=== PATIENT | female | born 1970 | race Caucasian/White ===

== ENCOUNTER → 2018-04-03 | Outpatient (CLI) | payer MEDICARE, OTHER ==
--- NOTE | 2018-04-07 08:11 | MM ---
Reason for exam: screening (asymptomatic). Last mammogram was performed 2 years and 10 months ago. History: Family history of breast cancer in maternal aunt at age 55, breast cancer in maternal cousin at age 27, and breast cancer in mother at age 73. Cancelled Right Needle Localization of the right breast, November 18, 2012. Physical Findings: A clinical breast exam by your physician is recommended on an annual basis and results should be correlated with mammographic findings. MG 3D Screening Mammo W/Cad Bilateral CC, MLO, and XCCL view(s) were taken. Prior study comparison: June 07, 2015, bilateral MG screening mammo w CAD. May 20, 2014, bilateral MG diagnostic mammo w CAD TEOFILO. The breast tissue is heterogeneously dense. This may lower the sensitivity of mammography. No significant changes when compared with prior studies. ASSESSMENT: Benign, BI-RAD 2 RECOMMENDATION: Routine screening mammogram of both breasts in 1 year.
== END | disposition home or self-care (01) ==
LOC: RADMAMWWP 10:52
PROVIDERS: ATTEND Family Medicine
DX: Z12.31 Encounter for screening mammogram for malignant neoplasm of breast (principal)
CPT/HCPCS: 77063; 77067

== ENCOUNTER → 2018-12-05 | Outpatient (CLI) | payer MEDICARE, OTHER ==
[2018-12-05 14:01] VITALS: BP 126/59; PULSE 85; RESP 18; TEMP 96.8; BMI 68.9
--- NOTE | 2018-12-05 15:00 | P.GSHP ---
History of Present Illness H&P Date: 12/05/18 Chief Complaint: BRCA testing Hillary is a 47-year-old white female who comes for breast evaluation. [place] [id number] and was a BIRADS 2. This was a 3-D mammogram. The patient does not feel anything of concern in her breast. She has no nipple discharge or skin changes. She has not had any breast biopsies. No trauma or infection to the breast. She has no complaint of any breast pain. A Daniela Risk assesment was done on the patient her 5 year breast cancer risk is 2% and her lifetime risk is 18.1%. Family History: 1. maternal aunt: breast cancer at 40's, recurrence (went into a study not know results of study, told she was [employer]) 2. maternal cousin: breast cancer stage 4 at 28, delivered baby early and had chemo and is alive 15 years later, BRCA test ? done 3. mother: breast cancer at 72 Hormoanl History: menarche: 9 : first at 19, 4, children 3, 1 [place], breast fed: yes peroids: irregular BCP: no hormones: no Past surgical history: 1. 3 C-sections 2. 2 umbilical hernia repairs 3. Tubal ligation 4. Cholecystectomy (jaundice) Past Medical History: 1. obesity 2. DJD disease 3. gout 4. hormonal imbalance/zoloft 5. heel spur 6. arthritis Social History: smoke: no alcohol: monthly drugs: marijuana on occasion - Constitutional Constitutional: Denies chills, Denies fever - EENT Comment: wears glasses Eyes: denies blurred vision, denies pain Ears: bilateral: decreased hearing (needs a hearing test), deny: tinnitus Ears, nose, mouth and throat: Reports sore throat, Denies headache - Breasts Breasts: bilateral: as per HPI - Cardiovascular Cardiovascular: Denies chest pain, Denies shortness of breath - Respiratory Comment: chronic bronchitis Respiratory: Reports cough - Gastrointestinal Gastrointestinal: Denies abdominal pain, Denies diarrhea, Denies nausea, Denies vomiting - Genitourinary (Female) Comment: UTI - Menstruation Menstruation: Reports menses variable - Musculoskeletal Comment: arthritis - Integumentary Integumentary: Denies pruritus, Denies rash - Neurological Neurological: Denies numbness, Denies weakness - Psychiatric Psychiatric: Reports anxiety - Endocrine Endocrine: Reports fatigue, Reports weight change - Hematologic/Lymphatic Comment: Bleeds easily, family history of hemophilia - Allergic/Immunologic Allergic/Immunologic: Reports seasonal allergies 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 but denies depression History of Any Multi-Drug Resistant Organisms: MRSA Date of last positivie culture/infection: 05/24/16 MDRO Source:: RIGHT LEG Past Surgical History: Section, Cholecystectomy, Hernia Repair Additional Past Surgical History / Comment(s): 3, tubal ligation, hernia repair 2 Past Anesthesia/Blood Transfusion Reactions: No Reported Reaction Past Psychological History: Anxiety Smoking Status: Never smoker Past Alcohol Use History: Occasional Additional Past Alcohol Use History / Comment(s): Patient states she is a lifelong nonsmoker. She has used marijuana in the past occasionally. She denies any other street drug use. She lives with HER-2 adult sons and brother- in-law. There are 9 dogs in the home along with 3 cats that stay in the basement, a bunny. Past Drug Use History: Marijuana Additional Drug Use History / Comment(s): used in past per pt - Past Family History Mother Family Medical History: Congestive Heart Failure (CHF), Diabetes Mellitus Medications and Allergies Home Medications Medication Instructions Recorded Confirmed Type ALPRAZolam [Xanax] 1 mg PO BID 12/22/14 12/05/18 History Albuterol Inhaler [Ventolin Hfa 2 puff INHALATION RT-Q6H PRN 12/22/14 12/05/18 History Inhaler] Albuterol Nebulized [Ventolin 2.5 mg INHALATION RT-Q6H PRN 12/22/14 12/05/18 History Nebulized] Allopurinol [Zyloprim] 100 mg PO DAILY 12/22/14 12/05/18 History Cholecalciferol [Vitamin D3] 4,000 unit PO DAILY@1200 12/22/14 12/05/18 History Furosemide [Lasix] 40 mg PO DAILY PRN 12/22/14 12/05/18 History Potassium Chloride 20 meq PO DAILY PRN 12/22/14 12/05/18 History Sertraline [Zoloft] 100 mg PO DAILY 12/22/14 12/05/18 History traMADol HCl [Ultram] 100 mg PO Q6H PRN 12/22/14 12/05/18 History Ibuprofen [Motrin] 600 mg PO Q6HR PRN 03/12/16 12/05/18 History SILVER sulfADIAZINE Cream 1 applic TOPICAL DAILY applic 05/28/16 12/05/18 Rx [Silvadene 1% Cream] Allergies Allergy/AdvReac Type Severity Reaction Status Date / Time codeine Allergy Nausea & Verified 12/05/18 14:10 Vomiting iodine Allergy Unknown Verified 12/05/18 14:10 morphine Allergy Unknown Verified 12/05/18 14:10 Surgical - Exam Vital Signs Temp Pulse Resp BP Pulse Ox 96.8 F L 85 18 126/59 96 12/05/18 13:22 12/05/18 13:22 12/05/18 13:22 12/05/18 13:22 12/05/18 13:22 BMI 68.9 - General obese - Eyes normal ocular movement - ENT no hearing loss, no congestion - Neck no masses, trachea midline - Respiratory normal respiratory effort, clear to auscultation - Cardiovascular Rhythm: regular Heart Sounds: normal: S1, S2 - Abdomen Abdomen: soft, non tender, no guarding, no rigid, no rebound - Integumentary Abdomen well-healed scar from prior surgery, patient has a healing wound in the midportion of this incision she states that she scratched this area - Neurologic no disoriented, no combative - Musculoskeletal difficulty with ambulation related to weight and DJD - Psychiatric oriented to time, oriented to person, oriented to place, speech is normal, memory intact Breast examination: Right breast: Multi-positional exam no dominant mass or not is of concern Right axilla: No adenopathy of concern Left breast: Multi-positional exam no dominant mass or not his of concern Left axilla: No adenopathy of concern Results Mammogram results reviewed Assessment and Plan Assessment: Impression: 1. fibrocystic breast changes 2. Most recent mammogram March 2018 BIRADS 2 3. Family history breast cancer 4. High risk breast cancer 5. Degenerative joint disease 6.morbid obesity 7. gout Plan: 1. Genetic counseling possible BRCA1 testing 2. Referral for possible bariatric surgery 3. Medical management of medical conditions 4. Bilateral mammogram March 2019 with physician exam at that time CC: Cortes Lomeli
== END | disposition home or self-care (01) ==
LOC: WWCWWP 13:01
PROVIDERS: ATTEND Surgery
DX: Z53.9 Procedure and treatment not carried out, unspecified reason (principal)

== ENCOUNTER → 2018-12-10 | Outpatient (CLI) | payer MEDICARE, OTHER ==
--- NOTE | 2018-12-11 01:44 | US ---
EXAMINATION TYPE: US carotid duplex BILAT DATE OF EXAM: 12/10/2018 COMPARISON: NONE CLINICAL HISTORY: 47-year-old female R09.89 circulatory symptoms. Bruit, no h/o stroke TECHNIQUE: Carotid duplex ultrasound examination. Indirect Doppler criteria was utilized. FINDINGS: EXAM MEASUREMENTS: RIGHT: Peak Systolic Velocity (PSV) cm/sec ----- Right CCA: 125.3 ----- Right ICA: 110.6 ----- Right ECA: 87.5 ICA/CCA ratio: 0.9 RIGHT: End Diastole cm/sec ----- Right CCA: 20.4 ----- Right ICA: 30.3 ----- Right ECA: 17.1 LEFT: Peak Systolic Velocity (PSV) cm/sec ----- Left CCA: 98.6 ----- Left ICA: 110.2 ----- Left ECA: 127.2 ICA/CCA ratio: 1.1 LEFT: End Diastole cm/sec ----- Left CCA: 23.3 ----- Left ICA: 34.4 ----- Left ECA: 23.7 VERTEBRALS (direction of flow): Right Vertebral: Antegrade Left Vertebral: Antegrade Rhythm: Normal Lawn Sprinkler Servicer notes: Morbidly obese patient who kept talking during exam Lawn Sprinkler Servicer notes: Mild homogeneous plaque with no significant stenosis seen. IMPRESSION: No hemodynamically significant stenosis appreciated in either internal carotid artery. Criteria for Assigning % of Stenosis / Diameter reduction (Estimation based on the indirect measurements of the internal carotid artery velocities (ICA PSV). 1. Normal (no stenosis)=ICA PSV < 125 cm/s: ratio < 2.0: ICA EDV<40 cm/s. 2. Less than 50% stenosis=ICA PSV < 125 cm/s: ratio < 2.0: ICA EDV<40 cm/s. 3. 50 to 69% stenosis=ICA PSV of 125 to 230 cm/s: ration 2.0 ? 4.0: ICA EDV 40-100 cm/s. 4. Greater than 70% stenosis to near occlusion= ICA PSV > 230 cm/s: ratio > 4.0: ICA EDV > 100 cm/s. 5. Near occlusion= ICA PSV velocities may be low or undetectable: variable ratio and ICA EDV. 6. Total occlusion=unable to detect flow.
== END ==
LOC: RADUSWWP 16:51
PROVIDERS: ATTEND Family Medicine
DX: R09.89 Other specified symptoms and signs involving the circulatory and respiratory systems (principal)
CPT/HCPCS: 93880

== ENCOUNTER → 2019-05-28 | Outpatient (CLI) | payer MEDICARE, OTHER ==
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
== END | disposition home or self-care (01) ==
LOC: SLEEP 16:22
PROVIDERS: ATTEND Internal Medicine
DX: G47.33 Obstructive sleep apnea (adult) (pediatric) (principal); M54.5 Low back pain; M51.36 Other intervertebral disc degeneration, lumbar region; M10.9 Gout, unspecified; Z79.1 Long term (current) use of non-steroidal anti-inflammatories (NSAID); Z79.899 Other long term (current) drug therapy; Z91.013 Allergy to seafood; Z86.59 Personal history of other mental and behavioral disorders; Z79.891 Long term (current) use of opiate analgesic; Z98.890 Other specified postprocedural states; Z90.49 Acquired absence of other specified parts of digestive tract
CPT/HCPCS: 99211

== ENCOUNTER → 2019-10-29 | Outpatient (CLI) | payer MEDICARE, OTHER ==
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
== END | disposition home or self-care (01) ==
LOC: SLEEP 14:48
PROVIDERS: ATTEND Internal Medicine
DX: G47.33 Obstructive sleep apnea (adult) (pediatric) (principal); E66.9 Obesity, unspecified; Z86.59 Personal history of other mental and behavioral disorders; M51.36 Other intervertebral disc degeneration, lumbar region; M10.9 Gout, unspecified; G47.61 Periodic limb movement disorder; Z90.49 Acquired absence of other specified parts of digestive tract; Z98.890 Other specified postprocedural states; Z79.1 Long term (current) use of non-steroidal anti-inflammatories (NSAID); Z79.891 Long term (current) use of opiate analgesic; Z79.899 Other long term (current) drug therapy

== ENCOUNTER → 2020-07-07 | Outpatient (CLI) | payer MEDICARE, OTHER ==
--- NOTE | 2020-07-07 15:33 | XR ---
EXAMINATION TYPE: XR mandible complete DATE OF EXAM: 07/07/2020 COMPARISON: NONE HISTORY: Jaw pain TECHNIQUE: 5 views of the mandible are submitted for evaluation FINDINGS: There is no evidence for fracture. TMJs appear symmetric. No osseous lesions are noted. No bony destructive process seen. IMPRESSION: Grossly unremarkable study.
== END | disposition home or self-care (01) ==
LOC: RADXRMAIN 14:56
PROVIDERS: ATTEND Nurse Practitioner Family
DX: R68.84 Jaw pain (principal)
CPT/HCPCS: 70110

== ENCOUNTER → 2020-09-13 | Outpatient (CLI) | payer MEDICARE, OTHER ==
--- NOTE | 2020-09-13 18:21 | BD ---
EXAMINATION TYPE: Axial Bone Density DATE OF EXAM: 09/13/2020 COMPARISON: NONE CLINICAL HISTORY: 49-year-old female Z78.0, menopausal state Height: 5 FT 6 IN Weight: 461 FRAX RISK QUESTIONS: Alcohol (3 or more units per day): NO Family History (Parent hip fracture): NO Glucocorticoids (More than 3mos): NO (Ex: prednisone, prednisolone, methylprednisolone, dexamethasone, and hydrocortisone). History of Fracture in Adulthood: YES Secondary Osteoporosis: 1. Type 1 Diabetes: NO 2. Hyperthyroidism: NO 3. Menopause before 45: NO 4. Malnutrition: NO 5. Chronic liver disease: NO Rheumatoid Arthritis: NO Current Tobacco Use: NO RISK FACTORS HISTORY OF: Family History of Osteoporosis: NO Active: NO Diet low in dairy products/other sources of calcium: NO Postmenopausal woman: NO If Premenopausal, do you have irregular periods: YES Take estrogen and/or progesterone medications: NONE Lost more than 2 inches in height since high school: YES Frequent falls: UNSTEADY WITH OUT USE OF CANE MEDICATIONS: Additional Medications: METFORMIN, ZOLOFT, VIT D, LISINOPRIL, ALLOPURINOL, LASIX, POTASSIUM ,CRANBERR Y Additional History: PT OVER TABLE WEIGHT LIMIT DID BOTH WRISTS EXAM MEASUREMENTS: Bone mineral density about the R Wrist (g/cm2): 0.895 Bone mineral density about the L Wrist (g/cm2): 0.869 T Score values are as follows: -----Dist. R+U: RT3.5 LT 3.0 -----Prox. R+U: RT 1.2 LT 1.4 -----Radius total: RT 5.3 LT 3.8 BASELINE IMPRESSION: Patient was over the table weight limit so routine measurements could not be obtained at the hips or lumbar spine. Normal (Values between +1 and -1 indicate normal bone mass) as measured in the bilateral forearms. Consider repeating this study in 5 years or sooner if there is some new clinical indication. NOTE: T-SCORE=SD OF THE YOUNG ADULT MEAN.
--- NOTE | 2020-09-14 13:01 | MM ---
Reason for exam: screening (asymptomatic). Last mammogram was performed 2 years and 5 months ago. History: Family history of breast cancer in maternal aunt at age 55, breast cancer in maternal cousin at age 27, and breast cancer in mother at age 73. Cancelled Right Needle Localization of the right breast, November 18, 2012. Physical Findings: A clinical breast exam by your physician is recommended on an annual basis and results should be correlated with mammographic findings. MG Screening Mammo w CAD Bilateral CC and MLO view(s) were taken. Prior study comparison: April 03, 2018, bilateral MG 3d screening mammo w/cad. June 07, 2015, bilateral MG screening mammo w CAD. The breast tissue is heterogeneously dense. This may lower the sensitivity of mammography. Finding: There are typically benign round, diffuse/scattered and regional calcifications in the right breast. There is no discrete abnormality. ASSESSMENT: Benign, BI-RAD 2 RECOMMENDATION: Routine screening mammogram of both breasts in 1 year.
== END | disposition home or self-care (01) ==
LOC: RADMAMWWP 13:47
PROVIDERS: ATTEND Family Medicine
DX: Z12.31 Encounter for screening mammogram for malignant neoplasm of breast (principal); Z78.0 Asymptomatic menopausal state
CPT/HCPCS: 77067; 77080

== ENCOUNTER → 2021-03-01 | Outpatient (CLI) | payer MEDICARE, OTHER ==
--- NOTE | 2021-03-01 15:01 | XR ---
EXAMINATION TYPE: XR hand complete LT DATE OF EXAM: 03/01/2021 CLINICAL HISTORY: pain TECHNIQUE: Frontal, lateral and oblique images of the left hand are obtained. COMPARISON: None. FINDINGS: There is no acute fracture/dislocation evident. The joint spaces appear within normal limi ts. The overlying soft tissue appears unremarkable. IMPRESSION: There is no acute fracture or dislocation. ICD 10 NO FRACTURE, INITIAL EVALUATION
== END | disposition home or self-care (01) ==
LOC: RADXRMAIN 14:37
PROVIDERS: ATTEND Nurse Practitioner
DX: M79.642 Pain in left hand (principal)

== ENCOUNTER → 2021-04-27 | Outpatient (CLI) | payer MEDICARE, OTHER ==
[2021-04-27 14:37] LABS: Basophils # (A) 0.04 X 10*3/uL (0.00-0.10); Basophils % (A) 0.5 %; Eosinophils % (A) 2.5 %; HCT 38.4 % (37.2-46.3); HGB 12.5 g/dL (12.0-15.0); Lymphocytes # (A) 1.39 X 10*3/uL (0.90-5.00); Lymphocytes % (A) 17.6 %; MCH 30.1 pg (27.0-32.0); MCHC 32.6 g/dL (32.0-37.0); MCV 92.5 fL (80.0-97.0); Mean Platelet Volume 11.3 fL (9.5-12.2); Monocytes # (A) 0.41 X 10*3/uL (0.20-1.00); Monocytes % (A) 5.2 %; Neutrophils # (A) 5.85 X 10*3/uL (1.80-7.70); Neutrophils % (A) 73.9 %; Platelet Count 286 X 10*3/uL (140-440); RBC 4.15 X 10*6/uL (4.10-5.20); RDW 14.2 % (11.5-14.5); WBC 7.91 X 10*3/uL (4.50-10.00)
[2021-04-27 15:25] LABS: Estradiol 70.8 pg/mL; Follicle Stimulating Hormone 7.7 mIU/mL
[2021-04-27 15:50] LABS: Progesterone 0.7 ng/mL; Thyroid Peroxidase Antibodies <28.0 U/mL (0.0-60.0)
== END | disposition home or self-care (01) ==
LOC: LABWHC1 10:41
PROVIDERS: ATTEND Midwife
DX: N92.6 Irregular menstruation, unspecified (principal)
CPT/HCPCS: 36415; 82670; 83001; 84144; 84403; 84443; 85025; 86376; 86800

== ENCOUNTER → 2021-11-30 | Outpatient (CLI) | payer MEDICARE, OTHER ==
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
== END ==
LOC: SLEEP 16:27
PROVIDERS: ATTEND Internal Medicine
DX: G47.33 Obstructive sleep apnea (adult) (pediatric) (principal); E66.01 Morbid (severe) obesity due to excess calories; F32.A Depression, unspecified; F41.9 Anxiety disorder, unspecified; M10.9 Gout, unspecified; G47.61 Periodic limb movement disorder; Z90.49 Acquired absence of other specified parts of digestive tract; Z87.39 Personal history of other diseases of the musculoskeletal system and connective tissue; Z98.890 Other specified postprocedural states; Z99.89 Dependence on other enabling machines and devices; Z87.59 Personal history of other complications of pregnancy, childbirth and the puerperium; Z87.828 Personal history of other (healed) physical injury and trauma; Z88.5 Allergy status to narcotic agent; Z88.6 Allergy status to analgesic agent; Z91.041 Radiographic dye allergy status

== ENCOUNTER → 2022-01-12 | Outpatient (CLI) | payer MEDICARE, OTHER ==
--- NOTE | 2022-01-12 15:13 | US ---
EXAMINATION TYPE: US venous doppler duplex LE BI DATE OF EXAM: 01/12/2022 2:54 PM COMPARISON: NONE CLINICAL HISTORY: M79.651 PAIN IN RT THIGH. Right leg pain SIDE PERFORMED: Bilateral TECHNIQUE: The lower extremity deep venous system is examined utilizing real time linear array sonog tennille with graded compression, doppler sonography and color-flow sonography. VESSELS IMAGED: Common Femoral Vein Deep Femoral Vein Greater Saphenous Vein * Femoral Vein Popliteal Vein Small Saphenous Vein * Proximal Calf Veins (* superficial vessels) Right Leg: Negative for DVT Left Leg: Negative for DVT No DVT seen at this time. Limited exam due to patient body habitus. Grayscale, color doppler, spectral doppler imaging performed of the deep veins of the bilateral lower extremities. There is normal flow, compressibility, vascular waveforms. IMPRESSION: Suboptimal study without convincing evidence of acute DVT in either lower extremity.
--- NOTE | 2022-01-12 15:23 | XR ---
EXAMINATION TYPE: XR lumbosacral spine min 4V DATE OF EXAM: 01/12/2022 CLINICAL HISTORY: Low back pain. Intervertebral disc degeneration. TECHNIQUE: Frontal, lateral, and oblique images of the lumbar spine are obtained. COMPARISON: None FINDINGS: There are 5 lumbar type vertebral bodies identified. The lumbar spine shows straightened alignment without evidence of acute fracture or dislocation. Vertebral body heights and disk space he ights are within normal limits. Mild multilevel anterior and lateral spurring. The oblique images ap pear within normal limits. The overlying soft tissue appears unremarkable. IMPRESSION: As above.
== END | disposition home or self-care (01) ==
LOC: RADUSWWP 14:11
PROVIDERS: ATTEND Family Medicine
DX: M79.651 Pain in right thigh (principal); M25.78 Osteophyte, vertebrae
CPT/HCPCS: 72110; 93970

== ENCOUNTER → 2022-06-19 | Outpatient (CLI) | payer MEDICARE, OTHER ==
--- NOTE | 2022-06-19 15:52 | USB ---
Reason for Exam: Clinical finding. Patient History: Menarche at age 9. First Full-Term at age 19. 11/18/2012, Cancelled Right Needle Localization on the right side. Maternal cousin had breast cancer, age 27. Maternal aunt had breast cancer, age 55. Mother had breast cancer, age 73. Risk Values: Daniela 5 year model risk: 2.3%. NCI Lifetime model risk: 17.0%. Technique: Method: Targeted. Prior Study Comparison: 04/03/2018 Bilateral Screening Mammogram, [facility]. 09/13/2020 Bilateral Screening Mammogram, [facility]. 06/13/2022 Bilateral MG 3D screening mammo w/cad, [facility]. Findings: The upper section of the breast of the right breast, the axilla of the right breast and the retroareolar of the right breast were scanned. There is an irregular shaped mass with parallel orientation with angular margins in the right breast 10 to 12 cm from the nipple at 1:00. This is hypoechoic with echogenic halo and measures 1.7 x 1.2 x 1.6 cm. There is some internal vascularity identified. No abnormal right axillary lymph nodes identified. Overall Assessment: Highly suggestive of malignancy, BI-RAD 5 Management: Ultrasound Core Biopsy of the right breast. A clinical breast exam by your physician is recommended on an annual basis and results should be correlated with mammographic findings. Electronically signed and approved by: Kevin James D.O.
--- NOTE | 2022-06-19 15:52 | MM ---
Reason for Exam: Additional evaluation requested from abnormal screening. Last screening mammogram was performed less than 1 month ago. Patient History: Menarche at age 9. First Full-Term at age 19. 11/18/2012, Cancelled Right Needle Localization on the right side. Maternal cousin had breast cancer, age 27. Maternal aunt had breast cancer, age 55. Mother had breast cancer, age 73. Risk Values: Daniela 5 year model risk: 2.3%. NCI Lifetime model risk: 17.0%. Prior Study Comparison: 10/27/2012 Right Diagnostic Mammogram, [facility]. 11/07/2012 Right Diagnostic Ultrasound, [facility]. 04/03/2018 Bilateral Screening Mammogram, [facility]. 09/13/2020 Bilateral Screening Mammogram, [facility]. 06/13/2022 Bilateral MG 3D screening mammo w/cad, [facility]. Tissue Density: Right: There are scattered fibroglandular densities. Findings: Analyzed By CAD. Grouped fine pleomorphic calcifications within the upper outer anterior right breast. Persistent focal asymmetry corresponds to palpable marker in the upper inner right breast middle depth with compression. Overall Assessment: Suspicious, BI-RAD 4 Management: Stereotactic Core Biopsy of the right breast. Diagnostic Breast Ultrasound of the right breast. A clinical breast exam by your physician is recommended on an annual basis and results should be correlated with mammographic findings. This exam should not preclude additional follow-up of suspicious palpable abnormalities. Results were given to the patient verbally at the time of exam. Electronically signed and approved by: Kevin James D.O.
== END | disposition home or self-care (01) ==
LOC: RADMAMWWP 14:48
PROVIDERS: ATTEND Family Medicine
DX: R92.8 Other abnormal and inconclusive findings on diagnostic imaging of breast (principal); Z80.3 Family history of malignant neoplasm of breast
CPT/HCPCS: 77065; 76642; G0279; 77061

== ENCOUNTER → 2022-06-22 | Outpatient (CLI) | payer MEDICARE, OTHER ==
[2022-06-22 10:21] VITALS: BP 132/82; PULSE 78; RESP 19; TEMP 98.8
--- NOTE | 2022-06-22 10:49 | P.GSHP ---
History of Present Illness H&P Date: 06/22/22 Chief Complaint: abnorml right breast mammogram Ligia is a 51 year old whtie female seen in consultation for Dr. Farris regarding right breast radiographic abnormalities. The felt a lump in her right breast for several weeks prior to her mammogram. [place] [address]. This did not reveal any lesions of concern in the left breast. In the right breast there was a nodular abnormality as well as some microcalcifications of concern in the upper outer quadrant area. She then underwent additional views of the right breast which again confirmed pleomorphic calcifications in the upper outer anterior right breast for which stereotactic core biopsy was recommended. Additionally an ultrasound was recommended. The ultrasound was performed which revealed a lesion for which ultrasound-guided core biopsy was recommended. This corresponded to the asymmetry seen on the mammogram. Her last mammogram was 1 year ago and this was benign. The patient is not complaining of any trauma or infection in her breast. She is complaining of any lumps in the left breast. She has not had any surgery on her breast. Caffeine: 20 oz/day nicotine: none BCP: never chocolate: none diabetic Family History: 1. Maternal aunt: Breast cancer at 40s, recurrence, with into a study not know the results of the study, told she was Aleta 2. Maternal cousin: Breast cancer stage IV at 28 delivered baby early and had chemo and is alive 15 years later, 3. Mother: Breast cancer a 72 Hormonal history: Menarche: 9 : First a 19, , 1, breast-fed: Yes Periods: last period 6 months ago BCP:none hormones: none Surgical History: C-sections 2 umbilical hernia repairs Tubal ligation Cholecystectomy Medical history: Obesity Degenerative joint disease Gout Hormone imbalance/depression Heel spur Arthritis diabetic Social history: Smoke: Negative Alcohol: Occasional Drugs: Marijuana rarely - Constitutional Constitutional: Reports fever, Reports sweats - EENT Comment: wears glasses Ears: bilateral: tinnitus (occasional) Ears, nose, mouth and throat: Denies headache, Denies sore throat - Breasts Breasts: bilateral: as per HPI - Cardiovascular Cardiovascular: Reports shortness of breath, Denies chest pain - Respiratory Respiratory: Reports cough - Gastrointestinal Gastrointestinal: Denies abdominal pain, Denies diarrhea, Denies nausea, Denies vomiting - Genitourinary (Female) Genitourinary: Denies dysuria, Denies hematuria - Menstruation Menstruation: Reports as per HPI - Musculoskeletal Comment: arthritis/ uses a wheel chair - Integumentary Integumentary: Denies pruritus, Denies rash - Neurological Neurological: Reports numbness, Denies weakness - Psychiatric Psychiatric: Reports anxiety, Reports depression - Endocrine Comment: diabetes - Hematologic/Lymphatic Comment: none - Allergic/Immunologic Allergic/Immunologic: Reports seasonal allergies 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 but denies depression History of Any Multi-Drug Resistant Organisms: MRSA Date of last positivie culture/infection: 05/24/16 MDRO Source:: RIGHT LEG Past Surgical History: Section, Cholecystectomy, Hernia Repair Additional Past Surgical History / Comment(s): 3, tubal ligation, hernia repair 2 Past Anesthesia/Blood Transfusion Reactions: No Reported Reaction Past Psychological History: Anxiety, Depression Smoking Status: Never smoker Past Alcohol Use History: Occasional Additional Past Alcohol Use History / Comment(s): Patient states she is a lifelong nonsmoker. She has used marijuana in the past occasionally. She denies any other street drug use. She lives with HER-2 adult sons and [id number]. There are 9 dogs in the home along with 3 cats that stay in the basement, a bunny. Past Drug Use History: Marijuana Additional Drug Use History / Comment(s): used in past per pt - Past Family History Mother Family Medical History: Congestive Heart Failure (CHF), Diabetes Mellitus Medications and Allergies Home Medications Medication Instructions Recorded Confirmed Type Albuterol Inhaler [Ventolin Hfa 2 puff INHALATION RT-Q6H PRN 12/22/14 06/22/22 History Inhaler] Albuterol Nebulized [Ventolin 2.5 mg INHALATION RT-Q6H PRN 12/22/14 06/22/22 History Nebulized] Cholecalciferol [Vitamin D3 (25 4,000 unit PO DAILY@1200 12/22/14 06/22/22 History Mcg = 1000 Iu)] Furosemide [Lasix] 40 mg PO DAILY PRN 12/22/14 06/22/22 History Potassium Chloride 20 meq PO DAILY PRN 12/22/14 06/22/22 History Sertraline [Zoloft] 100 mg PO DAILY 12/22/14 06/22/22 History allopurinoL [Zyloprim] 100 mg PO DAILY 12/22/14 06/22/22 History Atorvastatin [Lipitor] 20 mg PO DAILY 06/20/22 06/22/22 History Dulaglutide [Trulicity] 1.5 mg SQ WEEKLY 06/20/22 06/22/22 History lisinopriL [Zestril] 5 mg PO DAILY 06/20/22 06/22/22 History metFORMIN HCL [Metformin HCl] 1,000 mg PO DAILY 06/20/22 06/22/22 History Allergies Allergy/AdvReac Type Severity Reaction Status Date / Time codeine Allergy Nausea & Verified 06/22/22 10:16 Vomiting iodine Allergy Unknown Verified 06/22/22 10:16 morphine Allergy Unknown Verified 06/22/22 10:16 Surgical - Exam Vital Signs Temp Pulse Resp BP 98.8 F 78 19 132/82 06/22/22 10:18 06/22/22 10:18 06/22/22 10:18 06/22/22 10:18 BMI: 71.8 - General no distress - Eyes normal ocular movement - Neck trachea midline - Respiratory normal respiratory effort, clear to auscultation - Cardiovascular Heart Sounds: normal: S1, S2 - Integumentary wheel chair used - Neurologic no disoriented, no combative - Musculoskeletal in wheel chair - Psychiatric oriented to time, oriented to person, oriented to place, speech is normal, memory intact Breast Exam: 54DDD inspection: Bilateral grade 3 ptosis Palpation: Right breast: examination in wheelchair 12 o'clock position increased nodularity corresponding with radiographic findings, no other dominant masses or notches of concern Right axilla: No adenopathy of concern Left breast: Examination in wheelchair no dominant masses or nodules of concern Left axilla: No adenopathy of concern Results Mammogram reviewed in detail with Dr. Pichardo Assessment and Plan Assessment: Impression: Obesity Degenerative joint disease Gout Hormone imbalance/depression Heel spur Arthritis diabetic Mammographic abnormality right breast/microcalcifications/asymmetry confirmed to be nodularity on ultrasound Plan: Stereotactic core biopsy right breast/recommend upright stereo biopsy Ultrasound core biopsy lesion right breast Patient follow-up after biopsies done for results Cc: Dr. Farris
== END ==
LOC: WWCWWP 09:51
PROVIDERS: ATTEND Surgery
DX: R92.8 Other abnormal and inconclusive findings on diagnostic imaging of breast (principal); E66.9 Obesity, unspecified; M19.90 Unspecified osteoarthritis, unspecified site; M10.9 Gout, unspecified; F32.A Depression, unspecified; M77.30 Calcaneal spur, unspecified foot; E11.9 Type 2 diabetes mellitus without complications; F41.9 Anxiety disorder, unspecified; Z88.5 Allergy status to narcotic agent; Z79.84 Long term (current) use of oral hypoglycemic drugs; Z91.041 Radiographic dye allergy status; Z68.45 Body mass index [BMI] 70 or greater, adult

== ENCOUNTER → 2022-06-26 | Day surgery (SDC) | payer MEDICARE, OTHER ==
--- NOTE | 2022-07-03 09:31 | MM ---
Reason for Exam: Post Procedure Mammogram. Last screening mammogram was performed less than 1 month ago. Patient History: Menarche at age 9. First Full-Term at age 19. 11/18/2012, Cancelled Right Needle Localization on the right side. Maternal cousin had breast cancer, age 27. Maternal aunt had breast cancer, age 55. Mother had breast cancer, age 73. Risk Values: Daniela 5 year model risk: 2.3%. NCI Lifetime model risk: 17.0%. Prior Study Comparison: 09/13/2020 Bilateral Screening Mammogram, [facility]. 06/13/2022 Bilateral MG 3D screening mammo w/cad, [facility]. 06/19/2022 Right MG 3D work up w/cad RT, [facility]. Tissue Density: Right: The breast tissue is heterogeneously dense. This may lower the sensitivity of mammography. Pathology Description: Location: 1 o'clock. Marker Left Behind. Cores: 3 Skin Nicks: 1 Gauge: 12 The procedure of ultrasound guided core biopsy was explained to the patient. Benefits, alternatives, and risks were discussed. An informed consent was then obtained. The patient was placed in supine positioning for imaging and for the procedure. Preprocedure ultrasound redemonstrates heterogeneous hypoechoic lobulated area or lesion with central vascularity measuring near 2.7 cm long axis at 1:00 position 12 cm distance from nipple in the right breast. The overlying skin was prepped and draped in usual sterile fashion. Lidocaine is used as anesthetic into the skin and subcutaneous tissue . Lidocaine with epinephrine is used as anesthetic into the deeper tissue up to area of concern in the right breast. A domo was made with surgical scalpel. Under ultrasound guidance, a vacuum assisted biopsy gun device was used to obtain 3 core samples. Following this, a biopsy clip was left in lesion. The patient tolerated the procedure well without any immediate complication. The patient was kept in the radiology department for short stay after the procedure and then discharged home in stable condition. Postprocedure mammogram: The patient was transferred to mammography for physician ordered post procedure mammogram for clip placement verification. Mammogram confirms successful placement of placement of clip in the upper inner aspect middle depth right breast Impression: Successful, uncomplicated ultrasound guided core biopsy of area of concern in the right breast, full pathology results to follow. Intermediate to high index of suspicion noted at time of procedure. Pathology Results: Result: Malignant, Invasive ductal carcinoma. RIGHT BREAST, 1:00, ULTRASOUND GUIDED NEEDLE CORE BIOPSY: Invasive moderately differentiated ductal carcinoma (grade 2) and grade 1-2 DCIS. See Surgical Pathology Cancer Case Summary and Comment. Overall Assessment: Malignant Assessment: MG diagnostic mammo RT wo CAD - Right: Known biopsy proven malignancy, BI-RAD 6. Management: Surgical Consultation of the right breast. Electronically signed and approved by: Carmelo Gilmore M.D.
== END ==
LOC: RADUSWWP 12:44
PROVIDERS: ATTEND Surgery
DX: N63.10 Unspecified lump in the right breast, unspecified quadrant (principal); Z80.3 Family history of malignant neoplasm of breast
CPT/HCPCS: 88305; 88342; 88341; 77065; 19083; A4648

== ENCOUNTER → 2022-07-19 | Outpatient (CLI) | payer MEDICARE, OTHER ==
[2022-07-19 10:44] VITALS: BP 148/81; PULSE 81; RESP 17; TEMP 98.3
--- NOTE | 2022-07-19 11:14 | P.PN ---
Subjective Progress Note Date: 07/19/22 Principal diagnosis: Stage I a right breast invasive ductal carcinoma, seconds sight stage 0 ductal carcinoma in situ Ligia is a 51 year old white female seen in consultation for Dr. Farris regarding right breast radiographic abnormalities. She felt a lump in her right breast for several weeks prior to her mammogram. [place] [id number]. This did not reveal any lesions of concern in the left breast. In the right breast there was a nodular abnormality as well as some microcalcifications of concern in the upper outer quadrant area. She then underwent additional views of the right breast which again confirmed pleomorphic calcifications in the upper outer anterior right breast for which stereotactic core biopsy was recommended. Additionally an ultrasound was recommended. The ultrasound was performed which revealed a lesion for which ultrasound-guided core biopsy was recommended. This corresponded to the asymmetry seen on the mammogram. Her last mammogram was 1 year ago and this was benign. The patient is not complaining of any trauma or infection in her breast. She is complaining of any lumps in the left breast. She has not had any surgery on her breast. 07-19-22 ultrasound core biopsy of the right breast was done on 06-26-22; this was + for invasive ductal cancer G2; ER+AK+Her2- T1 stero biopsy of the second lesion at [facility] 07-12-22 DCIS The patient was going to have genetic testing done but this is not been performed at this time. Caffeine: 20 oz/day nicotine: none BCP: never chocolate: none diabetic Family History: 1. Maternal aunt: Breast cancer at 40s, recurrence, with into a study not know the results of the study, told she was Aleta 2. Maternal cousin: Breast cancer stage IV at 28 delivered baby early and had chemo and is alive 15 years later, 3. Mother: Breast cancer a 72 Hormonal history: Menarche: 9 : First a 19, , 1, breast-fed: Yes Periods: last period 6 months ago BCP:none hormones: none Surgical History: C-sections 2 umbilical hernia repairs Tubal ligation Cholecystectomy Medical history: Obesity Degenerative joint disease Gout Hormone imbalance/depression Heel spur Arthritis diabetic Social history: Smoke: Negative Alcohol: Occasional Drugs: Marijuana rarely - Constitutional Constitutional: Reports fever, Reports sweats - EENT Comment: wears glasses Ears: bilateral: tinnitus (occasional) Ears, nose, mouth and throat: Denies headache, Denies sore throat - Breasts Breasts: bilateral: as per HPI - Cardiovascular Cardiovascular: Reports shortness of breath, Denies chest pain - Respiratory Respiratory: Reports cough - Gastrointestinal Gastrointestinal: Denies abdominal pain, Denies diarrhea, Denies nausea, Denies vomiting - Genitourinary (Female) Genitourinary: Denies dysuria, Denies hematuria - Menstruation Menstruation: Reports as per HPI - Musculoskeletal Comment: arthritis/ uses a wheel chair - Integumentary Integumentary: Denies pruritus, Denies rash - Neurological Neurological: Reports numbness, Denies weakness - Psychiatric Psychiatric: Reports anxiety, Reports depression - Endocrine Comment: diabetes - Hematologic/Lymphatic Comment: none - Allergic/Immunologic Allergic/Immunologic: Reports seasonal allergies 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 but denies depression History of Any Multi-Drug Resistant Organisms: MRSA Date of last positivie culture/infection: 05/24/16 MDRO Source:: RIGHT LEG Past Surgical History: Section, Cholecystectomy, Hernia Repair Additional Past Surgical History / Comment(s): 3, tubal ligation, hernia repair 2 Past Anesthesia/Blood Transfusion Reactions: No Reported Reaction Past Psychological History: Anxiety, Depression Smoking Status: Never smoker Past Alcohol Use History: Occasional Additional Past Alcohol Use History / Comment(s): Patient states she is a lifelong nonsmoker. She has used marijuana in the past occasionally. She denies any other street drug use. She lives with HER-2 adult sons and [id number]. There are 9 dogs in the home along with 3 cats that stay in the basement, a bunny. Past Drug Use History: Marijuana Additional Drug Use History / Comment(s): used in past per pt - Past Family History Mother Family Medical History: Congestive Heart Failure (CHF), Diabetes Mellitus Medications and Allergies Home Medications Medication Instructions Recorded Confirmed Type Albuterol Inhaler [Ventolin Hfa 2 puff INHALATION RT-Q6H PRN 12/22/14 06/22/22 History Inhaler] Albuterol Nebulized [Ventolin 2.5 mg INHALATION RT-Q6H PRN 12/22/14 06/22/22 History Nebulized] Cholecalciferol [Vitamin D3 (25 4,000 unit PO DAILY@1200 12/22/14 06/22/22 History Mcg = 1000 Iu)] Furosemide [Lasix] 40 mg PO DAILY PRN 12/22/14 06/22/22 History Potassium Chloride 20 meq PO DAILY PRN 12/22/14 06/22/22 History Sertraline [Zoloft] 100 mg PO DAILY 12/22/14 06/22/22 History allopurinoL [Zyloprim] 100 mg PO DAILY 12/22/14 06/22/22 History Atorvastatin [Lipitor] 20 mg PO DAILY 06/20/22 06/22/22 History Dulaglutide [Trulicity] 1.5 mg SQ WEEKLY 06/20/22 06/22/22 History lisinopriL [Zestril] 5 mg PO DAILY 06/20/22 06/22/22 History metFORMIN HCL [Metformin HCl] 1,000 mg PO DAILY 06/20/22 06/22/22 History Allergies Allergy/AdvReac Type Severity Reaction Status Date / Time codeine Allergy Nausea & Verified 06/22/22 10:16 Vomiting iodine Allergy Unknown Verified 06/22/22 10:16 morphine Allergy Unknown Verified 06/22/22 10:16 Objective - Vital Signs Vital signs: Vital Signs Temp 98.3 F 07/19/22 10:41 Pulse 81 07/19/22 10:41 Resp 17 07/19/22 10:41 BP 148/81 07/19/22 10:41 Pulse Ox 98 07/19/22 10:41 FiO2 Intake & Output 07/18/22 07/19/22 07/19/22 18:59 06:59 18:59 Weight 201.849 kg - Constitutional General appearance: Present: cooperative - EENT Eyes: Present: EOMI ENT: Present: hearing grossly normal - Neck Neck: Present: normal ROM - Respiratory Respiratory: bilateral: CTA - Cardiovascular Rhythm: regular Heart sounds: normal: S1, S2 - Integumentary Integumentary Comment(s): Biopsies sites right breast ultrasound core and stereo site clean and dry with no evidence of infection or hematoma - Musculoskeletal Musculoskeletal Comment(s): uses a wheel chair - Psychiatric Psychiatric: Present: A&O x's 3, appropriate affect, intact judgment & insight Assessment and Plan Assessment: Impression: Biopsy of 2 sites right breast one stage a invasive ductal carcinoma, second site DCIS this is felt to be multifocal Patient's case presented at tumor Board, there is concern that her weight may exceed the limit of the radiation table and we have discussed use of a Michelle procedure Plan: Genetic testing, if genetic testing is positive the patient wishes bilateral mastectomy If genetic testing is negative the patient may have lumpectomy of 2 sites in the right breast as well as right sentinel node injection and right sentinel node biopsy followed by radiation therapy of the standard type versus Michelle procedure versus watchful waiting Appointment radiation oncology Appointment medical oncology pre-op clearance follow up after genetic testing CC: Dr. Enrique Hope
== END | disposition home or self-care (01) ==
LOC: WWCWWP 10:06
PROVIDERS: ATTEND Surgery
DX: Z53.9 Procedure and treatment not carried out, unspecified reason (principal)

== ENCOUNTER → 2022-08-24 | Outpatient (CLI) | payer MEDICARE, OTHER ==
[2022-08-24 14:18] VITALS: BP 117/73; PULSE 74; RESP 18; TEMP 98.1
--- NOTE | 2022-08-24 14:44 | P.PN ---
Subjective Progress Note Date: 08/24/22 Principal diagnosis: right breast stage I invasive ductal breast cancer Stage I a right breast invasive ductal carcinoma, second sight stage 0 ductal carcinoma in situ Ligia is a 51 year old white female seen in consultation for Dr. Farris regarding right breast radiographic abnormalities. She felt a lump in her right breast for several weeks prior to her mammogram. [place] [id number]. This did not reveal any lesions of concern in t he left breast. In the right breast there was a nodular abnormality as well as some microcalcifications of concern in the upper outer quadrant area. She then underwent additional views of the right breast which again confirmed pleomorphic calcifications in the upper outer anterior right breast for which stereotactic core biopsy was recommended. Additionally an ultrasound was recommended. The u ltrasound was performed which revealed a lesion for which ultrasound-guided core biopsy was recommended. This corresponded to the asymmetry seen on the mammogram. Her last mammogram was 1 year ago and this was benign. The patient is not complaining of any trauma or infection in her breast. She is complaining of any lumps in the left breast. She has not had any surgery on her breast. 07-19-22 ultrasound core biopsy of the right breast was done on 06-26-22; this was + for invasive ductal cancer G2; ER+NC+Her2- T1 Oncotype was 6 it was felt there would be < 1% benefit from chemotherapy. stero biopsy of the second lesion at [facility] 07-12-22 DCIS The patient was going to have genetic testing done but this is not been performed at this time. Note 07-25-22 medical oncology reviewed Note 08-01-22 radiation oncology reviewed Patients case presented on tumor board on 07-17-22. Caffeine: 20 oz/day nicotine: none BCP: never chocolate: none diabetic Family History: 1. Maternal aunt: Breast cancer at 40s, recurrence, with into a study not know the results of the study, told she was Aleta 2. Maternal cousin: Breast cancer stage IV at 28 delivered baby early and had chemo and is alive 15 years later, 3. Mother: Breast cancer a 72 Hormonal history: Menarche: 9 : First a 19, , 1, breast-fed: Yes Periods: last period 6 months ago BCP:none hormones: none Surgical History: C-sections 2 umbilical hernia repairs Tubal ligation Cholecystectomy Medical history: Obesity Degenerative joint disease Gout Hormone imbalance/depression Heel spur Arthritis diabetic Social history: Smoke: Negative Alcohol: Occasional Drugs: Marijuana rarely - Constitutional Constitutional: Reports fever, Reports sweats - EENT Comment: wears glasses Ears: bilateral: tinnitus (occasional) Ears, nose, mouth and throat: Denies headache, Denies sore throat - Breasts Breasts: bilateral: as per HPI - Cardiovascular Cardiovascular: Reports shortness of breath, Denies chest pain - Respiratory Respiratory: Reports cough - Gastrointestinal Gastrointestinal: Denies abdominal pain, Denies diarrhea, Denies nausea, Denies vomiting - Genitourinary (Female) Genitourinary: Denies dysuria, Denies hematuria - Menstruation Menstruation: Reports as per HPI - Musculoskeletal Comment: arthritis/ uses a wheel chair - Integumentary Integumentary: Denies pruritus, Denies rash - Neurological Neurological: Reports numbness, Denies weakness - Psychiatric Psychiatric: Reports anxiety, Reports depression - Endocrine Comment: diabetes - Hematologic/Lymphatic Comment: none - Allergic/Immunologic Allergic/Immunologic: Reports seasonal allergies 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 but denies depression History of Any Multi-Drug Resistant Organisms: MRSA Date of last positivie culture/infection: 05/24/16 MDRO Source:: RIGHT LEG Past Surgical History: Section, Cholecystectomy, Hernia Repair Additional Past Surgical History / Comment(s): 3, tubal ligation, hernia repair 2 Past Anesthesia/Blood Transfusion Reactions: No Reported Reaction Past Psychological History: Anxiety, Depression Smoking Status: Never smoker Past Alcohol Use History: Occasional Additional Past Alcohol Use History / Comment(s): Patient states she is a lifelong nonsmoker. She has used marijuana in the past occasionally. She denies any other street drug use. She lives with HER-2 adult sons and [id number]. There are 9 dogs in the home along with 3 cats that stay in the basement, a bunny. Past Drug Use History: Marijuana Additional Drug Use History / Comment(s): used in past per pt - Past Family History Mother Family Medical History: Congestive Heart Failure (CHF), Diabetes Mellitus Medications and Allergies Home Medications Medication Instructions Recorded Confirmed Type Albuterol Inhaler [Ventolin Hfa 2 puff INHALATION RT-Q6H PRN 12/22/14 06/22/22 History Inhaler] Albuterol Nebulized [Ventolin 2.5 mg INHALATION RT-Q6H PRN 12/22/14 06/22/22 History Nebulized] Cholecalciferol [Vitamin D3 (25 4,000 unit PO DAILY@1200 12/22/14 06/22/22 History Mcg = 1000 Iu)] Furosemide [Lasix] 40 mg PO DAILY PRN 12/22/14 06/22/22 History Potassium Chloride 20 meq PO DAILY PRN 12/22/14 06/22/22 History Sertraline [Zoloft] 100 mg PO DAILY 12/22/14 06/22/22 History allopurinoL [Zyloprim] 100 mg PO DAILY 12/22/14 06/22/22 History Atorvastatin [Lipitor] 20 mg PO DAILY 06/20/22 06/22/22 History Dulaglutide [Trulicity] 1.5 mg SQ WEEKLY 06/20/22 06/22/22 History lisinopriL [Zestril] 5 mg PO DAILY 06/20/22 06/22/22 History metFORMIN HCL [Metformin HCl] 1,000 mg PO DAILY 06/20/22 06/22/22 History Allergies Allergy/AdvReac Type Severity Reaction Status Date / Time codeine Allergy Nausea & Verified 06/22/22 10:16 Vomiting iodine Allergy Unknown Verified 06/22/22 10:16 morphine Allergy Unknown Verified 06/22/22 10:16 Objective - Vital Signs Vital signs: Vital Signs Temp 98.1 F 08/24/22 14:14 Pulse 74 08/24/22 14:14 Resp 18 08/24/22 14:14 BP 117/73 08/24/22 14:14 Pulse Ox 95 08/24/22 14:14 FiO2 Intake & Output 08/23/22 08/24/22 08/24/22 18:59 06:59 18:59 Weight 197.313 kg - Exam BMI 70.2 - Constitutional General appearance: Present: cooperative - EENT Eyes: Present: EOMI ENT: Present: hearing grossly normal - Neck Neck: Present: normal ROM - Respiratory Respiratory: bilateral: CTA - Cardiovascular Heart sounds: normal: S1, S2 - Gastrointestinal General gastrointestinal: Present: soft - Integumentary Integumentary: Present: normal turgor - Musculoskeletal Musculoskeletal: Present: gait normal - Psychiatric Psychiatric: Present: A&O x's 3, appropriate affect, intact judgment & insight - Additional findings Additional findings: Breast Exam: BRA: [id number] Inspection: bilateral grade 3 ptosis palpation: Right Breast: Examination performed in the wheelchair at the 12 o'clock position there is some increased nodularity corresponding with radiographic findings no other dominant masses or nodules of concern, no lesions of concern related to her recent biopsies Right axilla: No adenopathy of concern Left breast: Examination wheelchair no dominant masses or notches of concern Left axilla: No adenopathy of concern Assessment and Plan Assessment: Impression: Obesity Degenerative joint disease Gout Hormone imbalance/depression Heel spur Arthritis diabetic Stage IIA invasive ductal right breast cancer, second side ductal carcinoma in situ right breast Plan: 1. Bilateral mastectomy with right sentinel node biopsy possible axillary node dissection 2. Patient would like the option of reconstruction in the future so this patient be kept in mind doing the mastectomy 3. The patient is going to have genetic testing done but states that this would not change her mind regarding the surgery type she wishes Risk and benefits of the procedure were discussed with the patient. Risks include but are not limited to bleeding, infection, reaction to the anesthetic. The patient will stay overnight in the hospital. She will have 1-2 drains on each side. Risk of seroma is also discussed. Additionally secondary sentinel node biopsy possible axillary node dissection risk include but are not limited to bleeding, infection, reaction to the anesthetic. The possibility of lymphedema. The possibility of decreased sensation to the upper arm. The possibility of injury to the thoracodorsal or long thoracic nerves. If we would need to use methylene blue there is a risk of skin necrosis. The patient understands and wishes to proceed. CC: Dr. Hope
== END | disposition home or self-care (01) ==
LOC: WWCWWP 13:36
PROVIDERS: ATTEND Surgery
DX: Z53.9 Procedure and treatment not carried out, unspecified reason (principal)

== ENCOUNTER 2022-09-04 07:24 | Observation (INO) | payer MEDICARE, OTHER ==
[~2022-09-04 07:24] MED LIST: DEXAMETHASONE SOD PHOSPHATE 4 MG/ML 1 ML VIAL IV ONE; HEPARIN SODIUM,PORCINE/PF 5,000 UNIT/0.5 ML SYRINGE SQ PRN; HYDROmorphone 0.5 MG/0.5 ML SYRINGE IVP PRN; LIDOCAINE 1% (10MG/ML) FOR IV START INTRADERMA PRN; MIDAZOLAM 2 MG/2 ML VIAL IV PRN; ONDANSETRON 4 MG/2 ML VIAL IVP ONE; Pre Op ABX Message 1 EACH MISC MISCELLANE ONE
[2022-09-04] MEDS: LACTATED RINGERS 1,000 ML IV SCH (07:51)
[2022-09-04 08:25] LABS: Glucose,Whole Blood 316 mg/dL (70-110)
[2022-09-04] MEDS ORDERED: INSULIN ASPART (NovoLOG) 100 UNIT/ML VIAL SQ ONE ×2 (08:28→16:40)
--- NOTE | 2022-09-04 08:33 | NM ---
EXAMINATION TYPE: NM sentinel node injection DATE OF EXAM: 09/04/2022 COMPARISON: NONE HISTORY: Invasive moderately differentiated ductal carcinoma of the right breast. TECHNIQUE AND FINDINGS: The procedure of sentinel lymph node injection was explained to the patient. The benefits, alternatives, and risks were discussed. An informed consent was then obtained. Overlying skin is cleaned with sterile alcohol. Following this, 512 uCi Tc99m Tilmanocept was inject ed in the upper outer aspect of the right nipple intradermally. The patient tolerated the procedure well without any immediate complication. The patient was kept in the radiology department for short stay after the procedure and then taken to surgery for surgical p rocedure what is presumed intraoperative gamma probe will be used for sentinel lymph node detection. IMPRESSION: Right breast radiotracer injection for sentinel node localization as above.
[2022-09-04] MEDS ORDERED: PROPOFOL 10 MG/ML 20 ML VIAL IV ONE (09:07)
[2022-09-04] MEDS ORDERED: ONDANSETRON 4 MG/2 ML VIAL ONE (09:07)
[2022-09-04] MEDS ORDERED: INSULIN REGULAR 100 UNIT/ML VIAL (IV) ONE (09:07)
[2022-09-04] MEDS ORDERED: KETAMINE 10 MG/ML 20 ML VIAL ONE (09:07)
[2022-09-04] MEDS ORDERED: fentaNYL (PF) 50 MCG/ML 2 ML AMP ONE (09:07)
[2022-09-04] MEDS ORDERED: LIDOCAINE 2% INJ 20 MG/ML (2 ML VIAL) ONE (09:07)
[2022-09-04] MEDS ORDERED: ROCURONIUM 10 MG/ML (5 ML VIAL) IV ONE (09:07)
[2022-09-04] MEDS ORDERED: MIDAZOLAM 2 MG/2 ML VIAL ONE (09:07)
[2022-09-04] MEDS ORDERED: HYDROmorphone (PF) 1 MG/ML ONE (09:07)
[2022-09-04] MEDS ORDERED: SUCCINYLCHOLINE CHLORIDE 200 MG/10 ML VIAL IV ONE (09:07)
--- NOTE | 2022-09-04 09:19 | P.NAPBC ---
NAPBC Queries - NAPBC Queries Was patient's case review presented at [facility] tumor board? If no, comment.: Yes Was patient's pathology reviewed at [facility]? If no, comment.: Yes Was breast conservation surgery offered? If no, comment.: Yes Was sentinel node biopsy offered? If no, comment.: Yes Was diagnosis confirmed by percutaneous core biopsy? If no, comment.: Yes Is patient mastectomy patient?: Yes Was a preop referral to reconstructive surgeon offered?: Yes (patient declined at this time) Clinical Stage: stage IA right breast
[2022-09-04] MEDS ORDERED: SODIUM CHLORIDE 0.9% 50 ML with ceFAZolin 3,000 MG IV ONE ×2 (10:00)
[2022-09-04] MEDS ORDERED: LACTATED RINGERS 1,000 ML IV ONE ×2 (10:57→15:10)
[2022-09-04 14:49] LABS: Glucose,Whole Blood 368 mg/dL (70-110)
[2022-09-04] MEDS ORDERED: SODIUM CHLORIDE 0.9% 50 ML with ceFAZolin 2,000 MG IV ONE ×2 (14:57)
[2022-09-04] MEDS ORDERED: NALOXONE 0.4 MG/ML 1 ML VIAL IV PRN (15:17)
[2022-09-04] MEDS ORDERED: ONDANSETRON 4 MG/2 ML VIAL IVP PRN (15:17)
[2022-09-04] MEDS ORDERED: MELATONIN 3 MG TABLET PO PRN (15:17)
[2022-09-04] MEDS ORDERED: HYDROmorphone 1 MG/ML 1 ML SYRINGE IVP PRN (15:17)
--- NOTE | 2022-09-04 15:17 | P.OP ---
Date of Procedure: 09/04/22 Preoperative Diagnosis: Right breast invasive ductal carcinoma Postoperative Diagnosis: Same Procedure(s) Performed: Bilateral mastectomy with right sentinel node biopsy, bilateral V-Y advancement flaps in the axilla, lymphatic mapping on the right Anesthesia: BELLE Surgeon: Inge Dwyer Estimated Blood Loss (ml): 150 IV fluids (ml): 1,900 Pathology: other (Bilateral breast, right axillary contents) Condition: stable Disposition: floor Indications for Procedure: Right breast invasive ductal carcinoma Operative Findings: Fibrofatty breast tissue Description of Procedure: The patient is a 51-year-old white female diagnosed with a right breast invasive ductal carcinoma. She has a strong family history of breast cancer and did not want to undergo radiation therapy. She wished to undergo bilateral mastectomy. Risks and benefits were discussed with the patient and she had her case presented at tumor board. She was told that she was a candidate for lumpectomy however she wished mastectomies to be performed. The patient was taken to the operative suite and following induction of anesthesia interrogation of the right axilla revealed minimal radioactivity. Therefore 5 mL of half-strength methylene blue was injected in the periareolar region and the breast was massaged. Following this a Flores catheter was placed. Both breasts were prepped and draped in a sterile fashion. The right breast was approached initially. Superior and inferior skin flaps were developed. Dissection was performed down to the chest wall. The breast was removed from medial to lateral being careful to maintain hemostasis using the electrocautery as well as the Harmonic scalpel. Several vessels on the chest wall are suture ligated using 3-0 Vicryl suture. Following this the area of the axilla was approached. The patient had interrogation with the neoprobe and an area of increased radioactivity was identified. This corresponded with a blue lymph node. The 10 second count on the lymph node was approximately 2612. The background count was 19. This lymph node was removed and sent as the sentinel lymph node. It was soft and did not appear suspicious. After the breast and the lymph node had been removed the wound was well irrigated. The Surgicel and pelvis was placed. After assured that hemostasis was attained 2 LAUREN drains were placed and secured using a nylon suture. The breast was marked short superior and long lateral sutures. The axillary area was noted to be very redundant and this was brought up in a V-Y advancement flap. The limbs of the flap were cut and the areas the subcutaneous tissues were closed using 3-0 Vicryl suture. This was followed by closure of the skin with cheli. The drain was noted to suction. After this up and accomplished all instrument and sponges were counted and noted to be correct. The surgeon's gown and gloves and instruments were changed. The left side was then approached. Upon approaching the left side of the breast markings were placed for the superior and inferior skin flaps. This. Inferior skin flaps were developed using the electrocautery device. Dissection was performed down to the chest wall. The breast was taken from medial to lateral being careful to maintain hemostasis using the electrocautery device. The larger vessels were suture ligated or the Harmonic scalpel was used on them. Surgicel and pelvis was pl aced. 2 LAUREN drains were placed and secured using nylon sutures. There was redundant tissue in the axilla and a V-Y advancement flap was utilized to address the redundant tissue. The subcutaneous tissues were closed using 3-0 Vicryl suture. This is followed by closure of the skin with cheli. Patient tolerated the procedure in stable condition. All instrument and sponge counts were correct at the end of the case.
[2022-09-04 15:35] LABS: Glucose,Whole Blood 383 mg/dL (70-110)
[2022-09-04 16:20] LABS: Basophils % (A) 0 %; Eosinophils # (A) 0.1 k/uL (0-0.7); Eosinophils % (A) 0 %; HCT 39.2 % (34.0-46.0); HGB 13.2 gm/dL (11.4-16.0); Lymphocytes # (A) 0.8 k/uL (1.0-4.8); Lymphocytes % (A) 6 %; MCH 31.4 pg (25.0-35.0); MCHC 33.7 g/dL (31.0-37.0); MCV 93.2 fL (80.0-100.0); Mean Platelet Volume 9.1; Monocytes # (A) 0.4 k/uL (0-1.0); Monocytes % (A) 3 %; Neutrophils # (A) 11.5 k/uL (1.3-7.7); Neutrophils % (A) 90 %; Platelet Count 259 k/uL (150-450); RBC 4.21 m/uL (3.80-5.40); RDW 12.9 % (11.5-15.5); WBC 12.9 k/uL (3.8-10.6)
[2022-09-04] MEDS: SODIUM CHLORIDE 0.9% 1,000 ML IV SCH (17:26)
[2022-09-04] MEDS ORDERED: ALBUTEROL HFA INHALER INHALATION PRN (18:01)
[2022-09-04] MEDS ORDERED: ALBUTEROL NEBULIZED 2.5 MG/3 ML INHALATION PRN (18:01)
[2022-09-04] MEDS ORDERED: FUROSEMIDE 40 MG TAB PO PRN (18:01)
[2022-09-04] MEDS ORDERED: POTASSIUM CHLORIDE ER 20 MEQ TAB.ER PO PRN (18:01)
[2022-09-04] MEDS ORDERED: DEXTROSE 50% SYRINGE 50 ML IVP PRN ×2 (18:05)
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
[2022-09-04 18:16] LABS: Glucose,Whole Blood 360 mg/dL (70-110)
[2022-09-04] MEDS: HEPARIN SODIUM,PORCINE/PF 5,000 UNIT/0.5 ML SYRINGE SQ SCH ×2 (18:17→23:54)
[2022-09-04 20:29] LABS: Glucose,Whole Blood 345 mg/dL (70-110)
[2022-09-04] MEDS: INSULIN DETEMIR (LEVEMIR) 100 UNIT/ML SYR SQ SCH (20:57)
[2022-09-04] MEDS: INSULIN ASPART (NovoLOG) 100 UNIT/ML VIAL SQ SCH (21:51)
[2022-09-04] MEDS: HYDROcodone/APAP 5-325MG 1 EACH TAB PO PRN (23:54)
[2022-09-05] MEDS: SODIUM CHLORIDE 0.9% 1,000 ML IV SCH ×2 (02:50→12:49)
[2022-09-05] MEDS: LACTATED RINGERS 1,000 ML IV SCH (05:00)
[2022-09-05 07:08] LABS: Glucose,Whole Blood 328 mg/dL (70-110)
[2022-09-05] MEDS ORDERED: INSULIN ASPART (NovoLOG) 100 UNIT/ML VIAL SQ SCH ×2 (07:30)
[2022-09-05] MEDS: allopurinoL 100 MG TAB PO SCH (08:31)
[2022-09-05] MEDS: lisinopriL 5 MG TAB PO SCH (08:31)
[2022-09-05] MEDS: INSULIN DETEMIR (LEVEMIR) 100 UNIT/ML SYR SQ SCH ×2 (08:31→21:14)
[2022-09-05] MEDS: HEPARIN SODIUM,PORCINE/PF 5,000 UNIT/0.5 ML SYRINGE SQ SCH ×3 (08:31→23:50)
[2022-09-05] MEDS: SERTRALINE 100 MG TAB PO SCH (08:31)
[2022-09-05] MEDS: ATORVASTATIN 20 MG TAB PO SCH (08:31)
[2022-09-05] MEDS: INSULIN ASPART (NovoLOG) 100 UNIT/ML VIAL SQ SCH ×7 (08:32→21:13)
[2022-09-05 09:18] LABS: Basophils # (A) 0.03 X 10*3/uL (0.00-0.10); Basophils % (A) 0.3 %; Eosinophils # (A) 0.04 X 10*3/uL (0.04-0.35); Eosinophils % (A) 0.4 %; HCT 36.4 % (37.2-46.3); HGB 11.6 g/dL (12.0-15.0); Immature Grans, Automated 0.4 %; Lymphocytes # (A) 1.26 X 10*3/uL (0.90-5.00); Lymphocytes % (A) 11.1 %; MCH 30.3 pg (27.0-32.0); MCHC 31.9 g/dL (32.0-37.0); Mean Platelet Volume 11.4 fL (9.5-12.2); Monocytes # (A) 0.78 X 10*3/uL (0.20-1.00); Monocytes % (A) 6.9 %; NRBC Per 100 WBC 0 /100 WBCS (0.0-0.0); Neutrophils % (A) 80.9 %; Platelet Count 245 X 10*3/uL (140-440); RBC 3.83 X 10*6/uL (4.10-5.20); RDW 13.1 % (11.5-14.5); WBC 11.35 X 10*3/uL (4.50-10.00)
[2022-09-05 11:08] LABS: Glucose,Whole Blood 322 mg/dL (70-110)
--- NOTE | 2022-09-05 11:23 | P.PN ---
Subjective Progress Note Date: 09/05/22 Patient this morning states that she doesn't able to move her left lower extremity. She also stated that she has numbness in the left extremity. On exam patient was able to move her left lower extremity. She also had sensation in her foot. PT OT consult has been placed. Objective - Vital Signs Vital signs: Vital Signs Temp 97.5 F L 09/05/22 05:19 Pulse 83 09/05/22 05:19 Resp 18 09/05/22 05:19 BP 129/77 09/05/22 05:19 Pulse Ox 96 09/05/22 05:19 FiO2 Intake & Output 09/04/22 09/05/22 09/05/22 18:59 06:59 18:59 Intake Total 3100 Output Total 800 1075 955 Balance 2300 -1075 -955 Weight 195.04 kg Intake: IV 3100 Output: Drainage 75 30 Bilateral Breast 75 30 Urine 650 1000 925 Estimated Blood Loss 150 Other: Voiding Method Indwelling Catheter Indwelling Catheter - Exam General examination - Alert and Oriented 3 in NAD Heart - + S1S2 no murmurs Lungs - Clear to auscultation, LAUREN drains Abdomen soft NT ND +ve BS, morbidly obese Extremities - No edema 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4 L (37.2-46.3) % MCHC 31.9 L (32.0-37.0) g/dL Neutrophils # 9.20 H (1.3-7.7) k/uL Lymphocytes # (1.0-4.8) k/uL POC Glucose (mg/dL) 360 H 345 H (70-110) mg/dL 09/05/22 09/05/22 Range/Units 07:07 11:07 WBC (3.8-10.6) k/uL RBC (4.10-5.20) X 10*6/uL Hgb (12.0-15.0) g/dL Hct (37.2-46.3) % MCHC (32.0-37.0) g/dL Neutrophils # (1.3-7.7) k/uL Lymphocytes # (1.0-4.8) k/uL POC Glucose (mg/dL) 328 H 322 H (70-110) mg/dL Assessment and Plan Assessment: Breast cancer status post bilateral mastectomy Management as per primary team Subjective left lower extremity numbness and weakness Physical exam benign Consult PT OT Diabetes We'll start patient on sliding scale insulin Hypertension Resume lisinopril Lymphedema Resume Lasix Depression Resume Zoloft Gout Resume allopurinol If patient does well with physical therapy she can be discharged home on her previous home medications. It there is any concern from physical therapy regarding foot drop we'll need to consult neurology. Thank you for the consult. Do not hesitate to contact us with any questions
--- NOTE | 2022-09-05 12:53 | P.PN ---
Subjective Progress Note Date: 09/05/22 Principal diagnosis: Postop day #1 bilateral mastectomy Ligia is postop day #1 bilateral mastectomy for right breast invasive ductal carcinoma. She is doing well from the mastectomy standpoint however she states that she was unable to move her left foot and it had a numbness and tingling sensation. OT and PT have been consulted. She is tolerating diet without difficulty. She is not complaining about incisional discomfort. Objective - Vital Signs Vital signs: Vital Signs Temp 98.1 F 09/05/22 11:35 Pulse 83 09/05/22 11:35 Resp 16 09/05/22 11:35 BP 106/64 09/05/22 11:35 Pulse Ox 95 09/05/22 11:35 FiO2 Intake & Output 09/04/22 09/05/22 09/05/22 18:59 06:59 18:59 Intake Total 3100 Output Total 800 1075 1115 Balance 2300 -1075 -1115 Weight 195.04 kg Intake: IV 3100 Output: Drainage 75 90 Bilateral Breast 75 90 Urine 650 1000 1025 Estimated Blood Loss 150 Other: Voiding Method Indwelling Catheter Indwelling Catheter - Constitutional General appearance: Present: cooperative - EENT Eyes: Present: EOMI ENT: Present: hearing grossly normal - Neck Neck: Present: normal ROM - Respiratory Respiratory: bilateral: CTA - Cardiovascular Heart sounds: normal: S1, S2 - Integumentary Integumentary Comment(s): The dressing is changed, bilateral mastectomy incisions are clean and dry and healing well. There is no evidence of any infection. There is no evidence of hematoma at this time. All 4 LAUREN drains are functioning well with approximately 90 mL of serous drainage total. - Labs CBC & Chem 7: 09/05/22 04:21 Labs: Abnormal Lab Results - Last 24 Hours (Table) 09/04/22 09/04/22 09/04/22 Range/Units 14:45 15:31 16:01 WBC 12.9 H (3.8-10.6) k/uL RBC (4.10-5.20) X 10*6/uL Hgb (12.0-15.0) g/dL Hct (37.2-46.3) % MCHC (32.0-37.0) g/dL Neutrophils # 11.5 H (1.3-7.7) k/uL Lymphocytes # 0.8 L (1.0-4.8) k/uL POC Glucose (mg/dL) 368 H 383 H (70-110) mg/dL 09/04/22 09/04/22 09/05/22 Range/Units 18:14 20:27 04:21 WBC 11.35 H (3.8-10.6) k/uL RBC 3.83 L (4.10-5.20) X 10*6/uL Hgb 11.6 L (12.0-15.0) g/dL Hct 36.4 L (37.2-46.3) % MCHC 31.9 L (32.0-37.0) g/dL Neutrophils # 9.20 H (1.3-7.7) k/uL Lymphocytes # (1.0-4.8) k/uL POC Glucose (mg/dL) 360 H 345 H (70-110) mg/dL 09/05/22 09/05/22 Range/Units 07:07 11:07 WBC (3.8-10.6) k/uL RBC (4.10-5.20) X 10*6/uL Hgb (12.0-15.0) g/dL Hct (37.2-46.3) % MCHC (32.0-37.0) g/dL Neutrophils # (1.3-7.7) k/uL Lymphocytes # (1.0-4.8) k/uL POC Glucose (mg/dL) 328 H 322 H (70-110) mg/dL Assessment and Plan Assessment: Impression: Postop day #1 bilateral mastectomies for invasive ductal carcinoma right breast Patient this morning is complaining of some decreased ability to move her left foot as well as some decreased sensation BMI 69.4 Plan: OT/PT consulted DC Flores Change IV to heparin lock Appreciate internal medicine consult Continue present therapy
[2022-09-05 17:23] LABS: Glucose,Whole Blood 358 mg/dL (70-110)
[2022-09-05 20:13] LABS: Glucose,Whole Blood 330 mg/dL (70-110)
[2022-09-05] MEDS: HYDROcodone/APAP 5-325MG 1 EACH TAB PO PRN (21:36)
[2022-09-06] MEDS: LACTATED RINGERS 1,000 ML IV SCH (06:19)
[2022-09-06 07:11] LABS: Glucose,Whole Blood 307 mg/dL (70-110)
--- NOTE | 2022-09-06 08:47 | P.PN ---
Subjective Progress Note Date: 09/06/22 Principal diagnosis: Postop day #2 bilateral mastectomy Ligia is postop day #2 bilateral mastectomy for right breast invasive ductal carcinoma. She is doing well from the mastectomy standpoint however she states that she was unable to move her left foot and it had a numbness and tingling sensation. The numbness has improved however she still is having difficulty with mobility. OT and PT have been consulted. She is tolerating diet without difficulty. She is not complaining about incisional discomfort. Objective - Vital Signs Vital signs: Vital Signs Temp 97.9 F 09/06/22 05:00 Pulse 82 09/06/22 05:00 Resp 16 09/06/22 05:00 BP 115/69 09/06/22 05:00 Pulse Ox 93 L 09/06/22 05:00 FiO2 Intake & Output 09/05/22 09/06/22 09/06/22 18:59 06:59 18:59 Output Total 1175 680 Balance -1175 -680 Output: Drainage 150 180 Bilateral Breast 150 180 Urine 1025 500 Other: Voiding Method Indwelling Catheter External Catheter # Voids 1 - Constitutional General appearance: Present: cooperative - EENT Eyes: Present: EOMI ENT: Present: hearing grossly normal - Neck Neck: Present: normal ROM - Respiratory Respiratory: bilateral: CTA - Cardiovascular Heart sounds: normal: S1, S2 - Integumentary Integumentary Comment(s): Incision clean and dry bilateral; LAUREN output total 180 mL of serous fluid Integumentary: Present: normal turgor - Musculoskeletal Musculoskeletal Comment(s): Decreased mobility of the left foot/patient states that she has sensation in the foot she is able to feel when I touch the foot it is improved from yesterday but still is having difficulty with movement of the left foot below the ankle; otherwise no complaints - Psychiatric Psychiatric: Present: A&O x's 3, appropriate affect, intact judgment & insight - Labs CBC & Chem 7: 09/05/22 04:21 Labs: Abnormal Lab Results - Last 24 Hours (Table) 09/05/22 09/05/22 09/05/22 Range/Units 04:21 11:07 17:22 WBC 11.35 H (4.50-10.00) X 10*3/uL RBC 3.83 L (4.10-5.20) X 10*6/uL Hgb 11.6 L (12.0-15.0) g/dL Hct 36.4 L (37.2-46.3) % MCHC 31.9 L (32.0-37.0) g/dL Neutrophils # 9.20 H (1.80-7.70) X 10*3/uL POC Glucose (mg/dL) 322 H 358 H (70-110) mg/dL 09/05/22 09/06/22 Range/Units 20:12 07:10 WBC (4.50-10.00) X 10*3/uL RBC (4.10-5.20) X 10*6/uL Hgb (12.0-15.0) g/dL Hct (37.2-46.3) % MCHC (32.0-37.0) g/dL Neutrophils # (1.80-7.70) X 10*3/uL POC Glucose (mg/dL) 330 H 307 H (70-110) mg/dL Assessment and Plan Assessment: Impression: Postop day #2 bilateral mastectomies for invasive ductal carcinoma right breast Improved sensation left foot, has continued decreased mobility left foot below the ankle BMI 69.4 Plan: OT/PT consulted Appreciate internal medicine consult Continue present therapy Neurology consult Consider patient may be discharged to rehab depending on her left foot mobility
[2022-09-06] MEDS: HEPARIN SODIUM,PORCINE/PF 5,000 UNIT/0.5 ML SYRINGE SQ SCH ×2 (08:54→16:38)
[2022-09-06] MEDS: INSULIN DETEMIR (LEVEMIR) 100 UNIT/ML SYR SQ SCH ×2 (08:54→21:27)
[2022-09-06] MEDS: lisinopriL 5 MG TAB PO SCH (08:55)
[2022-09-06] MEDS: ATORVASTATIN 20 MG TAB PO SCH (08:55)
[2022-09-06] MEDS: INSULIN ASPART (NovoLOG) 100 UNIT/ML VIAL SQ SCH ×7 (08:55→21:27)
[2022-09-06] MEDS: SERTRALINE 100 MG TAB PO SCH (08:55)
[2022-09-06] MEDS: allopurinoL 100 MG TAB PO SCH (08:55)
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
--- NOTE | 2022-09-06 11:54 | P.PN ---
Subjective Progress Note Date: 09/06/22 Patient states that she still has weakness in his left lower extremity. However she now states that she has good sensation in her extremity. I did once patient take a couple steps with physical therapy. She is able to lift up her left leg. Objective - Vital Signs Vital signs: Vital Signs Temp 97.9 F 09/06/22 05:00 Pulse 82 09/06/22 05:00 Resp 16 09/06/22 05:00 BP 115/69 09/06/22 05:00 Pulse Ox 93 L 09/06/22 05:00 FiO2 Intake & Output 09/05/22 09/06/22 09/06/22 18:59 06:59 18:59 Output Total 1175 680 Balance -1175 -680 Output: Drainage 150 180 Bilateral Breast 150 180 Urine 1025 500 Other: Voiding Method Indwelling Catheter External Catheter Diaper # Voids 1 - Exam General examination - Alert and Oriented 3 in NAD Heart - + S1S2 no murmurs Lungs - Clear to auscultation, LAUREN drains Abdomen soft NT ND +ve BS, morbidly obese Extremities - No edema [employer]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 Psych - Calm and cooperative - Labs CBC & Chem 7: 09/05/22 04:21 Labs: Abnormal Lab Results - Last 24 Hours (Table) 09/05/22 09/05/22 09/06/22 Range/Units 17:22 20:12 07:10 POC Glucose (mg/dL) 358 H 330 H 307 H (70-110) mg/dL Assessment and Plan Assessment: Breast cancer status post bilateral mastectomy Management as per primary team Subjective left lower extremity numbness and weakness Neurology who ordered a CT scan of lumbar spine Diabetes We'll start patient on sliding scale insulin Hypertension Resume lisinopril Lymphedema Resume Lasix Depression Resume Zoloft Gout Resume allopurinol Neuro workup in progress. 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 Thank you for the consult. Do not hesitate to contact us with any questions
[2022-09-06 12:07] LABS: Glucose,Whole Blood 369 mg/dL (70-110)
--- NOTE | 2022-09-06 12:45 | CT ---
EXAMINATION TYPE: CT lumbar spine wo con CT DLP: 2781.9 mGycm, Automated exposure control for dose reduction was used. DATE OF EXAM: 09/06/2022 12:42 PM COMPARISON: Lumbosacral spine radiographs 01/12/2022. CLINICAL INDICATION:Female, 51 years old with history of left ankle weakness with low back pain; TECHNIQUE: Multiple axial images were obtained from the midportion of T11 through the sacroiliac frandy nts. Soft tissue and bone windows in coronal and sagittal planes were obtained and reviewed. FINDINGS: Limited examination due to patient body habitus. Alignment: There are 5 lumbar type vertebral bodies within normal alignment. Bone: No evidence of fracture is identified. Discs: Mild degenerative disc disease most pronounced at L5-S1 with disc space narrowing, endplate sc lerosis, and anterior osteophytosis. T12-L1: No spinal canal or neural foraminal stenosis is identified. L1-L2: No spinal canal or neural foraminal stenosis is identified. L2-L3: Broad-based disc bulges without significant effacement of the anterior thecal sac. L3-L4: No spinal canal or neural foraminal stenosis is identified. L4-L5: Broad-based disc bulge suggested with minimal effacement of anterior thecal sac. L5-S1: Broad-based disc bulge with at least mild spinal canal stenosis. Evaluation is limited due to patient's body habitus.Moderate right and severe left neural foraminal stenosis. Other: None IMPRESSION: 1. No evidence of fracture of the lumbar spine. 2. Mild multilevel degenerative disc disease suggested. Evaluation is significantly limited due to pa tient body habitus. Moderate right and severe left neural foraminal stenosis.
[2022-09-06 17:49] LABS: Glucose,Whole Blood 200 mg/dL (70-110)
[2022-09-06 18:32] LABS: African American GFR (CKD) 117.8 (60.0-200.0); Albumin 3.5 g/dL (3.8-4.9); Albumin/Globulin Ratio 1.67 (1.60-3.17); Anion Gap 12.6 mmol/L (10.00-18.00); BUN/Creat Ratio 16.93 Ratio (12.00-20.00); Blood Urea Nitrogen 10.9 mg/dL (9.0-27.0); Calcium 8.7 mg/dL (8.7-10.3); Globulin 2.1 g/dL (1.6-3.3); Non-African American GFR(CKD) 101.7 (60.0-200.0); Potassium 4.3 mmol/L (3.5-5.5); Total Bilirubin 0.4 mg/dL (0.30-1.20); Total Protein 5.6 g/dL (6.2-8.2)
[2022-09-06 20:03] LABS: Glucose,Whole Blood 212 mg/dL (70-110)
[2022-09-06] MEDS: HYDROcodone/APAP 5-325MG 1 EACH TAB PO PRN (21:31)
[2022-09-07] MEDS: HEPARIN SODIUM,PORCINE/PF 5,000 UNIT/0.5 ML SYRINGE SQ SCH ×3 (00:14→15:53)
[2022-09-07] MEDS: HYDROcodone/APAP 5-325MG 1 EACH TAB PO PRN ×2 (05:34→09:42)
[2022-09-07 07:28] LABS: Glucose,Whole Blood 210 mg/dL (70-110)
[2022-09-07] MEDS: LACTATED RINGERS 1,000 ML IV SCH (08:42)
[2022-09-07] MEDS: INSULIN ASPART (NovoLOG) 100 UNIT/ML VIAL SQ SCH ×4 (09:30→13:59)
[2022-09-07] MEDS: allopurinoL 100 MG TAB PO SCH (09:32)
[2022-09-07] MEDS: ATORVASTATIN 20 MG TAB PO SCH (09:32)
[2022-09-07] MEDS: SERTRALINE 100 MG TAB PO SCH (09:32)
[2022-09-07] MEDS: lisinopriL 5 MG TAB PO SCH (09:32)
[2022-09-07] MEDS: INSULIN DETEMIR (LEVEMIR) 100 UNIT/ML SYR SQ SCH (09:32)
--- NOTE | 2022-09-07 10:07 | P.PN ---
Subjective Progress Note Date: 09/07/22 Principal diagnosis: Postop day #3 bilateral mastectomy Ligia is postop day #3 bilateral mastectomy for right breast invasive ductal carcinoma. She is doing well from the mastectomy standpoint however she states that she was unable to move her left foot and it had a numbness and tingling sensation. The numbness has improved however she still is having difficulty with mobility. OT and PT have been consulted. She is tolerating diet without difficulty. She is not complaining about incisional discomfort. She was seen in consultation by neurology and a computed tomography scan of the lumbar spine was ordered. This did not reveal any evidence of any fracture. Mild multilevel degenerative disc disease was suggested. Evaluation was limited due to patient body habitus. Moderate right and severe left neural foraminal stenosis. The patient is also going to have a MRI and possible EMG with nerve conduction study as per neurology. She is ambulating today with some assistance. LAUREN drainage output is serous in nature bilaterally. Objective - Vital Signs Vital signs: Vital Signs Temp 98.1 F 09/07/22 04:26 Pulse 75 09/07/22 04:26 Resp 16 09/07/22 04:26 BP 100/61 09/07/22 04:26 Pulse Ox 96 09/07/22 04:26 FiO2 Intake & Output 09/06/22 09/07/22 09/07/22 18:59 06:59 18:59 Output Total 390 555 70 Balance -390 -555 -70 Output: Drainage 390 355 70 Bilateral Breast 270 Left Breast 100 260 25 Right Breast 20 95 45 Urine 200 Other: Voiding Method Diaper External Catheter # Voids 3 1 # Bowel Movements 1 - Constitutional General appearance: Present: cooperative - EENT Eyes: Present: EOMI ENT: Present: hearing grossly normal - Neck Neck: Present: normal ROM - Respiratory Respiratory: bilateral: CTA - Cardiovascular Heart sounds: normal: S1, S2 - Integumentary Integumentary Comment(s): Bilateral mastectomy incisions clean and dry LAUREN output bilateral is serous in nature right side is 45 mL, left side 25 mL - Labs CBC & Chem 7: 09/05/22 04:21 09/06/22 13:19 Labs: Abnormal Lab Results - Last 24 Hours (Table) 09/06/22 09/06/22 09/06/22 Range/Units 12:06 13:19 17:47 Glucose 291 H (70-110) mg/dL POC Glucose (mg/dL) 369 H 200 H (70-110) mg/dL Total Protein 5.6 L (6.2-8.2) g/dL Albumin 3.5 L (3.8-4.9) g/dL 09/06/22 09/07/22 Range/Units 20:01 07:25 Glucose (70-110) mg/dL POC Glucose (mg/dL) 212 H 210 H (70-110) mg/dL Total Protein (6.2-8.2) g/dL Albumin (3.8-4.9) g/dL Assessment and Plan Assessment: Impression: Postop day #3 bilateral mastectomies for invasive ductal carcinoma right breast Improved sensation left foot, has continued decreased mobility left foot below the ankle but does appear to be improving BMI 69.4 Plan: OT/PT consulted Appreciate internal medicine consult Continue present therapy Neurology consult noted and computed tomography scan done/additional studies as per neurology Consider patient may be discharged to rehab depending on her left foot mobility I will transfer the patient to the medical service CC: Dr. Hope
[2022-09-07 12:12] VITALS: BP 117/66; PULSE 78; RESP 18; TEMP 97.7
[2022-09-07 12:14] LABS: Glucose,Whole Blood 236 mg/dL (70-110)
--- NOTE | 2022-09-07 12:22 | P.PN ---
Subjective Progress Note Date: 09/07/22 Patient was seen in the chair this morning. She states that she still has some weakness in her left foot however it is improving. Patient was able to walk with physical therapy. Objective - Vital Signs Vital signs: Vital Signs Temp 97.7 F 09/07/22 12:10 Pulse 78 09/07/22 12:10 Resp 18 09/07/22 12:10 BP 117/66 09/07/22 12:10 Pulse Ox 96 09/07/22 12:10 FiO2 Intake & Output 09/06/22 09/07/22 09/07/22 18:59 06:59 18:59 Output Total 390 555 70 Balance -390 -555 -70 Output: Drainage 390 355 70 Bilateral Breast 270 Left Breast 100 260 25 Right Breast 20 95 45 Urine 200 Other: Voiding Method Diaper External Catheter External Catheter # Voids 3 1 # Bowel Movements 1 - Exam General examination - Alert and Oriented 3 in NAD Heart - + S1S2 no murmurs Lungs - Clear to auscultation, LAUREN drains Abdomen soft NT ND +ve BS, morbidly obese 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 - 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, patient able to lift the left lower extremity and there is no sign of a drop Psych - Calm and cooperative - Labs CBC & Chem 7: 09/05/22 04:21 09/06/22 13:19 Labs: Abnormal Lab Results - Last 24 Hours (Table) 09/06/22 09/06/22 09/06/22 Range/Units 13:19 17:47 20:01 Glucose 291 H (70-110) mg/dL POC Glucose (mg/dL) 200 H 212 H (70-110) mg/dL Total Protein 5.6 L (6.2-8.2) g/dL Albumin 3.5 L (3.8-4.9) g/dL 09/07/22 09/07/22 Range/Units 07:25 12:12 Glucose (70-110) mg/dL POC Glucose (mg/dL) 210 H 236 H (70-110) mg/dL Total Protein (6.2-8.2) g/dL Albumin (3.8-4.9) g/dL Assessment and Plan Assessment: Breast cancer status post bilateral mastectomy Management as per primary team Subjective left lower extremity numbness and weakness Computed tomography scan shows left neural foraminal stenosis Patient was able to ambulate with the physical therapist about 40 feet Patient has no sign of left foot drop on exam Neurology recommends outpatient EMG study. Unfortunately unable to get an MRI due to her body habitus Diabetes We'll start patient on sliding scale insulin and standing aspart Blood glucose is better controlled today Hypertension Resume lisinopril Lymphedema Resume Lasix Depression Resume Zoloft Gout Resume allopurinol Patient medically stable for discharge. Awaiting placement Thank you for the consult. Do not hesitate to contact us with any questions
--- NOTE | 2022-09-07 12:49 | P.PN ---
Subjective Progress Note Date: 09/07/22 The patient was seen at bedside and states she continues to have weakness in left ankle. But her nurse and physical therapist evaluated walking without any issues and was moving the left ankle without difficulty. The primary team yesterday notified me that she was moving her left ankle without any issues yesterday. Could not perform MRI Lumbar because of her body habitus (unable to fit MRI). Objective - Vital Signs Vital signs: Vital Signs Temp 97.7 F 09/07/22 12:10 Pulse 78 09/07/22 12:10 Resp 18 09/07/22 12:10 BP 117/66 09/07/22 12:10 Pulse Ox 96 09/07/22 12:10 FiO2 Intake & Output 09/06/22 09/07/22 09/07/22 18:59 06:59 18:59 Output Total 390 555 70 Balance -390 -555 -70 Output: Drainage 390 355 70 Bilateral Breast 270 Left Breast 100 260 25 Right Breast 20 95 45 Urine 200 Other: Voiding Method Diaper External Catheter External Catheter # Voids 3 1 # Bowel Movements 1 - Exam GENERAL: The patient is a morbid obese woman laying in bed and appears in mild acute distress. NEUROLOGICAL: Higher mental function: The patient is awake, alert, oriented to self, place and time. Patient is following commands. No aphasia and no neglect. Cranial nerves: The pupils are round, equal and reactive to light and accommodation. Visual dave are full to confrontation throughout. Extraocular movement is intact no nystagmus is noted. Facial sensation is normal to touch throughout. The facial strength is normal throughout. Hearing is normal bilaterally to hand rub. Tongue is midline and moved [id number] without any difficulty. No dysarthria is noted. Shoulder shrug is normal bilaterally. Motor: The strength is left lankle (dorsiflexion and plantarflexion) is 0. Left knee extension and flexion was 4+ to 5- (but some limitation on testing because of her position). Otherwise 5 over 5 throughout. Has lymphedema of lowers. Cerebellum: Normal finger to nose bilaterally. Sensation: Sensation is normal to touch throughout. Reflexes (right/left): 1+ throughout uppers. Hard to assess lowers because of lymphedema and morbid obesity. Plantars are mute bilaterally. - Labs CBC & Chem 7: 09/05/22 04:21 11/17/22 13:19 Labs: Abnormal Lab Results - Last 24 Hours (Table) 09/06/22 09/06/22 09/06/22 Range/Units 13:19 17:47 20:01 Glucose 291 H (70-110) mg/dL POC Glucose (mg/dL) 200 H 212 H (70-110) mg/dL Total Protein 5.6 L (6.2-8.2) g/dL Albumin 3.5 L (3.8-4.9) g/dL 09/07/22 09/07/22 Range/Units 07:25 12:12 Glucose (70-110) mg/dL POC Glucose (mg/dL) 210 H 236 H (70-110) mg/dL Total Protein (6.2-8.2) g/dL Albumin (3.8-4.9) g/dL Assessment and Plan Assessment: Complaint of left left ankle weakness post-op mastectomy on 09/04/2022. Seems functional. Per multiple people (nurse, physical therapy and primary: she is moving left ankle without any difficulty). History of right breast invasive ductal carcinoma status post bilateral mastectomy on 09/04/2022 History of L2-L3 and S1 radiculopathy Diabetes mellitus and is uncontrolled. Currently in ranges of 300's. Hypertension History of hyperlipidemia Sleep apnea on CPAP Lymphedema Patient sugars has been in the range of 300s. Morbid obesity Plan: CT lumbar spine is reported as no evidence of fracture of the lumbar spine. Mild multilevel degenerative disc disease suggested. Evaluation slightly limited due to the patient body habitus. Moderate right and severe left neuroforaminal stenosis. Unable to obtain MRI because of the patient body habitus. Physical therapy and occupation therapy are consulted We'll defer the rest of the medical management to the primary team. There is no further neurological workup needed. We'll sign off. Please reconsult if needed. Time with Patient: Less than 30
--- NOTE | 2022-09-07 16:02 | P.DS ---
Providers Date of admission: 09/06/22 09:09 Attending physician: Inge Dwyer Consults: 09/04/22 15:20 Consult Physician Routine Consulting Provider: Holly Powers Consult Reason/Comments: medical care Do you want consulting provider notified?: Yes 09/06/22 08:38 Consult Physician Routine Consulting Provider: Curt Zimmerman Consult Reason/Comments: Numbness in lower legs Do you want consulting provider notified?: Yes Primary care physician: Enrique Hope MD Hospital Course: Bea is a 51-year-old white female who underwent a bilateral mastectomy on [id number]. Postprocedure she developed some decreased mobility and numbness in her left foot. From the mastectomy is soft she did well with no difficulty related to the incision. She did not have any nausea or vomiting. She is tolerating diet without difficulty. She was seen by PT and OT as well as her neurology. She underwent a computed tomography scan of the lumbar spine and as per neurology can have additional workup as an outpatient. She is felt to be cleared for discharge from medicine standpoint to a rehab facility. From a surgical standpoint she is doing well and can be discharged with drain management at the rehab facility. Plan - Discharge Summary Discharge Rx Participant: No New Discharge Prescriptions: New HYDROcodone/APAP 5-325MG [[place] 5-325] 1 each PO Q4HR PRN tab PRN Reason: Moderate Pain (Scale 4 To 6) Continue Furosemide [Lasix] 40 mg PO DAILY PRN PRN Reason: Edema Cholecalciferol [Vitamin D3 (25 Mcg = 1000 Iu)] 4,000 unit PO DAILY@1200 Sertraline [Zoloft] 100 mg PO DAILY allopurinoL [Zyloprim] 100 mg PO DAILY Potassium Chloride 20 meq PO DAILY PRN PRN Reason: Edema Albuterol Nebulized [Ventolin Nebulized] 2.5 mg INHALATION RT-Q6H PRN PRN Reason: Shortness Of Breath Albuterol Inhaler [Ventolin Hfa Inhaler] 2 puff INHALATION RT-Q6H PRN PRN Reason: Shortness Of Breath Dulaglutide [Trulicity] 1.5 mg SQ WEEKLY lisinopriL [Zestril] 5 mg PO DAILY Atorvastatin [Lipitor] 20 mg PO DAILY Discontinued Acetaminophen [Tylenol Arthritis] 650 mg PO DIRECTED PRN PRN Reason: Pain Discharge Medication List Albuterol Inhaler [Ventolin Hfa Inhaler] 2 puff INHALATION RT-Q6H PRN 12/22/14 [History] Albuterol Nebulized [Ventolin Nebulized] 2.5 mg INHALATION RT-Q6H PRN 12/22/14 [History] Cholecalciferol [Vitamin D3 (25 Mcg = 1000 Iu)] 4,000 unit PO DAILY@1200 12/22/14 [History] Furosemide [Lasix] 40 mg PO DAILY PRN 12/22/14 [History] Potassium Chloride 20 meq PO DAILY PRN 12/22/14 [History] Sertraline [Zoloft] 100 mg PO DAILY 12/22/14 [History] allopurinoL [Zyloprim] 100 mg PO DAILY 12/22/14 [History] Atorvastatin [Lipitor] 20 mg PO DAILY 06/20/22 [History] Dulaglutide [Trulicity] 1.5 mg SQ WEEKLY 06/20/22 [History] lisinopriL [Zestril] 5 mg PO DAILY 06/20/22 [History] HYDROcodone/APAP 5-325MG [[place] 5-325] 1 each PO Q4HR PRN tab 09/07/22 [Rx] Follow up Appointment(s)/Referral(s): [facility], [NON-STAFF] - 1 Week Activity/Diet/Wound Care/Special Instructions: Patient to be up with assistance as per medicine and neurology Patient may shower after 48 hours with help Patient is to have drains emptied and kept to suction at all times patient's pains to be recorded individually record the amount from the drains on a twice a day basis or as needed; remove drains to be done in the office follow up September 20 sutures to be removed by myself in the office Discharge Disposition: TRANSFER TO SNF/ECF
--- NOTE | 2022-09-07 16:06 | P.DS ---
Providers Date of admission: 09/06/22 09:09 Attending physician: Inge Dwyer Consults: 09/04/22 15:20 Consult Physician Routine Consulting Provider: Holly Powers Consult Reason/Comments: medical care Do you want consulting provider notified?: Yes 09/06/22 08:38 Consult Physician Routine Consulting Provider: Curt Zimmerman Consult Reason/Comments: Numbness in lower legs Do you want consulting provider notified?: Yes Primary care physician: Enrique Hope MD Hospital Course: Discharge Diagnosis: Breast cancer status post bilateral mastectomy Subjective the left lower extremity numbness and weakness Diabetes Hypertension Lymphedema Depression Gout Hospital Course: Patient is a 51-year-old female with a past medical history of hypertension, hyperlipidemia, lymphedema, diabetes, depression and morbid obesity who was admitted for bilateral mastectomy and was admitted to the general surgery service. Patient had this procedure done for right breast invasive ductal carcinoma. After the procedure patient had difficulty with walking. She was complaining of left lower extremity weakness. However on my exam patient did not have any noticeable deficit. Patient seen by physical therapy and was able to walk 40 feet. Physical therapy did recommend halfway facility. Since patient required placement she was transferred to the medical service. Patient was seen by neurology and had a computed tomography scan that showed severe left-sided neural foramina narrowing. Patient unable to get an MRI due to her body habitus. Neurology recommended to follow up outpatient for an EMG study. Patient deemed stable for discharge to halfway facility. Patient is amenable to the plan. Please see my progress note from for physical exam A total of [33] minutes of time were spent preparing this complex discharge summary . Patient Condition at Discharge: Fair Plan - Discharge Summary Discharge Rx Participant: No New Discharge Prescriptions: New HYDROcodone/APAP 5-325MG [[place] 5-325] 1 each PO Q4HR PRN tab PRN Reason: Moderate Pain (Scale 4 To 6) Continue Furosemide [Lasix] 40 mg PO DAILY PRN PRN Reason: Edema Cholecalciferol [Vitamin D3 (25 Mcg = 1000 Iu)] 4,000 unit PO DAILY@1200 Sertraline [Zoloft] 100 mg PO DAILY allopurinoL [Zyloprim] 100 mg PO DAILY Potassium Chloride 20 meq PO DAILY PRN PRN Reason: Edema Albuterol Nebulized [Ventolin Nebulized] 2.5 mg INHALATION RT-Q6H PRN PRN Reason: Shortness Of Breath Albuterol Inhaler [Ventolin Hfa Inhaler] 2 puff INHALATION RT-Q6H PRN PRN Reason: Shortness Of Breath Dulaglutide [Trulicity] 1.5 mg SQ WEEKLY lisinopriL [Zestril] 5 mg PO DAILY Atorvastatin [Lipitor] 20 mg PO DAILY Discontinued Acetaminophen [Tylenol Arthritis] 650 mg PO DIRECTED PRN PRN Reason: Pain Discharge Medication List Albuterol Inhaler [Ventolin Hfa Inhaler] 2 puff INHALATION RT-Q6H PRN 12/22/14 [History] Albuterol Nebulized [Ventolin Nebulized] 2.5 mg INHALATION RT-Q6H PRN 12/22/14 [History] Cholecalciferol [Vitamin D3 (25 Mcg = 1000 Iu)] 4,000 unit PO DAILY@1200 12/22/14 [History] Furosemide [Lasix] 40 mg PO DAILY PRN 12/22/14 [History] Potassium Chloride 20 meq PO DAILY PRN 12/22/14 [History] Sertraline [Zoloft] 100 mg PO DAILY 12/22/14 [History] allopurinoL [Zyloprim] 100 mg PO DAILY 12/22/14 [History] Atorvastatin [Lipitor] 20 mg PO DAILY 06/20/22 [History] Dulaglutide [Trulicity] 1.5 mg SQ WEEKLY 06/20/22 [History] lisinopriL [Zestril] 5 mg PO DAILY 06/20/22 [History] HYDROcodone/APAP 5-325MG [[place] 5-325] 1 each PO Q4HR PRN tab 09/07/22 [Rx] Follow up Appointment(s)/Referral(s): [facility], [NON-STAFF] - 1 Week Activity/Diet/Wound Care/Special Instructions: Patient to be up with assistance as per medicine and neurology Patient may shower after 48 hours with help Patient is to have drains emptied and kept to suction at all times patient's pains to be recorded individually record the amount from the drains on a twice a day basis or as needed; remove drains to be done in the office follow up September 20 sutures to be removed by myself in the office Discharge Disposition: TRANSFER TO SNF/ECF
== END 2022-09-07 17:26 ==
LOC: OR 07:24 → 5NMEDONC 15:20 → OR 09-06 09:09 → 5NMEDONC 09-06 09:09
PROVIDERS: ADMIT Surgery; ATTEND Surgery
DX: C50.911 Malignant neoplasm of unspecified site of right female breast (principal); R20.0 Anesthesia of skin; R53.1 Weakness; I10 Essential (primary) hypertension; E78.5 Hyperlipidemia, unspecified; F32.A Depression, unspecified; J45.909 Unspecified asthma, uncomplicated; E55.9 Vitamin D deficiency, unspecified; M51.16 Intervertebral disc disorders with radiculopathy, lumbar region; E66.01 Morbid (severe) obesity due to excess calories; I89.0 Lymphedema, not elsewhere classified; M10.9 Gout, unspecified; E11.65 Type 2 diabetes mellitus with hyperglycemia; G47.30 Sleep apnea, unspecified; M48.07 Spinal stenosis, lumbosacral region; Z90.49 Acquired absence of other specified parts of digestive tract; Z98.51 Tubal ligation status; Z83.3 Family history of diabetes mellitus; Z82.49 Family history of ischemic heart disease and other diseases of the circulatory system; Z80.3 Family history of malignant neoplasm of breast; Z79.899 Other long term (current) drug therapy; Z79.85 Long-term (current) use of injectable non-insulin antidiabetic drugs; Z88.5 Allergy status to narcotic agent; Z68.44 Body mass index [BMI] 60.0-69.9, adult; Z32.02 Encounter for pregnancy test, result negative
CPT/HCPCS: 96372 ×2; 94760; 97530 ×4; 97163; 97535 ×2; 97167; 80053; 85025 ×2; 88342; 88307; 88309; 84703; 88341; 72131; 38792; 19307; G0378 ×2; A9520; J2250; J0330; J1100; J2405; J0690; J3010; J1170; J2704; J1644 ×4; J2001

== ENCOUNTER 2022-09-18 13:59 | Emergency (ER) | payer MEDICARE, OTHER ==
[2022-09-18] MEDS ORDERED: ACETAMINOPHEN TAB 325 MG TAB PO STA ×2 (14:41→14:42)
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
[2022-09-18 15:16] VITALS: BP 114/55; PULSE 64; RESP 16; TEMP 97.9
--- NOTE | 2022-09-18 15:23 | XR ---
EXAMINATION TYPE: XR chest 1V portable DATE OF EXAM: 09/18/2022 COMPARISON: None INDICATION: Fever TECHNIQUE: Single frontal view of the chest is obtained. FINDINGS: The heart size is mildly prominent. The pulmonary vasculature is normal. There may be some mild bibasilar infiltrate. Consider subsegmental atelectasis. Surgical skin cheli are present. IMPRESSION: 1. Mild bibasilar infiltrates. Consider subsegmental atelectasis. Early pneumonia may be present.
[2022-09-18 16:13] LABS: Basophils # (A) 0.1 k/uL (0-0.2); Basophils % (A) 1 %; Eosinophils # (A) 0.2 k/uL (0-0.7); Eosinophils % (A) 3 %; HCT 34.7 % (34.0-46.0); HGB 11.9 gm/dL (11.4-16.0); Lymphocytes # (A) 1.6 k/uL (1.0-4.8); Lymphocytes % (A) 24 %; MCH 31.1 pg (25.0-35.0); MCHC 34.3 g/dL (31.0-37.0); MCV 90.7 fL (80.0-100.0); Monocytes # (A) 0.6 k/uL (0-1.0); Monocytes % (A) 8 %; Neutrophils % (A) 61 %; Platelet Count 376 k/uL (150-450); RBC 3.82 m/uL (3.80-5.40); RDW 12.8 % (11.5-15.5); WBC 6.6 k/uL (3.8-10.6)
[2022-09-18 16:27] LABS: ALT 16 U/L (4-34); AST 18 U/L (14-36); African American GFR (CKD) >90 (>60 ml/min/1.73 sqM); Albumin 2.6 g/dL (3.5-5.0); Alkaline Phosphatase 111 U/L (38-126); Anion Gap 6 mmol/L; Blood Urea Nitrogen 16 mg/dL (7-17); Calcium 8.4 mg/dL (8.4-10.2); Carbon Dioxide 26 mmol/L (22-30); Chloride 100 mmol/L (98-107); Glucose 363 mg/dL (74-99); Non-African American GFR(CKD) >90 (>60 ml/min/1.73 sqM); Potassium 4.5 mmol/L (3.5-5.1); Sodium 132 mmol/L (137-145); Total Bilirubin 0.4 mg/dL (0.2-1.3); Total Protein 5.2 g/dL (6.3-8.2)
[2022-09-18] MEDS ORDERED: INSULIN REGULAR 100 UNIT/ML VIAL (IV) IV STA (16:41)
[2022-09-18] MEDS ORDERED: SODIUM CHLORIDE 0.9% 1,000 ML IV ONE (16:42)
[2022-09-18 17:52] LABS: Appearance,Urine Clear (Clear); Bilirubin,Urine Negative (Negative); Blood,Urine Negative (Negative); Color,Urine Yellow; Glucose,Urine (UA) 4+ (Negative); Leukocyte Esterase,Urine Negative (Negative); Nitrite,Urine Negative (Negative); Protein,Urine Trace (Negative); Specific Gravity,Urine 1.042 (1.001-1.035); Urobilinogen,Urine <2.0 mg/dL (<2.0)
[2022-09-18 18:07] LABS: Ketones,Urine 2+ (Negative)
== END 2022-09-18 20:37 | disposition home or self-care (01) ==
LOC: EC 13:59
DX: R50.9 Fever, unspecified (principal); E11.65 Type 2 diabetes mellitus with hyperglycemia; J45.909 Unspecified asthma, uncomplicated; I10 Essential (primary) hypertension; G47.30 Sleep apnea, unspecified; M19.90 Unspecified osteoarthritis, unspecified site; E78.5 Hyperlipidemia, unspecified; Z79.02 Long term (current) use of antithrombotics/antiplatelets; Z79.4 Long term (current) use of insulin; Z79.899 Other long term (current) drug therapy; Z79.1 Long term (current) use of non-steroidal anti-inflammatories (NSAID); Z91.013 Allergy to seafood; Z88.5 Allergy status to narcotic agent; Z91.041 Radiographic dye allergy status
CPT/HCPCS: 36415; 80053; 83605; 85025; 81003; 87040; 87502; 71045; 99284; 96365; 96366 ×2; J0696

== ENCOUNTER → 2022-09-20 | Outpatient (CLI) | payer MEDICARE, OTHER ==
[2022-09-20 11:58] VITALS: BP 136/85; PULSE 86; RESP 17; TEMP 97.7
--- NOTE | 2022-09-20 12:42 | P.PN ---
Progress Note - Text Progress Note Date: 09/20/22 Ligia is a 51 year old white female status post bilateral mastectomy with sentinel lymph node biopsy right axillary contents and left mastectomy on [id number]. 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 Focal lobular neoplasia and Bactrim fibrocystic changes were noted. The right sentinel lymph node biopsy was positive for metastatic carcinoma. The size of the largest metastatic deposit was 8 mm. The remainder of the axillary contents revealed an additional lymph node which was negative for metastatic disease. The left breast mastectomy revealed atypical lobular hyperplasia and lobular carcinoma in situ. 3 benign axillary lymph nodes were removed. The patient has postprocedure developed some numbness and difficulty with mobility of her left foot. The mobility has increased somewhat but she continues to experience some numbness. At this time she is weightbearing and able to ambulate. She cannot stand for prolonged periods was unable to do this preprocedure. The patient also was noted that the drains have stopped working and she has some open area in the lateral aspect of the right incision. Physical examination: Lungs: Clear Heart: Regular rate and rhythm Incision: Right side: The V-Y advancement flap area has some necrosis which is debrided and the incision is reinforced. There is another area of opening approximately 1-1/2 cm in size which is packed using moist Kerlix. On the left side of the incision is clean and dry with some slight necrosis in the AV right portion which is debrided and reinforced using a nylon suture. Plan: Patient is instructed in wound care Some of the cheli are removed Right sided chest wall wound was packed Home care. Recommend referral for wound care Patient is a diabetic and the diabetes is competent [facility] wound [facility] Patient will follow-up in one week CC:DR. Hope
== END ==
LOC: WWCWWP 11:44
PROVIDERS: ATTEND Surgery
DX: Z53.9 Procedure and treatment not carried out, unspecified reason (principal)

== ENCOUNTER 2022-09-24 23:18 | Emergency (ER) | payer MEDICARE, OTHER ==
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
[2022-09-24 23:53] VITALS: BP 125/64; PULSE 9; RESP 20; TEMP 97.2
== END 2022-09-25 01:08 | disposition home or self-care (01) ==
LOC: EC 23:18
DX: Z48.01 Encounter for change or removal of surgical wound dressing (principal); J45.909 Unspecified asthma, uncomplicated; E11.9 Type 2 diabetes mellitus without complications; I10 Essential (primary) hypertension; E78.5 Hyperlipidemia, unspecified; M19.90 Unspecified osteoarthritis, unspecified site; F41.9 Anxiety disorder, unspecified; F32.A Depression, unspecified; F12.90 Cannabis use, unspecified, uncomplicated; Z88.5 Allergy status to narcotic agent; Z91.013 Allergy to seafood; Z88.6 Allergy status to analgesic agent; Z79.899 Other long term (current) drug therapy
CPT/HCPCS: 99283

== ENCOUNTER → 2022-09-27 | Outpatient (CLI) | payer MEDICARE, OTHER ==
[2022-09-27 15:32] VITALS: BP 131/80; PULSE 80; RESP 18; TEMP 98.2
--- NOTE | 2022-09-27 16:11 | P.PN ---
Progress Note - Text Progress Note Date: 09/27/22 Ligia is a 51 year old white female status post bilateral mastectomy with sentinel lymph node biopsy right axillary contents and left mastectomy on [id number]. 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 Focal lobular neoplasia and fibrocystic changes were noted. The right sentinel lymph node biopsy was positive for metastatic carcinoma. The size of the largest metastatic deposit was 8 mm. The remainder of the axillary contents revealed an additional lymph node which was negative for metastatic disease. The left breast mastectomy revealed atypical lobular hyperplasia and lobular carcinoma in situ. 3 benign axillary lymph nodes were removed. The patient has postprocedure developed some numbness and difficulty with mobility of her left foot. The mobility has increased somewhat but she continues to experience some numbness. At this time she is weightbearing and able to ambulate. She cannot stand for prolonged periods and was unable to do this preprocedure. The patient was seen in wound care 09-26-22 and her case was discussed with Dr. Rodríguez. At this time we are going to further debride the wound. He is most likely going to place wound VAC on the the areas of concern. Physical examination: Lungs: Clear Heart: Regular rate and rhythm Incision: Right side: The V-Y advancement flap area has some necrosis which is debrided at the lower aspect of the right breast there is an area approximately 5 cm x 3 cm which is necrotic for debridement. There is no evidence of infection. On the left side the V-Y advancement flap portion has some necrosis which was debrided, as well as the midportion of the incision. Plan: Patient is instructed in wound care Some of the additional cheli are removed Right sided chest wall wound was debrided and packed Home care. Discuss case with Dr. Rodríguez from wound care Patient is a diabetic and the diabetes is complicating wound healing Patient will follow up with wound care next week After discussion with Dr. Rodríguez the patient is going to be recommended to have Aquacel silver rope packing for the areas of concern on Saturday and Saturday of minimal see him on Saturday. CC:DR. Hope Additional CC's: Enrique Hope Procedure note: After informed consent the area of the right breast was prepped using Betadine. Wide excision of the area of necrosis was performed. This was approximately 5 cm x 3 cm. The edges of the wound were refreshed at the V-Y advancement flap site where it was opened. The left ear the breast was approached. The lateral aspect of the incision there was an area which was debrided as well. This was approximately 5 cm x 1 cm. The area of the V-Y advancement flap was depleted as well.
== END ==
LOC: WWCWWP 15:28
PROVIDERS: ATTEND Surgery
DX: C50.911 Malignant neoplasm of unspecified site of right female breast (principal); Z88.5 Allergy status to narcotic agent; Z91.041 Radiographic dye allergy status; Z91.013 Allergy to seafood

== ENCOUNTER 2022-11-04 14:08 | Emergency (ER) | payer MEDICARE, OTHER ==
[2022-11-04] MEDS ORDERED: HYDROcodone/APAP 5-325MG 1 EACH TAB PO STA (14:40)
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
--- NOTE | 2022-11-04 15:34 | XR ---
EXAMINATION TYPE: XR femur LT DATE OF EXAM: 11/04/2022 COMPARISON: NONE HISTORY: Pain and numbness TECHNIQUE: 5 views FINDINGS: There is narrowing of the knee joint spaces. There is spurring of the femoral and tibial co ndyles. Hip joint is intact patella is intact. No fracture seen. There is lateral tibial subluxation. IMPRESSION: No femoral fracture. Moderate osteoarthritis at the knee joint.
--- NOTE | 2022-11-04 15:37 | XR ---
EXAMINATION TYPE: XR knee limited LT DATE OF EXAM: 11/04/2022 COMPARISON: NONE HISTORY: Pain TECHNIQUE: 2 views FINDINGS: There is severe narrowing of medial joint space. There is lateral tibial subluxation. There is spurring of the femoral and tibial condyles. No joint effusion. Patella is intact. IMPRESSION: Advanced osteoarthritis in the medial joint space. No fracture.
--- NOTE | 2022-11-04 15:37 | XR ---
EXAMINATION TYPE: XR tibia fibula LT DATE OF EXAM: 11/04/2022 COMPARISON: NONE HISTORY: Pain and numbness TECHNIQUE: 4 views FINDINGS: There is severe narrowing of the medial joint space of the knee. There is lateral tibial burkett bluxation. There is spurring of the femoral and tibial condyles. Ankle joint appears anatomic. There is plantar calcaneal spurring. No fracture seen. IMPRESSION: Advanced osteoarthritis in the left knee joint. No fracture.
--- NOTE | 2022-11-04 16:00 | US ---
EXAMINATION TYPE: US venous doppler duplex LE LT DATE OF EXAM: 11/04/2022 3:38 PM COMPARISON: NONE CLINICAL HISTORY: pain, eval for dvt. pain exam limited due to morbid obesity. SIDE PERFORMED: Left TECHNIQUE: The lower extremity deep venous system is examined utilizing real time linear array sonog tennille with graded compression, doppler sonography and color-flow sonography. VESSELS IMAGED: Common Femoral Vein Deep Femoral Vein Greater Saphenous Vein * Femoral Vein Popliteal Vein Small Saphenous Vein * Proximal Calf Veins (* superficial vessels) Left Leg: Negative for DVT IMPRESSION: No evidence of deep vein thrombosis in the left leg.
[2022-11-04 16:18] VITALS: BP 133/80; PULSE 90; RESP 18; TEMP 98
== END 2022-11-04 16:35 | disposition home or self-care (01) ==
LOC: EC 14:08
DX: S86.912A Strain of unspecified muscle(s) and tendon(s) at lower leg level, left leg, initial encounter (principal); I10 Essential (primary) hypertension; E11.9 Type 2 diabetes mellitus without complications; E66.01 Morbid (severe) obesity due to excess calories; E78.5 Hyperlipidemia, unspecified; F32.A Depression, unspecified; F41.9 Anxiety disorder, unspecified; G47.30 Sleep apnea, unspecified; J45.909 Unspecified asthma, uncomplicated; F12.90 Cannabis use, unspecified, uncomplicated; Z79.899 Other long term (current) drug therapy; Z91.013 Allergy to seafood; Z88.5 Allergy status to narcotic agent; Z91.041 Radiographic dye allergy status; X58.XXXA Exposure to other specified factors, initial encounter
CPT/HCPCS: 99284

== ENCOUNTER → 2023-02-21 | Outpatient (CLI) | payer MEDICARE, OTHER ==
[2023-02-21 16:11] VITALS: BP 122/76; PULSE 62; RESP 18; TEMP 98.3
--- NOTE | 2023-02-21 16:26 | P.PN ---
Subjective Progress Note Date: 02/21/23 Principal diagnosis: Bilateral mastectomy 09-04-22, wound healing well, right breast [id number]+ invasive ductal cancer, left foot brace right breast stage I invasive ductal breast cancer Stage I a right breast invasive ductal carcinoma, second sight stage 0 ductal carcinoma in situ Ligia is a 51 year old white female seen in consultation for Dr. Farris regarding right breast radiographic abnormalities. She felt a lump in her right breast for several weeks prior to her mammogram. She underwent a bilateral screening mammogram on . This did not reveal any lesions of concern in the left breast. In the right breast there was a nodular abnormality as well as some microcalcifications of concern in the upper outer quadrant area. She then underwent additional views of the right breast which again confirmed pleomorphic calcifications in the upper outer anterior right breast for which stereotactic core biopsy was recommended. Additionally an ultrasound was recommended. The ultrasound was performed which revealed a lesion for which ultrasound-guided core biopsy was recommended. This corresponded to the asymmetry seen on the mammogram. Her last mammogram was 1 year ago and this was benign. The patient is not complaining of any trauma or infection in her breast. She is complaining of any lumps in the left breast. She has not had any surgery on her breast. 07-19-22 ultrasound core biopsy of the right breast was done on 06-26-22; this was + for invasive ductal cancer G2; ER+UT+Her2- T1 Oncotype was 6 it was felt there would be < 1% benefit from chemotherapy. stero biopsy of the second lesion at [facility] 07-12-22 DCIS The patient was going to have genetic testing done but this is not been performed at this time. Note 07-25-22 medical oncology reviewed Note 08-01-22 radiation oncology reviewed Patients case presented on tumor board on 07-17-22. 02-21-23 Ligia is a 51 year old white female status post bilatearal mastectomy on 09-04-22. This was for a right sided T2 (2.7 cm)N1M0ER+Pr+Her2 low+ tumor. Post operatively she developed numbeness of her left foot and difficulty with would healing. She has been seen in wound clinic since 09-26-22. She is recommended to have radation therapy when her wound has healed. Note from medical oncology reviewed and will consider abemaciclib and an aromatise inhibitor. States she is getting more and more use from her left foot. Additionally her wounds are healing well at this time. She has complete healing of the left axillary incision. Caffeine: 20 oz/day nicotine: none BCP: never chocolate: none diabetic Family History: 1. Maternal aunt: Breast cancer at 40s, recurrence, with into a study not know the results of the study, told she was Ale[place] 2. Maternal cousin: Breast cancer stage IV at 28 delivered baby early and had chemo and is alive 15 years later, 3. Mother: Breast cancer a 72 Hormonal history: Menarche: 9 : First a 19, , 1, breast-fed: Yes Periods: last period 6 months ago BCP:none hormones: none Surgical History: C-sections 2 umbilical hernia repairs Tubal ligation Cholecystectomy Medical history: Obesity Degenerative joint disease Gout Hormone imbalance/depression Heel spur Arthritis diabetic Social history: Smoke: Negative Alcohol: Occasional Drugs: Marijuana rarely - Constitutional Constitutional: Reports fever, Reports sweats - EENT Comment: wears glasses Ears: bilateral: tinnitus (occasional) Ears, nose, mouth and throat: Denies headache, Denies sore throat - Breasts Breasts: bilateral: as per HPI - Cardiovascular Cardiovascular: Reports shortness of breath, Denies chest pain - Respiratory Respiratory: Reports cough - Gastrointestinal Gastrointestinal: Denies abdominal pain, Denies diarrhea, Denies nausea, Denies vomiting - Genitourinary (Female) Genitourinary: Denies dysuria, Denies hematuria - Menstruation Menstruation: Reports as per HPI - Musculoskeletal Comment: arthritis/ uses a wheel chair - Integumentary Integumentary: Denies pruritus, Denies rash - Neurological Neurological: Reports numbness, Denies weakness - Psychiatric Psychiatric: Reports anxiety, Reports depression - Endocrine Comment: diabetes - Hematologic/Lymphatic Comment: none - Allergic/Immunologic Allergic/Immunologic: Reports seasonal allergies 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 but denies depression History of Any Multi-Drug Resistant Organisms: MRSA Date of last positivie culture/infection: 05/24/16 MDRO Source:: RIGHT LEG Past Surgical History: Section, Cholecystectomy, Hernia Repair Additional Past Surgical History / Comment(s): 3, tubal ligation, hernia repair 2 Past Anesthesia/Blood Transfusion Reactions: No Reported Reaction Past Psychological History: Anxiety, Depression Smoking Status: Never smoker Past Alcohol Use History: Occasional Additional Past Alcohol Use History / Comment(s): Patient states she is a lifelong nonsmoker. She has used marijuana in the past occasionally. She denies any other street drug use. She lives with HER-2 adult sons and [id number]. There are 9 dogs in the home along with 3 cats that stay in the basement, a bunny. Past Drug Use History: Marijuana Additional Drug Use History / Comment(s): used in past per pt - Past Family History Mother Family Medical History: Congestive Heart Failure (CHF), Diabetes Mellitus Medications and Allergies Home Medications Medication Instructions Recorded Confirmed Type Albuterol Inhaler [Ventolin Hfa 2 puff INHALATION RT-Q6H PRN 12/22/14 06/22/22 History Inhaler] Albuterol Nebulized [Ventolin 2.5 mg INHALATION RT-Q6H PRN 12/22/14 06/22/22 History Nebulized] Cholecalciferol [Vitamin D3 (25 4,000 unit PO DAILY@1200 12/22/14 06/22/22 History Mcg = 1000 Iu)] Furosemide [Lasix] 40 mg PO DAILY PRN 12/22/14 06/22/22 History Potassium Chloride 20 meq PO DAILY PRN 12/22/14 06/22/22 History Sertraline [Zoloft] 100 mg PO DAILY 12/22/14 06/22/22 History allopurinoL [Zyloprim] 100 mg PO DAILY 12/22/14 06/22/22 History Atorvastatin [Lipitor] 20 mg PO DAILY 06/20/22 06/22/22 History Dulaglutide [Trulicity] 1.5 mg SQ WEEKLY 06/20/22 06/22/22 History lisinopriL [Zestril] 5 mg PO DAILY 06/20/22 06/22/22 History metFORMIN HCL [Metformin HCl] 1,000 mg PO DAILY 06/20/22 06/22/22 History Allergies Allergy/AdvReac Type Severity Reaction Status Date / Time codeine Allergy Nausea & Verified 06/22/22 10:16 Vomiting iodine Allergy Unknown Verified 06/22/22 10:16 morphine Allergy Unknown Verified 06/22/22 10:16 Objective - Vital Signs Vital signs: Vital Signs Temp 98.3 F 02/21/23 16:09 Pulse 62 02/21/23 16:09 Resp 18 02/21/23 16:09 BP 122/76 02/21/23 16:09 Pulse Ox 96 02/21/23 16:09 FiO2 Intake & Output 02/20/23 02/21/23 02/21/23 18:59 06:59 18:59 Weight 185.973 kg Assessment and Plan Assessment: Impression: Patient status post bilateral mastectomy for a right breast T2 N1 M0 invasive ductal carcinoma resected on [id number] no evidence of recurrent cancer Wounds healing well at this time Left foot in a brace Plan: Continue with wound care Radiation therapy Follow-up with medical oncology for hormone therapy Follow-up care in 4 months Cc:
== END ==
LOC: WWCWWP 14:56
PROVIDERS: ATTEND Surgery
DX: D05.11 Intraductal carcinoma in situ of right breast (principal); E11.9 Type 2 diabetes mellitus without complications; E66.9 Obesity, unspecified; M10.9 Gout, unspecified; M19.90 Unspecified osteoarthritis, unspecified site; N63.20 Unspecified lump in the left breast, unspecified quadrant; N64.89 Other specified disorders of breast; Z17.0 Estrogen receptor positive status [ER+]; Z79.84 Long term (current) use of oral hypoglycemic drugs; Z80.3 Family history of malignant neoplasm of breast; Z90.13 Acquired absence of bilateral breasts and nipples; Z90.49 Acquired absence of other specified parts of digestive tract; Z88.5 Allergy status to narcotic agent; Z91.02 Food additives allergy status; Z79.899 Other long term (current) drug therapy

== ENCOUNTER → 2023-03-01 | Outpatient (CLI) | payer MEDICARE, OTHER ==
--- NOTE | 2023-03-01 14:36 | BD ---
EXAMINATION TYPE: Axial Bone Density DATE OF EXAM: 03/01/2023 CLINICAL HISTORY: 52 years old Female. ICD-10 CODE: C50.411 CARCINOMA UPPER OUTTER QUADRT BREAST Height: 65 Weight: 399.8 FRAX RISK QUESTIONS: Alcohol (3 or more units per day): no Family History (Parent hip fracture): no Glucocorticoids (More than 3mos): no History of Fracture in Adulthood: no Secondary Osteoporosis: 1. Type 1 Diabetes: no 2. Hyperthyroidism: no 3. Menopause before 45: no 4. Malnutrition: no 5. Chronic liver disease: no Rheumatoid Arthritis: no Current Tobacco Use: no RISK FACTORS HISTORY OF: Hip Fracture (Right/Left): no Spine Fracture: no History of Wrist Fracture: no Surgery to Spine/Hip(right/left)/Wrist (right/left): no Family History of Osteoporosis: no Active: no Diet low in dairy products/other sources of calcium: no Postmenopausal woman: no If Premenopausal, do you have irregular periods: yes Take estrogen and/or progesterone medications: no Lost more than 2 inches in height since high school: yes Frequent falls: no Poor Health: no Hyperparathyroidism: no Adrenal Insufficiency: no MEDICATIONS: Prednisone or other steroids: no Thyroid Medications: no Osteoporosis Medications: no Additional Medications: Allopurinol, Multi Vit., Vit d, Trulicity, Lipitor, Zoloft, Lisinopril, Jaridiance Additional History: Breast Ca. with double mastectomy 2021 EXAM MEASUREMENTS: Bone mineral densitometry was performed using the [employer] System. Bone mineral density as measured about the Lumbar spine is: ----- L1-L4(G/cm2): 1.309 T Score Values are as follows: ----- L1: 0.8 ----- L2: 2.0 ----- L3: 131 ----- L4: 0.4 ----- L1-L4: 1.1 Z Score Values are as follows: ----- L1: 0.8 ----- L2: 2.0 ----- L3: 1.1 ----- L4: 0.4 ----- L1-L4: 1.1 Baseline study Bone mineral density about the R hip (g/cm2): 1.099 Bone mineral density about the L hip (g/cm2): 1.078 T Score values are as follows: -----R Neck: 0.5 -----L Neck: 0.6 -----R Total: 0.7 -----L Total: 0.6 Z Score values are as follows: -----R Neck: 0.7 -----L Neck: 0.8 -----R Total: 0.5 -----L Total: 0.3 Baseline study FRAX%s: The graph provided illustrates a 3.2% chance for a major osteoporotic fx and a 0.0% chance fo r the hips probability for fx in 10 years time. IMPRESSION: Normal (Values between +1 and -1 indicate normal bone mass). Consider repeating this study in 5 year s or sooner if there is some new clinical indication. NOTE: T-SCORE=SD OF THE YOUNG ADULT MEAN.
== END | disposition home or self-care (01) ==
LOC: RADBDWWP 13:27
PROVIDERS: ATTEND Family Medicine
DX: C50.411 Malignant neoplasm of upper-outer quadrant of right female breast (principal); E11.9 Type 2 diabetes mellitus without complications; M10.9 Gout, unspecified; Z71.3 Dietary counseling and surveillance; Z90.13 Acquired absence of bilateral breasts and nipples
CPT/HCPCS: 77080

== ENCOUNTER 2023-09-23 14:32 | Inpatient (IN) | payer MEDICARE, OTHER ==
[2023-09-23 14:43] LABS: Glucose,Whole Blood 168 mg/dL (70-110)
--- NOTE | 2023-09-23 14:44 | ED ---
General Adult HPI - General Source: patient, family, RN notes reviewed Mode of arrival: ambulatory Limitations: no limitations <Raffi Leavitt - Last Filed: 09/23/23 14:42> <Sorin Allen - Last Filed: 09/24/23 00:22> - General Stated complaint: DM lathergic bronchitis Time Seen by Provider: 09/23/23 14:42 - History of Present Illness Initial comments: 52-year-old female presents emergency Department chief complaint of generalized weakness, not feeling well. Patient had near syncopal episode. Patient states that she is currently on chemotherapy for breast cancer. She is also diabetic. (Raffi Leavitt) 52-year-old female presenting with chief complaint of weakness and dizziness. Patient is currently undergoing chemotherapy for breast cancer. Patient was here at the hospital to receive her "cancer injection", she went to the bathroom where she started to feel dizzy so she lied down on the ground. She had an episode of diarrhea. She was noted to be a bit hypotensive with systolic BP in the 90s. She states that she has had a cough and congestion for the last 5 days. No known fevers. No chest pain. She admits to some difficulty breathing. No abdominal pain. She admits to nausea with no vomiting. No numbness or tingling. (Sorin Allen) - Related Data Home Medications Medication Instructions Recorded Confirmed Albuterol Inhaler [Ventolin Hfa 2 puff INHALATION RT-Q6H PRN 12/22/14 09/23/23 Inhaler] Sertraline [Zoloft] 150 mg PO DAILY 12/22/14 09/23/23 Atorvastatin [Lipitor] 20 mg PO DAILY 06/20/22 09/23/23 lisinopriL [Zestril] 5 mg PO DAILY 06/20/22 09/23/23 Cholecalciferol [Vitamin D3 (25 100 mcg PO DAILY 09/18/22 09/23/23 Mcg = 1000 Iu)] Abemaciclib [Verzenio] 150 mg PO DIRECTED 09/23/23 09/23/23 Anastrozole [Arimidex] 1 mg PO DAILY 09/23/23 09/23/23 Dulaglutide [Trulicity] 3 mg SQ BELLE 09/23/23 09/23/23 Meclizine [Antivert] 25 mg PO TID PRN 09/23/23 09/23/23 sitaGLIPtin [Januvia] 25 mg PO DAILY 09/23/23 09/23/23 Allergies Allergy/AdvReac Type Severity Reaction Status Date / Time codeine Allergy Nausea & Verified 09/23/23 16:15 Vomiting Fish Containing Products Allergy Anaphylaxis Verified 09/23/23 16:15 [Fish] iodine Allergy Unknown Verified 09/23/23 16:15 morphine Allergy Unknown Verified 09/23/23 16:15 shrimp Allergy Anaphylaxis Verified 09/23/23 16:15 Review of Systems ROS Other: All systems not noted in ROS Statement are negative. <Raffi Leavitt - Last Filed: 09/23/23 14:42> ROS Other: All systems not noted in ROS Statement are negative. <Sorin Allen - Last Filed: 09/24/23 00:22> ROS Statement: Those systems with pertinent positive or pertinent negative responses have been documented in the HPI. 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 but denies depression History of Any Multi-Drug Resistant Organisms: MRSA Date of last positivie culture/infection: 05/24/16 MDRO Source:: RIGHT LEG Past Surgical History: Section, Cholecystectomy, Hernia Repair Additional Past Surgical History / Comment(s): 3, tubal ligation, hernia repair 2 Past Anesthesia/Blood Transfusion Reactions: No Reported Reaction Additional Past Anesthesia/Blood Transfusion Reaction / Comment(s): no blood tranfusions Smoking Status: Never smoker - Past Family History Mother Family Medical History: Cancer, Congestive Heart Failure (CHF), Diabetes Mellitus Additional Family Medical History / Comment(s): breast cancer Father History Unknown: Yes <Raffi Leavitt - Last Filed: 09/23/23 14:42> General Exam <Raffi Leavitt - Last Filed: 09/23/23 14:42> Limitations: no limitations General appearance: alert, in no apparent distress Head exam: Present: atraumatic, normocephalic, normal inspection Eye exam: Present: normal appearance, EOMI Neck exam: Present: normal inspection, full ROM Respiratory exam: Present: normal lung sounds bilaterally. Absent: respiratory distress, wheezes, rales, rhonchi, stridor Cardiovascular Exam: Present: regular rate, normal rhythm, normal heart sounds. Absent: systolic murmur, diastolic murmur, rubs, gallop, clicks GI/Abdominal exam: Present: soft. Absent: distended, tenderness, guarding, rebound, rigid Neurological exam: Present: alert, oriented X3 Expanded Eye Response: (4) open spontaneously Motor Response: (6) obeys commands Verbal Response: (5) oriented [place] Total: 15 Psychiatric exam: Present: normal affect, normal mood Skin exam: Present: warm, dry <Sorin Allen - Last Filed: 09/24/23 00:22> - General Exam Comments Initial Comments: Visual Physical Exam Vital signs reviewed General: Well-appearing, nontoxic, no acute distress. Head: Normocephalic, atraumatic Eyes: PERRLA, EOMI ENT: Airway patent Chest: Nonlabored breathing Skin: No visual rash, normal skin tone Neuro: Alert and oriented 3 Musculoskeletal: No gross abnormalities (Raffi Leavitt) Course Vital Signs 09/23/23 09/23/23 09/23/23 14:38 17:44 22:00 Temperature 98.0 F Pulse Rate 101 H 100 91 Respiratory 18 18 19 Rate Blood Pressure 95/66 104/65 98/50 O2 Sat by Pulse 98 98 97 Oximetry 09/24/23 00:04 Temperature Pulse Rate Respiratory Rate Blood Pressure O2 Sat by Pulse 94 L Oximetry Medical Decision Making <Raffi Leavitt - Last Filed: 09/23/23 14:42> - Lab Data Result diagrams: 09/23/23 17:21 09/23/23 17:21 <Sorin Allen - Last Filed: 09/24/23 00:22> - Medical Decision Making I completed the quick note portion of this chart signed Raffi Leavitt PA-C (Raffi Leavitt) Was pt. sent in by a medical professional or institution ([facility], [facility], urgent care, hospital, or snf...) When possible be specific @ -No Did you speak to anyone other than the patient for history (EMS, parent, family, police, friend...)? What history was obtained from this source @ -No Did you review nursing and triage notes (agree or disagree)? Why? @ -I reviewed and agree with nursing and triage notes Were old charts reviewed (outside hosp., previous admission, EMS record, old EKG, old radiological studies, urgent care reports/EKG's, snf records)? Report findings @ -No old charts were reviewed Differential Diagnosis (chest pain, altered mental status, abdominal pain women, abdominal pain men, vaginal bleeding, weakness, fever, dyspnea, syncope, headache, dizziness, GI bleed, back pain, seizure, CVA, palpatations, mental health, musculoskeletal)? @ -MDM Differential Dizziness: Benign paroxysmal positional Vertigo, Menieres disease, otitis media, acoustic neuroma, vertebrobasilar insufficiency, cerebellar stroke, encephalitis, hypovolemic, arrhythmia, coronary artery syndrome, anemia this is not meant to be an all-inclusive list EKG interpreted by me (3pts min.). @ -Sinus rhythm with occasional supraventricular premature complexes ventricular rate 69. [place] interval 171. QRS 91. QT 394. QTC 413. X-rays interpreted by me (1pt min.). @ -low lung volumes with a generalized hazy appearance which could represent atelectasis versus pulmonary edema correlate with serum BNP CT interpreted by me (1pt min.). @ -No acute intracranial process U/S interpreted by me (1pt. min.). @ -None done What testing was considered but not performed or refused? (CT, X-rays, U/S, labs)? Why? @ -None What meds were considered but not given or refused? Why? @ -None Did you discuss the management of the patient with other professionals (professionals i.e. , PA, [facility], lab, RT, psych nurse, protective services social worker, cell assembly pinner, teacher, aoc plans intelligence officer, bilingual patient support caseworker)? Give summary @ -spoke with Dr. covarrubias who accepted admission Was smoking cessation discussed for >3mins.? @ -No Was critical care preformed (if so, how long)? @ -No Were there social determinants of health that impacted care today? How? (Homelessness, low income, unemployed, alcoholism, drug addiction, transportation, low edu. Level, literacy, decrease access to med. care, fpc, rehab)? @ -No Was there de-escalation of care discussed even if they declined (Discuss DNR or withdrawal of care, Hospice)? DNR status @ -No What co-morbidities impacted this encounter? (DM, HTN, Smoking, COPD, CAD, Cancer, CVA, ARF, Chemo, Hep., AIDS, mental health diagnosis, sleep apnea, morbid obesity)? @ -None Was patient admitted / discharged? Hospital course, mention meds given and route, prescriptions, significant lab abnormalities, going to OR and other pertinent info. @ -52-year-old female presenting with chief complaint of dizziness and weakness onset today. History and physical examination are conducted. We attempted to perform orthostatic vitals, however the patient became tachycardic and was unable to tolerate. Lab work shows no leukocytosis or anemia. Potassium 3.3. Troponin negative at 0.025. BNP 242. Chest x-ray shows atelectasis versus CHF. Negative CT of the brain. Patient will be admitted for possible cardiogenic presyncope. Patient is agreeable with this plan. I discussed this case with my attending Dr. Poole Undiagnosed new problem with uncertain prognosis? @ -No Drug Therapy requiring intensive monitoring for toxicity (Heparin, Nitro, Insulin, Cardizem)? @ -No Were any procedures done? @ -No Diagnosis/symptom? @ -Presyncope, dehydration Acute, or Chronic, or Acute on Chronic? @ -acute Uncomplicated (without systemic symptoms) or Complicated (systemic symptoms)? @ -complicated Side effects of treatment? @ -No Exacerbation, Progression, or Severe Exacerbation? @ -No Poses a threat to life or bodily function? How? (Chest pain, [place], [place], pneumonia, PE, COPD, DKA, ARF, appy, cholecystitis, CVA, Diverticulitis, Homicidal, Suicidal, threat to staff... and all critical care pts) @ -Potential (Sorin Allen) - Lab Data Lab Results 09/23/23 09/23/23 09/23/23 Range/Units 14:42 17:21 17:21 WBC 3.8 (3.8-10.6) k/uL RBC 3.91 (3.80-5.40) m/uL Hgb 13.1 (11.4-16.0) gm/dL Hct 38.4 (34.0-46.0) % MCV 98.3 (80.0-100.0) fL MCH 33.5 (25.0-35.0) pg MCHC 34.0 (31.0-37.0) g/dL RDW 15.2 (11.5-15.5) % Plt Count 178 (150-450) k/uL MPV 9.1 Neutrophils % 73 % Lymphocytes % 21 % Monocytes % 3 % Eosinophils % 1 % Basophils % 1 % Neutrophils # 2.8 (1.3-7.7) k/uL Lymphocytes # 0.8 L (1.0-4.8) k/uL Monocytes # 0.1 (0-1.0) k/uL Eosinophils # 0.1 (0-0.7) k/uL Basophils # 0.0 (0-0.2) k/uL Poikilocytosis Slight PT 10.3 (10.0-12.5) sec INR 0.9 (<1.2) APTT 21.8 L (22.0-30.0) sec Sodium (137-145) mmol/L Potassium (3.5-5.1) mmol/L Chloride (98-107) mmol/L Carbon Dioxide (22-30) mmol/L Anion Gap mmol/L BUN (7-17) mg/dL Creatinine (0.52-1.04) mg/dL Est GFR (CKD-EPI)AfAm (>60 ml/min/1.73 sqM) Est GFR (CKD-EPI)NonAf (>60 ml/min/1.73 sqM) Glucose (74-99) mg/dL POC Glucose (mg/dL) 168 H (70-110) mg/dL POC Glu Program Director ID Plasma Lactic Acid Bal (0.7-2.0) mmol/L Calcium (8.4-10.2) mg/dL Phosphorus (2.5-4.5) mg/dL Magnesium (1.6-2.3) mg/dL Total Bilirubin (0.2-1.3) mg/dL AST (14-36) U/L ALT (4-34) U/L Alkaline Phosphatase (38-126) U/L Troponin I (0.000-0.034) ng/mL NT-Pro-B Natriuret Pep pg/mL Total Protein (6.3-8.2) g/dL Albumin (3.5-5.0) g/dL 09/23/23 09/23/23 09/23/23 Range/Units 17:21 17:21 17:21 WBC (3.8-10.6) k/uL RBC (3.80-5.40) m/uL Hgb (11.4-16.0) gm/dL Hct (34.0-46.0) % MCV (80.0-100.0) fL MCH (25.0-35.0) pg MCHC (31.0-37.0) g/dL RDW (11.5-15.5) % Plt Count (150-450) k/uL MPV Neutrophils % % Lymphocytes % % Monocytes % % Eosinophils % % Basophils % % Neutrophils # (1.3-7.7) k/uL Lymphocytes # (1.0-4.8) k/uL Monocytes # (0-1.0) k/uL Eosinophils # (0-0.7) k/uL Basophils # (0-0.2) k/uL Poikilocytosis PT (10.0-12.5) sec INR (<1.2) APTT (22.0-30.0) sec Sodium 140 (137-145) mmol/L Potassium 3.3 L (3.5-5.1) mmol/L Chloride 101 (98-107) mmol/L Carbon Dioxide 29 (22-30) mmol/L Anion Gap 10 mmol/L BUN 20 H (7-17) mg/dL Creatinine 0.93 (0.52-1.04) mg/dL Est GFR (CKD-EPI)AfAm 81 (>60 ml/min/1.73 sqM) Est GFR (CKD-EPI)NonAf 70 (>60 ml/min/1.73 sqM) Glucose 136 H (74-99) mg/dL POC Glucose (mg/dL) (70-110) mg/dL POC Glu Program Director ID Plasma Lactic Acid Bal 1.5 (0.7-2.0) mmol/L Calcium 9.2 (8.4-10.2) mg/dL Phosphorus 3.1 (2.5-4.5) mg/dL Magnesium 1.9 (1.6-2.3) mg/dL Total Bilirubin 0.9 (0.2-1.3) mg/dL AST 25 (14-36) U/L ALT 16 (4-34) U/L Alkaline Phosphatase 47 (38-126) U/L Troponin I 0.025 (0.000-0.034) ng/mL NT-Pro-B Natriuret Pep 242 pg/mL Total Protein 6.3 (6.3-8.2) g/dL Albumin 3.6 (3.5-5.0) g/dL Disposition <Raffi Leavitt - Last Filed: 09/23/23 14:42> Time of Disposition: 22:49 <Sorin Allen - Last Filed: 09/24/23 00:22> Clinical Impression: Pre-syncope, Dehydration Disposition: ADMITTED IP TO THIS HOSP Condition: Fair
[2023-09-23] MEDS ORDERED: SODIUM CHLORIDE 0.9% 1,000 ML IV STA (16:10)
[2023-09-23] MEDS ORDERED: ONDANSETRON 4 MG/2 ML VIAL IVP STA (16:10)
[2023-09-23] MEDS ORDERED: MECLIZINE 12.5 MG TAB PO STA (16:15)
--- NOTE | 2023-09-23 16:35 | XR ---
EXAMINATION TYPE: XR chest 2V DATE OF EXAM: 09/23/2023 4:28 PM CLINICAL INDICATION:Female, 52 years old with history of Weakness; [facility] COMPARISON: 09/18/2022 TECHNIQUE: XR chest 2V Frontal and lateral views of the chest. FINDINGS: Lungs/Pleura: There is no evidence of pleural effusion, focal consolidation, or pneumothorax. Pulmonary vascularity: Unremarkable. Heart/mediastinum: Cardiomediastinal silhouette is unremarkable. Musculoskeletal: No acute osseous pathology. Other findings: None IMPRESSION: Low lung volumes with a generalized hazy appearance which could represent atelectasis versus pulmonar y edema correlate with serum BNP.
[2023-09-23 17:30] LABS: Basophils % (A) 1 %; Eosinophils # (A) 0.1 k/uL (0-0.7); Eosinophils % (A) 1 %; HCT 38.4 % (34.0-46.0); HGB 13.1 gm/dL (11.4-16.0); Lymphocytes # (A) 0.8 k/uL (1.0-4.8); Lymphocytes % (A) 21 %; MCH 33.5 pg (25.0-35.0); MCV 98.3 fL (80.0-100.0); Mean Platelet Volume 9.1; Monocytes # (A) 0.1 k/uL (0-1.0); Monocytes % (A) 3 %; Neutrophils # (A) 2.8 k/uL (1.3-7.7); Neutrophils % (A) 73 %; Platelet Count 178 k/uL (150-450); Poikilocytosis Slight; RBC 3.91 m/uL (3.80-5.40); RDW 15.2 % (11.5-15.5); WBC 3.8 k/uL (3.8-10.6)
[2023-09-23 17:43] LABS: ALT 16 U/L (4-34); AST 25 U/L (14-36); African American GFR (CKD) 81 (>60 ml/min/1.73 sqM); Albumin 3.6 g/dL (3.5-5.0); Alkaline Phosphatase 47 U/L (38-126); Anion Gap 10 mmol/L; Blood Urea Nitrogen 20 mg/dL (7-17); Calcium 9.2 mg/dL (8.4-10.2); Carbon Dioxide 29 mmol/L (22-30); Chloride 101 mmol/L (98-107); Glucose 136 mg/dL (74-99); Magnesium 1.9 mg/dL (1.6-2.3); Non-African American GFR(CKD) 70 (>60 ml/min/1.73 sqM); Phosphorus 3.1 mg/dL (2.5-4.5); Potassium 3.3 mmol/L (3.5-5.1); Sodium 140 mmol/L (137-145); Total Bilirubin 0.9 mg/dL (0.2-1.3); Total Protein 6.3 g/dL (6.3-8.2)
[2023-09-23 17:50] LABS: INR 0.9 (<1.2); NT-Pro-B-Type Natriuretic Pept 242 pg/mL; Prothrombin Time 10.3 sec (10.0-12.5)
[2023-09-23 17:53] LABS: Partial Thromboplastin Time 21.8 sec (22.0-30.0)
--- NOTE | 2023-09-23 20:03 | CT ---
EXAMINATION TYPE: CT brain wo con CT DLP: 1118.5 mGycm, Automated exposure control for dose reduction was used. DATE OF EXAM: 09/23/2023 7:34 PM COMPARISON: None. CLINICAL INDICATION:Female, 52 years old with history of dizziness, ams, dizziness TECHNIQUE: Brain: Axial CT images of the brain were obtained with coronal and sagittal reformats created and rev iewed. Contrast used: None. Oral contrast used: None. FINDINGS: Brain: Extra-axial spaces: No abnormal extra-axial fluid collections. Ventricular system: Within normal limits Cerebral parenchyma: No acute intraparenchymal hemorrhage or mass effect. The rdz-white junction is well differentiated. Cerebellum: Unremarkable. Mass effect: No evidence of midline shift. Intracranial vasculature: unremarkable Soft tissues: Normal. Calvarium/osseous structures: No depressed skull fracture. Paranasal sinuses and mastoid air cells: Mild scattered paranasal sinus disease. Opacification of a m ajority of the right mastoid air cells. Visualized orbits: Orbital contents are intact. IMPRESSION: 1. No acute intracranial process. 2. Right mastoid air cell effusion. 3. Paranasal sinus disease.
[2023-09-23] MEDS ORDERED: NALOXONE 0.4 MG/ML 1 ML VIAL IV PRN (22:46)
[2023-09-23] MEDS: SODIUM CHLORIDE 0.9% 1,000 ML IV SCH (23:13)
[2023-09-24 00:37] LABS: Glucose,Whole Blood 151 mg/dL (70-110)
--- NOTE | 2023-09-24 01:07 | P.CONS ---
History of Present Illness - Reason for Consult Consult date: 09/23/23 - History of Present Illness Patient is a 52-year-old female with a PMH of breast cancer status post bilateral mastectomy (on maintenance anastrozole), COPD, hypertension, hyperlipidemia, and type II DM who presents to the emergency room with complaints of lightheadedness. The patient reports that ever since she started taking the anastrozole, she has been experiencing intermittent diarrhea. Notes 2 episodes of loose bowel movements earlier today. She reports that positional changes such as attempting to stand up have been making her very lightheaded although she denies syncope or falls. Does have a history of vertigo but states that this feels different. She denies experiencing chest discomfort, palpitations, nausea, vomiting, diaphoresis. CT brain in the emergency room was unremarkable. Chest x-ray revealed generalized haziness, possible pulmonary edema. EKG revealed sinus rhythm with APCs at [address]/T-wave changes noted as reviewed by me. Laboratory evaluation revealed a proBNP of 242, troponin 0.025, potassium 3.3. ED documentation reviewed and case discussed with ED provider. Review of systems: Pertinent positives and negatives as discussed in HPI, a complete review of systems was performed and all other systems are negative. Physical examination: Vital signs reviewed General: non toxic, no distress, appears at stated age, morbidly obese Derm: no unusual rashes/lesions, warm Head: atraumatic, normocephalic, symmetric Eyes: EOMI, no lid lag, anicteric sclera, pupils equal round reactive to light ENT: Nose and ears atraumatic Neck: No cervical lymphadenopathy, trachea midline, supple Mouth: no lip lesion, mucus membranes moist Cardiovascular: S1S2 reg, no murmur, positive dorsalis pedis pulse bilateral, no edema Lungs: CTA bilateral, no rhonchi, no rales, no accessory muscle use Abdominal: soft, nontender to palpation, no guarding Ext: muscle strength 5 out of 5 in all 4 extremities grossly, no gross muscle atrophy, no contractures, Neuro: CN II-XI grossly intact, no gross focal neuro deficits Psych: Alert, oriented, appropriate affect Assessment: Lightheadedness and near-syncope, unclear etiology, possibly dehydration from diarrhea Hypokalemia Chronic conditions: Breast cancer, COPD, hypertension, hyperlipidemia, type II DM Imaging: CT brain in the emergency room was unremarkable. Chest x-ray revealed generalized haziness, possible pulmonary edema. EKG revealed sinus rhythm with APCs at [address]/T-wave changes noted as reviewed by me. Data Review: Laboratory evaluation revealed a proBNP of 242, troponin 0.025, potassium 3.3. Plan: Cardiac monitoring Fall precautions Obtain echocardiogram Obtain Orthostatics IVFs with NS at 130 ml/hr for now Replace potassium and monitor Chronic conditions: Hypertension, hyperlipidemia, type II DM, breast cancer DVT prophylaxis: Lovenox subcu The patient is admitted with an anticipated greater than 2 midnight stay for evaluation of near syncope CODE STATUS: Full Code Discussed with: Patient Anticipated discharge place: Home 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 but denies depression History of Any Multi-Drug Resistant Organisms: MRSA Year Discovered:: 05/24/16 MDRO Source:: RIGHT LEG Past Surgical History: Section, Cholecystectomy, Hernia Repair Additional Past Surgical History / Comment(s): 3, tubal ligation, hernia repair 2 Past Anesthesia/Blood Transfusion Reactions: No Reported Reaction Additional Past Anesthesia/Blood Transfusion Reaction / Comm: no blood tranfusions Smoking Status: Never smoker - Past Family History Mother Family Medical History: Cancer, Congestive Heart Failure (CHF), Diabetes Mellitus Additional Family Medical History / Comment(s): breast cancer Father History Unknown: Yes Medications and Allergies Home Medications Medication Instructions Recorded Confirmed Type Albuterol Inhaler [Ventolin Hfa 2 puff INHALATION RT-Q6H PRN 12/22/14 09/23/23 History Inhaler] Sertraline [Zoloft] 150 mg PO DAILY 12/22/14 09/23/23 History Atorvastatin [Lipitor] 20 mg PO DAILY 06/20/22 09/23/23 History lisinopriL [Zestril] 5 mg PO DAILY 06/20/22 09/23/23 History Cholecalciferol [Vitamin D3 (25 100 mcg PO DAILY 09/18/22 09/23/23 History Mcg = 1000 Iu)] Abemaciclib [Verzenio] 150 mg PO DIRECTED 09/23/23 09/23/23 History Anastrozole [Arimidex] 1 mg PO DAILY 09/23/23 09/23/23 History Dulaglutide [Trulicity] 3 mg SQ BELLE 09/23/23 09/23/23 History Meclizine [Antivert] 25 mg PO TID PRN 09/23/23 09/23/23 History sitaGLIPtin [Januvia] 25 mg PO DAILY 09/23/23 09/23/23 History Allergies Allergy/AdvReac Type Severity Reaction Status Date / Time codeine Allergy Nausea & Verified 09/23/23 16:15 Vomiting Fish Containing Products Allergy Anaphylaxis Verified 09/23/23 16:15 [Fish] iodine Allergy Unknown Verified 09/23/23 16:15 morphine Allergy Unknown Verified 09/23/23 16:15 shrimp Allergy Anaphylaxis Verified 09/23/23 16:15 Physical Exam Vitals: Vital Signs Temp Pulse Resp BP Pulse Ox 09/23/23 22:00 91 19 98/50 97 09/23/23 17:44 100 18 104/65 98 09/23/23 14:38 98.0 F 101 H 18 95/66 98 Intake and Output 09/23/23 09/23/23 09/24/23 14:59 22:59 06:59 Other: Weight 176.901 kg Results CBC & Chem 7: 09/23/23 17:21 09/23/23 17:21 Labs: Abnormal Lab Results - Last 24 Hours (Table) 09/23/23 09/23/23 09/23/23 Range/Units 14:42 17:21 17:21 Lymphocytes # 0.8 L (1.0-4.8) k/uL APTT 21.8 L (22.0-30.0) sec Potassium (3.5-5.1) mmol/L BUN (7-17) mg/dL Glucose (74-99) mg/dL POC Glucose (mg/dL) 168 H (70-110) mg/dL 09/23/23 Range/Units 17:21 Lymphocytes # (1.0-4.8) k/uL APTT (22.0-30.0) sec Potassium 3.3 L (3.5-5.1) mmol/L BUN 20 H (7-17) mg/dL Glucose 136 H (74-99) mg/dL POC Glucose (mg/dL) (70-110) mg/dL
[2023-09-24] MEDS ORDERED: POTASSIUM CHLORIDE ER 20 MEQ TAB.ER PO ONE (01:15)
--- NOTE | 2023-09-24 04:01 | P.HPIM ---
History of Present Illness H&P Date: 09/23/23 Patient is a 52-year-old female with a PMH of breast cancer status post bilateral mastectomy (on maintenance anastrozole), COPD, hypertension, hyperlipidemia, and type II DM who presents to the emergency room with complaints of lightheadedness. The patient reports that ever since she started taking the anastrozole, she has been experiencing intermittent diarrhea. Notes 2 episodes of loose bowel movements earlier today. She reports that positional changes such as attempting to stand up have been making her very lightheaded although she denies syncope or falls. Does have a history of vertigo but states that this feels different. She denies experiencing chest discomfort, palpitations, nausea, vomiting, diaphoresis. CT brain in the emergency room was unremarkable. Chest x-ray revealed generalized haziness, possible pulmonary edema. EKG revealed sinus rhythm with APCs at [address]/T-wave changes noted as reviewed by me. Laboratory evaluation revealed a proBNP of 242, troponin 0.025, potassium 3.3. ED documentation reviewed and case discussed with ED provider. Review of systems: Pertinent positives and negatives as discussed in HPI, a complete review of systems was performed and all other systems are negative. Physical examination: Vital signs reviewed General: non toxic, no distress, appears at stated age, morbidly obese Derm: no unusual rashes/lesions, warm Head: atraumatic, normocephalic, symmetric Eyes: EOMI, no lid lag, anicteric sclera, pupils equal round reactive to light ENT: Nose and ears atraumatic Neck: No cervical lymphadenopathy, trachea midline, supple Mouth: no lip lesion, mucus membranes moist Cardiovascular: S1S2 reg, no murmur, positive dorsalis pedis pulse bilateral, no edema Lungs: CTA bilateral, no rhonchi, no rales, no accessory muscle use Abdominal: soft, nontender to palpation, no guarding Ext: muscle strength 5 out of 5 in all 4 extremities grossly, no gross muscle atrophy, no contractures, Neuro: CN II-XI grossly intact, no gross focal neuro deficits Psych: Alert, oriented, appropriate affect Assessment: Lightheadedness and near-syncope, unclear etiology, possibly dehydration from diarrhea Hypokalemia Chronic conditions: Breast cancer, COPD, hypertension, hyperlipidemia, type II DM Imaging: CT brain in the emergency room was unremarkable. Chest x-ray revealed generalized haziness, possible pulmonary edema. EKG revealed sinus rhythm with APCs at [address]/T-wave changes noted as reviewed by me. Data Review: Laboratory evaluation revealed a proBNP of 242, troponin 0.025, potassium 3.3. Plan: Cardiac monitoring Fall precautions Obtain echocardiogram Obtain Orthostatics IVFs with NS at 130 ml/hr for now Replace potassium and monitor Chronic conditions: Hypertension, hyperlipidemia, type II DM, breast cancer DVT prophylaxis: Lovenox subcu The patient is admitted with an anticipated greater than 2 midnight stay for evaluation of near syncope CODE STATUS: Full Code Discussed with: Patient Anticipated discharge place: Home 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 but denies depression History of Any Multi-Drug Resistant Organisms: MRSA Date of last positivie culture/infection: 05/24/16 MDRO Source:: RIGHT LEG Past Surgical History: Section, Cholecystectomy, Hernia Repair Additional Past Surgical History / Comment(s): 3, tubal ligation, hernia repair 2 Past Anesthesia/Blood Transfusion Reactions: No Reported Reaction Additional Past Anesthesia/Blood Transfusion Reaction / Comment(s): no blood tranfusions Smoking Status: Never smoker - Past Family History Mother Family Medical History: Cancer, Congestive Heart Failure (CHF), Diabetes Mellitus Additional Family Medical History / Comment(s): breast cancer Father History Unknown: Yes Medications and Allergies Home Medications Medication Instructions Recorded Confirmed Type Albuterol Inhaler [Ventolin Hfa 2 puff INHALATION RT-Q6H PRN 12/22/14 09/23/23 History Inhaler] Sertraline [Zoloft] 150 mg PO DAILY 12/22/14 09/23/23 History Atorvastatin [Lipitor] 20 mg PO DAILY 06/20/22 09/23/23 History lisinopriL [Zestril] 5 mg PO DAILY 06/20/22 09/23/23 History Cholecalciferol [Vitamin D3 (25 100 mcg PO DAILY 09/18/22 09/23/23 History Mcg = 1000 Iu)] Abemaciclib [Verzenio] 150 mg PO DIRECTED 09/23/23 09/23/23 History Anastrozole [Arimidex] 1 mg PO DAILY 09/23/23 09/23/23 History Dulaglutide [Trulicity] 3 mg SQ BELLE 09/23/23 09/23/23 History Meclizine [Antivert] 25 mg PO TID PRN 09/23/23 09/23/23 History sitaGLIPtin [Januvia] 25 mg PO DAILY 09/23/23 09/23/23 History Allergies Allergy/AdvReac Type Severity Reaction Status Date / Time codeine Allergy Nausea & Verified 09/23/23 16:15 Vomiting Fish Containing Products Allergy Anaphylaxis Verified 09/23/23 16:15 [Fish] iodine Allergy Unknown Verified 09/23/23 16:15 morphine Allergy Unknown Verified 09/23/23 16:15 shrimp Allergy Anaphylaxis Verified 09/23/23 16:15 Physical Exam Vitals: Vital Signs Temp Pulse Pulse Pulse Pulse Resp BP 09/24/23 02:00 144 H 72 09/24/23 00:20 97.4 F L 61 20 09/24/23 00:04 09/23/23 22:00 91 19 98/50 09/23/23 17:44 100 18 104/65 09/23/23 14:38 98.0 F 101 H 18 95/66 BP BP BP Pulse Ox 09/24/23 02:00 84/62 112/70 09/24/23 00:20 105/68 85 L 09/24/23 00:04 94 L 09/23/23 22:00 97 09/23/23 17:44 98 09/23/23 14:38 98 Intake and Output 09/23/23 09/23/23 09/24/23 14:59 22:59 06:59 Other: Weight 176.901 kg 176.901 kg Results CBC & Chem 7: 09/23/23 17:21 09/23/23 17:21 Labs: Abnormal Lab Results - Last 24 Hours (Table) 09/23/23 09/23/23 09/23/23 Range/Units 14:42 17:21 17:21 Lymphocytes # 0.8 L (1.0-4.8) k/uL APTT 21.8 L (22.0-30.0) sec Potassium (3.5-5.1) mmol/L BUN (7-17) mg/dL Glucose (74-99) mg/dL POC Glucose (mg/dL) 168 H (70-110) mg/dL 09/23/23 09/24/23 Range/Units 17:21 00:35 Lymphocytes # (1.0-4.8) k/uL APTT (22.0-30.0) sec Potassium 3.3 L (3.5-5.1) mmol/L BUN 20 H (7-17) mg/dL Glucose 136 H (74-99) mg/dL POC Glucose (mg/dL) 151 H (70-110) mg/dL Thrombosis Risk Factor Assmnt - Choose All That Apply Each Factor Represents 1 point: Age 41-60 years Thrombosis Risk Factor Assessment Total Risk Factor Score: 1 Thrombosis Risk Factor Assessment Level: Low Risk
[2023-09-24 05:18] LABS: Appearance,Urine Cloudy (Clear); Bilirubin,Urine 1+ (Negative); Blood,Urine Negative (Negative); Color,Urine Light Orange; Glucose,Urine (UA) Negative (Negative); Ketones,Urine Trace (Negative); Leukocyte Esterase,Urine Large (Negative); Nitrite,Urine Positive (Negative); Protein,Urine 1+ (Negative)
[2023-09-24 05:20] LABS: Amorphous Sediment,Urine Few /hpf; Bacteria,Urine Many /hpf; RBC,Urine 3 /hpf (0-5); Squamous Epithelial Cell,Urine 24 /hpf (0-4); WBC,Urine 23 /hpf (0-5)
[2023-09-24 05:21] LABS: Hyaline Casts,Urine 10 /lpf (0-2); Mucus,Urine Occasional /hpf
[2023-09-24] MEDS: SODIUM CHLORIDE 0.9% 1,000 ML IV SCH ×3 (06:59→22:24)
[2023-09-24 07:13] LABS: Glucose,Whole Blood 133 mg/dL (70-110)
[2023-09-24] MEDS: INSULIN ASPART (NovoLOG) 100 UNIT/ML VIAL SQ SCH ×4 (07:30→22:23)
[2023-09-24 07:41] LABS: African American GFR (CKD) 72 (>60 ml/min/1.73 sqM); Anion Gap 9 mmol/L; Blood Urea Nitrogen 19 mg/dL (7-17); Calcium 8.6 mg/dL (8.4-10.2); Carbon Dioxide 28 mmol/L (22-30); Chloride 104 mmol/L (98-107); Glucose 125 mg/dL (74-99); Non-African American GFR(CKD) 63 (>60 ml/min/1.73 sqM); Potassium 3.1 mmol/L (3.5-5.1); Sodium 141 mmol/L (137-145)
[2023-09-24] MEDS ORDERED: lisinopriL 5 MG TAB PO SCH (09:00)
[2023-09-24] MEDS: ANASTROZOLE 1 MG TAB PO SCH (09:01)
[2023-09-24] MEDS: ATORVASTATIN 20 MG TAB PO SCH (09:01)
[2023-09-24] MEDS: ENOXAPARIN 40 MG/0.4 ML SYRINGE SQ SCH (09:01)
[2023-09-24] MEDS: SERTRALINE 50 MG TAB PO SCH (09:02)
[2023-09-24] MEDS ORDERED: POTASSIUM BICARBONATE/CIT AC 20 MEQ TABLET.EFF PO ONE (09:30)
--- NOTE | 2023-09-24 09:32 | P.CRDCN ---
History of Present Illness History of present illness: HISTORY OF PRESENT ILLNESS: This is a 52 -year-old female with a past medical history significant for breast cancer with oral chemotherapy, anxiety, and depression. 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 We have been asked to see the patient in consultation for presyncope. Patient examined at the bedside. The patient states she has been experiencing diarrhea lately. She states she went to the bathroom yesterday to change her clothes but became dizzy and lightheaded so she laid on the floor because she did not want to fall. She states that she stood up and attempted to change her clothes again when she began to feel dizzy again so she laid back down on the floor. She states that she then was brought to the emergency room for further evaluation. She denies any chest pain or pressure. She denies any shortness of breath. She denies having any syncopal episodes. She does report decreased oral intake at home. She denies a history of hypertension and states she was started on lisinopril as a preventative measure due to her chemotherapy. The patient was found to have positive orthostatic blood pressures with a supine blood pressure of 103/66 with a decrease in blood pressure of 77/50 upon sitting. * EKG reveals sinus mechanism with no signs of acute ischemia * Chest xray low lung volumes with generalized hazy appearance which could repre sent atelectasis versus pulmonary edema * Laboratory data: Troponin negative 1. ProBNP 242 * Current home cardiac medications include lisinopril 5 mg daily and atorvastatin 20 mg daily * No previous echocardiogram or cardiac catheterization available for review REVIEW OF SYSTEMS: At the time of my exam: CONSTITUTIONAL: Denies fever or chills. HEENT: Denies blurred vision, vision changes, or eye pain. Denies hemoptysis CARDIOVASCULAR: Denies chest pain. Denies orthopnea. Denies PND. Denies palpitations RESPIRATORY: Denies shortness of breath. GASTROINTESTINAL: Denies abdominal pain. Denies nausea or vomiting. HEMATOLOGIC: Denies bleeding disorders. GENITOURINARY: Denies any blood in urine. SKIN: Denies pruitis. Denies rash. PHYSICAL EXAM: VITAL SIGNS: Reviewed. GENERAL: Well-developed in no acute distress. HEENT: Head is normocephalic. Pupils are equal, round. Sclerae anicteric. Mucous membranes of the mouth are moist. Neck supple. No JVD or thyromegaly LUNGS: Respirations even and unlabored. Lungs essentially clear to auscultation bilaterally. HEART: Regular rate and rhythm. S1 and S2 heard. ABDOMEN: Soft. Nondistended. Nontender. EXTREMITIES: Normal range of motion. No clubbing or cyanosis. Peripheral pulses intact. No lower extremity edema NEUROLOGIC: Awake and alert. Oriented x 3. ASSESSMENT: Presyncope Orthostatic hypotension Decreased oral intake Diarrhea Breast cancer with mastectomy on oral chemotherapy Anxiety Depression Morbid obesity: BMI 62.9 PLAN: Repeat EKG Continue Lipitor Discontinue lisinopril secondary to positive orthostatics Encouraged increased oral intake Continue to monitor orthostatic blood pressures Obtain 2-D echo to assess cardiac structure and function Further recommendations pending patient's course Nurse practitioner note has been reviewed by physician. Signing provider agrees with the documented findings, assessment, and plan of care. 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 but denies depression History of Any Multi-Drug Resistant Organisms: MRSA Date of last positivie culture/infection: 05/24/16 MDRO Source:: RIGHT LEG Past Surgical History: Section, Cholecystectomy, Hernia Repair Additional Past Surgical History / Comment(s): 3, tubal ligation, hernia repair 2 Past Anesthesia/Blood Transfusion Reactions: No Reported Reaction Additional Past Anesthesia/Blood Transfusion Reaction / Comment(s): no blood tranfusions Smoking Status: Never smoker - Past Family History Mother Family Medical History: Cancer, Congestive Heart Failure (CHF), Diabetes Mellitus Additional Family Medical History / Comment(s): breast cancer Father History Unknown: Yes Medications and Allergies Home Medications Medication Instructions Recorded Confirmed Type Albuterol Inhaler [Ventolin Hfa 2 puff INHALATION RT-Q6H PRN 12/22/14 09/23/23 History Inhaler] Sertraline [Zoloft] 150 mg PO DAILY 12/22/14 09/23/23 History Atorvastatin [Lipitor] 20 mg PO DAILY 06/20/22 09/23/23 History lisinopriL [Zestril] 5 mg PO DAILY 06/20/22 09/23/23 History Cholecalciferol [Vitamin D3 (25 100 mcg PO DAILY 09/18/22 09/23/23 History Mcg = 1000 Iu)] Abemaciclib [Verzenio] 150 mg PO DIRECTED 09/23/23 09/23/23 History Anastrozole [Arimidex] 1 mg PO DAILY 09/23/23 09/23/23 History Dulaglutide [Trulicity] 3 mg SQ BELLE 09/23/23 09/23/23 History Meclizine [Antivert] 25 mg PO TID PRN 09/23/23 09/23/23 History sitaGLIPtin [Januvia] 25 mg PO DAILY 09/23/23 09/23/23 History Allergies Allergy/AdvReac Type Severity Reaction Status Date / Time codeine Allergy Nausea & Verified 09/23/23 16:15 Vomiting Fish Containing Products Allergy Anaphylaxis Verified 09/23/23 16:15 [Fish] iodine Allergy Unknown Verified 09/23/23 16:15 morphine Allergy Unknown Verified 09/23/23 16:15 shrimp Allergy Anaphylaxis Verified 09/23/23 16:15 Physical Exam Vitals: Vital Signs Temp Pulse Pulse Pulse Pulse Resp BP 09/24/23 02:00 144 H 72 09/24/23 00:04 09/23/23 23:55 97.4 F L 61 20 09/23/23 22:00 91 19 98/50 09/23/23 17:44 100 18 104/65 09/23/23 14:38 98.0 F 101 H 18 95/66 BP BP BP Pulse Ox 09/24/23 02:00 84/62 112/70 09/24/23 00:04 94 L 09/23/23 23:55 105/68 85 L 09/23/23 22:00 97 09/23/23 17:44 98 09/23/23 14:38 98 Intake and Output 09/23/23 09/24/23 09/24/23 22:59 06:59 14:59 Other: # Voids 1 # Bowel Movements 1 Weight 176.901 kg Results 09/23/23 17:21 09/24/23 06:24 Cardiac Enzymes 09/23/23 09/23/23 Range/Units 17:21 17:21 AST 25 (14-36) U/L Troponin I 0.025 (0.000-0.034) ng/mL Coagulation 09/23/23 Range/Units 17:21 PT 10.3 (10.0-12.5) sec APTT 21.8 L (22.0-30.0) sec CBC 09/23/23 Range/Units 17:21 WBC 3.8 (3.8-10.6) k/uL RBC 3.91 (3.80-5.40) m/uL Hgb 13.1 (11.4-16.0) gm/dL Hct 38.4 (34.0-46.0) % Plt Count 178 (150-450) k/uL Comprehensive Metabolic Panel 09/23/23 09/24/23 Range/Units 17:21 06:24 Sodium 140 141 (137-145) mmol/L Potassium 3.3 L 3.1 L (3.5-5.1) mmol/L Chloride 101 104 (98-107) mmol/L Carbon Dioxide 29 28 (22-30) mmol/L BUN 20 H 19 H (7-17) mg/dL Creatinine 0.93 1.02 (0.52-1.04) mg/dL Glucose 136 H 125 H (74-99) mg/dL Calcium 9.2 8.6 (8.4-10.2) mg/dL AST 25 (14-36) U/L ALT 16 (4-34) U/L Alkaline Phosphatase 47 (38-126) U/L Total Protein 6.3 (6.3-8.2) g/dL Albumin 3.6 (3.5-5.0) g/dL Current Medications Generic Name Dose Route Start Last Admin Trade Name Freq PRN Reason Stop Dose Admin Anastrozole 1 mg 09/24/23 09:00 Anastrozole 1 Mg Tab PO DAILY [facility] Atorvastatin Calcium 20 mg 09/24/23 09:00 Atorvastatin 20 Mg Tab PO DAILY [facility] Enoxaparin Sodium 40 mg 09/24/23 09:00 Enoxaparin 40 Mg/0.4 Ml Syringe SQ DAILY [facility] Sodium Chloride 1,000 mls @ 130 mls/hr 09/23/23 22:00 09/24/23 06:59 Saline 0.9% IV Not Given .[id number] [facility] Insulin Aspart 0 unit 09/24/23 07:30 09/24/23 07:30 Insulin Aspart (Novolog) 100 Unit/Ml Vial SQ Not Given ACHS [facility] Protocol Naloxone HCl 0.2 mg 09/23/23 22:46 Naloxone 0.4 Mg/Ml 1 Ml Vial IV Q2M PRN Opioid Reversal Sertraline HCl 150 mg 09/24/23 09:00 Sertraline 50 Mg Tab PO DAILY [facility] Intake and Output 09/23/23 09/24/23 09/24/23 22:59 06:59 14:59 Other: # Voids 1 # Bowel Movements 1 Weight 176.901 kg 09/23/23 17:21 09/24/23 06:24
[2023-09-24] MEDS ORDERED: LACTATED RINGERS 1,000 ML IV SCH (11:15)
[2023-09-24 11:49] LABS: Glucose,Whole Blood 140 mg/dL (70-110)
--- NOTE | 2023-09-24 14:07 | P.PN ---
Subjective Progress Note Date: 09/24/23 (delayed charting seen at 0830) Patient is a 52-year-old female with known breast cancer currently on maintenance therapy with anastrozole and current treatment with Abemaciclib, hypertension, COPD, dyslipidemia, and diabetes mellitus type 2 who presented to the emergency room complaining of dizziness. In the ER she underwent extensive evaluation. Initial vitals were remarkable for a blood pressure of 95/66 and pulse of 101. Labs were remarkable for potassium of 3.3 and 36. Orthostatic vitals were positive. She is admitted for further monitoring and cardiology was consulted. Patient seen and examined at bedside. She reports that she has had diarrhea for the last several months since starting on her medication for breast cancer in November. She just recently had Januvia started but denies any other medication changes. She has had a cough for the last several days and his overall not been eating and drinking well. She is currently homeless. She denies any other com plaints currently. Vital signs reviewed General: nontoxic, no distress, appears at stated age Cardiovascular: S1S2 reg, no murmur, positive posterior tibial pulse bilateral, Lungs: CTA bilateral, no rhonchi, no rales , no accessory muscle use Abdominal: soft, nontender to palpation, no guarding, no appreciable organomegaly Ext: no gross muscle atrophy, no edema b/l lower extremities, no contractures Neuro: CN II-XI grossly intact, no focal neuro deficits Psych: Alert, oriented, appropriate affect Assessment/Plan: Presyncope secondary to severe orthostatic hypotension -Await cardiology recommendations -Repeat orthostatics were obtained and continued to be positive. Lactated Ringer's 1 L now and then continue with normal saline at 100 mL/h -Check COVID-19, RSV, and influenza -Continue with telemetry -Await echocardiogram -check random cortisol level Diabetes mellitus type 2 - hold trulicity and januvia - SSI, follow BS Hypokalemia -Potassium chloride 40 mEq by mouth -Repeat BMP in a.m. Breast cancer Chronic diarrhea Obeisty Class III, BMI 62.9 - conitnue with arimidex and abemaciclib Imaging: none new Data Review: Labs reviewed from today include basic profile, urinalysis which were positive for potassium 3.1, urinalysis was grossly contaminated. DVT prophylaxis: Lovenox Anticipated discharge date: [facility] Clinical Course Anticipated discharge place: [facility] Clinical Course This dictation was prepared using [employer] voice recognition software. Though every attempt is made to correct errors during dictation some may still exist. Objective - Vital Signs Vital signs: Vital Signs Temp 98.9 F 09/24/23 11:29 Pulse 94 09/24/23 11:29 Resp 18 09/24/23 11:29 BP 117/73 09/24/23 11:29 Pulse Ox 97 09/24/23 11:29 FiO2 Intake & Output 09/23/23 09/24/23 09/24/23 18:59 06:59 18:59 Weight 176.901 kg 176.901 kg Other: Voiding Method Bedside Commode Diaper # Voids 1 # Bowel Movements 1 1 - Labs CBC & Chem 7: 09/23/23 17:21 09/24/23 06:24 Labs: Abnormal Lab Results - Last 24 Hours (Table) 09/23/23 09/23/23 09/23/23 Range/Units 14:42 17:21 17:21 Lymphocytes # 0.8 L (1.0-4.8) k/uL APTT 21.8 L (22.0-30.0) sec Potassium (3.5-5.1) mmol/L BUN (7-17) mg/dL Glucose (74-99) mg/dL POC Glucose (mg/dL) 168 H (70-110) mg/dL Urine Appearance (Clear) Urine Protein (Negative) Urine Ketones (Negative) Urine Nitrite (Negative) Urine Bilirubin (Negative) Ur Leukocyte Esterase (Negative) Urine WBC (0-5) /hpf Ur Squamous Epith Cells (0-4) /hpf Amorphous Sediment (None) /hpf Urine Bacteria (None) /hpf Hyaline Casts (0-2) /lpf Urine Mucus (None) /hpf SARS-CoV-2 (PCR) (Not Detectd) 09/23/23 09/24/23 09/24/23 Range/Units 17:21 00:35 04:30 Lymphocytes # (1.0-4.8) k/uL APTT (22.0-30.0) sec Potassium 3.3 L (3.5-5.1) mmol/L BUN 20 H (7-17) mg/dL Glucose 136 H (74-99) mg/dL POC Glucose (mg/dL) 151 H (70-110) mg/dL Urine Appearance Cloudy H (Clear) Urine Protein 1+ H (Negative) Urine Ketones Trace H (Negative) Urine Nitrite Positive H (Negative) Urine Bilirubin 1+ H (Negative) Ur Leukocyte Esterase Large H (Negative) Urine WBC 23 H (0-5) /hpf Ur Squamous Epith Cells 24 H (0-4) /hpf Amorphous Sediment Few H (None) /hpf Urine Bacteria Many H (None) /hpf Hyaline Casts 10 H (0-2) /lpf Urine Mucus Occasional H (None) /hpf SARS-CoV-2 (PCR) (Not Detectd) 09/24/23 09/24/23 09/24/23 Range/Units 06:24 07:04 11:48 Lymphocytes # (1.0-4.8) k/uL APTT (22.0-30.0) sec Potassium 3.1 L (3.5-5.1) mmol/L BUN 19 H (7-17) mg/dL Glucose 125 H (74-99) mg/dL POC Glucose (mg/dL) 133 H 140 H (70-110) mg/dL Urine Appearance (Clear) Urine Protein (Negative) Urine Ketones (Negative) Urine Nitrite (Negative) Urine Bilirubin (Negative) Ur Leukocyte Esterase (Negative) Urine WBC (0-5) /hpf Ur Squamous Epith Cells (0-4) /hpf Amorphous Sediment (None) /hpf Urine Bacteria (None) /hpf Hyaline Casts (0-2) /lpf Urine Mucus (None) /hpf SARS-CoV-2 (PCR) (Not Detectd) 09/24/23 Range/Units 12:05 Lymphocytes # (1.0-4.8) k/uL APTT (22.0-30.0) sec Potassium (3.5-5.1) mmol/L BUN (7-17) mg/dL Glucose (74-99) mg/dL POC Glucose (mg/dL) (70-110) mg/dL Urine Appearance (Clear) Urine Protein (Negative) Urine Ketones (Negative) Urine Nitrite (Negative) Urine Bilirubin (Negative) Ur Leukocyte Esterase (Negative) Urine WBC (0-5) /hpf Ur Squamous Epith Cells (0-4) /hpf Amorphous Sediment (None) /hpf Urine Bacteria (None) /hpf Hyaline Casts (0-2) /lpf Urine Mucus (None) /hpf SARS-CoV-2 (PCR) Detected A (Not Detectd)
[2023-09-24 17:36] LABS: Glucose,Whole Blood 126 mg/dL (70-110)
[2023-09-24 20:43] LABS: Glucose,Whole Blood 143 mg/dL (70-110)
[2023-09-25] MEDS: SODIUM CHLORIDE 0.9% 1,000 ML IV SCH ×3 (04:50→21:49)
[2023-09-25 06:03] LABS: Glucose,Whole Blood 164 mg/dL (70-110)
[2023-09-25] MEDS: INSULIN ASPART (NovoLOG) 100 UNIT/ML VIAL SQ SCH ×4 (06:40→21:49)
--- NOTE | 2023-09-25 11:05 | CA ---
Transthoracic Echo Report Name: Ligia Smith Age: 52 Gender: F : 1970 Exam Date: 09/24/2023 12:04 Exam Location: [facility] Ht (in): 66 Wt (lb): 390 Ordering Physician: Yovani Carroll MD Attending/Referring Phys: Public Health Engineer Leticia Mistry RDCS Procedure CPT: Indications: near syncope Cardiac Hx: Technical Quality: Technically difficult study Contrast 1: Definity Total Dose (mL): 2 Contrast 2: Total Dose (mL): MEASUREMENTS (Male / Female) Normal Values 2D ECHO LV Diastolic Diameter PLAX 5.1 cm 4.2 - 5.9 / 3.9 - 5.3 cm LV Systolic Diameter PLAX 3.1 cm IVS Diastolic Thickness 1.4 cm 0.6 - 1.0 / 0.6 - 0.9 cm LVPW Diastolic Thickness 1.3 cm 0.6 - 1.0 / 0.6 - 0.9 cm LV Relative Wall Thickness 0.5 M-MODE Aortic Root Diameter MM 2.9 cm LA Systolic Diameter MM 4.6 cm LA Ao Ratio MM 1.6 AV Cusp Separation MM 2.2 cm DOPPLER AV Peak Velocity 186.2 cm/s AV Peak Gradient 13.9 mmHg AV Mean Velocity 132.4 cm/s AV Mean Gradient 8.0 mmHg AV Velocity Time Integral 32.8 cm LVOT Peak Velocity 128.2 cm/s LVOT Peak Gradient 6.6 mmHg LVOT Velocity Time Integral 28.2 cm MV Area PHT 3.3 cm??? Mitral E Point Velocity 76.5 cm/s Mitral A Point Velocity 73.2 cm/s Mitral E to A Ratio 1.0 MV Deceleration Time 228.6 ms MV E' Velocity 14.4 cm/s Mitral E to MV E' Ratio 5.3 FINDINGS Left Ventricle Moderately increased left ventricular wall thickness. Left ventricular cavity size normal. Normal left ventricular systolic function with no obvious regional wall motion abnormalities. Left ventricular ejection fraction is estimated at 55-60 %. Right Ventricle Normal right ventricular size and function. Right ventricular systolic pressure within normal limits. Right Atrium Normal right atrial size. Left Atrium Moderately increased left atrial area. Mitral Valve Structurally normal mitral valve. Mild mitral regurgitation. Aortic Valve Aortic valve not well visualized. No aortic valve stenosis or regurgitation. Tricuspid Valve Mild tricuspid regurgitation. Pulmonic Valve Trace pulmonic regurgitation. Pericardium No pericardial effusion. Aorta Aortic root and proximal ascending aorta not well visualized. CONCLUSIONS Normal LV systolic function Technically difficult study with poor acoustic windows Previewed by: Dr. Shayan Melton MD (Electronically Signed) Final Date: 25 September 2023 11:04
[2023-09-25] MEDS: MIDODRINE 5 MG TAB PO SCH ×3 (11:27→17:51)
[2023-09-25] MEDS: ANASTROZOLE 1 MG TAB PO SCH (11:27)
[2023-09-25] MEDS: ENOXAPARIN 40 MG/0.4 ML SYRINGE SQ SCH (11:27)
[2023-09-25] MEDS: SERTRALINE 50 MG TAB PO SCH (11:27)
[2023-09-25] MEDS: ATORVASTATIN 20 MG TAB PO SCH (11:27)
[2023-09-25 11:30] LABS: HCT 34.4 % (34.0-46.0); HGB 11.6 gm/dL (11.4-16.0); Hypochromasia Slight; MCH 33.8 pg (25.0-35.0); MCHC 33.7 g/dL (31.0-37.0); MCV 100.4 fL (80.0-100.0); Macrocytosis Slight; Mean Platelet Volume 8.9; Platelet Count 180 k/uL (150-450); Poikilocytosis Slight; RBC 3.43 m/uL (3.80-5.40); RDW 14.9 % (11.5-15.5); WBC 3.2 k/uL (3.8-10.6)
[2023-09-25 11:33] LABS: ALT 18 U/L (4-34); AST 21 U/L (14-36); African American GFR (CKD) >90 (>60 ml/min/1.73 sqM); Albumin 3.3 g/dL (3.5-5.0); Albumin/Globulin Ratio 1.3; Alkaline Phosphatase 46 U/L (38-126); Anion Gap 12 mmol/L; Blood Urea Nitrogen 15 mg/dL (7-17); Calcium 8.5 mg/dL (8.4-10.2); Carbon Dioxide 22 mmol/L (22-30); Chloride 106 mmol/L (98-107); Globulin 2.5 g/dL; Glucose 175 mg/dL (74-99); Non-African American GFR(CKD) >90 (>60 ml/min/1.73 sqM); Potassium 3.3 mmol/L (3.5-5.1); Sodium 140 mmol/L (137-145); Total Bilirubin 0.4 mg/dL (0.2-1.3); Total Protein 5.8 g/dL (6.3-8.2)
[2023-09-25 12:02] LABS: Glucose,Whole Blood 134 mg/dL (70-110)
--- NOTE | 2023-09-25 12:17 | P.PN ---
Subjective HISTORY OF PRESENT ILLNESS: This is a 52 -year-old female with a past medical history significant for breast cancer with oral chemotherapy, anxiety, and depression. Patient does not follow with a delivery man. We have been asked to see the patient in consultation for presyncope. Patient examined at the bedside. The patient states she has been experiencing diarrhea lately. She states she went to the bathroom yesterday to change her clothes but became dizzy and lightheaded so she laid on the floor because she did not want to fall. She states that she stood up and attempted to change her clothes again when she began to feel dizzy again so she laid back down on the floor. She states that she then was brought to the emergency room for further evaluation. She denies any chest pain or pressure. She denies any shortness of breath. She denies having any syncopal episodes. She does report decreased oral intake at home. She denies a history of hypertension and states she was started on lisinopril as a preventative measure due to her chemotherapy. The patient was found to have positive orthostatic blood pressures with a supine blood pressure of 103/66 with a decrease in blood pressure of 77/50 upon sitting. * EKG reveals sinus mechanism with no signs of acute ischemia * Chest xray low lung volumes with generalized hazy appearance which could represent atelectasis versus pulmonary edema * Laboratory data: Troponin negative 1. ProBNP 242 * Current home cardiac medications include lisinopril 5 mg daily and atorvastatin 20 mg daily * No previous echocardiogram or cardiac catheterization available for review 09/25/2023 Patient examined this morning to bedside. Patient denies chest pain or pressure. She denies shortness of breath. She continues to report some lightheadedness blood pressures remain low with a systolic ranging between [id number]. Code Cardizem completed revealing ejection fraction 55-60%, mild MR, mild TR, and no evidence of pericardial effusion PHYSICAL EXAM: VITAL SIGNS: Reviewed. GENERAL: Well-developed in no acute distress. HEENT: Head is normocephalic. Pupils are equal, round. Sclerae anicteric. Mucous membranes of the mouth are moist. Neck supple. No JVD or thyromegaly LUNGS: Respirations even and unlabored. Lungs essentially clear to auscultation bilaterally. HEART: Regular rate and rhythm. S1 and S2 heard. ABDOMEN: Soft. Nondistended. Nontender. EXTREMITIES: Normal range of motion. No clubbing or cyanosis. Peripheral p ulses intact. No lower extremity edema NEUROLOGIC: Awake and alert. Oriented x 3. ASSESSMENT: Presyncope Orthostatic hypotension Decreased oral intake Diarrhea Breast cancer with mastectomy on oral chemotherapy Anxiety Depression Morbid obesity: BMI 62.9 PLAN: Continue to hold lisinopril Add Midodrine 2.5 mg 3 times a day Continue to monitor blood pressure Further recommendations pending patient's course Nurse practitioner note has been reviewed by physician. Signing provider agrees with the documented findings, assessment, and plan of care. Objective - Vital Signs Vital signs: Vital Signs Temp 98.0 F 09/25/23 07:55 Pulse 68 09/25/23 07:55 Resp 19 09/25/23 07:55 BP 108/66 09/25/23 07:55 Pulse Ox 95 09/25/23 07:55 FiO2 Intake & Output 09/24/23 09/25/23 09/25/23 18:59 06:59 18:59 Other: Voiding Method Bedside Commode Toilet Toilet Diaper Bedside Commode Diaper # Voids 0 2 # Bowel Movements 1 - Labs CBC & Chem 7: 09/25/23 11:03 09/25/23 11:03 Labs: Abnormal Lab Results - Last 24 Hours (Table) 09/24/23 09/24/23 09/24/23 Range/Units 12:05 17:34 20:42 WBC (3.8-10.6) k/uL RBC (3.80-5.40) m/uL MCV (80.0-100.0) fL Potassium (3.5-5.1) mmol/L Glucose (74-99) mg/dL POC Glucose (mg/dL) 126 H 143 H (70-110) mg/dL Total Protein (6.3-8.2) g/dL Albumin (3.5-5.0) g/dL SARS-CoV-2 (PCR) Detected A (Not Detectd) 09/25/23 09/25/23 09/25/23 Range/Units 06:02 11:03 11:03 WBC 3.2 L (3.8-10.6) k/uL RBC 3.43 L (3.80-5.40) m/uL MCV 100.4 H (80.0-100.0) fL Potassium 3.3 L (3.5-5.1) mmol/L Glucose 175 H (74-99) mg/dL POC Glucose (mg/dL) 164 H (70-110) mg/dL Total Protein 5.8 L (6.3-8.2) g/dL Albumin 3.3 L (3.5-5.0) g/dL SARS-CoV-2 (PCR) (Not Detectd)
[2023-09-25] MEDS ORDERED: POTASSIUM CHLORIDE ER 20 MEQ TAB.ER PO STA (15:39)
--- NOTE | 2023-09-25 15:49 | P.PN ---
Subjective Progress Note Date: 09/25/23 (delayed charting seen at 1005) Patient is a 52-year-old female with known breast cancer currently on maintenance therapy with anastrozole and current treatment with Abemaciclib, hypertension, COPD, dyslipidemia, and diabetes mellitus type 2 who presented to the emergency room complaining of dizziness. In the ER she underwent extensive evaluation. Initial vitals were remarkable for a blood pressure of 95/66 and pulse of 101. Labs were remarkable for potassium of 3.3 and 36. Orthostatic vitals were positive. She is admitted for further monitoring and cardiology was consulted. She is feeling better than yesterday. Still slightly dizzy when sitting but not as bad as yesterday. No additional nausea or vomiting. Still feeling overall fatigued. No cough. Vital signs reviewed General: nontoxic, no distress, appears at stated age Cardiovascular: S1S2 reg, no murmur, positive posterior tibial pulse bilateral, Lungs: CTA bilateral, no rhonchi, no rales , no accessory muscle use Abdominal: soft, nontender to palpation, no guarding, no appreciable organomegaly Ext: no gross muscle atrophy, no edema b/l lower extremities, no contractures Neuro: CN II-XI grossly intact, no focal neuro deficits Psych: Alert, oriented, appropriate affect Assessment/Plan: Presyncope secondary to severe orthostatic hypotension CVOID 19 URI - Contineu iwth LR still with + ortho stats recheck in AM - indeterminant AM cortisol level at 8, proceed with ACTH stim test -Cardiology note reviewed: Hold lisinopril, and Midrin 2.5 mg 3 times daily and- follow blood pressures -Case discussed with oncology. They will hold abemaciclib and follow in office -Continue with telemetry -echocardiogram normal Diabetes mellitus type 2 - hold trserene and januvia - SSI, follow BS Hypokalemia -Potassium chloride 40 mEq by mouth again today -Repeat BMP in a.m. Breast cancer Chronic diarrhea Obeisty Class III, BMI 62.9 - conitnue with arimidex and abemaciclib Imaging: Echo reviewed: EF 55-60%, difficult studies Data Review: Labs reviewed from today include CBC and basic metabolic profile which are remarkable for white blood cell count 3.2, potassium 3.3 A.m. cortisol 8 DVT prophylaxis: Lovenox Anticipated discharge date: Clinical Course Anticipated discharge place: [facility] Clinical Course This dictation was prepared using [employer] voice recognition software. Though every attempt is made to correct errors during dictation some may still exist. Objective - Vital Signs Vital signs: Vital Signs Temp 98.0 F 09/25/23 13:44 Pulse 73 09/25/23 13:44 Resp 20 09/25/23 13:44 BP 97/58 09/25/23 13:44 Pulse Ox 94 L 09/25/23 13:44 FiO2 Intake & Output 09/24/23 09/25/23 09/25/23 18:59 06:59 18:59 Other: Voiding Method Bedside Commode Toilet Toilet Diaper Bedside Commode Diaper # Voids 0 2 2 # Bowel Movements 1 1 - Labs CBC & Chem 7: 09/25/23 11:03 09/25/23 11:03 Labs: Abnormal Lab Results - Last 24 Hours (Table) 09/24/23 09/24/23 09/25/23 Range/Units 17:34 20:42 06:02 WBC (3.8-10.6) k/uL RBC (3.80-5.40) m/uL MCV (80.0-100.0) fL Potassium (3.5-5.1) mmol/L Glucose (74-99) mg/dL POC Glucose (mg/dL) 126 H 143 H 164 H (70-110) mg/dL Total Protein (6.3-8.2) g/dL Albumin (3.5-5.0) g/dL 09/25/23 09/25/23 09/25/23 Range/Units 11:03 11:03 12:00 WBC 3.2 L (3.8-10.6) k/uL RBC 3.43 L (3.80-5.40) m/uL MCV 100.4 H (80.0-100.0) fL Potassium 3.3 L (3.5-5.1) mmol/L Glucose 175 H (74-99) mg/dL POC Glucose (mg/dL) 134 H (70-110) mg/dL Total Protein 5.8 L (6.3-8.2) g/dL Albumin 3.3 L (3.5-5.0) g/dL Microbiology - Last 24 Hours (Table) 09/24/23 04:30 Urine Culture - Preliminary Urine,Voided Gram Neg Bacilli
[2023-09-25 16:55] LABS: Glucose,Whole Blood 125 mg/dL (70-110)
--- NOTE | 2023-09-25 20:07 | P.CONS ---
History of Present Illness - Reason for Consult Consult date: 09/25/23 breast cancer Requesting physician: Holly Powers - Chief Complaint dizziness - History of Present Illness Ms. Smith is a 52 year old woman with a PMHx significant for DM TII, obesity and breast cancer. She is a patient of Dr. Joanie Tsai. She was referred to our service for new diagnosis of invasive ductal carcinoma of the right breast. She notes palpating a mass in the right breast. Screening mammogram on 06/13/22 noting clustered calcifications in the upper outer anterior right breast with focal asymmetry within the upper inner right breast. She then had 3D mammogram on 06/19/22 noting fine pleomorphic calcifications within the upper outer anterior right breast with persistent focal asymmetry. Diagnostic mammogram with US on 06/26/22 noted hypoechoic lobulated area with central vascularity measuring 2.7 cm at 1:00 12cm from the nipple. CNBx on 06/26/22 revealed grade 2 invasive ductal carcinoma that was ER + (91-100%), MI + (91-100%), and HER-2 low (IHC 1 +). Focal DCIS was present She had CNBx of microcalcifications on 07/05/22 noting DCIS that was grade 1 and ER + (91-100%) and MI + (91-100%). She has pathologic stage IB (pT2 N1a M0) grade 2 invasive ductal carcinoma of the right breast that is ER/MI positive and HER2 low status post bilateral mastectomy on 09/04/2022. She initiated adjuvant endocrine therapy with ovarian suppression with Lupron on 04/08/2023. Anastrozole initiated in April 2023. Given the positive lymph node as well as a Ki-67 of 20%, she would meet criteria for being considered high risk of recurrence per the MonarchE trial. Abemaciclib 150 mg twice daily was initiated in May 2023 Patient presented to the emergency room with complaints of dizziness and near syncope. She reports over the last week she has been having mild increase in diarrhea, cough and increasing dizziness and lightheadedness. Upon admission chest x-ray revealed low lung volumes with a generalized hazy appearance. CT brain negative for acute intracranial processes. COVID testing was positive. Patient is afebrile. Patient has been experiencing soft BPs and had positive orthostatic hypotension. Echocardiogram revealed normal left ventricular systolic function. CBC revealed, WBC 3.8, hemoglobin 13.1, platelets 178,000. UA suspicious for UTI, urine culture pending. At todays visit pt is reporting persistent cough but is reporting improvement in dizziness. Denies CP and SOB. Review of Systems 10 point ROS is negative except as stated in the HPI 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 but denies depression History of Any Multi-Drug Resistant Organisms: MRSA Year Discovered:: 05/24/16 MDRO Source:: RIGHT LEG Past Surgical History: Section, Cholecystectomy, Hernia Repair Additional Past Surgical History / Comment(s): 3, tubal ligation, hernia repair 2 Past Anesthesia/Blood Transfusion Reactions: No Reported Reaction Additional Past Anesthesia/Blood Transfusion Reaction / Comm: no blood tranfusions Smoking Status: Never smoker - Past Family History Mother Family Medical History: Cancer, Congestive Heart Failure (CHF), Diabetes Mellitus Additional Family Medical History / Comment(s): breast cancer Father History Unknown: Yes Medications and Allergies Home Medications Medication Instructions Recorded Confirmed Type Albuterol Inhaler [Ventolin Hfa 2 puff INHALATION RT-Q6H PRN 12/22/14 09/23/23 History Inhaler] Sertraline [Zoloft] 150 mg PO DAILY 12/22/14 09/23/23 History Atorvastatin [Lipitor] 20 mg PO DAILY 06/20/22 09/23/23 History lisinopriL [Zestril] 5 mg PO DAILY 06/20/22 09/23/23 History Cholecalciferol [Vitamin D3 (25 100 mcg PO DAILY 09/18/22 09/23/23 History Mcg = 1000 Iu)] Abemaciclib [Verzenio] 150 mg PO DIRECTED 09/23/23 09/23/23 History Anastrozole [Arimidex] 1 mg PO DAILY 09/23/23 09/23/23 History Dulaglutide [Trulicity] 3 mg SQ BELLE 09/23/23 09/23/23 History Meclizine [Antivert] 25 mg PO TID PRN 09/23/23 09/23/23 History sitaGLIPtin [Januvia] 25 mg PO DAILY 09/23/23 09/23/23 History Allergies Allergy/AdvReac Type Severity Reaction Status Date / Time codeine Allergy Nausea & Verified 09/23/23 16:15 Vomiting Fish Containing Products Allergy Anaphylaxis Verified 09/23/23 16:15 [Fish] iodine Allergy Unknown Verified 09/23/23 16:15 morphine Allergy Unknown Verified 09/23/23 16:15 shrimp Allergy Anaphylaxis Verified 09/23/23 16:15 Physical Exam Vitals: Vital Signs Temp Pulse Pulse Pulse Pulse Resp BP 09/25/23 07:55 98.0 F 68 19 108/66 09/25/23 01:48 97.9 F 81 18 09/24/23 19:49 98.6 F 76 18 09/24/23 16:17 98.2 F 64 18 86/46 09/24/23 11:29 98.9 F 94 18 117/73 09/24/23 09:25 125 H 159 H 97 16 BP BP Pulse Ox 09/25/23 07:55 95 09/25/23 01:48 94/52 94 L 09/24/23 19:49 91/60 97 09/24/23 16:17 94 L 09/24/23 11:29 97 09/24/23 09:25 77/50 103/66 Intake and Output 09/24/23 09/25/23 09/25/23 22:59 06:59 14:59 Other: Voiding Method Toilet Bedside Commode Diaper # Voids 0 2 - Constitutional General appearance: obese - EENT Eyes: anicteric sclerae, EOMI ENT: hearing grossly normal - Respiratory Respiratory: bilateral: CTA - Cardiovascular Rhythm: regular Heart sounds: normal: S1, S2 - Gastrointestinal General gastrointestinal: soft, no tenderness - Integumentary Integumentary: cyanotic - Musculoskeletal Musculoskeletal: strength equal bilaterally - Psychiatric Psychiatric: A&O x's 3 Results CBC & Chem 7: 09/25/23 11:03 09/25/23 11:03 Labs: Abnormal Lab Results - Last 24 Hours (Table) 09/24/23 09/24/23 09/24/23 Range/Units 11:48 12:05 17:34 POC Glucose (mg/dL) 140 H 126 H (70-110) mg/dL SARS-CoV-2 (PCR) Detected A (Not Detectd) 09/24/23 09/25/23 Range/Units 20:42 06:02 POC Glucose (mg/dL) 143 H 164 H (70-110) mg/dL SARS-CoV-2 (PCR) (Not Detectd) Chest x-ray: report reviewed CT Scan - head: report reviewed Assessment and Plan (1) Dehydration Current Visit: Yes Status: Acute Code(s): E86.0 - DEHYDRATION SNOMED Code(s): 42961037 (2) Pre-syncope Current Visit: Yes Status: Acute Priority: High Code(s): R55 - SYNCOPE AND COLLAPSE SNOMED Code(s): 824173721 (3) Breast cancer Current Visit: Yes Status: Acute Priority: Medium Code(s): C50.919 - MALIGNANT NEOPLASM OF UNSP SITE OF UNSPECIFIED FEMALE BREAST SNOMED Code(s): 754469128 (4) COVID-19 Current Visit: Yes Status: Acute Priority: High Code(s): U07.1 - COVID-19 SNOMED Code(s): 845698709 Plan: COVID: -COVID testing positive -Likely cause of dizziness and increased diarrhea -Cardiology following, echo normal -Defer management to IM team Breast cancer: -Full history in HPI -Currently on treatment with anastrozole and verzenio. Overall has been tolerating treatment well -Will hold Verzenio, instructed pt to hold medication until clinic f/u in 3 weeks. Will continue anastrozole attests: I seen and examined patient, Performed H&P, developed impression and plan of care. Discussed with dictator. Agree with documentation, dictated as a scribe
[2023-09-25 20:41] LABS: Glucose,Whole Blood 164 mg/dL (70-110)
[2023-09-26] MEDS: SODIUM CHLORIDE 0.9% 1,000 ML IV SCH (05:08)
[2023-09-26 06:19] LABS: Glucose,Whole Blood 125 mg/dL (70-110)
[2023-09-26 06:22] LABS: HCT 32.5 % (34.0-46.0); HGB 11.1 gm/dL (11.4-16.0); MCH 33.6 pg (25.0-35.0); MCHC 34.2 g/dL (31.0-37.0); MCV 98.1 fL (80.0-100.0); Mean Platelet Volume 9.2; Platelet Count 169 k/uL (150-450); Poikilocytosis Slight; RBC 3.31 m/uL (3.80-5.40); RDW 15.5 % (11.5-15.5); WBC 3.4 k/uL (3.8-10.6)
[2023-09-26] MEDS: INSULIN ASPART (NovoLOG) 100 UNIT/ML VIAL SQ SCH ×4 (06:22→21:09)
[2023-09-26] MEDS: MIDODRINE 5 MG TAB PO SCH ×3 (06:51→17:25)
[2023-09-26 07:07] LABS: African American GFR (CKD) >90 (>60 ml/min/1.73 sqM); Anion Gap 8 mmol/L; Blood Urea Nitrogen 11 mg/dL (7-17); Calcium 8.2 mg/dL (8.4-10.2); Carbon Dioxide 24 mmol/L (22-30); Chloride 109 mmol/L (98-107); Glucose 121 mg/dL (74-99); Magnesium 1.7 mg/dL (1.6-2.3); Non-African American GFR(CKD) >90 (>60 ml/min/1.73 sqM); Potassium 3.6 mmol/L (3.5-5.1); Sodium 141 mmol/L (137-145)
[2023-09-26] MEDS ORDERED: COSYNTROPIN 0.25 MG VIAL IVP ONE (08:00)
[2023-09-26] MEDS: ATORVASTATIN 20 MG TAB PO SCH (08:33)
[2023-09-26] MEDS: ANASTROZOLE 1 MG TAB PO SCH (08:33)
[2023-09-26] MEDS: SERTRALINE 50 MG TAB PO SCH (08:33)
[2023-09-26] MEDS: ENOXAPARIN 40 MG/0.4 ML SYRINGE SQ SCH (08:33)
--- NOTE | 2023-09-26 11:24 | P.PN ---
Subjective HISTORY OF PRESENT ILLNESS: This is a 52 -year-old female with a past medical history significant for breast cancer with oral chemotherapy, anxiety, and depression. Patient does not follow with a hand sewer. We have been asked to see the patient in consultation for presyncope. Patient examined at the bedside. The patient states she has been experiencing diarrhea lately. She states she went to the bathroom yesterday to change her clothes but became dizzy and lightheaded so she laid on the floor because she did not want to fall. She states that she stood up and attempted to change her clothes again when she began to feel dizzy again so she laid back down on the floor. She states that she then was brought to the emergency room for further evaluation. She denies any chest pain or pressure. She denies any shortness of breath. She denies having any syncopal episodes. She does report decreased oral intake at home. She denies a history of hypertension and states she was started on lisinopril as a preventative measure due to her chemotherapy. The patient was found to have positive orthostatic blood pressures with a supine blood pressure of 103/66 with a decrease in blood pressure of 77/50 upon sitting. * EKG reveals sinus mechanism with no signs of acute ischemia * Chest xray low lung volumes with generalized hazy appearance which could represent atelectasis versus pulmonary edema * Laboratory data: Troponin negative 1. ProBNP 242 * Current home cardiac medications include lisinopril 5 mg daily and atorvastatin 20 mg daily * No previous echocardiogram or cardiac catheterization available for review 09/25/2023 Patient examined this morning to bedside. Patient denies chest pain or pressure. She denies shortness of breath. She continues to report some lightheadedness blood pressures remain low with a systolic ranging between [address]. Code Cardizem completed revealing ejection fraction 55-60%, mild MR, mild TR, and no evidence of pericardial effusion summer Patient examined this morning at the bedside. Patient denies chest pain or pressure. She denies shortness of breath. She denies any further episodes of dizziness or lightheadedness. Patient's blood pressure has improved with addition of midodrine. Blood pressure this morning 143/67. PHYSICAL EXAM: VITAL SIGNS: Reviewed. GENERAL: Well-developed in no acute distress. HEENT: Head is normocephalic. Pupils are equal, round. Sclerae anicteric. Mucous membranes of the mouth are moist. Neck supple. No JVD or thyromegaly LUNGS: Respirations even and unlabored. Lungs essentially clear to auscultation bilaterally. HEART: Regular rate and rhythm. S1 and S2 heard. ABDOMEN: Soft. Nondistended. Nontender. EXTREMITIES: Normal range of motion. No clubbing or cyanosis. Peripheral pulses intact. No lower extremity edema NEUROLOGIC: Awake and alert. Oriented x 3. ASSESSMENT: Presyncope Orthostatic hypotension Decreased oral intake Diarrhea Breast cancer with mastectomy on oral chemotherapy Anxiety Depression Morbid obesity: BMI 62.9 PLAN: Continue to hold lisinopril Continue Midodrine 2.5 mg 3 times a day Orthostatic blood pressures this morning Patient is currently stable from a cardiac standpoint with no further inpatient recommendations We will sign off. Please reconsult if needed. Nurse practitioner note has been reviewed by physician. Signing provider agrees with the documented findings, assessment, and plan of care. Objective - Vital Signs Vital signs: Vital Signs Temp 98.0 F 09/26/23 07:27 Pulse 71 09/26/23 07:27 Resp 19 09/26/23 07:27 BP 143/67 09/26/23 07:27 Pulse Ox 91 L 09/26/23 07:27 FiO2 Intake & Output 09/25/23 09/26/23 09/26/23 18:59 06:59 18:59 Other: Voiding Method Toilet Toilet # Voids 2 1 # Bowel Movements 1 - Labs CBC & Chem 7: 09/26/23 06:07 09/26/23 06:07 Labs: Abnormal Lab Results - Last 24 Hours (Table) 09/25/23 09/25/23 09/25/23 Range/Units 11:03 11:03 12:00 WBC 3.2 L (3.8-10.6) k/uL RBC 3.43 L (3.80-5.40) m/uL Hgb (11.4-16.0) gm/dL Hct (34.0-46.0) % MCV 100.4 H (80.0-100.0) fL Potassium 3.3 L (3.5-5.1) mmol/L Chloride (98-107) mmol/L Glucose 175 H (74-99) mg/dL POC Glucose (mg/dL) 134 H (70-110) mg/dL Calcium (8.4-10.2) mg/dL Total Protein 5.8 L (6.3-8.2) g/dL Albumin 3.3 L (3.5-5.0) g/dL 09/25/23 09/25/23 09/26/23 Range/Units 16:53 20:40 06:07 WBC 3.4 L (3.8-10.6) k/uL RBC 3.31 L (3.80-5.40) m/uL Hgb 11.1 L (11.4-16.0) gm/dL Hct 32.5 L (34.0-46.0) % MCV (80.0-100.0) fL Potassium (3.5-5.1) mmol/L Chloride (98-107) mmol/L Glucose (74-99) mg/dL POC Glucose (mg/dL) 125 H 164 H (70-110) mg/dL Calcium (8.4-10.2) mg/dL Total Protein (6.3-8.2) g/dL Albumin (3.5-5.0) g/dL 09/26/23 09/26/23 Range/Units 06:07 06:18 WBC (3.8-10.6) k/uL RBC (3.80-5.40) m/uL Hgb (11.4-16.0) gm/dL Hct (34.0-46.0) % MCV (80.0-100.0) fL Potassium (3.5-5.1) mmol/L Chloride 109 H (98-107) mmol/L Glucose 121 H (74-99) mg/dL POC Glucose (mg/dL) 125 H (70-110) mg/dL Calcium 8.2 L (8.4-10.2) mg/dL Total Protein (6.3-8.2) g/dL Albumin (3.5-5.0) g/dL Microbiology - Last 24 Hours (Table) 09/24/23 04:30 Urine Culture - Preliminary Urine,Voided Gram Neg Bacilli
[2023-09-26 11:54] LABS: Glucose,Whole Blood 163 mg/dL (70-110)
--- NOTE | 2023-09-26 12:01 | P.PN ---
Subjective Progress Note Date: 09/26/23 No new complaints. Patient says that her dizziness upon sitting or standing has improved. Cosyntropin test showed appropriate response to 250 g of ACTH. Gen: awake, alert HEENT: normocephalic, atraumatic, good hearing acuity, moist mucous membranes Resp: good air exchange, breathing comfortably with no accessory muscle use CVS: good distal perfusion x 4, GI: soft, NTTP, ND : no SPT, no CVAT, colon catheter not present MSK: no pitting edema, no clubbing Neuro: non-focal, moving all extremities Psych: cooperative, euthymic mood Hospital course: Patient is a 52-year-old female with known breast cancer currently on maintenance therapy with anastrozole and current treatment with Abemaciclib, h ypertension, COPD, dyslipidemia, and diabetes mellitus type 2 who presented to the emergency room complaining of dizziness. In the ER she underwent extensive evaluation. Initial vitals were remarkable for a blood pressure of 95/66 and pulse of 101. Labs were remarkable for potassium of 3.3 and 36. Orthostatic vitals were positive. She is admitted for further monitoring and cardiology was consulted. Assessment/Plan: Presyncope secondary to severe orthostatic hypotension CVOID 19 URI - Contineu iwth LR still with + ortho stats recheck in AM - ACTH Stim test showed appropriate response with 9 point improvement after 250 mcg injection -Cardiology note reviewed: Hold lisinopril, and Midrin 2.5 mg 3 times daily and- follow blood pressures -Case discussed with oncology. They will hold abemaciclib and follow in office -Continue with telemetry -echocardiogram normal Diabetes mellitus type 2 - hold trulicity and januvia - [facility], follow BS Hypokalemia -Potassium chloride 40 mEq by mouth again today -Repeat BMP in a.m. Breast cancer Chronic diarrhea Obeisty Class III, BMI 62.9 - conitnue with arimidex and abemaciclib Imaging: Echo reviewed: EF 55-60%, difficult studies Data Review: Labs reviewed from today include CBC and basic metabolic profile which are remarkable for white blood cell count 3.2, potassium 3.3 A.m. cortisol 8 DVT prophylaxis: Lovenox Anticipated discharge date: [facility] Clinical Course Anticipated discharge place: [facility] Clinical Course This dictation was prepared using [employer] voice recognition software. Though every attempt is made to correct errors during dictation some may still exist. Objective - Vital Signs Vital signs: Vital Signs Temp 98.0 F 09/26/23 07:27 Pulse 71 09/26/23 07:27 Resp 19 09/26/23 07:27 BP 143/67 09/26/23 07:27 Pulse Ox 91 L 09/26/23 07:27 FiO2 Intake & Output 09/25/23 09/26/23 09/26/23 18:59 06:59 18:59 Other: Voiding Method Toilet Toilet # Voids 2 1 # Bowel Movements 1 - Labs CBC & Chem 7: 09/26/23 06:07 09/26/23 06:07 Labs: Abnormal Lab Results - Last 24 Hours (Table) 09/25/23 09/25/23 09/25/23 Range/Units 12:00 16:53 20:40 WBC (3.8-10.6) k/uL RBC (3.80-5.40) m/uL Hgb (11.4-16.0) gm/dL Hct (34.0-46.0) % Chloride (98-107) mmol/L Glucose (74-99) mg/dL POC Glucose (mg/dL) 134 H 125 H 164 H (70-110) mg/dL Calcium (8.4-10.2) mg/dL 09/26/23 09/26/23 09/26/23 Range/Units 06:07 06:07 06:18 WBC 3.4 L (3.8-10.6) k/uL RBC 3.31 L (3.80-5.40) m/uL Hgb 11.1 L (11.4-16.0) gm/dL Hct 32.5 L (34.0-46.0) % Chloride 109 H (98-107) mmol/L Glucose 121 H (74-99) mg/dL POC Glucose (mg/dL) 125 H (70-110) mg/dL Calcium 8.2 L (8.4-10.2) mg/dL 09/26/23 Range/Units 11:52 WBC (3.8-10.6) k/uL RBC (3.80-5.40) m/uL Hgb (11.4-16.0) gm/dL Hct (34.0-46.0) % Chloride (98-107) mmol/L Glucose (74-99) mg/dL POC Glucose (mg/dL) 163 H (70-110) mg/dL Calcium (8.4-10.2) mg/dL Microbiology - Last 24 Hours (Table) 09/24/23 04:30 Urine Culture - Preliminary Urine,Voided Gram Neg Bacilli
[2023-09-26 17:04] LABS: Glucose,Whole Blood 134 mg/dL (70-110)
[2023-09-26 20:59] LABS: Glucose,Whole Blood 152 mg/dL (70-110)
[2023-09-27] MEDS: SODIUM CHLORIDE 0.9% 1,000 ML IV SCH ×2 (00:22→04:12)
[2023-09-27 05:35] LABS: Glucose,Whole Blood 118 mg/dL (70-110)
[2023-09-27] MEDS: MIDODRINE 5 MG TAB PO SCH ×2 (06:17→13:27)
[2023-09-27] MEDS: INSULIN ASPART (NovoLOG) 100 UNIT/ML VIAL SQ SCH ×2 (06:17→13:27)
[2023-09-27] MEDS: SERTRALINE 50 MG TAB PO SCH (08:26)
[2023-09-27] MEDS: ATORVASTATIN 20 MG TAB PO SCH (08:26)
[2023-09-27] MEDS: ANASTROZOLE 1 MG TAB PO SCH (08:26)
[2023-09-27] MEDS: ENOXAPARIN 40 MG/0.4 ML SYRINGE SQ SCH (08:26)
[2023-09-27 11:21] LABS: Glucose,Whole Blood 166 mg/dL (70-110)
[2023-09-27 14:16] VITALS: BP 125/74; PULSE 78; RESP 19; TEMP 99
--- NOTE | 2023-09-27 14:24 | P.PN ---
Subjective Progress Note Date: 09/27/23 No acute changes Reports improvement in sx. Denies SOB Urine culture positive, but UA appears contaminated. Denies urinary symptoms Objective - Vital Signs Vital signs: Vital Signs Temp 99.0 F 09/27/23 14:00 Pulse 78 09/27/23 14:00 Resp 19 09/27/23 14:00 BP 125/74 09/27/23 14:00 Pulse Ox 98 09/27/23 14:00 FiO2 Intake & Output 09/26/23 09/27/23 09/27/23 18:59 06:59 18:59 Other: # Voids 3 2 - Constitutional General appearance: Present: no acute distress, obese - EENT Eyes: Present: anicteric sclerae, EOMI ENT: Present: hearing grossly normal - Respiratory Details: breathing even and unlabored - Cardiovascular Details: skin warm and dry - Integumentary Integumentary: Absent: cyanotic - Psychiatric Psychiatric: Present: A&O x's 3 - Labs CBC & Chem 7: 09/26/23 06:07 09/26/23 06:07 Labs: Abnormal Lab Results - Last 24 Hours (Table) 09/26/23 09/26/23 09/27/23 Range/Units 17:02 20:53 05:33 POC Glucose (mg/dL) 134 H 152 H 118 H (70-110) mg/dL 09/27/23 Range/Units 11:20 POC Glucose (mg/dL) 166 H (70-110) mg/dL Microbiology - Last 24 Hours (Table) 09/24/23 04:30 Urine Culture - Final Urine,Voided Escherichia coli Assessment and Plan (1) Dehydration Status: Acute Code(s): E86.0 - DEHYDRATION SNOMED Code(s): 64032354 (2) Pre-syncope Status: Acute Priority: High Code(s): R55 - SYNCOPE AND COLLAPSE SNOMED Code(s): 099324345 (3) Breast cancer Status: Acute Priority: Medium Code(s): C50.919 - MALIGNANT NEOPLASM OF UNSP SITE OF UNSPECIFIED FEMALE BREAST SNOMED Code(s): 786687655 (4) COVID-19 Status: Acute Priority: High Code(s): U07.1 - COVID-19 SNOMED Code(s): 025627650 Plan: COVID: -COVID testing positive -Likely cause of dizziness and increased diarrhea -Cardiology following, echo normal -Defer management to IM team Breast cancer: -Full history in HPI -Currently on treatment with anastrozole and verzenio. Overall has been tolerating treatment well -Will hold Verzenio, instructed pt to hold medication until clinic f/u in 3 weeks. Will continue anastrozole Pt updated on POC and is agreeable Pt is cleared from hem/onc standpoint once cleared by IM and other consulted medical specialities
--- NOTE | 2023-09-27 16:47 | P.DS ---
Providers Date of admission: 09/23/23 22:10 Expected date of discharge: 09/27/23 Attending physician: Yovani Carroll MD Consults: 09/25/23 07:49 Consult Physician Routine Consulting Provider: Joanie Tsai Consult Reason/Comments: breast cancer Do you want consulting provider notified?: Yes Primary care physician: Enrique Hope MD Hospital Course: Presyncope secondary to severe orthostatic hypotension CVOID 19 URI Diabetes mellitus type 2 Hypokalemia Breast cancer Chronic diarrhea Obeisty Class III, BMI 62.9 Hospital course: Patient is a 52-year-old female with known breast cancer currently on maintenance therapy with anastrozole and current treatment with Abemaciclib, hypertension, COPD, dyslipidemia, and diabetes mellitus type 2 who presented to the emergency room complaining of dizziness. In the ER she underwent extensive evaluation. Initial vitals were remarkable for a blood pressure of 95/66 and pulse of 101. Labs were remarkable for potassium of 3.3 and 36. Orthostatic vitals were positive. She is admitted for further monitoring and cardiology was consulted. Pt was seen and cleared by cardiology - echo was completed and was normal. Orthostatics improved with IVF. Pt underwent cosyntropin stimulation test to r/o adrenal insufficiency and this was borderline normal with a response of 9 pts from 9 to 18. Pt reported improvement of symptoms and was discharged home with PCP and oncology f/u. I spent 38 minutes coordinating this discharge on 09/27 Gen: awake, alert HEENT: normocephalic, atraumatic, good hearing acuity, moist mucous membranes Resp: good air exchange, breathing comfortably with no accessory muscle use CVS: good distal perfusion x 4, GI: soft, NTTP, ND : no SPT, no CVAT, colon catheter not present MSK: no pitting edema, no clubbing Neuro: non-focal, moving all extremities Psych: cooperative, euthymic mood Patient Condition at Discharge: Good Plan - Discharge Summary Discharge Rx Participant: Yes New Discharge Prescriptions: New Midodrine [ProAmatine] 2.5 mg PO AC-TID #90 tab Continue Sertraline [Zoloft] 150 mg PO DAILY Albuterol Inhaler [Ventolin Hfa Inhaler] 2 puff INHALATION RT-Q6H PRN PRN Reason: Shortness Of Breath Cholecalciferol [Vitamin D3 (25 Mcg = 1000 Iu)] 100 mcg PO DAILY Anastrozole [Arimidex] 1 mg PO DAILY Dulaglutide [Trulicity] 3 mg SQ BELLE Meclizine [Antivert] 25 mg PO TID PRN PRN Reason: Vertigo sitaGLIPtin [Januvia] 25 mg PO DAILY Atorvastatin [Lipitor] 20 mg PO DAILY Discontinued Abemaciclib [Verzenio] 150 mg PO DIRECTED lisinopriL [Zestril] 5 mg PO DAILY Discharge Medication List Albuterol Inhaler [Ventolin Hfa Inhaler] 2 puff INHALATION RT-Q6H PRN 12/22/14 [History] Sertraline [Zoloft] 150 mg PO DAILY 12/22/14 [History] Atorvastatin [Lipitor] 20 mg PO DAILY 06/20/22 [History] Cholecalciferol [Vitamin D3 (25 Mcg = 1000 Iu)] 100 mcg PO DAILY 09/18/22 [History] Anastrozole [Arimidex] 1 mg PO DAILY 09/23/23 [History] Dulaglutide [Trulicity] 3 mg SQ BELLE 09/23/23 [History] Meclizine [Antivert] 25 mg PO TID PRN 09/23/23 [History] sitaGLIPtin [Januvia] 25 mg PO DAILY 09/23/23 [History] Midodrine [ProAmatine] 2.5 mg PO AC-TID #90 tab 09/27/23 [Rx] Follow up Appointment(s)/Referral(s): Enrique Hope MD [Primary Care Provider] - 1-2 days (Office is closed at time of discharge. Please call for follow-up appointment.) Patient Instructions/Handouts: COVID-19 (Coronavirus Disease 2019) (DC) Discharge Disposition: HOME SELF-CARE
== END 2023-09-27 16:32 | disposition home or self-care (01) | DRG 312 ==
LOC: EC 14:32 → 5NMEDONC 22:10 → 4SSUR 09-24 15:43
PROVIDERS: ADMIT Internal Medicine; ATTEND Internal Medicine
DX: I95.1 Orthostatic hypotension (principal); U07.1 COVID-19; J44.0 Chronic obstructive pulmonary disease with (acute) lower respiratory infection; Z68.44 Body mass index [BMI] 60.0-69.9, adult; N17.9 Acute kidney failure, unspecified; J40 Bronchitis, not specified as acute or chronic; C50.911 Malignant neoplasm of unspecified site of right female breast; Z17.0 Estrogen receptor positive status [ER+]; E66.01 Morbid (severe) obesity due to excess calories; E78.5 Hyperlipidemia, unspecified; E86.0 Dehydration; E87.6 Hypokalemia; F32.A Depression, unspecified; F41.9 Anxiety disorder, unspecified; I10 Essential (primary) hypertension; K52.9 Noninfective gastroenteritis and colitis, unspecified; Z79.811 Long term (current) use of aromatase inhibitors; Z79.84 Long term (current) use of oral hypoglycemic drugs; Z79.899 Other long term (current) drug therapy; Z80.3 Family history of malignant neoplasm of breast; Z82.49 Family history of ischemic heart disease and other diseases of the circulatory system; Z83.3 Family history of diabetes mellitus; Z85.3 Personal history of malignant neoplasm of breast; Z90.13 Acquired absence of bilateral breasts and nipples; Z86.14 Personal history of Methicillin resistant Staphylococcus aureus infection; Z28.21 Immunization not carried out because of patient refusal; Z88.5 Allergy status to narcotic agent; Z91.013 Allergy to seafood
CPT/HCPCS: 36415; 70450; 71046; 80048; 80053; 81001; 82533; 83605; 83735; 83880; 84100; 84484; 85025; 85027; 85610; 85730; 87077; 87086; 87186; 87636; 93005; 93306; 96361; 96374; 99285

== ENCOUNTER 2023-10-11 15:59 | Observation (INO) | payer MEDICARE, OTHER ==
--- NOTE | 2023-10-11 16:19 | ED ---
General Adult HPI <Keegan Tucker - Last Filed: 10/18/23 09:44> - General Source: patient Mode of arrival: wheelchair Limitations: physical limitation <Sorin Allen - Last Filed: 10/19/23 00:25> - General Stated complaint: deterioration of leg use Time Seen by Provider: 10/11/23 16:18 - History of Present Illness Initial comments: 52-year-old female presenting with chief complaint of difficulty using the left leg. Patient states that this has been a gradual deterioration. Patient is currently homeless. (Sorin Allen) - Related Data Home Medications Medication Instructions Recorded Confirmed Albuterol Inhaler [Ventolin Hfa 2 puff INHALATION RT-Q6H PRN 12/22/14 10/12/23 Inhaler] Sertraline [Zoloft] 200 mg PO DAILY 12/22/14 10/12/23 Atorvastatin [Lipitor] 20 mg PO DAILY 06/20/22 10/12/23 Cholecalciferol [Vitamin D3 (25 100 mcg PO DAILY 09/18/22 10/12/23 Mcg = 1000 Iu)] Anastrozole [Arimidex] 1 mg PO DAILY 09/23/23 10/12/23 Dulaglutide [Trulicity] 3 mg SQ BELLE 09/23/23 10/12/23 Meclizine [Antivert] 25 mg PO TID PRN 09/23/23 10/12/23 sitaGLIPtin [Januvia] 25 mg PO DAILY 09/23/23 10/12/23 Abemaciclib [Verzenio] 150 mg PO BID 10/12/23 10/12/23 Calcium Carbonate [Calcium] 1,200 mg PO DAILY 10/12/23 10/12/23 Furosemide [Lasix] 40 mg PO DAILY PRN 10/12/23 10/12/23 Multivitamins, Thera [Multivitamin 1 tab PO DAILY 10/12/23 10/12/23 (formulary)] Potassium Chloride ER [K-Dur 20] 20 meq PO DAILY PRN 10/12/23 10/12/23 allopurinoL 100 mg PO DAILY 10/12/23 10/12/23 Previous Rx's Medication Instructions Recorded Midodrine [ProAmatine] 2.5 mg PO AC-TID #90 tab 09/27/23 Allergies Allergy/AdvReac Type Severity Reaction Status Date / Time Fish Containing Products Allergy Anaphylaxis Verified 10/12/23 12:26 [Fish] iodine Allergy Unknown Verified 10/12/23 12:26 morphine Allergy Unknown Verified 10/12/23 12:26 shrimp Allergy Anaphylaxis Verified 10/12/23 12:26 codeine AdvReac Nausea & Verified 10/12/23 12:26 Vomiting Review of Systems ROS Other: All systems not noted in ROS Statement are negative. <Keegan Tucker - Last Filed: 10/18/23 09:44> ROS Other: All systems not noted in ROS Statement are negative. <Sorin Allen - Last Filed: 10/19/23 00:25> ROS Statement: Those systems with pertinent positive or pertinent negative responses have been documented in the HPI. 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 but denies depression History of Any Multi-Drug Resistant Organisms: MRSA Date of last positivie culture/infection: 05/24/16 MDRO Source:: RIGHT LEG Past Surgical History: Section, Cholecystectomy, Hernia Repair Additional Past Surgical History / Comment(s): 3, tubal ligation, hernia repair 2 Past Anesthesia/Blood Transfusion Reactions: No Reported Reaction Additional Past Anesthesia/Blood Transfusion Reaction / Comment(s): no blood tranfusions Smoking Status: Never smoker - Past Family History Mother Family Medical History: Cancer, Congestive Heart Failure (CHF), Diabetes Mellitus Additional Family Medical History / Comment(s): breast cancer Father History Unknown: Yes <Sorin Allen - Last Filed: 10/19/23 00:25> General Exam <Sorin Allen - Last Filed: 10/19/23 00:25> - General Exam Comments Initial Comments: Visual Physical Exam Vital signs reviewed General: Well-appearing, nontoxic, no acute distress. Head: Normocephalic, atraumatic Eyes: PERRLA, EOMI ENT: Airway patent Chest: Nonlabored breathing Skin: No visual rash, normal skin tone Neuro: Alert and oriented 3 Musculoskeletal: No gross abnormalities (Sorin Allen) Course Vital Signs 10/11/23 10/12/23 10/12/23 16:16 00:41 02:00 Temperature 97.8 F 97.5 F L Pulse Rate 65 104 H Pulse Rate [ 89 Pulse Oximetery ] Respiratory 16 20 16 Rate Blood Pressure 115/62 138/60 Blood Pressure 122/76 [Left Arm Supine] O2 Sat by Pulse 98 98 96 Oximetry 10/12/23 02:20 Temperature 98.2 F Pulse Rate 86 Pulse Rate [ Pulse Oximetery ] Respiratory 20 Rate Blood Pressure 112/52 Blood Pressure [Left Arm Supine] O2 Sat by Pulse 100 Oximetry Medical Decision Making - Lab Data Result diagrams: 10/11/23 16:39 10/11/23 16:39 <Keegan Tucker - Last Filed: 10/18/23 09:44> - Lab Data Result diagrams: 10/11/23 16:39 10/11/23 16:39 <Sorin Allen - Last Filed: 10/19/23 00:25> - Lab Data Lab Results 10/11/23 10/11/23 Range/Units 16:39 16:39 WBC 7.8 (3.8-10.6) k/uL RBC 3.88 (3.80-5.40) m/uL Hgb 12.8 (11.4-16.0) gm/dL Hct 38.0 (34.0-46.0) % MCV 98.0 (80.0-100.0) fL MCH 33.1 (25.0-35.0) pg MCHC 33.7 (31.0-37.0) g/dL RDW 14.2 (11.5-15.5) % Plt Count 386 D (150-450) k/uL MPV 8.1 Neutrophils % 69 % Lymphocytes % 22 % Monocytes % 5 % Eosinophils % 3 % Basophils % 1 % Neutrophils # 5.3 (1.3-7.7) k/uL Lymphocytes # 1.7 (1.0-4.8) k/uL Monocytes # 0.4 (0-1.0) k/uL Eosinophils # 0.2 (0-0.7) k/uL Basophils # 0.1 (0-0.2) k/uL Hypochromasia Slight Poikilocytosis Slight Sodium 139 (137-145) mmol/L Potassium 3.9 (3.5-5.1) mmol/L Chloride 104 (98-107) mmol/L Carbon Dioxide 25 (22-30) mmol/L Anion Gap 10 mmol/L BUN 15 (7-17) mg/dL Creatinine 0.63 (0.52-1.04) mg/dL Est GFR (CKD-EPI)AfAm >90 (>60 ml/min/1.73 sqM) Est GFR (CKD-EPI)NonAf >90 (>60 ml/min/1.73 sqM) Glucose 180 H (74-99) mg/dL Calcium 9.4 (8.4-10.2) mg/dL Magnesium 1.8 (1.6-2.3) mg/dL Total Bilirubin 0.4 (0.2-1.3) mg/dL AST 22 (14-36) U/L ALT 14 (4-34) U/L Alkaline Phosphatase 66 (38-126) U/L Total Protein 6.1 L (6.3-8.2) g/dL Albumin 3.4 L (3.5-5.0) g/dL Disposition Is patient prescribed a controlled substance at d/c from ED?: No <Keegan Tucker - Last Filed: 10/18/23 09:44> <Sorin Allen - Last Filed: 10/19/23 00:25> Clinical Impression: Inability to ambulate due to left hip Disposition: ADMITTED IP TO THIS HOSP Condition: Stable
[2023-10-11 17:10] LABS: Basophils # (A) 0.1 k/uL (0-0.2); Basophils % (A) 1 %; Eosinophils # (A) 0.2 k/uL (0-0.7); Eosinophils % (A) 3 %; HGB 12.8 gm/dL (11.4-16.0); Hypochromasia Slight; Lymphocytes # (A) 1.7 k/uL (1.0-4.8); Lymphocytes % (A) 22 %; MCH 33.1 pg (25.0-35.0); MCHC 33.7 g/dL (31.0-37.0); Mean Platelet Volume 8.1; Monocytes # (A) 0.4 k/uL (0-1.0); Monocytes % (A) 5 %; Neutrophils # (A) 5.3 k/uL (1.3-7.7); Neutrophils % (A) 69 %; Poikilocytosis Slight; RBC 3.88 m/uL (3.80-5.40); RDW 14.2 % (11.5-15.5); WBC 7.8 k/uL (3.8-10.6)
[2023-10-11 17:24] LABS: Platelet Count 386 k/uL (150-450)
[2023-10-11 17:40] LABS: ALT 14 U/L (4-34); AST 22 U/L (14-36); African American GFR (CKD) >90 (>60 ml/min/1.73 sqM); Albumin 3.4 g/dL (3.5-5.0); Alkaline Phosphatase 66 U/L (38-126); Anion Gap 10 mmol/L; Blood Urea Nitrogen 15 mg/dL (7-17); Calcium 9.4 mg/dL (8.4-10.2); Carbon Dioxide 25 mmol/L (22-30); Chloride 104 mmol/L (98-107); Glucose 180 mg/dL (74-99); Magnesium 1.8 mg/dL (1.6-2.3); Non-African American GFR(CKD) >90 (>60 ml/min/1.73 sqM); Potassium 3.9 mmol/L (3.5-5.1); Sodium 139 mmol/L (137-145); Total Bilirubin 0.4 mg/dL (0.2-1.3); Total Protein 6.1 g/dL (6.3-8.2)
--- NOTE | 2023-10-12 00:25 | XR ---
EXAM: XR Left Femur, 2 Views CLINICAL HISTORY: ITS.REASON XR Reason: fall injury TECHNIQUE: Frontal and lateral views of the left femur. COMPARISON: No relevant prior studies available. FINDINGS: Bones/joints: Severe joint space narrowing of the knee joint medial compartment. Osseous demineralization. No dislocation. No fracture of the femur. Soft tissues: Unremarkable. IMPRESSION: No fracture of the femur.
--- NOTE | 2023-10-12 00:25 | XR ---
EXAM: XR Pelvis, 1 or 2 Views CLINICAL HISTORY: ITS.REASON XR Reason: fall injury TECHNIQUE: Frontal view of the pelvis. COMPARISON: No relevant prior studies available. FINDINGS: Bones/joints: Unremarkable. No acute fracture. No dislocation. Soft tissues: Unremarkable. IMPRESSION: No acute fracture. No dislocation.
[2023-10-12] MEDS ORDERED: NALOXONE 0.4 MG/ML 1 ML VIAL IV PRN (01:32)
[2023-10-12] MEDS ORDERED: MAG HYDROX/AL HYDROX/SIMETH 30 ML CUP PO PRN (01:32)
--- NOTE | 2023-10-12 04:35 | P.HPIM ---
History of Present Illness H&P Date: 10/12/23 Patient is a 52-year-old female with a PMH of breast cancer status post bilateral mastectomy (on maintenance anastrozole), COPD, hypertension, hyperlipidemia, and type II DM who presents to the emergency room with complaints of left lower extremity and weakness. Patient reports that earlier today she suddenly developed left foot weakness and was unable to ambulate as a result. She reports falling onto the side of her car. Denies expressing a, or losing consciousness. She does report a prior history of foot drop but notes that it had resolved spontaneously. She denied expressing numbness or tingling. Also denied upper extremity weakness, speech impairment, facial droop, or visual deficits. Denied expressing chest discomfort or shortness of breath. Femur and pelvis x-rays in the emergency room were unremarkable. Laboratory evaluation revealed a glucose of 180 with albumin 3.4. ED documentation reviewed and case discussed with ED provider. Review of systems: Pertinent positives and negatives as discussed in HPI, a complete review of systems was performed and all other systems are negative. Physical examination: Vital signs reviewed General: non toxic, no distress, appears at stated age, morbidly obese Derm: no unusual rashes/lesions, warm Head: atraumatic, normocephalic, symmetric Eyes: EOMI, no lid lag, anicteric sclera, pupils equal round reactive to light ENT: Nose and ears atraumatic Neck: No cervical lymphadenopathy, trachea midline, supple Mouth: no lip lesion, mucus membranes moist Cardiovascular: S1S2 reg, no murmur, positive dorsalis pedis pulse bilateral, no edema Lungs: CTA bilateral, no rhonchi, no rales, no accessory muscle use Abdominal: soft, nontender to palpation, no guarding Ext: Muscle strength ankle plantar and dorsiflexion 4/5, strength 5/5 in all other extremities, no gross muscle atrophy, no contractures Neuro: CN II-XI grossly intact, no gross focal neuro deficits Psych: Alert, oriented, appropriate affect Assessment: Distal left lower extremity weakness Chronic conditions: Type II DM, hypertension, COPD, hyperlipidemia, history of breast cancer status post mastectomy Imaging: Femur and pelvis x-rays in the emergency room were unremarkable. Data Review: Laboratory evaluation revealed a glucose of 180 with albumin 3.4. Plan: PT consult Continue with home medications once reconciled Insulin sliding scale and blood glucose monitoring Fall precautions DVT prophylaxis: Heparin subcu The patient is admitted with an anticipated less than 2 midnight stay for evaluation of weakness CODE STATUS: Full Code Discussed with: Patient Anticipated discharge place: Home Past Medical History Past Medical History: Cancer, Diabetes Mellitus, Hyperlipidemia, Hypertension, Musculoskeletal Disorder, Osteoarthritis (OA), Respiratory Disorder Additional Past Medical History / Comment(s): DDD lumbar with 2 herniated disc, arthritis, vitamin D deficiency, 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 sees dr red. History of Any Multi-Drug Resistant Organisms: MRSA Date of last positivie culture/infection: 05/24/16 MDRO Source:: RIGHT LEG Past Surgical History: Breast Surgery, Section, Cholecystectomy, Hernia Repair Additional Past Surgical History / Comment(s): 3, tubal ligation, hernia repair 2. bilateral masectomy Past Anesthesia/Blood Transfusion Reactions: No Reported Reaction Additional Past Anesthesia/Blood Transfusion Reaction / Comment(s): no blood tranfusions Past Psychological History: Anxiety, Depression Smoking Status: Never smoker Past Alcohol Use History: None Reported Additional Past Alcohol Use History / Comment(s): Patient states she is a lifelong nonsmoker. She has used marijuana in the past occasionally. She denies any other street drug use. She lives in her van and is homeless. Past Drug Use History: None Reported Additional Drug Use History / Comment(s): THC edibles - Past Family History Mother Family Medical History: Cancer, Congestive Heart Failure (CHF), Diabetes Mellitus Additional Family Medical History / Comment(s): breast cancer Father History Unknown: Yes Medications and Allergies Home Medications Medication Instructions Recorded Confirmed Type Albuterol Inhaler [Ventolin Hfa 2 puff INHALATION RT-Q6H PRN 12/22/14 09/23/23 History Inhaler] Sertraline [Zoloft] 150 mg PO DAILY 12/22/14 09/23/23 History Atorvastatin [Lipitor] 20 mg PO DAILY 06/20/22 09/23/23 History Cholecalciferol [Vitamin D3 (25 100 mcg PO DAILY 09/18/22 09/23/23 History Mcg = 1000 Iu)] Anastrozole [Arimidex] 1 mg PO DAILY 09/23/23 09/23/23 History Dulaglutide [Trulicity] 3 mg SQ BELLE 09/23/23 09/23/23 History Meclizine [Antivert] 25 mg PO TID PRN 09/23/23 09/23/23 History sitaGLIPtin [Januvia] 25 mg PO DAILY 09/23/23 09/23/23 History Midodrine [ProAmatine] 2.5 mg PO AC-TID #90 tab 09/27/23 Rx Allergies Allergy/AdvReac Type Severity Reaction Status Date / Time codeine Allergy Nausea & Verified 09/23/23 16:15 Vomiting Fish Containing Products Allergy Anaphylaxis Verified 09/23/23 16:15 [Fish] iodine Allergy Unknown Verified 09/23/23 16:15 morphine Allergy Unknown Verified 09/23/23 16:15 shrimp Allergy Anaphylaxis Verified 09/23/23 16:15 Physical Exam Vitals: Vital Signs Temp Pulse Pulse Resp BP BP Pulse Ox 10/12/23 02:20 98.2 F 86 20 112/52 100 10/12/23 02:00 97.5 F L 89 16 122/76 96 10/12/23 00:41 104 H 20 138/60 98 10/11/23 16:16 97.8 F 65 16 115/62 98 Intake and Output 10/11/23 10/11/23 10/12/23 14:59 22:59 06:59 Other: Weight 176.901 kg 176.901 kg Results CBC & Chem 7: 10/11/23 16:39 10/11/23 16:39 Labs: Abnormal Lab Results - Last 24 Hours (Table) 10/11/23 Range/Units 16:39 Glucose 180 H (74-99) mg/dL Total Protein 6.1 L (6.3-8.2) g/dL Albumin 3.4 L (3.5-5.0) g/dL Thrombosis Risk Factor Assmnt - Choose All That Apply Any of the Below Risk Factors Present?: Yes Each Factor Represents 1 point: Age 41-60 years, Obesity (BMI >25) Other Risk Factors: No Other congenital or acquired thrombophilia - If yes, enter type in comment: No Thrombosis Risk Factor Assessment Total Risk Factor Score: 2 Thrombosis Risk Factor Assessment Level: Low Risk
[2023-10-12 06:14] LABS: Glucose,Whole Blood 199 mg/dL (70-110)
[2023-10-12] MEDS: INSULIN ASPART (NovoLOG) 100 UNIT/ML VIAL SQ SCH ×4 (06:32→20:47)
--- NOTE | 2023-10-12 07:54 | US ---
EXAMINATION TYPE: US venous doppler duplex LE LT DATE OF EXAM: 10/12/2023 7:49 AM COMPARISON: 11/04/2022 CLINICAL INDICATION: Female, 52 years old with history of LLE pain; Left leg pain. No redness or swe lling. Not on blood thinners. SIDE PERFORMED: Left TECHNIQUE: The lower extremity deep venous system is examined utilizing real time linear array sonog tennille with graded compression, doppler sonography and color-flow sonography. VESSELS IMAGED: Common Femoral Vein Deep Femoral Vein Greater Saphenous Vein * Femoral Vein Popliteal Vein Small Saphenous Vein * Proximal Calf Veins (* superficial vessels) Suboptimal due to patient body habitus Left Leg: Negative for DVT IMPRESSION: Grayscale, color doppler, spectral doppler imaging performed of the deep veins of the lo wer extremities. There is normal flow, compressibility, vascular waveforms.
[2023-10-12] MEDS: HEPARIN SODIUM,PORCINE 5,000 UNIT/ML 1 ML VIAL SQ SCH ×2 (09:35→17:48)
[2023-10-12 11:51] LABS: Glucose,Whole Blood 193 mg/dL (70-110)
[2023-10-12] MEDS ORDERED: FUROSEMIDE 40 MG TAB PO PRN (17:19)
[2023-10-12] MEDS ORDERED: ALBUTEROL NEBULIZED 2.5 MG/3 ML INHALATION PRN (17:19)
[2023-10-12] MEDS ORDERED: POTASSIUM CHLORIDE ER 20 MEQ TAB.ER PO PRN (17:19)
[2023-10-12] MEDS ORDERED: MECLIZINE 25 MG TAB PO PRN (17:19)
[2023-10-12 17:44] LABS: Glucose,Whole Blood 148 mg/dL (70-110)
[2023-10-12] MEDS: MIDODRINE 5 MG TAB PO SCH (18:19)
[2023-10-12 20:30] LABS: Glucose,Whole Blood 136 mg/dL (70-110)
[2023-10-13] MEDS: HEPARIN SODIUM,PORCINE 5,000 UNIT/ML 1 ML VIAL SQ SCH ×4 (01:11→23:28)
[2023-10-13 06:14] LABS: Glucose,Whole Blood 125 mg/dL (70-110)
[2023-10-13] MEDS: INSULIN ASPART (NovoLOG) 100 UNIT/ML VIAL SQ SCH ×4 (06:15→19:50)
[2023-10-13] MEDS: MIDODRINE 5 MG TAB PO SCH ×3 (09:00→17:31)
[2023-10-13] MEDS: ATORVASTATIN 20 MG TAB PO SCH (09:05)
[2023-10-13] MEDS: CALCIUM CARBONATE 500 MG CHEWABLE PO SCH (09:05)
[2023-10-13] MEDS: SERTRALINE 100 MG TAB PO SCH (09:05)
[2023-10-13] MEDS: ANASTROZOLE 1 MG TAB PO SCH (09:05)
[2023-10-13] MEDS: allopurinoL 100 MG TAB PO SCH (09:05)
[2023-10-13] MEDS: MULTIVITAMINS, THERA 1 EACH TAB PO SCH (09:05)
[2023-10-13] MEDS: CHOLECALCIFEROL 25 MCG (1000 IU) TABLET PO SCH (09:42)
--- NOTE | 2023-10-13 10:49 | P.PN ---
Subjective Progress Note Date: 10/13/23 No new complaints today. Pending PT eval with likely SNF placement. Gen: awake, alert HEENT: normocephalic, atraumatic, good hearing acuity, moist mucous membranes Resp: good air exchange, breathing comfortably with no accessory muscle use CVS: good distal perfusion x 4, GI: soft, NTTP, ND : no SPT, no CVAT, colon catheter not present MSK: no pitting edema, no clubbing Neuro: non-focal, moving all extremities Psych: cooperative, euthymic mood Hospital Course: Patient is a 52-year-old female with a PMH of breast cancer status post bilateral mastectomy (on maintenance anastrozole), COPD, hypertension, hyperlipidemia, and type II DM who presents to the emergency room with complaints of left lower extremity and weakness. Patient reports that earlier today she suddenly developed left foot weakness and was unable to ambulate as a result. She reports falling onto the side of her car. Denies expressing a, or losing consciousness. She does report a prior history of foot drop but notes that it had resolved spontaneously. She denied expressing numbness or tingling. Also denied upper extremity weakness, speech impairment, facial droop, or visual deficits. Denied expressing chest discomfort or shortness of breath. Femur and pelvis x-rays in the emergency room were unremarkable. Laboratory evaluation revealed a glucose of 180 with albumin 3.4. Assessment: Distal left lower extremity weakness Chronic conditions: Type II DM, hypertension, COPD, hyperlipidemia, history of breast cancer status post mastectomy Imaging: Femur and pelvis x-rays in the emergency room were unremarkable. Data Review: Laboratory evaluation revealed a glucose of 180 with albumin 3.4. Plan: PT consult Continue with home medications once reconciled Insulin sliding scale and blood glucose monitoring Fall precautions DVT prophylaxis: Heparin subcu The patient is admitted with an anticipated less than 2 midnight stay for evaluation of weakness CODE STATUS: Full Code Discussed with: Patient Anticipated discharge place: Home Objective - Vital Signs Vital signs: Vital Signs Temp 98.0 F 10/13/23 07:00 Pulse 87 10/13/23 07:00 Resp 18 10/13/23 07:00 BP 143/71 10/13/23 07:00 Pulse Ox 94 L 10/13/23 07:00 FiO2 Intake & Output 10/12/23 10/13/23 10/13/23 18:59 06:59 18:59 Intake Total 470 240 Balance 470 240 Intake: Oral 470 240 Other: # Voids 1 1 # Bowel Movements 1 - Labs CBC & Chem 7: 10/11/23 16:39 10/11/23 16:39 Labs: Abnormal Lab Results - Last 24 Hours (Table) 10/12/23 10/12/23 10/12/23 Range/Units 11:50 17:41 20:26 POC Glucose (mg/dL) 193 H 148 H 136 H (70-110) mg/dL 10/13/23 Range/Units 06:13 POC Glucose (mg/dL) 125 H (70-110) mg/dL
[2023-10-13 12:20] LABS: Glucose,Whole Blood 159 mg/dL (70-110)
[2023-10-13 17:05] LABS: Glucose,Whole Blood 121 mg/dL (70-110)
[2023-10-13 19:46] LABS: Glucose,Whole Blood 187 mg/dL (70-110)
[2023-10-14 06:20] LABS: Glucose,Whole Blood 128 mg/dL (70-110)
[2023-10-14] MEDS: INSULIN ASPART (NovoLOG) 100 UNIT/ML VIAL SQ SCH ×4 (06:23→20:45)
[2023-10-14] MEDS: MIDODRINE 5 MG TAB PO SCH ×3 (06:27→16:32)
[2023-10-14] MEDS: MULTIVITAMINS, THERA 1 EACH TAB PO SCH (09:19)
[2023-10-14] MEDS: CALCIUM CARBONATE 500 MG CHEWABLE PO SCH (09:19)
[2023-10-14] MEDS: HEPARIN SODIUM,PORCINE 5,000 UNIT/ML 1 ML VIAL SQ SCH ×3 (09:19→23:17)
[2023-10-14] MEDS: CHOLECALCIFEROL 25 MCG (1000 IU) TABLET PO SCH (09:19)
[2023-10-14] MEDS: ATORVASTATIN 20 MG TAB PO SCH (09:19)
[2023-10-14] MEDS: SERTRALINE 100 MG TAB PO SCH (09:20)
[2023-10-14] MEDS: allopurinoL 100 MG TAB PO SCH (09:20)
[2023-10-14] MEDS: ANASTROZOLE 1 MG TAB PO SCH (09:20)
--- NOTE | 2023-10-14 10:49 | P.PN ---
Subjective Progress Note Date: 10/14/23 No new complaints today. Pending PT eval with likely SNF placement. Gen: awake, alert HEENT: normocephalic, atraumatic, good hearing acuity, moist mucous membranes Resp: good air exchange, breathing comfortably with no accessory muscle use CVS: good distal perfusion x 4, GI: soft, NTTP, ND : no SPT, no CVAT, colon catheter not present MSK: no pitting edema, no clubbing Neuro: non-focal, moving all extremities Psych: cooperative, euthymic mood Hospital Course: Patient is a 52-year-old female with a PMH of breast cancer status post bilateral mastectomy (on maintenance anastrozole), COPD, hypertension, hyperlipidemia, and type II DM who presents to the emergency room with complaints of left lower extremity and weakness. Patient reports that earlier today she suddenly developed left foot weakness and was unable to ambulate as a result. She reports falling onto the side of her car. Denies expressing a, or losing consciousness. She does report a prior history of foot drop but notes that it had resolved spontaneously. She denied expressing numbness or tingling. Also denied upper extremity weakness, speech impairment, facial droop, or visual deficits. Denied expressing chest discomfort or shortness of breath. Femur and pelvis x-rays in the emergency room were unremarkable. Laboratory evaluation revealed a glucose of 180 with albumin 3.4. Assessment: Distal left lower extremity weakness Chronic conditions: Type II DM, hypertension, COPD, hyperlipidemia, history of breast cancer status post mastectomy Imaging: Femur and pelvis x-rays in the emergency room were unremarkable. Data Review: Laboratory evaluation revealed a glucose of 180 with albumin 3.4. Plan: PT consult Continue with home medications once reconciled Insulin sliding scale and blood glucose monitoring Fall precautions DVT prophylaxis: Heparin subcu The patient is admitted with an anticipated less than 2 midnight stay for evaluation of weakness CODE STATUS: Full Code Discussed with: Patient Anticipated discharge place: Home Objective - Vital Signs Vital signs: Vital Signs Temp 97.6 F 10/14/23 07:00 Pulse 76 10/14/23 07:49 Resp 20 10/14/23 07:00 BP 148/80 10/14/23 07:49 Pulse Ox 95 10/14/23 07:00 FiO2 Intake & Output 10/13/23 10/14/23 10/14/23 18:59 06:59 18:59 Intake Total 240 120 Balance 240 120 Intake: Oral 240 120 Other: # Voids 2 2 1 # Bowel Movements 1 1 - Labs CBC & Chem 7: 10/11/23 16:39 10/11/23 16:39 Labs: Abnormal Lab Results - Last 24 Hours (Table) 10/13/23 10/13/23 10/13/23 Range/Units 12:18 17:02 19:44 POC Glucose (mg/dL) 159 H 121 H 187 H (70-110) mg/dL 10/14/23 Range/Units 06:19 POC Glucose (mg/dL) 128 H (70-110) mg/dL
[2023-10-14 12:05] LABS: Glucose,Whole Blood 164 mg/dL (70-110)
[2023-10-14 17:41] LABS: Glucose,Whole Blood 133 mg/dL (70-110)
[2023-10-14 20:04] LABS: Glucose,Whole Blood 171 mg/dL (70-110)
[2023-10-15 05:58] LABS: Glucose,Whole Blood 147 mg/dL (70-110)
[2023-10-15] MEDS: INSULIN ASPART (NovoLOG) 100 UNIT/ML VIAL SQ SCH ×4 (06:03→21:16)
[2023-10-15] MEDS: MIDODRINE 5 MG TAB PO SCH ×3 (06:33→17:42)
[2023-10-15] MEDS: MULTIVITAMINS, THERA 1 EACH TAB PO SCH (09:35)
[2023-10-15] MEDS: ATORVASTATIN 20 MG TAB PO SCH (09:35)
[2023-10-15] MEDS: CALCIUM CARBONATE 500 MG CHEWABLE PO SCH (09:35)
[2023-10-15] MEDS: allopurinoL 100 MG TAB PO SCH (09:35)
[2023-10-15] MEDS: CHOLECALCIFEROL 25 MCG (1000 IU) TABLET PO SCH (09:35)
[2023-10-15] MEDS: SERTRALINE 100 MG TAB PO SCH (09:35)
[2023-10-15] MEDS: HEPARIN SODIUM,PORCINE 5,000 UNIT/ML 1 ML VIAL SQ SCH ×3 (09:36→21:17)
[2023-10-15] MEDS: ANASTROZOLE 1 MG TAB PO SCH (09:36)
[2023-10-15 12:10] LABS: Glucose,Whole Blood 151 mg/dL (70-110)
--- NOTE | 2023-10-15 16:02 | P.PN ---
Subjective Progress Note Date: 10/15/23 Hospital course: Patient is a very pleasant 52-year-old female with a past medical history of breast cancer status post bilateral mastectomy (on maintenance anastrozole), COPD, hypotension, hyperlipidemia, and type II DM. She presented to emergency department on 10/12/23 with complaints of left lower extremity and weakness. Patient reported that earlier in the day she suddenly developed left foot weakness and was unable to ambulate as a result. She does report a prior history of foot drop but notes that it had resolved spontaneously. She denied expressing numbness or tingling. Also denied upper extremity weakness, speech impairment, facial droop, or visual deficits. Denied expressing chest discomfort or shortness of breath. Femur and pelvis x-rays in the emergency room were unremarkable. Laboratory evaluation revealed a glucose of 180 with albumin 3.4. Patient was admitted under our services of consultation a physical in acute patient of therapy as well as case management as patient requesting placement in senior care facility. Physical exam: Vital signs reviewed and stable. General: Nontoxic, no distress and appears stated age. Derm: Skin warm and dry, normal coloration for ethnicity. Head: Atraumatic, normocephalic and symmetric. Eyes: EOMs intact, no lid lag, and anicteric sclera Mouth: no lip lesions, mucus membranes moist Cardiovascular: regular rate and rhythm with normal S1S2, no murmur, positive posterior tibial pulses bilaterally, and cap refill < 2 seconds. Lungs: Respirations even, regular, and unlabored on room air. Lungs CTA bilaterally, no rhonchi, no rales, no wheezing, and no accessory muscle usage. Abdominal: soft, nontender to palpation, no guarding, no appreciable organomegaly Ext: ROM intact. No gross muscle atrophy, no edema, no contractures Neuro: Speech clear, face symmetrical and CN II-XII grossly intact with no noted focal neuro deficits Psych: Alert and oriented to person, place, time, and situation. Appropriate and pleasant affect. Assessment and Plan of Care: Distal left lower extremity weakness, acute on chronic PT/OT following recommending subacute rehab. Case management following, sent for insurance authorization for rehab. Patient to be discharged to subacute rehab pending insurance authorization and acceptance to facility. Hypotension COPD Hyperlipidemia -Continue daily medication regimen with atorvastatin 20 mg daily and midodrine 12.5 mg 3 times daily. Breast cancer status post bilateral mastectomy Continue daily medication regimen with an anastrozole 1 mg daily. Depression Continue daily medication regimen with Zoloft 200 mg nightly Type II DM Hold Trulicity and Januvia and continue glycemic protocol with NovoLog sliding scale. Imaging: -No new imaging for review at this time. Data Reviewed: Vital signs reviewed. Blood pressure 117/57, heart rate 79, respiratory rate 14, temp 97.8F CODE STATUS: Full code DVT prophylaxis: Heparin Anticipated discharge date: Patient is medically stable and to be discharged to subacute rehab pending insurance authorization and acceptance to facility. Anticipated discharge place: Patient is medically stable and to be discharged to subacute rehab pending insurance authorization and acceptance to facility. Patient was seen independently by Nurse Pracitioner. This document was prepared using [employer] dictation software. Please allow for errors in lawn sprinkler servicer, while rare they do occur. Uche Swanson NP rendered care for this patient independently, reviewed the findings and plan as documented in the note above. I did not physically speak with or examine the patient on this date. Objective - Vital Signs Vital signs: Vital Signs Temp 97.8 F 10/15/23 07:00 Pulse 79 10/15/23 07:00 Resp 14 10/15/23 07:00 BP 117/57 10/15/23 07:00 Pulse Ox 95 10/15/23 07:00 FiO2 Intake & Output 10/14/23 10/15/23 10/15/23 18:59 06:59 18:59 Intake Total 480 Output Total 600 Balance -120 Intake: Oral 480 Output: Urine 200 Urine/Stool Mix 400 Other: Voiding Method Bedside Commode # Voids 1 1 # Bowel Movements 1 - Labs CBC & Chem 7: 10/11/23 16:39 10/11/23 16:39 Labs: Abnormal Lab Results - Last 24 Hours (Table) 10/14/23 10/14/23 10/14/23 Range/Units 12:04 17:38 20:02 POC Glucose (mg/dL) 164 H 133 H 171 H (70-110) mg/dL 10/15/23 Range/Units 05:57 POC Glucose (mg/dL) 147 H (70-110) mg/dL
[2023-10-15 17:39] LABS: Glucose,Whole Blood 148 mg/dL (70-110)
[2023-10-15 21:17] LABS: Glucose,Whole Blood 150 mg/dL (70-110)
[2023-10-16 06:13] LABS: Glucose,Whole Blood 138 mg/dL (70-110)
[2023-10-16] MEDS: INSULIN ASPART (NovoLOG) 100 UNIT/ML VIAL SQ SCH ×4 (06:36→21:55)
[2023-10-16] MEDS: MIDODRINE 5 MG TAB PO SCH ×3 (06:42→16:59)
[2023-10-16] MEDS: CHOLECALCIFEROL 25 MCG (1000 IU) TABLET PO SCH (09:29)
[2023-10-16] MEDS: SERTRALINE 100 MG TAB PO SCH (09:29)
[2023-10-16] MEDS: ATORVASTATIN 20 MG TAB PO SCH (09:29)
[2023-10-16] MEDS: MULTIVITAMINS, THERA 1 EACH TAB PO SCH (09:29)
[2023-10-16] MEDS: ANASTROZOLE 1 MG TAB PO SCH (09:30)
[2023-10-16] MEDS: allopurinoL 100 MG TAB PO SCH (09:30)
[2023-10-16] MEDS: CALCIUM CARBONATE 500 MG CHEWABLE PO SCH (09:31)
[2023-10-16] MEDS: HEPARIN SODIUM,PORCINE 5,000 UNIT/ML 1 ML VIAL SQ SCH ×3 (09:31→21:54)
[2023-10-16 12:20] LABS: Glucose,Whole Blood 205 mg/dL (70-110)
--- NOTE | 2023-10-16 12:33 | P.PN ---
Subjective Progress Note Date: 10/16/23 Hospital course: Patient is a very pleasant 52-year-old female with a past medical history of breast cancer status post bilateral mastectomy (on maintenance anastrozole), COPD, hypotension, hyperlipidemia, and type II DM. She presented to emergency department on 10/12/23 with complaints of left lower extremity and weakness. Patient reported that earlier in the day she suddenly developed left foot weakness and was unable to ambulate as a result. She does report a prior history of foot drop but notes that it had resolved spontaneously. She denied expressing numbness or tingling. Also denied upper extremity weakness, speech impairment, facial droop, or visual deficits. Denied expressing chest discomfort or shortness of breath. Femur and pelvis x-rays in the emergency room were unremarkable. Laboratory evaluation revealed a glucose of 180 with albumin 3.4. Patient was admitted under our services with consultation to physical and occupational therapy as well as to case management as patient requesting placement in intermediate facility. Per social work, referrals have been sent and we are awaiting insurance authorization and accepting facility for rehab. Pt is medically stable and stable for discharge at this time. Physical exam: Vital signs reviewed and stable. General: Nontoxic, no distress and appears stated age. Obese. Derm: Skin warm and dry, normal coloration for ethnicity. Head: Atraumatic, normocephalic and symmetric. Eyes: EOMs intact, no lid lag, and anicteric sclera Mouth: no lip lesions, mucus membranes moist Cardiovascular: regular rate and rhythm with normal S1S2, no murmur, positive posterior tibial pulses bilaterally, and cap refill < 2 seconds. Lungs: Respirations even, regular, and unlabored on room air. Lungs CTA bilater ally, no rhonchi, no rales, no wheezing, and no accessory muscle usage. Abdominal: soft, nontender to palpation, no guarding, no appreciable organomegaly Ext: No gross muscle atrophy, no edema, no contractures. Movement and sensation intact. Patient reports bilateral lower extremity decreased sensation reports left lower extremity persistent weakness. Neuro: Speech clear, face symmetrical and CN II-XII grossly intact with no noted focal neuro deficits Psych: Alert and oriented to person, place, time, and situation. Appropriate and pleasant affect. Assessment and Plan of Care: Distal left lower extremity weakness, acute on chronic PT/OT following recommending subacute rehab. Case management following, sent for insurance authorization for rehab. Patient to be discharged to subacute rehab pending insurance authorization and acceptance to facility. Hypotension COPD Hyperlipidemia -Continue daily medication regimen with atorvastatin 20 mg daily and midodrine 12.5 mg 3 times daily. Breast cancer status post bilateral mastectomy Continue daily medication regimen with an anastrozole 1 mg daily. Depression Continue daily medication regimen with Zoloft 200 mg nightly Type II DM Hold Trulicity and Januvia and continue glycemic protocol with NovoLog sliding scale. Data Reviewed: Vital signs reviewed. Blood pressure 158/66, heart rate 78, respiratory rate 18, temp 98.1F, SpO2 of 95% on room air. CODE STATUS: Full code DVT prophylaxis: Heparin Anticipated discharge date: Patient is medically stable and to be discharged to subacute rehab pending insurance authorization and acceptance to facility. Anticipated discharge place: Patient is medically stable and to be discharged to subacute rehab pending insurance authorization and acceptance to facility. Patient was seen independently by Nurse Pracitioner. This document was prepared using [employer] dictation software. Please allow for errors in epic application coordinator, while rare they do occur. Uche Swanson NP rendered care for this patient independently, reviewed the findings and plan as documented in the note above. I did not physically speak with or examine the patient on this date. Objective - Vital Signs Vital signs: Vital Signs Temp 98.1 F 10/16/23 07:00 Pulse 78 10/16/23 07:00 Resp 18 10/16/23 07:00 BP 158/66 10/16/23 07:00 Pulse Ox 95 10/16/23 07:00 FiO2 Intake & Output 10/15/23 10/16/23 10/16/23 18:59 06:59 18:59 Intake Total 480 Output Total 200 Balance 280 Intake: Oral 480 Output: Urine 200 Other: Voiding Method Toilet Toilet # Voids 1 - Labs CBC & Chem 7: 10/11/23 16:39 10/11/23 16:39 Labs: Abnormal Lab Results - Last 24 Hours (Table) 10/15/23 10/15/23 10/15/23 Range/Units 12:07 17:37 21:15 POC Glucose (mg/dL) 151 H 148 H 150 H (70-110) mg/dL 10/16/23 Range/Units 06:11 POC Glucose (mg/dL) 138 H (70-110) mg/dL
[2023-10-16 16:43] LABS: Glucose,Whole Blood 121 mg/dL (70-110)
[2023-10-16 21:38] LABS: Glucose,Whole Blood 207 mg/dL (70-110)
[2023-10-17 06:26] LABS: Glucose,Whole Blood 126 mg/dL (70-110)
[2023-10-17] MEDS: MIDODRINE 5 MG TAB PO SCH ×3 (06:28→17:44)
[2023-10-17] MEDS: INSULIN ASPART (NovoLOG) 100 UNIT/ML VIAL SQ SCH ×4 (06:28→21:08)
[2023-10-17] MEDS: CALCIUM CARBONATE 500 MG CHEWABLE PO SCH (08:59)
[2023-10-17] MEDS: SERTRALINE 100 MG TAB PO SCH (09:00)
[2023-10-17] MEDS: HEPARIN SODIUM,PORCINE 5,000 UNIT/ML 1 ML VIAL SQ SCH ×3 (09:00→22:54)
[2023-10-17] MEDS: MULTIVITAMINS, THERA 1 EACH TAB PO SCH (09:00)
[2023-10-17] MEDS: ATORVASTATIN 20 MG TAB PO SCH (09:00)
[2023-10-17] MEDS: allopurinoL 100 MG TAB PO SCH (09:00)
[2023-10-17] MEDS: CHOLECALCIFEROL 25 MCG (1000 IU) TABLET PO SCH (09:00)
[2023-10-17] MEDS: ANASTROZOLE 1 MG TAB PO SCH (09:00)
[2023-10-17 09:24] VITALS: BMI 62.9
--- NOTE | 2023-10-17 12:01 | P.PN ---
Progress Note - Text Progress Note Date: 10/17/23 Spoke with Case Management regarding inpt rehab. Ok to hold ver[facility] for short term rehab. Patient can resume upon discharge
[2023-10-17 12:17] LABS: Glucose,Whole Blood 163 mg/dL (70-110)
[2023-10-17 17:21] LABS: Glucose,Whole Blood 132 mg/dL (70-110)
--- NOTE | 2023-10-17 17:33 | P.PN ---
Subjective Progress Note Date: 10/17/23 Hospital course: Patient is a very pleasant 52-year-old female with a past medical history of breast cancer status post bilateral mastectomy (on maintenance anastrozole), COPD, hypotension, hyperlipidemia, and type II DM. She presented to emergency department on 10/12/23 with complaints of left lower extremity and weakness. Patient reported that earlier in the day she suddenly developed left foot weakness and was unable to ambulate as a result. She does report a prior history of foot drop but notes that it had resolved spontaneously. She denied expressing numbness or tingling. Also denied upper extremity weakness, speech impairment, facial droop, or visual deficits. Denied expressing chest discomfort or shortness of breath. Femur and pelvis x-rays in the emergency room were unremarkable. Laboratory evaluation revealed a glucose of 180 with albumin 3.4. Patient was admitted under our services with consultation to physical and occupational therapy as well as to case management as patient requesting placement in retirement facility. Per social work, referrals have been sent and we are awaiting insurance authorization and accepting facility for rehab. Pt is medically stable and stable for discharge at this time. Physical exam: Vital signs reviewed and stable. General: Nontoxic, no distress and appears stated age. Obese. Derm: Skin warm and dry, normal coloration for ethnicity. Head: Atraumatic, normocephalic and symmetric. Eyes: EOMs intact, no lid lag, and anicteric sclera Mouth: no lip lesions, mucus membranes moist Cardiovascular: regular rate and rhythm with normal S1S2, no murmur, positive posterior tibial pulses bilaterally, and cap refill < 2 seconds. Lungs: Respirations even, regular, and unlabored on room air. Lungs CTA bilater ally, no rhonchi, no rales, no wheezing, and no accessory muscle usage. Abdominal: soft, nontender to palpation, no guarding, no appreciable organomegaly Ext: No gross muscle atrophy, no edema, no contractures. Movement and sensation intact. Patient reports bilateral lower extremity decreased sensation reports left lower extremity persistent weakness. Neuro: Speech clear, face symmetrical and CN II-XII grossly intact with no noted focal neuro deficits Psych: Alert and oriented to person, place, time, and situation. Appropriate and pleasant affect. Assessment and Plan of Care: Distal left lower extremity weakness, acute on chronic PT/OT following recommending subacute rehab. Case management following, sent for insurance authorization for rehab. Patient to be discharged to subacute rehab pending insurance authorization Hypotension COPD Hyperlipidemia -Continue daily medication regimen with atorvastatin 20 mg daily and midodrine 12.5 mg 3 times daily. Breast cancer status post bilateral mastectomy Continue daily medication regimen with an anastrozole 1 mg daily. Depression Continue daily medication regimen with Zoloft 200 mg nightly Type II DM Hold Trulicity and Januvia and continue glycemic protocol with NovoLog sliding scale. Data Reviewed: Vital signs reviewed. Blood pressure 132/73, heart rate 81, respiratory rate 16, temp 97.9F, and SpO2 of 94% on room air. Patient has been accepted to [facility] and to be discharged once insurance authorization is obtained. CODE STATUS: Full code DVT prophylaxis: Heparin Anticipated discharge date: Patient is medically stable and to be discharged to subacute rehab pending insurance authorization Anticipated discharge place: [facility] Patient was seen independently by Nurse Pracitioner. This document was prepared using [employer] dictation software. Please allow for errors in application development project manager, while rare they do occur. Objective - Vital Signs Vital signs: Vital Signs Temp 97.9 F 10/17/23 07:00 Pulse 81 10/17/23 07:00 Resp 16 10/17/23 07:00 BP 132/73 10/17/23 07:00 Pulse Ox 94 L 10/17/23 07:00 FiO2 Intake & Output 10/16/23 10/17/23 10/17/23 18:59 06:59 18:59 Intake Total 358 Balance 358 Weight 176.901 kg Intake: Oral 358 Other: Voiding Method Toilet # Voids 1 3 - Labs CBC & Chem 7: 10/11/23 16:39 10/11/23 16:39 Labs: Abnormal Lab Results - Last 24 Hours (Table) 10/16/23 10/16/23 10/16/23 Range/Units 12:17 16:42 21:37 POC Glucose (mg/dL) 205 H 121 H 207 H (70-110) mg/dL 10/17/23 Range/Units 06:25 POC Glucose (mg/dL) 126 H (70-110) mg/dL
[2023-10-17 20:35] LABS: Glucose,Whole Blood 158 mg/dL (70-110)
[2023-10-18 06:09] LABS: Glucose,Whole Blood 151 mg/dL (70-110)
[2023-10-18] MEDS: INSULIN ASPART (NovoLOG) 100 UNIT/ML VIAL SQ SCH ×2 (06:13→12:47)
[2023-10-18] MEDS: MIDODRINE 5 MG TAB PO SCH ×2 (06:14→12:46)
[2023-10-18 08:15] VITALS: RESP 16
[2023-10-18] MEDS: CHOLECALCIFEROL 25 MCG (1000 IU) TABLET PO SCH (09:53)
[2023-10-18] MEDS: MULTIVITAMINS, THERA 1 EACH TAB PO SCH (09:53)
[2023-10-18] MEDS: CALCIUM CARBONATE 500 MG CHEWABLE PO SCH (09:53)
[2023-10-18] MEDS: allopurinoL 100 MG TAB PO SCH (09:53)
[2023-10-18] MEDS: HEPARIN SODIUM,PORCINE 5,000 UNIT/ML 1 ML VIAL SQ SCH (09:53)
[2023-10-18] MEDS: ATORVASTATIN 20 MG TAB PO SCH (09:53)
[2023-10-18] MEDS: ANASTROZOLE 1 MG TAB PO SCH (09:54)
[2023-10-18] MEDS: SERTRALINE 100 MG TAB PO SCH (09:54)
[2023-10-18 12:39] LABS: Glucose,Whole Blood 197 mg/dL (70-110)
--- NOTE | 2023-10-18 13:46 | P.DS ---
Providers Date of admission: 10/12/23 01:37 Expected date of discharge: 10/18/23 Attending physician: Yovani Carroll MD Primary care physician: Enrique Hope MD Hospital Course: Discharge Diagnosis: Distal left lower extremity weakness, acute on chronic. PT/OT evaluated recommending subacute rehab.Patient has been accepted to [facility] and insurance authorization has been obtained. Patient being discharged to rehab. Hypotension. Continue daily medication regimen with midodrine 2.5 mg 3 times daily. COPD Hyperlipidemia. Continue daily medication regimen with atorvastatin 20 mg daily. Breast cancer status post bilateral mastectomy. Continue daily medication regimen with an anastrozole 1 mg daily. Depression. Continue daily medication regimen with Zoloft 200 mg nightly Type II DM. Resume home medication regimen with Trulicity and Januvia. Hospital Course: Patient is a very pleasant 52-year-old female with a past medical history of breast cancer status post bilateral mastectomy (on maintenance anastrozole), COPD, hypotension, hyperlipidemia, and type II DM. She presented to emergency department on 10/12/23 with complaints of left lower extremity and weakness. Patient reported that earlier in the day she suddenly developed left foot weakness and was unable to ambulate as a result. She does report a prior history of foot drop but notes that it had resolved spontaneously. She denied expressing numbness or tingling. Also denied upper extremity weakness, speech impairment, facial droop, or visual deficits. Denied expressing chest discomfort or shortness of breath. Femur and pelvis x-rays in the emergency room were unremarkable. Laboratory evaluation revealed a glucose of 180 with albumin 3.4. Patient was admitted under our services with consultation to physical and occupational therapy as well as to case management as patient requesting placement in [facility]. Per social work, referrals have been sent and we are awaiting insurance authorization and accepting facility for rehab. Pt is medically stable and stable for discharge at this time. Physical exam: Vital signs reviewed and stable. General: Nontoxic, no distress and appears stated age. Obese. Derm: Skin warm and dry, normal coloration for ethnicity. Head: Atraumatic, normocephalic and symmetric. Eyes: EOMs intact, no lid lag, and anicteric sclera Mouth: no lip lesions, mucus membranes moist Cardiovascular: regular rate and rhythm with normal S1S2, no murmur, positive posterior tibial pulses bilaterally, and cap refill < 2 seconds. Lungs: Respirations even, regular, and unlabored on room air. Lungs CTA bilaterally, no rhonchi, no rales, no wheezing, and no accessory muscle usage. Abdominal: soft, nontender to palpation, no guarding, no appreciable organomegaly Ext: No gross muscle atrophy, no edema, no contractures. Movement and sensation intact. Patient reports bilateral lower extremity decreased sensation reports left lower extremity persistent weakness. Neuro: Speech clear, face symmetrical and CN II-XII grossly intact with no noted focal neuro deficits Psych: Alert and oriented to person, place, time, and situation. Appropriate and pleasant affect. A total of 31 minutes of time were spent preparing this complex discharge summar y. Pt was discharged on 10/18/23 at 1:38 PM. Patient was seen independently by Nurse Practitioner. This document was prepared using [employer] dictation software. Please allow for errors in engraver tender while rare they do occur. Uche Swanson NP rendered care for this patient independently, reviewed the findings and plan as documented in the note above. I did not physically speak w ith or examine the patient on this date. Patient Condition at Discharge: Stable Plan - Discharge Summary Discharge Rx Participant: No New Discharge Prescriptions: Continue Sertraline [Zoloft] 200 mg PO DAILY Albuterol Inhaler [Ventolin Hfa Inhaler] 2 puff INHALATION RT-Q6H PRN PRN Reason: Shortness Of Breath Cholecalciferol [Vitamin D3 (25 Mcg = 1000 Iu)] 100 mcg PO DAILY Anastrozole [Arimidex] 1 mg PO DAILY Dulaglutide [Trulicity] 3 mg SQ BELLE Meclizine [Antivert] 25 mg PO TID PRN PRN Reason: Vertigo sitaGLIPtin [Januvia] 25 mg PO DAILY Abemaciclib [Verzenio] 150 mg PO BID allopurinoL 100 mg PO DAILY Calcium Carbonate [Calcium] 1,200 mg PO DAILY Furosemide [Lasix] 40 mg PO DAILY PRN PRN Reason: Edema Potassium Chloride ER [K-Dur 20] 20 meq PO DAILY PRN PRN Reason: w/lasix Atorvastatin [Lipitor] 20 mg PO DAILY Midodrine [ProAmatine] 2.5 mg PO AC-TID #90 tab Multivitamins, Thera [Multivitamin (formulary)] 1 tab PO DAILY Discharge Medication List Albuterol Inhaler [Ventolin Hfa Inhaler] 2 puff INHALATION RT-Q6H PRN 12/22/14 [History] Sertraline [Zoloft] 200 mg PO DAILY 12/22/14 [History] Atorvastatin [Lipitor] 20 mg PO DAILY 06/20/22 [History] Cholecalciferol [Vitamin D3 (25 Mcg = 1000 Iu)] 100 mcg PO DAILY 09/18/22 [History] Anastrozole [Arimidex] 1 mg PO DAILY 09/23/23 [History] Dulaglutide [Trulicity] 3 mg SQ BELLE 09/23/23 [History] Meclizine [Antivert] 25 mg PO TID PRN 09/23/23 [History] sitaGLIPtin [Januvia] 25 mg PO DAILY 09/23/23 [History] Midodrine [ProAmatine] 2.5 mg PO AC-TID #90 tab 09/27/23 [Rx] Abemaciclib [Verzenio] 150 mg PO BID 10/12/23 [History] Calcium Carbonate [Calcium] 1,200 mg PO DAILY 10/12/23 [History] Furosemide [Lasix] 40 mg PO DAILY PRN 10/12/23 [History] Multivitamins, Thera [Multivitamin (formulary)] 1 tab PO DAILY 10/12/23 [His tory] Potassium Chloride ER [K-Dur 20] 20 meq PO DAILY PRN 10/12/23 [History] allopurinoL 100 mg PO DAILY 10/12/23 [History] Follow up Appointment(s)/Referral(s): Enrique Hope MD [Primary Care Provider] - 1-2 days Activity/Diet/Wound Care/Special Instructions: Activity: As tolerated. Take breaks as needed. Diet: Heart healthy and carb consistent diet. Avoid salts, or foods with hidden salts such as canned or boxed foods and frozen dinners. Extra salt makes your heart work harder and traps the fluid in your body for longer. Special Instructions: Take all of your medications as directed and remember to keep all of your doctor's appointments and follow-up as needed. Thank you for allowing us to participate in your care, it was truly a pleasure having you for our patient!!! Discharge Disposition: TRANSFER TO SNF/ECF
[2023-10-18 16:21] VITALS: BP 118/84; PULSE 88; TEMP 98.3
== END 2023-10-18 16:11 ==
LOC: EC 15:59 → 6NMEDSUR 10-12 01:37
PROVIDERS: ADMIT Internal Medicine; ATTEND Internal Medicine
DX: M62.81 Muscle weakness (generalized) (principal); J44.9 Chronic obstructive pulmonary disease, unspecified; E11.9 Type 2 diabetes mellitus without complications; E78.5 Hyperlipidemia, unspecified; F32.A Depression, unspecified; F41.9 Anxiety disorder, unspecified; I10 Essential (primary) hypertension; Z79.811 Long term (current) use of aromatase inhibitors; Z79.84 Long term (current) use of oral hypoglycemic drugs; Z79.899 Other long term (current) drug therapy; Z80.3 Family history of malignant neoplasm of breast; Z82.49 Family history of ischemic heart disease and other diseases of the circulatory system; Z83.3 Family history of diabetes mellitus; Z85.3 Personal history of malignant neoplasm of breast; Z90.13 Acquired absence of bilateral breasts and nipples; I95.9 Hypotension, unspecified
CPT/HCPCS: 96372 ×11; 99285; 36415; 97530 ×2; 97162; 97535; 97165; 80053; 83735; 85025; 72170; 73552; 93971; G0378 ×7; J1644 ×6; S0170 ×6

== ENCOUNTER 2024-12-10 14:40 | Inpatient (IN) | payer MEDICARE, OTHER ==
--- NOTE | 2024-12-10 15:27 | ED ---
General Adult HPI - General Chief complaint: Recheck/Abnormal Lab/Rx Stated complaint: dizziness Time Seen by Provider: 12/10/24 14:54 Source: patient, RN notes reviewed Mode of arrival: EMS Limitations: no limitations - History of Present Illness Initial comments: This is a 53-year-old female with a history of breast cancer on hormone replacement therapy presenting to emergency department via EMS from shelter with concern for dizziness and generalized weakness. Patient states that yesterday evening she was in her room transferring from her bed to a bedside commode to use the bathroom when she stood up she felt extremely dizzy and lightheaded and had a near syncopal event where she saw stars and fell forward. She denies hitting her head or loss consciousness as her aide was in the room and assisted with her when she felt lightheaded. Additionally, she states that she has been experiencing intermittent dizziness over the past few weeks to months. She is also endorsing diffuse abdominal pain over the last few months with diarrhea. She denies fevers, chills, nausea, vomiting, chest pain or pressure, difficulty breathing, peripheral edema, headaches, blurry or double vision. denies personal history of [place],CVA, DTE, or PE. - Related Data Home Medications Medication Instructions Recorded Confirmed Albuterol Inhaler [Ventolin Hfa 2 puff INHALATION RT-Q6H PRN 12/22/14 12/10/24 Inhaler] Sertraline [Zoloft] 200 mg PO DAILY 12/22/14 12/10/24 Atorvastatin [Lipitor] 20 mg PO HS 06/20/22 12/10/24 Cholecalciferol [Vitamin D3 (25 25 mcg PO DAILY 09/18/22 12/10/24 Mcg = 1000 Iu)] Anastrozole [Arimidex] 1 mg PO DAILY 09/23/23 12/10/24 Meclizine [Antivert] 25 mg PO TID PRN 09/23/23 12/10/24 sitaGLIPtin [Januvia] 25 mg PO DAILY 09/23/23 12/10/24 Abemaciclib [Verzenio] 150 mg PO BID 10/12/23 12/10/24 Calcium Carbonate [Calcium] 1,200 mg PO DAILY 10/12/23 12/10/24 Potassium Chloride ER [K-Dur 20] 40 meq PO BID 10/12/23 12/10/24 allopurinoL 100 mg PO BID 10/12/23 12/10/24 Acetaminophen Tab [Tylenol] 650 mg PO Q6H PRN 12/10/24 12/10/24 Cranberry 450mg 450 mg PO BID 12/10/24 12/10/24 Loperamide HCl [Imodium A-D] 2 - 4 mg PO QID PRN MDD 5 TABLETS 12/10/24 12/10/24 Magnesium Hydroxide [Milk of 7,200 mg PO Q72H PRN 12/10/24 12/10/24 Magnesia Concentrate] Magnesium Oxide [Mag-Ox] 400 mg PO DAILY 12/10/24 12/10/24 Mineral Oil [Fleet Mineral Oil] 133 ml RECTAL DAILY PRN 12/10/24 12/10/24 Ondansetron [Zofran] 4 mg PO QAM 12/10/24 12/10/24 bisacodyL [Dulcolax] 10 mg RECTAL DAILY PRN 12/10/24 12/10/24 traZODone HCL [Desyrel] 50 mg PO HS 12/10/24 12/10/24 Previous Rx's Medication Instructions Recorded Midodrine [ProAmatine] 2.5 mg PO AC-TID #90 tab 09/27/23 Allergies Allergy/AdvReac Type Severity Reaction Status Date / Time Fish Containing Products Allergy Anaphylaxis Verified 12/10/24 17:49 [Fish] iodine Allergy Unknown Verified 12/10/24 17:49 morphine Allergy Unknown Verified 12/10/24 17:49 shrimp Allergy Anaphylaxis Verified 12/10/24 17:49 codeine AdvReac Nausea & Verified 12/10/24 17:49 Vomiting Review of Systems ROS Statement: Those systems with pertinent positive or pertinent negative responses have been documented in the HPI. ROS Other: All systems not noted in ROS Statement are negative. 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 but denies depression History of Any Multi-Drug Resistant Organisms: MRSA Date of last positivie culture/infection: 05/24/16 MDRO Source:: RIGHT LEG Past Surgical History: Section, Cholecystectomy, Hernia Repair Additional Past Surgical History / Comment(s): 3, tubal ligation, hernia repair 2 Past Anesthesia/Blood Transfusion Reactions: No Reported Reaction Additional Past Anesthesia/Blood Transfusion Reaction / Comment(s): no blood tranfusions Past Psychological History: Anxiety, Depression Smoking Status: Never smoker Past Alcohol Use History: Occasional, Rare Past Drug Use History: Marijuana - Past Family History Mother Family Medical History: Cancer, Congestive Heart Failure (CHF), Diabetes Mellitus Additional Family Medical History / Comment(s): breast cancer Father History Unknown: Yes General Exam Limitations: no limitations General appearance: alert, in no apparent distress Eye exam: Present: normal appearance, PERRL, EOMI. Absent: scleral icterus, conjunctival injection, periorbital swelling Respiratory exam: Present: normal lung sounds bilaterally. Absent: respiratory distress, wheezes, rales, rhonchi, stridor Cardiovascular Exam: Present: regular rate, normal rhythm, normal heart sounds. Absent: systolic murmur, diastolic murmur, rubs, gallop, clicks GI/Abdominal exam: Present: soft, normal bowel sounds. Absent: distended, tenderness, guarding, rebound, rigid Extremities exam: Present: normal inspection, full ROM, normal capillary refill. Absent: tenderness, pedal edema, joint swelling, calf tenderness Back exam: Present: normal inspection Skin exam: Present: warm, dry, intact, normal color. Absent: rash Course Vital Signs 12/10/24 12/10/24 12/10/24 14:47 17:30 18:49 Temperature 97.9 F 98 F Pulse Rate 82 84 89 Respiratory 18 18 18 Rate Blood Pressure 116/69 132/70 107/71 O2 Sat by Pulse 100 99 96 Oximetry Medical Decision Making - Medical Decision Making Was pt. sent in by a medical professional or institution (, PA, SMALL ANIMAL VETERINARIAN, urgent care, hospital, or shelter...) When possible be specific @ -No Did you speak to anyone other than the patient for history (EMS, parent, family, police, friend...)? What history was obtained from this source @ -No Did you review nursing and triage notes (agree or disagree)? Why? @ -I reviewed and agree with nursing and triage notes Were old charts reviewed (outside hosp., previous admission, EMS record, old EKG, old radiological studies, urgent care reports/EKG's, shelter records)? Report findings @ -No old charts were reviewed Differential Diagnosis (chest pain, altered mental status, abdominal pain women, abdominal pain men, vaginal bleeding, weakness, fever, dyspnea, syncope, headache, dizziness, GI bleed, back pain, seizure, CVA, palpatations, mental health, musculoskeletal)? @ -Differential Weakness: Hypoglycemia, shock, sepsis, hyponatremia, anemia, infection, [place], ETOH, adverse medicine reaction, overdose, stroke, this is not meant to be an all-inclusive list. EKG interpreted by me (3pts min.). @ -Completed at 1443 sinus rhythm with a ventricular rate of 82, parable 193, QRS 90, QTc 398. X-rays interpreted by me (1pt min.). @ -None done CT interpreted by me (1pt min.). @ -CT of the chest completed with no evidence for acute occlusive pulmonary embolism with chronic appearing nonocclusive filling defect with a small hiatal hernia. U/S interpreted by me (1pt. min.). @ -None done What testing was considered but not performed or refused? (CT, X-rays, U/S, labs)? Why? @ -None What meds were considered but not given or refused? Why? @ -None Did you discuss the management of the patient with other professionals (bereket bowens i.e. , PA, SMALL ANIMAL VETERINARIAN, lab, RT, psych nurse, social professionals, local delivery truck driver, teacher, sewage reticulation drafting officer, adult protective caseworker)? Give summary @ -No Was smoking cessation discussed for >3mins.? @ -No Was critical care preformed (if so, how long)? @ -No Were there social determinants of health that impacted care today? How? (Homelessness, low income, unemployed, alcoholism, drug addiction, transportation, low edu. Level, literacy, decrease access to med. care, penitentiary, rehab)? @ -No Was there de-escalation of care discussed even if they declined (Discuss DNR or withdrawal of care, Hospice)? DNR status @ -No What co-morbidities impacted this encounter? (DM, HTN, Smoking, COPD, CAD, Cancer, CVA, ARF, Chemo, Hep., AIDS, mental health diagnosis, sleep apnea, morbid obesity)? @ -None Was patient admitted / discharged? Hospital course, mention meds given and route, prescriptions, significant lab abnormalities, going to OR and other pertinent info. @ -Admitted. 53-year-old female presenting with generalized weakness and dizziness. Overall patient is well-appearing. Neurological examination compl eted with no acute deficits. Vitals are stable. EKG sinus rhythm. Labs remarkable for hypokalemia with potassium of 2.9 and this is repleted with oral potassium and IV potassium. Troponins elevated 0.107 at this time D-dimer orders placed and elevated 1.09. Patient is premedicated with allergy cocktail and is undergoing CTA of the chest that is unremarkable for acute PE. Patient will be admitted for evaluation of elevated troponin and hypokalemia. Patient is admitted to [facility]. Case discussed with Dr. Roberts Undiagnosed new problem with uncertain prognosis? @ -No Drug Therapy requiring intensive monitoring for toxicity (Heparin, Nitro, Insulin, Cardizem)? @ -No Were any procedures done? @ -No Diagnosis/symptom? @ -Hypokalemia, NSTEMI Acute, or Chronic, or Acute on Chronic? @ -Acute Uncomplicated (without systemic symptoms) or Complicated (systemic symptoms)? @ -Uncomplicated Side effects of treatment? @ -No Exacerbation, Progression, or Severe Exacerbation? @ -No Poses a threat to life or bodily function? How? (Chest pain, [place], [place], pneumonia, PE, COPD, DKA, ARF, appy, cholecystitis, CVA, Diverticulitis, Homicidal, Suicidal, threat to staff... and all critical care pts) @ -No - Lab Data Result diagrams: 12/10/24 15:29 12/10/24 15:29 Lab Results 12/10/24 12/10/24 12/10/24 Range/Units 15:29 15:29 15:29 WBC 5.6 (3.8-10.6) k/uL RBC 3.70 L (3.80-5.40) m/uL Hgb 12.2 (11.4-16.0) gm/dL Hct 36.7 (34.0-46.0) % MCV 99.2 (80.0-100.0) fL MCH 32.9 (25.0-35.0) pg MCHC 33.1 (31.0-37.0) g/dL RDW 16.2 H (11.5-15.5) % Plt Count 332 (150-450) k/uL MPV 8.0 Neutrophils % 56 % Lymphocytes % 36 % Monocytes % 3 % Eosinophils % 2 % Basophils % 1 % Neutrophils # 3.2 (1.3-7.7) k/uL Lymphocytes # 2.0 (1.0-4.8) k/uL Monocytes # 0.2 (0-1.0) k/uL Eosinophils # 0.1 (0-0.7) k/uL Basophils # 0.1 (0-0.2) k/uL Poikilocytosis Slight Anisocytosis Slight Macrocytosis Slight PT 11.8 (10.0-12.5) sec INR 1.1 (<1.2) APTT 22.0 (22.0-30.0) sec D-Dimer (<0.60) mg/L FEU Sodium 137 (137-145) mmol/L Potassium 2.9 L (3.5-5.1) mmol/L Chloride 102 (98-107) mmol/L Carbon Dioxide 26 (22-30) mmol/L Anion Gap 9 mmol/L BUN 15 (7-17) mg/dL Creatinine 0.93 (0.52-1.04) mg/dL Est GFR (CKD-EPI)AfAm 81 (>60 ml/min/1.73 sqM) Est GFR (CKD-EPI)NonAf 70 (>60 ml/min/1.73 sqM) Glucose 86 (74-99) mg/dL Calcium 9.6 (8.4-10.2) mg/dL Magnesium 2.0 (1.6-2.3) mg/dL Total Bilirubin 0.9 (0.2-1.3) mg/dL AST 17 (14-36) U/L ALT 11 (4-34) U/L Alkaline Phosphatase 72 (38-126) U/L Troponin I (0.000-0.034) ng/mL Total Protein 6.0 L (6.3-8.2) g/dL Albumin 3.2 L (3.5-5.0) g/dL Lipase 118 (23-300) U/L 12/10/24 12/10/24 Range/Units 15:29 15:29 WBC (3.8-10.6) k/uL RBC (3.80-5.40) m/uL Hgb (11.4-16.0) gm/dL Hct (34.0-46.0) % MCV (80.0-100.0) fL MCH (25.0-35.0) pg MCHC (31.0-37.0) g/dL RDW (11.5-15.5) % Plt Count (150-450) k/uL MPV Neutrophils % % Lymphocytes % % Monocytes % % Eosinophils % % Basophils % % Neutrophils # (1.3-7.7) k/uL Lymphocytes # (1.0-4.8) k/uL Monocytes # (0-1.0) k/uL Eosinophils # (0-0.7) k/uL Basophils # (0-0.2) k/uL Poikilocytosis Anisocytosis Macrocytosis PT (10.0-12.5) sec INR (<1.2) APTT (22.0-30.0) sec D-Dimer 1.09 H (<0.60) mg/L FEU Sodium (137-145) mmol/L Potassium (3.5-5.1) mmol/L Chloride (98-107) mmol/L Carbon Dioxide (22-30) mmol/L Anion Gap mmol/L BUN (7-17) mg/dL Creatinine (0.52-1.04) mg/dL Est GFR (CKD-EPI)AfAm (>60 ml/min/1.73 sqM) Est GFR (CKD-EPI)NonAf (>60 ml/min/1.73 sqM) Glucose (74-99) mg/dL Calcium (8.4-10.2) mg/dL Magnesium (1.6-2.3) mg/dL Total Bilirubin (0.2-1.3) mg/dL AST (14-36) U/L ALT (4-34) U/L Alkaline Phosphatase (38-126) U/L Troponin I 0.107 H* (0.000-0.034) ng/mL Total Protein (6.3-8.2) g/dL Albumin (3.5-5.0) g/dL Lipase (23-300) U/L Disposition Clinical Impression: Hypokalemia, NSTEMI (non-ST elevated myocardial infarction) Disposition: ADMITTED IP TO THIS HOSP Condition: Stable Referrals: Enrique Hope MD [STAFF PHYSICIAN] - 1-2 days Decision to Admit Reason: Admit from [facility] Decision Date: 12/10/24 Decision Time: 18:50
[2024-12-10 15:57] LABS: Anisocytosis Slight; Basophils # (A) 0.1 k/uL (0-0.2); Basophils % (A) 1 %; Eosinophils # (A) 0.1 k/uL (0-0.7); Eosinophils % (A) 2 %; HCT 36.7 % (34.0-46.0); HGB 12.2 gm/dL (11.4-16.0); Lymphocytes % (A) 36 %; MCH 32.9 pg (25.0-35.0); MCHC 33.1 g/dL (31.0-37.0); MCV 99.2 fL (80.0-100.0); Macrocytosis Slight; Monocytes # (A) 0.2 k/uL (0-1.0); Monocytes % (A) 3 %; Neutrophils # (A) 3.2 k/uL (1.3-7.7); Neutrophils % (A) 56 %; Platelet Count 332 k/uL (150-450); Poikilocytosis Slight; RDW 16.2 % (11.5-15.5); WBC 5.6 k/uL (3.8-10.6)
[2024-12-10 16:15] LABS: INR 1.1 (<1.2); Prothrombin Time 11.8 sec (10.0-12.5)
[2024-12-10 16:28] LABS: ALT 11 U/L (4-34); AST 17 U/L (14-36); African American GFR (CKD) 81 (>60 ml/min/1.73 sqM); Albumin 3.2 g/dL (3.5-5.0); Alkaline Phosphatase 72 U/L (38-126); Anion Gap 9 mmol/L; Blood Urea Nitrogen 15 mg/dL (7-17); Calcium 9.6 mg/dL (8.4-10.2); Carbon Dioxide 26 mmol/L (22-30); Chloride 102 mmol/L (98-107); Glucose 86 mg/dL (74-99); Lipase 118 U/L (23-300); Non-African American GFR(CKD) 70 (>60 ml/min/1.73 sqM); Potassium 2.9 mmol/L (3.5-5.1); Sodium 137 mmol/L (137-145); Total Bilirubin 0.9 mg/dL (0.2-1.3)
[2024-12-10] MEDS: POTASSIUM CHLORIDE 20 MEQ in WATER FOR INJECTION 1 100ML.BAG IVPB STA (17:16)
[2024-12-10] MEDS: POTASSIUM CHLORIDE ER 20 MEQ TAB.ER PO STA (17:16)
[2024-12-10] MEDS: diphenhydrAMINE 50 MG/ML 1 ML VIAL IVP STA (17:53)
[2024-12-10] MEDS: FAMOTIDINE 20 MG/2 ML VIAL IV STA (17:53)
[2024-12-10] MEDS: methylPREDNISolone SOD SUCCI 125 MG/2 ML VIAL IV STA (17:53)
--- NOTE | 2024-12-10 18:29 | CT ---
EXAMINATION TYPE: CT chest angio for PE DATE OF EXAM: 12/10/2024 6:17 PM COMPARISON: Chest radiograph from same day. CLINICAL INDICATION: Female, 53 years old with history of elevated dimer and trop, syncope, dizziness ; Elevated D-dimer. TECHNIQUE/CONTRAST: CTA scan of the thorax is performed with IV Contrast, patient injected with 100 ml mL of Isovue 370, MIP images are created and reviewed these are created on a separate workstation.. CT DLP: 553.2 mGycm, Automated exposure control for dose reduction was used. FINDINGS: Lungs/Pleura: Intralobular septal thickening. No evidence of focal consolidation, pleural effusion or pneumothorax. Airway: Large airways are patent. Heart: The heart is increased in size. Vasculature: There nonocclusive web linear thin filling defect within the right lower lobe pulmonary arterial vasculature. Is no evidence for a filling defect within the pulmonary vasculature to suggest acute pulmonary embolism. The pulmonary artery is dilated up to 4.6 cm. Mediastinum: No gross evidence of adenopathy. Small hiatal hernia. Musculoskeletal: No acute osseous abnormalities Soft Tissues/lymph nodes: Unremarkable. Lower neck: No significant findings. Upper Abdomen: The gallbladder is surgically absent high-density material in the duodenum. IMPRESSION: 1. Chronic appearing weblike nonocclusive filling defect within the right lower lobe pulmonary arteri al vasculature. No evidence for acute occlusive pulmonary embolism. 2. Pulmonary hypertension, pulmonary vascular congestion with cardiomegaly. 3. Small hiatal hernia. Follow up recommendations for incidental pulmonary nodules, if there are any, are per [employer] or [employer]. [email or web address].org/articles/drezibrphm-[email or web address]?lang=us [facility], , 12/10/2024 6:27 PM
[2024-12-10] MEDS ORDERED: ACETAMINOPHEN TAB 325 MG TAB PO PRN (18:52)
[2024-12-10] MEDS ORDERED: NALOXONE 0.4 MG/ML 1 ML VIAL IV PRN (18:52)
[2024-12-10] MEDS ORDERED: ALBUTEROL NEBULIZED 2.5 MG/3 ML INHALATION PRN (18:53)
[2024-12-10] MEDS ORDERED: bisacodyL 10 MG SUPP RECTAL PRN (18:53)
[2024-12-10] MEDS: SODIUM CHLORIDE 0.9% 1,000 ML IV SCH (19:51)
[2024-12-10] MEDS: ASPIRIN 81 MG PO STA (19:51)
[2024-12-10] MEDS: allopurinoL 100 MG TAB PO SCH (20:10)
[2024-12-10] MEDS: POTASSIUM CHLORIDE ER 20 MEQ TAB.ER PO SCH (20:10)
[2024-12-10] MEDS: ATORVASTATIN 20 MG TAB PO SCH (20:11)
[2024-12-10] MEDS: traZODone HCL 50 MG TAB PO SCH (20:11)
--- NOTE | 2024-12-11 01:12 | P.HPIM ---
History of Present Illness H&P Date: 12/10/24 Patient is a 53-year-old female with a past medical history significant for breast cancer on hormone replacement therapy [facility] with concerns for dizziness and generalized weakness. She states that yesterday evening she was transferring from her bed to a bedside commode when she stood up and felt extremely lightheaded/dizzy and had a near syncopal event and fell forward. She denies hitting her head or loss of consciousness. She states that she been experiencing intermittent dizziness over the past few months that has become constant over the last 5 weeks. She is also reporting double vision over the last 5 weeks. She reports diffuse ab dominal pain with diarrhea since beginning treatment with Verzenio in May 2023. She does state that over the last few months her stool has become foul- smelling as well as has had hematuria. She denies chest pain at the time of the interview but notes that a few days ago she had a pinching feeling in her chest. She denies dyspnea, headaches, peripheral edema, fever/chills, nausea/vomiting. Initial vitals: BP 116/69, SC 82 bpm, 100% on room air, 97.9 F Initial labs: WBC 5.6, hemoglobin 12.2, platelets 332, D-dimer 1.09, sodium 137, potassium 2.9, chloride 102, BUN 15, creatinine 0.93, troponin x 2: 0.107, 0.098 Initial EKG: Sinus rhythm with ventricular rate 82 bpm, left axis deviation, no ST segment changes, QTc 398 ms Chest CTA: Chronic appearing weblike nonocclusive filling defect within the right lower lobe pulmonary arterial vasculature, no evidence for acute occlusive pulmonary embolism; a pulmonary hypertension, pulmonary vascular congestion with cardiomegaly; small hiatal hernia ED documentation reviewed. Given potassium chloride 20 mEq IV x 1, potassium chloride ER 40 mEq PO x 1 Review of Systems Pertinent positives and negatives as discussed in HPI, a complete review of systems was performed and all other systems are negative. Past Medical History Past Medical History: Asthma, Diabetes Mellitus, Musculoskeletal Disorder, Osteoarthritis (OA), Respiratory Disorder, Sleep Apnea/CPAP/BIPAP Additional Past Medical History / Comment(s): DDD lumbar with 2 herniated disc, arthritis, vitamin D deficiency, History of Any Multi-Drug Resistant Organisms: MRSA Date of last positivie culture/infection: 05/24/16 MDRO Source:: RIGHT LEG Past Surgical History: Section, Cholecystectomy, Hernia Repair Additional Past Surgical History / Comment(s): 3, tubal ligation, hernia repair 2 Past Anesthesia/Blood Transfusion Reactions: No Reported Reaction Additional Past Anesthesia/Blood Transfusion Reaction / Comment(s): no blood tranfusions Past Psychological History: Anxiety, Depression Smoking Status: Never smoker Past Alcohol Use History: Occasional Past Drug Use History: Marijuana - Past Family History Mother Family Medical History: Blood Disorder (Hemophilia B), Cancer, Congestive Heart Failure (CHF), Diabetes Mellitus Additional Family Medical History / Comment(s): breast cancer Father History Unknown: Yes Medications and Allergies Home Medications Medication Instructions Recorded Confirmed Type Albuterol Inhaler [Ventolin Hfa 2 puff INHALATION RT-Q6H PRN 12/22/14 12/10/24 History Inhaler] Sertraline [Zoloft] 200 mg PO DAILY 12/22/14 12/10/24 History Atorvastatin [Lipitor] 20 mg PO HS 06/20/22 12/10/24 History Cholecalciferol [Vitamin D3 (25 25 mcg PO DAILY 09/18/22 12/10/24 History Mcg = 1000 Iu)] Anastrozole [Arimidex] 1 mg PO DAILY 09/23/23 12/10/24 History Meclizine [Antivert] 25 mg PO TID PRN 09/23/23 12/10/24 History sitaGLIPtin [Januvia] 25 mg PO DAILY 09/23/23 12/10/24 History Midodrine [ProAmatine] 2.5 mg PO AC-TID #90 tab 09/27/23 12/10/24 Rx Abemaciclib [Verzenio] 150 mg PO BID 10/12/23 12/10/24 History Calcium Carbonate [Calcium] 1,200 mg PO DAILY 10/12/23 12/10/24 History Potassium Chloride ER [K-Dur 20] 40 meq PO BID 10/12/23 12/10/24 History allopurinoL 100 mg PO BID 10/12/23 12/10/24 History Acetaminophen Tab [Tylenol] 650 mg PO Q6H PRN 12/10/24 12/10/24 History Cranberry 450mg 450 mg PO BID 12/10/24 12/10/24 History Loperamide HCl [Imodium A-D] 2 - 4 mg PO QID PRN MDD 5 TABLETS 12/10/24 12/10/24 History Magnesium Hydroxide [Milk of 7,200 mg PO Q72H PRN 12/10/24 12/10/24 History Magnesia Concentrate] Magnesium Oxide [Mag-Ox] 400 mg PO DAILY 12/10/24 12/10/24 History Mineral Oil [Fleet Mineral Oil] 133 ml RECTAL DAILY PRN 12/10/24 12/10/24 H istory Ondansetron [Zofran] 4 mg PO QAM 12/10/24 12/10/24 History bisacodyL [Dulcolax] 10 mg RECTAL DAILY PRN 12/10/24 12/10/24 History traZODone HCL [Desyrel] 50 mg PO HS 12/10/24 12/10/24 History Allergies Allergy/AdvReac Type Severity Reaction Status Date / Time Fish Containing Products Allergy Anaphylaxis Verified 12/10/24 17:49 [Fish] iodine Allergy Unknown Verified 12/10/24 17:49 morphine Allergy Unknown Verified 12/10/24 17:49 shrimp Allergy Anaphylaxis Verified 12/10/24 17:49 codeine AdvReac Nausea & Verified 12/10/24 17:49 Vomiting Physical Exam Vitals: Vital Signs Temp Pulse Resp BP Pulse Ox 12/10/24 19:52 97.4 F L 84 18 116/72 98 12/10/24 18:49 89 18 107/71 96 12/10/24 17:30 98 F 84 18 132/70 99 12/10/24 14:47 97.9 F 82 18 116/69 100 Intake and Output 12/10/24 12/10/24 12/10/24 06:59 14:59 22:59 Other: Weight 149.685 kg Vital signs reviewed General: Nontoxic, no distress, appears stated age, well-appearing Derm: Warm, dry, intact, no cyanosis Head: Atraumatic, normocephalic, symmetric Eyes: EOMI, anicteric sclera, PERRL Ears: Normal appearing, no external lesions, hearing intact Nose: Normal appearing, no external lesions Mouth: No lip lesion, mucus membranes moist, no tonsilar hypertrophy or exudate Neck: Supple, without lesions, trachea midline Cardiovascular: S1-S2 regular, no murmur, 1+ pitting edema bilateral lower extremities Lungs: CTA bilateral, no wheezes, no rhonchi, no rales, no accessory muscle use Abdominal: Soft, bowel sounds present, obese abdomen, diffuse tenderness worse in LLQ Extremities: Muscle strength 5/5 in all extremities, radial pulses 2+ bilateral Neuro: Alert, oriented x 4, gross neurological examination did not reveal any focal deficits. Cranial nerves II to XII grossly intact. Psych: Appropriate affect and mood Results CBC & Chem 7: 12/10/24 15:12/10/24 15: Labs: Abnormal Lab Results - Last 24 Hours (Table) 12/10/24 12/10/24 12/10/24 Range/Units 15:29 15: 15: RBC 3.70 L (3.80-5.40) m/uL RDW 16.2 H (11.5-15.5) % D-Dimer (<0.60) mg/L FEU Potassium 2.9 L (3.5-5.1) mmol/L Troponin I 0.107 H* (0.000-0.034) ng/mL Total Protein 6.0 L (6.3-8.2) g/dL Albumin 3.2 L (3.5-5.0) g/dL 12/10/24 12/10/24 Range/Units 15:29 18:44 RBC (3.80-5.40) m/uL RDW (11.5-15.5) % D-Dimer 1.09 H (<0.60) mg/L FEU Potassium (3.5-5.1) mmol/L Troponin I 0.098 H* (0.000-0.034) ng/mL Total Protein (6.3-8.2) g/dL Albumin (3.5-5.0) g/dL Thrombosis Risk Factor Assmnt - DVT/VTE Prophylaxis DVT/VTE Prophylaxis: Pharmacologic Prophylaxis ordered - Choose All That Apply Each Factor Represents 1 point: Age 41-60 years, Obesity (BMI >25), Oral contraceptives or hormone replacement therapy Thrombosis Risk Factor Assessment Total Risk Factor Score: 3 Thrombosis Risk Factor Assessment Level: Moderate Risk Assessment and Plan Assessment: Patient is a 53-year-old female with past medical history significant for breast cancer on hormone replacement therapy admitted for hypokalemia. Plan: Active #. Hypokalemia Given total 60 mEq potassium Monitor potassium #. Elevated troponin #. Elevated D-dimer Chest CTA shows no evidence for occlusive pulmonary embolism EKG shows no ST segment changes Obtain ultrasound venous Doppler bilateral #. Debility Consult PT/OT Fall precautions Chronic #. Breast CA being treated with Verzenio Resume Verzenio 150 mg p.o. twice daily #. Asthma Continue albuterol nebulizer as needed DVT prophylaxis: Lovenox 40 mg subcutaneous daily The patient is admitted with an anticipated less than 2 midnight stay for evaluation of hypokalemia CODE STATUS: [] Anticipated discharge place: Pending clinical course I have seen and evaluated the patient today. I Discussed the case with the resident and agree with the resident's findings I edited the assessment and plan as necessary as documented in the resident's note.
[2024-12-11 06:25] LABS: Basophils % (A) 0 %; Eosinophils % (A) 0 %; HCT 35.9 % (34.0-46.0); Hypochromasia Slight; Lymphocytes # (A) 0.8 k/uL (1.0-4.8); Lymphocytes % (A) 18 %; MCH 34.1 pg (25.0-35.0); MCHC 33.3 g/dL (31.0-37.0); MCV 102.5 fL (80.0-100.0); Macrocytosis Slight; Mean Platelet Volume 6.9; Monocytes # (A) 0.1 k/uL (0-1.0); Monocytes % (A) 2 %; Neutrophils # (A) 3.6 k/uL (1.3-7.7); Neutrophils % (A) 79 %; Platelet Count 298 k/uL (150-450); RDW 15.6 % (11.5-15.5); WBC 4.5 k/uL (3.8-10.6)
[2024-12-11 06:38] LABS: ALT 11 U/L (4-34); AST 17 U/L (14-36); African American GFR (CKD) >90 (>60 ml/min/1.73 sqM); Alkaline Phosphatase 57 U/L (38-126); Anion Gap 10 mmol/L; Blood Urea Nitrogen 17 mg/dL (7-17); Calcium 9.7 mg/dL (8.4-10.2); Carbon Dioxide 19 mmol/L (22-30); Chloride 107 mmol/L (98-107); Glucose 138 mg/dL (74-99); Non-African American GFR(CKD) >90 (>60 ml/min/1.73 sqM); Potassium 3.9 mmol/L (3.5-5.1); Sodium 136 mmol/L (137-145); Total Bilirubin 0.7 mg/dL (0.2-1.3); Total Protein 5.7 g/dL (6.3-8.2)
--- NOTE | 2024-12-11 08:00 | US ---
EXAMINATION TYPE: US venous doppler duplex LE BI DATE OF EXAM: 12/11/2024 7:45 AM COMPARISON: 10/12/23 CLINICAL INDICATION: Female, 54 years old with history of r/o dvt, elevated d-dimer; pain lt>rt, Pain TECHNIQUE: The lower extremity deep venous system is examined utilizing real time linear array sonog tennille with graded compression, color doppler sonography, and spectral doppler. SIDE PERFORMED: Bilateral FINDINGS: VESSELS IMAGED: Common Femoral Vein Deep Femoral Vein Greater Saphenous Vein * Femoral Vein Popliteal Vein Small Saphenous Vein * Proximal Calf Veins (* superficial vessels) Right Leg: Negative for DVT, Color Doppler imaging shows patency of the vessels. Spectral waveforms are within normal limits. Left Leg: Negative for DVT, Color Doppler imaging shows patency of the vessels. Spectral waveforms a re within normal limits. Very limited exam due to large body habitus and small vessel caliber, varicosities IMPRESSION: 1. Bilateral lower extremity ultrasound negative for deep venous thrombosis. [facility], , 12/11/2024 7:58 AM
[2024-12-11] MEDS: CALCIUM CARBONATE 500 MG CHEWABLE PO SCH (08:02)
[2024-12-11] MEDS: MIDODRINE 5 MG TAB PO SCH (08:03)
[2024-12-11] MEDS: CHOLECALCIFEROL 25 MCG (1000 IU) TABLET PO SCH (08:03)
[2024-12-11] MEDS: ONDANSETRON 4 MG TAB PO SCH (08:03)
[2024-12-11] MEDS: SERTRALINE 100 MG TAB PO SCH (08:04)
[2024-12-11] MEDS: ASPIRIN 81 MG PO SCH (08:45)
[2024-12-11] MEDS ORDERED: MECLIZINE 25 MG TAB PO PRN (09:19)
--- NOTE | 2024-12-11 09:42 | P.CRDCN ---
History of Present Illness History of present illness: HISTORY OF PRESENT ILLNESS: This is a 54-year-old female with a past medical history significant for breast cancer with mastectomy in 2021, obstructive sleep apnea, hyperlipidemia, hypote nsion on midodrine, diabetes, and morbid obesity. 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 We have been asked to see the patient in consultation for elevated troponins. Patient examined at the bedside in the emergency room. Patient is currently residing [place] [facility]. She states for the past several months she has been having episodes of dizziness and lightheadedness. She denied having previous episodes of syncope. She states over the past 5 weeks along with her dizziness and lightheadedness she is also experiencing double vision. She states due to her persistent symptoms she came to the emergency room for further evaluation. She reports having " pinching" in her chest that will last for a few seconds and then go away. She denies any shortness of breath. At the time of examination she denies any chest pain or pressure. She states that she used to be active however recently she has not been active due to her dizziness and lightheadedness. She states a couple days ago she was trying to get up to use the commode and began to get dizzy. She states that she sat down on the bed and ended up falling forward and slid to the floor. She believes that she lost consciousness for a few seconds. Patient also endorses having some hematuria recently. She states that she had a PET scan recently and states "there is no more cancer". She also endorses a history of obstructive sleep apnea but states she has not been using her CPAP machine for the past few weeks. DIAGNOSTICS: - EKG reveals sinus mechanism with nonspecific ST-T wave changes. No signs of acute ischemia. Q waves anteriorly.. - Chest CTA: Chronic appearing weblike nonocclusive filling defect within the right lower lobe pulmonary arterial vasculature. No evidence for acute occlusive pulmonary embolism. Pulmonary hypertension, pulmonary vascular congestion with cardiomegaly. Small hiatal hernia. - Venous Doppler: Negative for DVT bilaterally - Laboratory data: WBC 4.5. Hemoglobin 3.50. Platelet count 298. D-dimer 1.09. Sodium 136. Potassium 3.9. BUN 17. Creatinine 0.71. Troponin 0.107. 0.098. - Current home cardiac medications include Lipitor 20 mg at night, midodrine 2.5 mg 3 times a day - Most recent echocardiogram obtained in September 2023 revealed normal LV systolic function with mild TR and mild MR - Cardiac catheterization history: Denies REVIEW OF SYSTEMS: At the time of my exam: CONSTITUTIONAL: Denies fever or chills. HEENT: Denies blurred vision, vision changes, or eye pain. Denies hemoptysis CARDIOVASCULAR: Denies chest pain. Denies orthopnea. Denies PND. Denies palpitations RESPIRATORY: Denies shortness of breath. GASTROINTESTINAL: Denies abdominal pain. Denies nausea or vomiting. HEMATOLOGIC: Denies bleeding disorders. GENITOURINARY: Denies any blood in urine. SKIN: Denies pruitis. Denies rash. PHYSICAL EXAM: VITAL SIGNS: Reviewed. GENERAL: Well-developed in no acute distress. HEENT: Head is normocephalic. Pupils are equal, round. Sclerae anicteric. Mucous membranes of the mouth are moist. Neck supple. No JVD or thyromegaly LUNGS: Respirations even and unlabored. Lungs essentially clear to auscultation bilaterally. HEART: Regular rate and rhythm. S1 and S2 heard. ABDOMEN: Soft. Nondistended. Nontender. EXTREMITIES: Normal range of motion. No clubbing or cyanosis. Peripheral pulses intact. Trace bilateral lower extremity edema NEUROLOGIC: Awake and alert. Oriented x 3. ASSESSMENT: Dizziness, lightheadedness, and double vision x 5 weeks per patient Hypokalemia History of breast cancer with mastectomy, 2021, on treatment with Verzenio Elevated troponins of unclear clinical significance, no evidence of acute coronary syndrome Obstructive sleep apnea with CPAP use, patient states not using for the past 3 to 4 weeks Hyperlipidemia History of hypotension on midodrine Diabetes Morbid obesity: BMI 53.3 PLAN: Obtain 2D echo to assess cardiac structure and function Resume atorvastatin Add aspirin 81 mg daily No immediate plans for ischemic workup/cardiac catheterization from a cardiac standpoint Further recommendations pending patient course Nurse practitioner note has been reviewed by physician. Signing provider agrees with the documented findings, assessment, and plan of care documented by REHAB OFFICE COORDINATOR as a scribe. Past Medical History Past Medical History: Asthma, Diabetes Mellitus, Musculoskeletal Disorder, Osteoarthritis (OA), Respiratory Disorder, Sleep Apnea/CPAP/BIPAP Additional Past Medical History / Comment(s): DDD lumbar with 2 herniated disc, arthritis, vitamin D deficiency, History of Any Multi-Drug Resistant Organisms: MRSA Date of last positivie culture/infection: 05/24/16 MDRO Source:: RIGHT LEG Past Surgical History: Section, Cholecystectomy, Hernia Repair Additional Past Surgical History / Comment(s): 3, tubal ligation, hernia repair 2 Past Anesthesia/Blood Transfusion Reactions: No Reported Reaction Additional Past Anesthesia/Blood Transfusion Reaction / Comment(s): no blood tranfusions Past Psychological History: Anxiety, Depression Smoking Status: Never smoker Past Alcohol Use History: Occasional Past Drug Use History: Marijuana - Past Family History Mother Family Medical History: Blood Disorder (Hemophilia B), Cancer, Congestive Heart Failure (CHF), Diabetes Mellitus Additional Family Medical History / Comment(s): breast cancer Father History Unknown: Yes Medications and Allergies Home Medications Medication Instructions Recorded Confirmed Type Albuterol Inhaler [Ventolin Hfa 2 puff INHALATION RT-Q6H PRN 12/22/14 12/10/24 History Inhaler] Sertraline [Zoloft] 200 mg PO DAILY 12/22/14 12/10/24 History Atorvastatin [Lipitor] 20 mg PO HS 06/20/22 12/10/24 History Cholecalciferol [Vitamin D3 (25 25 mcg PO DAILY 09/18/22 12/10/24 History Mcg = 1000 Iu)] Anastrozole [Arimidex] 1 mg PO DAILY 09/23/23 12/10/24 History Meclizine [Antivert] 25 mg PO TID PRN 09/23/23 12/10/24 History sitaGLIPtin [Januvia] 25 mg PO DAILY 09/23/23 12/10/24 History Midodrine [ProAmatine] 2.5 mg PO AC-TID #90 tab 09/27/23 12/10/24 Rx Abemaciclib [Verzenio] 150 mg PO BID 10/12/23 12/10/24 History Calcium Carbonate [Calcium] 1,200 mg PO DAILY 10/12/23 12/10/24 History Potassium Chloride ER [K-Dur 20] 40 meq PO BID 10/12/23 12/10/24 History allopurinoL 100 mg PO BID 10/12/23 12/10/24 History Acetaminophen Tab [Tylenol] 650 mg PO Q6H PRN 12/10/24 12/10/24 History Cranberry 450mg 450 mg PO BID 12/10/24 12/10/24 History Loperamide HCl [Imodium A-D] 2 - 4 mg PO QID PRN MDD 5 TABLETS 12/10/24 12/10/24 History Magnesium Hydroxide [Milk of 7,200 mg PO Q72H PRN 12/10/24 12/10/24 History Magnesia Concentrate] Magnesium Oxide [Mag-Ox] 400 mg PO DAILY 12/10/24 12/10/24 History Mineral Oil [Fleet Mineral Oil] 133 ml RECTAL DAILY PRN 12/10/24 12/10/24 History Ondansetron [Zofran] 4 mg PO QAM 12/10/24 12/10/24 History bisacodyL [Dulcolax] 10 mg RECTAL DAILY PRN 12/10/24 12/10/24 History traZODone HCL [Desyrel] 50 mg PO HS 12/10/24 12/10/24 History Allergies Allergy/AdvReac Type Severity Reaction Status Date / Time Fish Containing Products Allergy Anaphylaxis Verified 12/10/24 17:49 [Fish] iodine Allergy Unknown Verified 12/10/24 17:49 morphine Allergy Unknown Verified 12/10/24 17:49 shrimp Allergy Anaphylaxis Verified 12/10/24 17:49 codeine AdvReac Nausea & Verified 12/10/24 17:49 Vomiting Physical Exam Vitals: Vital Signs Temp Pulse Resp BP Pulse Ox 12/11/24 05:00 91 18 91/54 94 L 12/11/24 01:02 94 18 91/54 97 12/10/24 19:52 97.4 F L 84 18 116/72 98 12/10/24 18:49 89 18 107/71 96 12/10/24 17:30 98 F 84 18 132/70 99 12/10/24 14:47 97.9 F 82 18 116/69 100 Results 12/11/24 06:15 12/11/24 06:11 Cardiac Enzymes 12/10/24 12/10/24 12/10/24 Range/Units 15:29 15:29 18:44 AST 17 (14-36) U/L Troponin I 0.107 H* 0.098 H* (0.000-0.034) ng/mL 12/11/24 Range/Units 06:11 AST 17 (14-36) U/L Troponin I (0.000-0.034) ng/mL Coagulation 12/10/24 Range/Units 15:29 PT 11.8 (10.0-12.5) sec APTT 22.0 (22.0-30.0) sec CBC 12/10/24 12/11/24 Range/Units 15:29 06:15 WBC 5.6 4.5 (3.8-10.6) k/uL RBC 3.70 L 3.50 L (3.80-5.40) m/uL Hgb 12.2 12.0 (11.4-16.0) gm/dL Hct 36.7 35.9 (34.0-46.0) % Plt Count 332 298 (150-450) k/uL Comprehensive Metabolic Panel 12/10/24 12/11/24 Range/Units 15: 06:11 Sodium 137 136 L (137-145) mmol/L Potassium 2.9 L 3.9 (3.5-5.1) mmol/L Chloride 102 107 (98-107) mmol/L Carbon Dioxide 26 19 L (22-30) mmol/L BUN 15 17 (7-17) mg/dL Creatinine 0.93 0.71 (0.52-1.04) mg/dL Glucose 86 138 H (74-99) mg/dL Calcium 9.6 9.7 (8.4-10.2) mg/dL AST 17 17 (14-36) U/L ALT 11 11 (4-34) U/L Alkaline Phosphatase 72 57 (38-126) U/L Total Protein 6.0 L 5.7 L (6.3-8.2) g/dL Albumin 3.2 L 3.0 L (3.5-5.0) g/dL Current Medications Generic Name Dose Route Start Last Admin Trade Name Freq PRN Reason Stop Dose Admin Acetaminophen 650 mg 12/10/24 18:52 Acetaminophen Tab 325 Mg Tab PO Q6HR PRN Mild Pain or Fever > 100.5 Albuterol Sulfate 2.5 mg 12/10/24 18:53 Albuterol Nebulized 2.5 Mg/3 Ml INHALATION RT-Q6H PRN Shortness Of Breath Allopurinol 100 mg 12/10/24 21:00 12/11/24 08:03 Allopurinol 100 Mg Tab PO 100 mg BID ESTER Administration Atorvastatin Calcium 20 mg 12/10/24 21:00 12/10/24 20:11 Atorvastatin 20 Mg Tab PO 20 mg HS ESTER Administration Bisacodyl 10 mg 12/10/24 18:53 Bisacodyl 10 Mg Supp RECTAL DAILY PRN Constipation Calcium Carbonate/Glycine 1,000 mg 12/11/24 09:00 12/11/24 08:02 Calcium Carbonate 500 Mg Chewable PO 1,000 mg DAILY ESTER Administration Cholecalciferol 25 mcg 12/11/24 09:00 12/11/24 08:03 Cholecalciferol 25 Mcg (1000 Iu) Tablet PO 25 mcg DAILY ESTER Administration Sodium Chloride 1,000 mls @ 75 mls/hr 12/10/24 19:00 12/11/24 08:02 Saline 0.9% IV 75 mls/hr .[id number] ESTER Administration Midodrine 2.5 mg 12/11/24 07:30 12/11/24 08:16 Midodrine 5 Mg Tab PO 2.5 mg AC-TID ESTER Administration Naloxone HCl 0.2 mg 12/10/24 18:52 Naloxone 0.4 Mg/Ml 1 Ml Vial IV Q2M PRN Opioid Reversal Ondansetron HCl 4 mg 12/11/24 09:00 12/11/24 08:03 Ondansetron 4 Mg Tab PO 4 mg QAM ESTER Administration Potassium Chloride 40 meq 12/10/24 21:00 12/11/24 08:16 Potassium Chloride Er 20 Meq Tab.Er PO 40 meq BID ESTER Administration Sertraline HCl 200 mg 12/11/24 09:00 12/11/24 08:04 Sertraline 100 Mg Tab PO 200 mg DAILY ESTER Administration Trazodone HCl 50 mg 12/10/24 21:00 12/10/24 20:11 Trazodone Hcl 50 Mg Tab PO 50 mg HS ESTER Administration 12/11/24 06:15 12/11/24 06:11
[2024-12-11] MEDS: ABEMACICLIB 150 MG PO SCH (10:12)
--- NOTE | 2024-12-11 10:19 | CT ---
EXAMINATION TYPE: CT abdomen pelvis wo con CT DLP: 1485.90 mGycm, Automated exposure control for dose reduction was used. DATE OF EXAM: 12/11/2024 10:04 AM COMPARISON: CTA chest 12/10/2024, CT lumbar spine 09/06/2022 CLINICAL INDICATION:Female, 54 years old with history of diffuse abdominal tenderness, hematuria; Dif fuse abdominal tenderness, hematuria TECHNIQUE: Standard CT of the abdomen and pelvis without IV or oral contrast. Lack of IV or oral co ntrast limits evaluation of solid and hollow organ viscera. Coronal and sagittal reformats were perfo rmed. FINDINGS: LOWER CHEST: Linear scarring and/or atelectasis within the left lower lobe. Small pericardial effusio n. ABDOMEN LIVER: Unremarkable noncontrast appearance. GALLBLADDER AND BILE DUCTS: Gallbladder is not visualized and appears surgically absent versus contra cted. PANCREAS: Unremarkable noncontrast appearance. SPLEEN: Unremarkable noncontrast appearance. ADRENAL GLANDS: Unremarkable noncontrast appearance.. KIDNEYS AND URETERS: No evidence of hydronephrosis. Contrast is demonstrated within both collecting s ystems from prior CTA. This limits evaluation for renal calculi. No hydroureter identified. No perine phric fluid collections. Couple of cysts identified within the left kidney with largest measuring 1.4 cm. PELVIS BLADDER: No wall thickening. The urinary bladder is entirely contrast filled without filling defect i dentified. REPRODUCTIVE: Unremarkable noncontrast appearance. ABDOMEN & PELVIS STOMACH AND BOWEL: Stomach and duodenum are unremarkable. The appendix is within normal limits. No fo geovanna bowel wall thickening or surrounding inflammatory changes. Fluid-filled sigmoid colon and rectum. No evidence of bowel obstruction. PERITONEUM: No evidence of pneumoperitoneum or free fluid. VASCULATURE: No evidence of aortic aneurysm. Pelvic phleboliths. MUSCULOSKELETAL: No acute osseous abnormalities. Degenerative disc disease which is most pronounced a t L5-S1 with prominent anterior osteophyte. LYMPH NODES: No gross evidence for lymphadenopathy. SOFT TISSUE/ABDOMINAL WALL: Diffuse anasarca. IMPRESSION: 1. No CT evidence for obstructive uropathy. 2. Fluid-filled nondilated sigmoid colon and rectum. Correlate for diarrhea. [facility], , 12/11/2024 10:17 AM
[2024-12-11 10:56] LABS: LDL Cholesterol,Calculated 63.3 mg/dL (0.0-131.0); VLDL Calculation 14.72 mg/dL (5.00-40.00)
[2024-12-11] MEDS: ANASTROZOLE 1 MG TAB PO SCH (11:15)
--- NOTE | 2024-12-11 13:09 | CA ---
Transthoracic Echo Report Name: Ligia Smith Age: 54 Gender: F : 1970 Exam Date: 12/11/2024 10:39 Exam Location: [facility] Ht (in): 66 Wt (lb): 330 Ordering Physician: Mily White Attending/Referring Phys: [id number], Christopher Cable Driller Leticia Mistry RDCS Procedure CPT: Indications: LV function, dizziness, elevated trops Cardiac Hx: Technical Quality: Fair Contrast 1: Total Dose (mL): Contrast 2: Total Dose (mL): MEASUREMENTS (Male / Female) Normal Values 2D ECHO LV Diastolic Diameter PLAX 4.2 cm 4.2 - 5.9 / 3.9 - 5.3 cm LV Systolic Diameter PLAX 2.8 cm IVS Diastolic Thickness 1.7 cm 0.6 - 1.0 / 0.6 - 0.9 cm LVPW Diastolic Thickness 1.9 cm 0.6 - 1.0 / 0.6 - 0.9 cm LV Relative Wall Thickness 0.9 RV Internal Dim ED PLAX 3.8 cm LVOT Diameter 2.0 cm LV Diastolic Volume MOD BP 82.0 cm??? 67 - 155 / 56 - 104 cm??? LV Systolic Volume MOD BP 39.8 cm??? 22 - 58 / 19 - 49 cm??? LV Ejection Fraction MOD BP 51.5 % >= 55 % LV Cardiac Index MOD BP 1204.4 cm???/min???m??? LV Diastolic Volume MOD 4C 95.5 cm??? LV Systolic Volume MOD 4C 43.8 cm??? LV Ejection Fraction MOD 4C 54.1 % LV Cardiac Index MOD 4C 1475.5 cm???/min???m??? LV Diastolic Length 4C 9.0 cm LV Systolic Length 4C 8.1 cm LV Diastolic Volume MOD 2C 70.0 cm??? LV Systolic Volume MOD 2C 31.3 cm??? LV Ejection Fraction MOD 2C 55.3 % LV Cardiac Index MOD 2C 1104.8 cm???/min???m??? LV Diastolic Length 2C 8.8 cm LV Systolic Length 2C 7.0 cm LA Volume 61.7 cm??? 18 - 58 / 22 - 52 cm??? LA Volume Index 22.6 cm???/m??? 16 - 28 cm???/m??? DOPPLER AV Peak Velocity 138.2 cm/s AV Peak Gradient 7.6 mmHg AV Mean Velocity 94.0 cm/s AV Mean Gradient 4.3 mmHg AV Velocity Time Integral 22.5 cm LVOT Peak Velocity 111.5 cm/s LVOT Peak Gradient 5.0 mmHg LVOT Velocity Time Integral 21.5 cm LVOT Stroke Volume 66.6 cm??? LVOT Stroke Volume Index 26.9 ml/m??? LVOT Cardiac Index 1900.1 cm???/min???m??? AV Area Cont Eq vti 3.0 cm??? AV Area Cont Eq pk 2.5 cm??? MV Area PHT 3.4 cm??? Mitral E Point Velocity 76.0 cm/s Mitral A Point Velocity 65.7 cm/s Mitral E to A Ratio 1.2 MV Deceleration Time 223.2 ms MV E' Velocity 4.3 cm/s Mitral E to MV E' Ratio 17.6 FINDINGS Left Ventricle Severe concentric left ventricular hypertrophy. No obvious regional wall motion abnormalities. Left ventricular ejection fraction is estimated at 60 %. Grade 2 diastolic dysfunction. Right Ventricle Normal right ventricular size and function. Right ventricular systolic pressure within normal limits. Right Atrium Mild right atrial dilatation. Left Atrium Mildly increased left atrial volume. Mildly increased left atrial area. Mitral Valve Structurally normal mitral valve. Mild mitral regurgitation. Aortic Valve Trileaflet aortic valve. No aortic valve stenosis or regurgitation. Tricuspid Valve Structurally normal tricuspid valve. Mild tricuspid regurgitation. Pulmonic Valve Structurally normal pulmonic valve. Pericardium Small pericardial effusion. Aorta Normal size aortic root and proximal ascending aorta. CONCLUSIONS Hyperdynamic LV. Severe LV hypertrophy. The ejection fraction is 60% to 65%. Diastolic dysfunction was noted as well Small pericardial effusion Consider performing strain to rule out amyloid Previewed by: Dr. Shayan Melton MD (Electronically Signed) Final Date: 11 December 2024 13:08
[2024-12-11 16:43] LABS: Glucose,Whole Blood 113 mg/dL (70-110)
[2024-12-11 17:16] LABS: Amorphous Sediment,Urine Occasional /hpf; Appearance,Urine Cloudy (Clear); Bacteria,Urine Moderate /hpf; Bilirubin,Urine Negative (Negative); Blood,Urine Small (Negative); Color,Urine Yellow; Glucose,Urine (UA) Negative (Negative); Hyaline Casts,Urine 1 /lpf (0-2); Ketones,Urine 1+ (Negative); Leukocyte Esterase,Urine Trace (Negative); Mucus,Urine Few /hpf; Nitrite,Urine Negative (Negative); Protein,Urine 1+ (Negative); RBC,Urine 4 /hpf (0-5); Specific Gravity,Urine 1.043 (1.001-1.035); Squamous Epithelial Cell,Urine 4 /hpf (0-4); WBC,Urine 8 /hpf (0-5)
[2024-12-11] MEDS ORDERED: ZINC OXIDE PASTE (Z-GUARD) 1 APPLIC TOPICAL PRN (18:46)
--- NOTE | 2024-12-11 19:32 | P.PN ---
Subjective Progress Note Date: 12/11/24 Hospital course: Patient is a 54-year-old female with a past medical history of type II [id number] diabetes mellitus, hyperlipidemia, breast cancer on ho rmone replacement therapy, obstructive sleep apnea CPAP dependent nightly, and anxiety with depression. She presented to the emergency department on 12/10/2024 from [facility] with complaints of dizziness and generalized weakness and a near syncopal episode. Patient reports she has also been experiencing diarrhea, diffuse abdominal pain, and hematuria. Upon arrival to our facility patient underwent evaluation in the emergency department. Vital signs upon arrival show blood pressure 116/69, heart rate 82, respiratory rate 18, temp 97.9 F, and SpO2 of 100% on room air. EKG completed showing normal sinus rhythm at 82 bpm with no noted T wave or ST abnormality showing no signs of acute ischemia upon personal review and interpretation. Labs on arrival completed and reviewed. CBC unremarkable. BMP showing hypokalemia with potassium of 2.9 otherwise normal findings. Blood glucose 86. Coagulation profile normal findings with exception of elevated D-dimer 1.09. Troponin was elevated at 0.107. Liver profile unremarkable. CTA chest completed showing chronic appearing weblike nonocclusive filling defect within the right lower pulmonary arterial vasculature with no evidence for acute occlusive pulmonary emboli, pulmonary hypertension, pulmonary vascular congestion with cardiomegaly and small hiatal hernia. Bilateral lower extremity Dopplers completed negative for DVT. Patient admitted under services with consultation to cardiology. CT abdomen and pelvis completed showing fluid-filled nondilated sigmoid colon and rectum. Consult placed to general surgery for diffuse abdominal pain and above findings. Physical exam: Vital signs reviewed and stable. General: Nontoxic, no distress and appears stated age. Morbidly obese Derm: Skin warm and dry, normal coloration for ethnicity. Head: Atraumatic, normocephalic and symmetric. Eyes: EOM's intact, no lid lag, and anicteric sclera Mouth: no lip lesions, mucus membranes moist Cardiovascular: regular rate and rhythm with normal S1S2, no murmur, positive posterior tibial pulses bilaterally, and cap refill < 2 seconds. Lungs: Respirations even, regular, and unlabored on room air. Lungs CTA bilaterally, no rhonchi, no rales, no wheezing, and no accessory muscle usage. Abdominal: Obese abdomen soft, nontender to palpation, no guarding, no appreciable organomegaly Ext: ROM intact. No gross muscle atrophy, 1+ pitting bilateral lower extremity edema, no contractures Neuro: Speech clear, face symmetrical and CN II-XII grossly intact with no noted focal neuro deficits Psych: Alert and oriented to person, place, time, and situation. Appropriate and pleasant affect. Assessment and Plan of Care: Elevated troponins Weakness and lightheadedness -Cardiology consulted, appreciate recommendations -Telemetry monitoring -Troponins trended resulting at 0.107 and 0.0 98. Continue cardiac medication regimen with aspirin 81 mg daily, atorvastatin 20 mg nightly, and midodrine 2.5 mg 3 times daily -Meclizine 25 mg 4 times daily as needed for dizzines -Echocardiogram needed pending results. Diffuse abdominal pain Intractable diarrhea -Order placed for CT abdomen and pelvis with IV contrast. CT abdomen and pelvis completed showing fluid-filled nondilated sigmoid colon and rectum. -Consult placed to general surgery for diffuse abdominal pain and above findings. -Follow-up on C. difficile and stool culture results. Elevated D-dimer -CTA negative for PE. Bilateral lower extremity Dopplers negative for DVT. Obstructive sleep apnea -Continue CPAP nightly and while napping. History of breast cancer with mastectomy -Continue yearly cancer screenings/mammograms and continue treatment with Verzenio. Data and imaging reviewed: -CT abdomen and pelvis completed showing fluid-filled nondilated sigmoid colon and rectum -Bilateral lower extremity Dopplers negative for DVT. -Morning labs reviewed. CBC showing macrocytosis with MCV of 102.5. BMP showing mild hypocarbia with bicarb of 19. Blood glucose 138. Hemoglobin A1c 4.8%. Lipid profile unremarkable. Urinalysis negative for infection showing positive ketones, small amount of blood and 8 WBCs. -Reviewed. Blood pressure 110/65, heart rate 90, respiratory rate 17, temp 97.4 F, and SpO2 of 97% on room air. CODE STATUS: Full code DVT prophylaxis: Lovenox Anticipated discharge date: Pending clinical course Anticipated discharge place: Home Patient was seen independently by Nurse Pracitioner. This document was prepared using [email or web address] dictation software. Please allow for errors in kitchen steward/stewardess, while rare they do occur. Uche Swanson NP rendered care for this patient independently, reviewed the findings and plan as documented in the note above and agree with plan. I did not physically speak with or examine the patient on this date. Objective - Vital Signs Vital signs: Vital Signs Temp 97.4 F L 12/10/24 19:52 Pulse 90 12/11/24 08:28 Resp 17 12/11/24 08:28 BP 110/65 12/11/24 08:28 Pulse Ox 97 12/11/24 08:28 FiO2 Intake & Output 12/10/24 12/11/24 12/11/24 18:59 06:59 18:59 Weight 149.685 kg - Labs CBC & Chem 7: 12/11/24 06:15 12/11/24 06:11 Labs: Abnormal Lab Results - Last 24 Hours (Table) 12/10/24 12/10/24 12/10/24 Range/Units 15:29 15:29 15:29 RBC 3.70 L (3.80-5.40) m/uL MCV (80.0-100.0) fL RDW 16.2 H (11.5-15.5) % Lymphocytes # (1.0-4.8) k/uL D-Dimer (<0.60) mg/L FEU Sodium (137-145) mmol/L Potassium 2.9 L (3.5-5.1) mmol/L Carbon Dioxide (22-30) mmol/L Glucose (74-99) mg/dL Troponin I 0.107 H* (0.000-0.034) ng/mL Total Protein 6.0 L (6.3-8.2) g/dL Albumin 3.2 L (3.5-5.0) g/dL 12/10/24 12/10/24 12/11/24 Range/Units 15:29 18:44 06:11 RBC (3.80-5.40) m/uL MCV (80.0-100.0) fL RDW (11.5-15.5) % Lymphocytes # (1.0-4.8) k/uL D-Dimer 1.09 H (<0.60) mg/L FEU Sodium 136 L (137-145) mmol/L Potassium (3.5-5.1) mmol/L Carbon Dioxide 19 L (22-30) mmol/L Glucose 138 H (74-99) mg/dL Troponin I 0.098 H* (0.000-0.034) ng/mL Total Protein 5.7 L (6.3-8.2) g/dL Albumin 3.0 L (3.5-5.0) g/dL 12/11/24 Range/Units 06:15 RBC 3.50 L (3.80-5.40) m/uL MCV 102.5 H (80.0-100.0) fL RDW 15.6 H (11.5-15.5) % Lymphocytes # 0.8 L (1.0-4.8) k/uL D-Dimer (<0.60) mg/L FEU Sodium (137-145) mmol/L Potassium (3.5-5.1) mmol/L Carbon Dioxide (22-30) mmol/L Glucose (74-99) mg/dL Troponin I (0.000-0.034) ng/mL Total Protein (6.3-8.2) g/dL Albumin (3.5-5.0) g/dL
[2024-12-11 20:08] LABS: Glucose,Whole Blood 143 mg/dL (70-110)
[2024-12-12 06:00] LABS: Glucose,Whole Blood 117 mg/dL (70-110)
[2024-12-12 06:49] LABS: HCT 32.1 % (34.0-46.0); HGB 10.3 gm/dL (11.4-16.0); Hypochromasia Slight; MCH 33.1 pg (25.0-35.0); MCHC 32.1 g/dL (31.0-37.0); MCV 103.1 fL (80.0-100.0); Macrocytosis Moderate; Mean Platelet Volume 7.4; Platelet Count 289 k/uL (150-450); RBC 3.11 m/uL (3.80-5.40); RDW 15.8 % (11.5-15.5); WBC 4.6 k/uL (3.8-10.6)
[2024-12-12 07:10] LABS: ALT 10 U/L (4-34); AST 14 U/L (14-36); African American GFR (CKD) >90 (>60 ml/min/1.73 sqM); Albumin 2.7 g/dL (3.5-5.0); Alkaline Phosphatase 56 U/L (38-126); Anion Gap 8 mmol/L; Blood Urea Nitrogen 17 mg/dL (7-17); Calcium 9.1 mg/dL (8.4-10.2); Carbon Dioxide 22 mmol/L (22-30); Chloride 107 mmol/L (98-107); Glucose 102 mg/dL (74-99); Non-African American GFR(CKD) 86 (>60 ml/min/1.73 sqM); Potassium 3.2 mmol/L (3.5-5.1); Sodium 137 mmol/L (137-145); Total Bilirubin 0.6 mg/dL (0.2-1.3); Total Protein 5.2 g/dL (6.3-8.2)
[2024-12-12] MEDS: ENOXAPARIN 40 MG/0.4 ML SYRINGE SQ SCH (09:16)
[2024-12-12] MEDS: POTASSIUM CHLORIDE ER 20 MEQ TAB.ER PO STA (09:42)
[2024-12-12 11:43] LABS: Glucose,Whole Blood 117 mg/dL (70-110)
[2024-12-12 12:57] VITALS: BMI 53.2
--- NOTE | 2024-12-12 13:19 | P.PN ---
Subjective HISTORY OF PRESENT ILLNESS: This is a 54-year-old female with a past medical history significant for breast cancer with mastectomy in 2021, obstructive sleep apnea, hyperlipidemia, hypotension on midodrine, diabetes, and morbid obesity. Patient does not follow with a statistics intern. We have been asked to see the patient in consultation for elevated troponins. Patient examined at the bedside in the emergency room. [facility] She states for the past several months she has been having episodes of dizziness and lightheadedness. She denied having previous episodes of syncope. She states over the past 5 weeks along with her dizziness and lightheadedness she is also experiencing double vision. She states due to her persistent symptoms she came to the emergency room for further evaluation. She reports having " pinching" in her chest that will last for a few seconds and then go away. She denies any shortness of breath. At the time of examination she denies any chest pain or pressure. She states that she used to be active however recently she has not been active due to her dizziness and lightheadedness. She states a couple days ago she was trying to get up to use the commode and began to get dizzy. She states that she sat down on the bed and ended up falling forward and slid to the floor. She believes that she lost consciousness for a few seconds. Patient also endorses having some hematuria recently. She states that she had a PET scan recently and states "there is no more cancer". She also endorses a history of obstructive sleep apnea but states she has not been using her CPAP machine for the past few weeks. DIAGNOSTICS: - EKG reveals sinus mechanism with nonspecific ST-T wave changes. No signs of acute ischemia. Q waves anteriorly.. - Chest CTA: Chronic appearing weblike nonocclusive filling defect within the right lower lobe pulmonary arterial vasculature. No evidence for acute occlusive pulmonary embolism. Pulmonary hypertension, pulmonary vascular congestion with cardiomegaly. Small hiatal hernia. - Venous Doppler: Negative for DVT bilaterally - Laboratory data: WBC 4.5. Hemoglobin 3.50. Platelet count 298. D-dimer 1.09. Sodium 136. Potassium 3.9. BUN 17. Creatinine 0.71. Troponin 0.107. 0.098. - Current home cardiac medications include Lipitor 20 mg at night, midodrine 2.5 mg 3 times a day - Most recent echocardiogram obtained in September 2023 revealed normal LV systolic function with mild TR and mild MR - Cardiac catheterization history: Denies 12/12/2024 Patient examined this morning at the bedside. Patient denies any chest pain or pressure. She denies any shortness of breath. She reports that her double vision has improved. Potassium this morning 3.2. 2D echo reveals hyperdynamic LV, severe LV hypertrophy, ejection fraction 60 to 65%, small pericardial effusion, and possibility of amyloidosis. PHYSICAL EXAM: VITAL SIGNS: Reviewed. GENERAL: Well-developed in no acute distress. HEENT: Head is normocephalic. Pupils are equal, round. Sclerae anicteric. Mucous membranes of the mouth are moist. Neck supple. No JVD or thyromegaly LUNGS: Respirations even and unlabored. Lungs essentially clear to auscultation bilaterally. HEART: Regular rate and rhythm. S1 and S2 heard. ABDOMEN: Soft. Nondistended. Nontender. EXTREMITIES: Normal range of motion. No clubbing or cyanosis. Peripheral pulses intact. Trace bilateral lower extremity edema NEUROLOGIC: Awake and alert. Oriented x 3. ASSESSMENT: Dizziness, lightheadedness, and double vision x 5 weeks per patient Hypokalemia History of breast cancer with mastectomy, 2021, on treatment with Verzenio Elevated troponins of unclear clinical significance, no evidence of acute coronary syndrome Obstructive sleep apnea with CPAP use, patient states not using for the past 3 to 4 weeks Hyperlipidemia History of hypotension on midodrine Diabetes Morbid obesity: BMI 53.3 Severe LV hypertrophy with possibility of amyloidosis PLAN: Continue current cardiac medications Recommend outpatient workup for possibility of amyloidosis No immediate plans for ischemic workup/cardiac catheterization from a cardiac standpoint Patient is stable from a cardiac standpoint Further recommendations pending patient course Nurse practitioner note has been reviewed by physician. Signing provider agrees with the documented findings, assessment, and plan of care documented by CV TECH as a scribe. Objective - Vital Signs Vital signs: Vital Signs Temp 97.6 F 12/12/24 11:50 Pulse 80 12/12/24 11:50 Resp 18 12/12/24 11:50 BP 100/62 12/12/24 11:50 Pulse Ox 94 L 12/12/24 11:50 FiO2 Intake & Output 12/11/24 12/12/24 12/12/24 18:59 06:59 18:59 Intake Total 268 Balance 268 Weight 149.685 kg 149.685 kg Intake: Intake, IV Titration 150 Amount Sodium Chloride 0.9% 1, 150 000 ml @ 75 mls/hr IV . [id number] [facility] Rx#:[id number] Oral 118 Other: Voiding Method Bedpan Bedpan Bedpan # Voids 1 3 # Bowel Movements 1 1 0 - Labs CBC & Chem 7: 12/12/24 05:37 12/12/24 05:37 Labs: Abnormal Lab Results - Last 24 Hours (Table) 12/11/24 12/11/24 12/11/24 Range/Units 16:42 17:00 20:06 RBC (3.80-5.40) m/uL Hgb (11.4-16.0) gm/dL Hct (34.0-46.0) % MCV (80.0-100.0) fL RDW (11.5-15.5) % Potassium (3.5-5.1) mmol/L Glucose (74-99) mg/dL POC Glucose (mg/dL) 113 H 143 H (70-110) mg/dL Total Protein (6.3-8.2) g/dL Albumin (3.5-5.0) g/dL Urine Appearance Cloudy H (Clear) Ur Specific [place] 1.043 H (1.001-1.035) Urine Protein 1+ H (Negative) Urine Ketones 1+ H (Negative) Urine Blood Small H (Negative) Ur Leukocyte Esterase Trace H (Negative) Urine WBC 8 H (0-5) /hpf Amorphous Sediment Occasional H (None) /hpf Urine Bacteria Moderate H (None) /hpf Urine Mucus Few H (None) /hpf 12/12/24 12/12/24 12/12/24 Range/Units 05:37 05:37 05:59 RBC 3.11 L (3.80-5.40) m/uL Hgb 10.3 L (11.4-16.0) gm/dL Hct 32.1 L (34.0-46.0) % MCV 103.1 H (80.0-100.0) fL RDW 15.8 H (11.5-15.5) % Potassium 3.2 L (3.5-5.1) mmol/L Glucose 102 H (74-99) mg/dL POC Glucose (mg/dL) 117 H (70-110) mg/dL Total Protein 5.2 L (6.3-8.2) g/dL Albumin 2.7 L (3.5-5.0) g/dL Urine Appearance (Clear) Ur Specific [place] (1.001-1.035) Urine Protein (Negative) Urine Ketones (Negative) Urine Blood (Negative) Ur Leukocyte Esterase (Negative) Urine WBC (0-5) /hpf Amorphous Sediment (None) /hpf Urine Bacteria (None) /hpf Urine Mucus (None) /hpf 12/12/24 Range/Units 11:42 RBC (3.80-5.40) m/uL Hgb (11.4-16.0) gm/dL Hct (34.0-46.0) % MCV (80.0-100.0) fL RDW (11.5-15.5) % Potassium (3.5-5.1) mmol/L Glucose (74-99) mg/dL POC Glucose (mg/dL) 117 H (70-110) mg/dL Total Protein (6.3-8.2) g/dL Albumin (3.5-5.0) g/dL Urine Appearance (Clear) Ur Specific [place] (1.001-1.035) Urine Protein (Negative) Urine Ketones (Negative) Urine Blood (Negative) Ur Leukocyte Esterase (Negative) Urine WBC (0-5) /hpf Amorphous Sediment (None) /hpf Urine Bacteria (None) /hpf Urine Mucus (None) /hpf
[2024-12-12 16:39] LABS: Glucose,Whole Blood 121 mg/dL (70-110)
--- NOTE | 2024-12-12 18:20 | P.PN ---
Subjective Progress Note Date: 12/12/24 Hospital course: Patient is a 54-year-old female with a past medical history of type II [id number] diabetes mellitus, hyperlipidemia, breast cancer status post mastectomy on hormone replacement therapy, obstructive sleep apnea CPAP dependent nightly, and anxiety with depression. She presented to the emergency department on 12/10/2024 from [facility] with complaints of dizziness and generalized weakness and a near syncopal episode. Patient reports she has also been experiencing diarrhea, diffuse abdominal pain, and hematuria. Upon arrival to our facility patient underwent evaluation in the emergency department. Vital signs upon arrival show blood pressure 116/69, heart rate 82, respiratory rate 18, temp 97.9 F, and SpO2 of 100% on room air. EKG completed showing normal sinus rhythm at 82 bpm with no noted T wave or ST abnormality showing no signs of acute ischemia upon personal review and interpretation. Labs on arrival completed and reviewed. CBC unremarkable. BMP showing hypokalemia with potassium of 2.9 otherwise normal findings. Blood glucose 86. Coagulation profile normal findings with exception of elevated D-dimer 1.09. Troponin was elevated at 0.107. Liver profile unremarkable. CTA chest completed showing chronic appearing weblike nonocclusive filling defect within the right lower pulmonary arterial vasculature with no evidence for acute occlusive pulmonary emboli, pulmonary hypertension, pulmonary vascular congestion with cardiomegaly and small hiatal hernia. Bilateral lower extremity Dopplers completed negative for DVT. Patient admitted under services with consultation to cardiology. CT abdomen and pelvis completed showing fluid- filled nondilated sigmoid colon and rectum. Consult placed to general surgery for diffuse abdominal pain and above findings. Physical exam: Patient seen and fully evaluated at bedside this morning she reports abdominal pain has improved but does remain mostly throughout her abdomen. Vital signs reviewed and stable. General: Nontoxic, no distress and appears stated age. Morbidly obese Derm: Skin warm and dry, normal coloration for ethnicity. Head: Atraumatic, normocephalic and symmetric. Eyes: EOM's intact, no lid lag, and anicteric sclera Mouth: no lip lesions, mucus membranes moist Cardiovascular: regular rate and rhythm with normal S1S2, no murmur, positive posterior tibial pulses bilaterally, and cap refill < 2 seconds. Lungs: Respirations even, regular, and unlabored on room air. Lungs CTA bi laterally, no rhonchi, no rales, no wheezing, and no accessory muscle usage. Abdominal: Obese abdomen soft, nontender to palpation, no guarding, no appreciable organomegaly Ext: ROM intact. No gross muscle atrophy, scant to 1+ pitting bilateral lower extremity edema, no contractures Neuro: Speech clear, face symmetrical and CN II-XII grossly intact with no noted focal neuro deficits Psych: Alert and oriented to person, place, time, and situation. Appropriate and pleasant affect. Assessment and Plan of Care: Elevated troponins Weakness and lightheadedness -Cardiology evaluated, recommending outpatient workup for possibility of amyloidosis stating no immediate plans for ischemic workup/cardiac catheterizati on from a cardiac standpoint at this time. -Telemetry monitoring -Troponins trended resulting at 0.107 and 0.0 98. -Continue cardiac medication regimen with aspirin 81 mg daily, atorvastatin 20 mg nightly, and midodrine 2.5 mg 3 times daily -Meclizine 25 mg 4 times daily as needed for dizzines -Echocardiogram completed showing a preserved EF of 60 to 65% with severe left ventricular hypertrophy and small pericardial effusion. Diffuse abdominal pain Intractable diarrhea Hypokalemia -CT abdomen and pelvis completed showing fluid-filled nondilated sigmoid colon and rectum. -Consult placed to general surgery for diffuse abdominal pain and above findi ngs. -C. difficile negative and stool culture results remain pending at this time. -Potassium was 3.2 orders placed for K-Dur 40 mEq p.o. x 1 dose. We will continue to monitor with repeat a.m. labs and place additional orders if indicated based upon these results. Elevated D-dimer -CTA negative for PE. Bilateral lower extremity Dopplers negative for DVT. Obstructive sleep apnea -Continue CPAP nightly and while napping. History of breast cancer with mastectomy -Continue yearly cancer screenings/mammograms and continue treatment with Verzenio. Data and imaging reviewed: -Morning labs reviewed. CBC showing continued macrocytic anemia with hemoglobin of 10.3 and MCV of 103.1. BMP showing mild hypokalemia with potassium of 3.2 otherwise normal findings. Blood glucose 102. Magnesium 2.0. Albumin was low at 2.7. -Reviewed. Blood pressure 100/62, heart rate 80, respiratory rate 18, temp 97.6 F, and SpO2 of 94% on room air CODE STATUS: Full code DVT prophylaxis: Lovenox Anticipated discharge date: Pending clinical course Anticipated discharge place: Return to half-way facility Patient was seen independently by Nurse Pracitioner. This document was prepared using [place] dictation software. Please allow for errors in mixer crane operator, while rare they do occur. Uche Swanson NP rendered care for this patient independently, reviewed the findings and plan as documented in the note above and agree with plan. I did not physically speak with or examine the patient on this date. Objective - Vital Signs Vital signs: Vital Signs Temp 97.6 F 12/12/24 04:18 Pulse 89 12/12/24 04:18 Resp 18 12/12/24 04:18 BP 102/66 12/12/24 06:35 Pulse Ox 96 12/12/24 04:18 FiO2 Intake & Output 12/11/24 12/12/24 12/12/24 18:59 06:59 18:59 Weight 149.685 kg Other: Voiding Method Bedpan Bedpan # Voids 1 3 # Bowel Movements 1 1 - Labs CBC & Chem 7: 12/12/24 05:37 12/12/24 05:37 Labs: Abnormal Lab Results - Last 24 Hours (Table) 12/11/24 12/11/24 12/11/24 Range/Units 16:42 17:00 20:06 RBC (3.80-5.40) m/uL Hgb (11.4-16.0) gm/dL Hct (34.0-46.0) % MCV (80.0-100.0) fL RDW (11.5-15.5) % Potassium (3.5-5.1) mmol/L Glucose (74-99) mg/dL POC Glucose (mg/dL) 113 H 143 H (70-110) mg/dL Total Protein (6.3-8.2) g/dL Albumin (3.5-5.0) g/dL Urine Appearance Cloudy H (Clear) Ur Specific Welch 1.043 H (1.001-1.035) Urine Protein 1+ H (Negative) Urine Ketones 1+ H (Negative) Urine Blood Small H (Negative) Ur Leukocyte Esterase Trace H (Negative) Urine WBC 8 H (0-5) /hpf Amorphous Sediment Occasional H (None) /hpf Urine Bacteria Moderate H (None) /hpf Urine Mucus Few H (None) /hpf 12/12/24 12/12/24 12/12/24 Range/Units 05:37 05:37 05:59 RBC 3.11 L (3.80-5.40) m/uL Hgb 10.3 L (11.4-16.0) gm/dL Hct 32.1 L (34.0-46.0) % MCV 103.1 H (80.0-100.0) fL RDW 15.8 H (11.5-15.5) % Potassium 3.2 L (3.5-5.1) mmol/L Glucose 102 H (74-99) mg/dL POC Glucose (mg/dL) 117 H (70-110) mg/dL Total Protein 5.2 L (6.3-8.2) g/dL Albumin 2.7 L (3.5-5.0) g/dL Urine Appearance (Clear) Ur Specific Welch (1.001-1.035) Urine Protein (Negative) Urine Ketones (Negative) Urine Blood (Negative) Ur Leukocyte Esterase (Negative) Urine WBC (0-5) /hpf Amorphous Sediment (None) /hpf Urine Bacteria (None) /hpf Urine Mucus (None) /hpf
[2024-12-12 20:06] LABS: Glucose,Whole Blood 129 mg/dL (70-110)
--- NOTE | 2024-12-12 21:54 | P.GSCN ---
History of Present Illness History of present illness: Patient is a 54-year-old female with a past medical history of type II [id number] diabetes mellitus, hyperlipidemia, breast cancer status post mastectomy on hormone replacement therapy, obstructive sleep apnea CPAP dependent nightly, and anxiety with depression. General surgery was consulted 2/2 abdominal discomfort. Review of ctap demonstrates story consistent with diarrhea. Currently denies nausea, vomiting, fevers, or chills. Past Medical History Past Medical History: Asthma, Cancer, Diabetes Mellitus, Musculoskeletal Disorder, Osteoarthritis (OA), Respiratory Disorder, Sleep Apnea/CPAP/BIPAP Additional Past Medical History / Comment(s): L2D3 with 2 herniated disc, arthritis, vitamin D deficiency, breast cancer in History of Any Multi-Drug Resistant Organisms: MRSA Year Discovered:: 05/24/16 MDRO Source:: RIGHT LEG Past Surgical History: Section, Cholecystectomy, Hernia Repair Additional Past Surgical History / Comment(s): 3, tubal ligation, hernia repair 2 ,masectomy in 2021. Past Anesthesia/Blood Transfusion Reactions: No Reported Reaction Additional Past Anesthesia/Blood Transfusion Reaction / Comm: no blood tranfusions Past Psychological History: Anxiety, Depression Smoking Status: Never smoker Past Alcohol Use History: Occasional Additional Past Alcohol Use History / Comment(s): Patient states she is a lifelong nonsmoker. She has used marijuana in the past occasionally. She denies any other street drug use. She lives in her van and is homeless. Past Drug Use History: Marijuana Additional Drug Use History / Comment(s): THC edibles - Past Family History Mother Family Medical History: Blood Disorder, Cancer, Congestive Heart Failure (CHF), Diabetes Mellitus Additional Family Medical History / Comment(s): breast cancer Father History Unknown: Yes Medications and Allergies Home Medications Medication Instructions Recorded Confirmed Type Albuterol Inhaler [Ventolin Hfa 2 puff INHALATION RT-Q6H PRN 12/22/14 12/10/24 History Inhaler] Sertraline [Zoloft] 200 mg PO DAILY 12/22/14 12/10/24 History Atorvastatin [Lipitor] 20 mg PO HS 06/20/22 12/10/24 History Cholecalciferol [Vitamin D3 (25 25 mcg PO DAILY 09/18/22 12/10/24 History Mcg = 1000 Iu)] Anastrozole [Arimidex] 1 mg PO DAILY 09/23/23 12/10/24 History Meclizine [Antivert] 25 mg PO TID PRN 09/23/23 12/10/24 History sitaGLIPtin [Januvia] 25 mg PO DAILY 09/23/23 12/10/24 History Midodrine [ProAmatine] 2.5 mg PO AC-TID #90 tab 09/27/23 12/10/24 Rx Abemaciclib [Verzenio] 150 mg PO BID 10/12/23 12/10/24 History Calcium Carbonate [Calcium] 1,200 mg PO DAILY 10/12/23 12/10/24 History Potassium Chloride ER [K-Dur 20] 40 meq PO BID 10/12/23 12/10/24 History allopurinoL 100 mg PO BID 10/12/23 12/10/24 History Acetaminophen Tab [Tylenol] 650 mg PO Q6H PRN 12/10/24 12/10/24 History Cranberry 450mg 450 mg PO BID 12/10/24 12/10/24 History Loperamide HCl [Imodium A-D] 2 - 4 mg PO QID PRN MDD 5 TABLETS 12/10/24 12/10/24 History Magnesium Hydroxide [Milk of 7,200 mg PO Q72H PRN 12/10/24 12/10/24 History Magnesia Concentrate] Magnesium Oxide [Mag-Ox] 400 mg PO DAILY 12/10/24 12/10/24 History Mineral Oil [Fleet Mineral Oil] 133 ml RECTAL DAILY PRN 12/10/24 12/10/24 History Ondansetron [Zofran] 4 mg PO QAM 12/10/24 12/10/24 History bisacodyL [Dulcolax] 10 mg RECTAL DAILY PRN 12/10/24 12/10/24 History traZODone HCL [Desyrel] 50 mg PO HS 12/10/24 12/10/24 History Allergies Allergy/AdvReac Type Severity Reaction Status Date / Time Fish Containing Products Allergy Anaphylaxis Verified 12/10/24 17:49 [Fish] iodine Allergy Unknown Verified 12/10/24 17:49 morphine Allergy Unknown Verified 12/10/24 17:49 shrimp Allergy Anaphylaxis Verified 12/10/24 17:49 codeine AdvReac Nausea & Verified 12/10/24 17:49 Vomiting Surgical - Exam Osteopathic Statement: *. No significant issues noted on an osteopathic structural exam other than those noted in the History and Physical/Consult. Vital Signs Temp Pulse Resp BP Pulse Ox 97.9 F 82 18 116/69 100 12/10/24 14:47 12/10/24 14:47 12/10/24 14:47 12/10/24 14:47 12/10/24 14:47 gen: nad cv: rrr pul: non labored breathing abd; soft, distended, min tender to palpation, no guarding or rebound tenderness Results - Labs 12/12/24 05:37 12/12/24 05:37 Abnormal Lab Results - Last 24 Hours (Table) 12/12/24 12/12/24 12/12/24 Range/Units 05:37 05:37 05:59 RBC 3.11 L (3.80-5.40) m/uL Hgb 10.3 L (11.4-16.0) gm/dL Hct 32.1 L (34.0-46.0) % MCV 103.1 H (80.0-100.0) fL RDW 15.8 H (11.5-15.5) % Potassium 3.2 L (3.5-5.1) mmol/L Glucose 102 H (74-99) mg/dL POC Glucose (mg/dL) 117 H (70-110) mg/dL Total Protein 5.2 L (6.3-8.2) g/dL Albumin 2.7 L (3.5-5.0) g/dL 12/12/24 12/12/24 12/12/24 Range/Units 11:42 16:38 20:05 RBC (3.80-5.40) m/uL Hgb (11.4-16.0) gm/dL Hct (34.0-46.0) % MCV (80.0-100.0) fL RDW (11.5-15.5) % Potassium (3.5-5.1) mmol/L Glucose (74-99) mg/dL POC Glucose (mg/dL) 117 H 121 H 129 H (70-110) mg/dL Total Protein (6.3-8.2) g/dL Albumin (3.5-5.0) g/dL Diabetes panel 12/12/24 Range/Units 05:37 Sodium 137 (137-145) mmol/L Potassium 3.2 L (3.5-5.1) mmol/L Chloride 107 (98-107) mmol/L Carbon Dioxide 22 (22-30) mmol/L BUN 17 (7-17) mg/dL Creatinine 0.78 (0.52-1.04) mg/dL Glucose 102 H (74-99) mg/dL Calcium 9.1 (8.4-10.2) mg/dL AST 14 (14-36) U/L ALT 10 (4-34) U/L Alkaline Phosphatase 56 (38-126) U/L Total Protein 5.2 L (6.3-8.2) g/dL Albumin 2.7 L (3.5-5.0) g/dL Calcium panel 12/12/24 Range/Units 05:37 Calcium 9.1 (8.4-10.2) mg/dL Albumin 2.7 L (3.5-5.0) g/dL Pituitary panel 12/12/24 Range/Units 05:37 Sodium 137 (137-145) mmol/L Potassium 3.2 L (3.5-5.1) mmol/L Chloride 107 (98-107) mmol/L Carbon Dioxide 22 (22-30) mmol/L BUN 17 (7-17) mg/dL Creatinine 0.78 (0.52-1.04) mg/dL Glucose 102 H (74-99) mg/dL Calcium 9.1 (8.4-10.2) mg/dL Adrenal panel 12/12/24 Range/Units 05:37 Sodium 137 (137-145) mmol/L Potassium 3.2 L (3.5-5.1) mmol/L Chloride 107 (98-107) mmol/L Carbon Dioxide 22 (22-30) mmol/L BUN 17 (7-17) mg/dL Creatinine 0.78 (0.52-1.04) mg/dL Glucose 102 H (74-99) mg/dL Calcium 9.1 (8.4-10.2) mg/dL Total Bilirubin 0.6 (0.2-1.3) mg/dL AST 14 (14-36) U/L ALT 10 (4-34) U/L Alkaline Phosphatase 56 (38-126) U/L Total Protein 5.2 L (6.3-8.2) g/dL Albumin 2.7 L (3.5-5.0) g/dL Assessment and Plan Assessment: 54 yo female w/ gastroenteritis -monitor bowel function -iv hydration -no intervention at this time, will continue to follow. Time with Patient: Less than 30
[2024-12-13 05:53] LABS: Glucose,Whole Blood 98 mg/dL (70-110)
[2024-12-13 06:46] LABS: Anisocytosis Slight; HCT 31.9 % (34.0-46.0); HGB 10.5 gm/dL (11.4-16.0); MCH 33.4 pg (25.0-35.0); MCV 101.1 fL (80.0-100.0); Macrocytosis Slight; Platelet Count 290 k/uL (150-450); Poikilocytosis Slight; RBC 3.16 m/uL (3.80-5.40); RDW 16.3 % (11.5-15.5); WBC 4.4 k/uL (3.8-10.6)
[2024-12-13 07:24] LABS: ALT 9 U/L (4-34); AST 15 U/L (14-36); African American GFR (CKD) >90 (>60 ml/min/1.73 sqM); Albumin 2.6 g/dL (3.5-5.0); Alkaline Phosphatase 55 U/L (38-126); Anion Gap 7 mmol/L; Blood Urea Nitrogen 13 mg/dL (7-17); Calcium 8.7 mg/dL (8.4-10.2); Carbon Dioxide 22 mmol/L (22-30); Chloride 109 mmol/L (98-107); Glucose 93 mg/dL (74-99); Magnesium 1.8 mg/dL (1.6-2.3); Non-African American GFR(CKD) >90 (>60 ml/min/1.73 sqM); Potassium 3.2 mmol/L (3.5-5.1); Sodium 138 mmol/L (137-145); Total Bilirubin 0.5 mg/dL (0.2-1.3)
[2024-12-13] MEDS: POTASSIUM CHLORIDE ER 20 MEQ TAB.ER PO STA (10:48)
[2024-12-13 12:08] LABS: Glucose,Whole Blood 108 mg/dL (70-110)
--- NOTE | 2024-12-13 12:25 | P.PN ---
Subjective HISTORY OF PRESENT ILLNESS: This is a 54-year-old female with a past medical history significant for breast cancer with mastectomy in 2021, obstructive sleep apnea, hyperlipidemia, hypotension on midodrine, diabetes, and morbid obesity. Patient does not follow with a solutions market consultant. We have been asked to see the patient in consultation for elevated troponins. Patient examined at the bedside in the emergency room. Patient is currently residing at a group home. She states for the past several months she has been having episodes of dizziness and lightheadedness. She denied having previous episodes of syncope. She states over the past 5 weeks along with her dizziness and lightheadedness she is also experiencing double vision. She states due to her persistent symptoms she came to the emergency room for further evaluation. She reports having " pinching" in her chest that will last for a few seconds and then go away. She denies any shortness of breath. At the time of examination she denies any chest pain or pressure. She states that she used to be active however recently she has not been active due to her dizziness and lightheadedness. She states a couple days ago she was trying to get up to use the commode and began to get dizzy. She states that she sat down on the bed and ended up falling forward and slid to the floor. She believes that she lost consciousness for a few seconds. Patient also endorses having some hematuria recently. She states that she had a PET scan recently and states "there is no more cancer". She also endorses a history of obstructive sleep apnea but states she has not been using her CPAP machine for the past few weeks. DIAGNOSTICS: - EKG reveals sinus mechanism with nonspecific ST-T wave changes. No signs of acute ischemia. Q waves anteriorly.. - Chest CTA: Chronic appearing weblike nonocclusive filling defect within the right lower lobe pulmonary arterial vasculature. No evidence for acute occlusive pulmonary embolism. Pulmonary hypertension, pulmonary vascular congestion with cardiomegaly. Small hiatal hernia. - Venous Doppler: Negative for DVT bilaterally - Laboratory data: WBC 4.5. Hemoglobin 3.50. Platelet count 298. D-dimer 1.09. Sodium 136. Potassium 3.9. BUN 17. Creatinine 0.71. Troponin 0.107. 0.098. - Current home cardiac medications include Lipitor 20 mg at night, midodrine 2.5 mg 3 times a day - Most recent echocardiogram obtained in September 2023 revealed normal LV systolic function with mild TR and mild MR - Cardiac catheterization history: Denies 12/12/2024 Patient examined this morning at the bedside. Patient denies any chest pain or pressure. She denies any shortness of breath. She reports that her double vision has improved. Potassium this morning 3.2. 2D echo reveals hyperdynamic LV, severe LV hypertrophy, ejection fraction 60 to 65%, small pericardial effusion, and possibility of amyloidosis. 12/13/2024 Patient examined this morning at the bedside. Patient currently denies any chest pain or pressure. She denies any shortness of breath. She denies any double vision at the time of examination. Potassium is low today at 3.2. PHYSICAL EXAM: VITAL SIGNS: Reviewed. GENERAL: Well-developed in no acute distress. HEENT: Head is normocephalic. Pupils are equal, round. Sclerae anicteric. Mucous membranes of the mouth are moist. Neck supple. No JVD or thyromegaly LUNGS: Respirations even and unlabored. Lungs essentially clear to auscultation bilaterally. HEART: Regular rate and rhythm. S1 and S2 heard. ABDOMEN: Soft. Nondistended. Nontender. EXTREMITIES: Normal range of motion. No clubbing or cyanosis. Peripheral pulses intact. Trace bilateral lower extremity edema NEUROLOGIC: Awake and alert. Oriented x 3. ASSESSMENT: Dizziness, lightheadedness, and double vision x 5 weeks per patient Hypokalemia History of breast cancer with mastectomy, 2021, on treatment with Verzenio Elevated troponins of unclear clinical significance, no evidence of acute coronary syndrome Obstructive sleep apnea with CPAP use, patient states not using for the past 3 to 4 weeks Hyperlipidemia History of hypotension on midodrine Diabetes Morbid obesity: BMI 53.3 Severe LV hypertrophy with possibility of amyloidosis PLAN: Continue current cardiac medications Add Aldactone 25 mg daily for recurrent hypokalemia Repeat BMP in a.m. Recommend outpatient workup for possibility of amyloidosis No immediate plans for ischemic workup/cardiac catheterization from a cardiac standpoint Further recommendations pending patient course Nurse practitioner note has been reviewed by physician. Signing provider agrees with the documented findings, assessment, and plan of care documented by CASINO FLOOR PERSON as a scribe. Objective - Vital Signs Vital signs: Vital Signs Temp 97.6 F 12/13/24 08:00 Pulse 92 02/23/25 08:00 Resp 16 12/13/24 08:00 BP 102/56 12/13/24 08:00 Pulse Ox 97 12/13/24 08:00 FiO2 Intake & Output 12/12/24 12/13/24 12/13/24 18:59 06:59 18:59 Intake Total 1330 240 128 Balance 1330 240 128 Weight 149.685 kg Intake: IV 10 Invasive Line 2 10 Intake, IV Titration 750 Amount Sodium Chloride 0.9% 1, 750 000 ml @ 75 mls/hr IV . [id number] [facility] Rx#:[id number] Oral 580 240 118 Other: Voiding Method Bedpan Bedpan Bedpan # Voids 2 # Bowel Movements 0 1 1 - Labs CBC & Chem 7: 12/13/24 05:50 12/13/24 05:50 Labs: Abnormal Lab Results - Last 24 Hours (Table) 12/12/24 12/12/24 12/13/24 Range/Units 16:38 20:05 05:50 RBC 3.16 L (3.80-5.40) m/uL Hgb 10.5 L (11.4-16.0) gm/dL Hct 31.9 L (34.0-46.0) % MCV 101.1 H (80.0-100.0) fL RDW 16.3 H (11.5-15.5) % Potassium (3.5-5.1) mmol/L Chloride (98-107) mmol/L POC Glucose (mg/dL) 121 H 129 H (70-110) mg/dL Total Protein (6.3-8.2) g/dL Albumin (3.5-5.0) g/dL 12/13/24 Range/Units 05:50 RBC (3.80-5.40) m/uL Hgb (11.4-16.0) gm/dL Hct (34.0-46.0) % MCV (80.0-100.0) fL RDW (11.5-15.5) % Potassium 3.2 L (3.5-5.1) mmol/L Chloride 109 H (98-107) mmol/L POC Glucose (mg/dL) (70-110) mg/dL Total Protein 5.0 L (6.3-8.2) g/dL Albumin 2.6 L (3.5-5.0) g/dL Microbiology - Last 24 Hours (Table) 12/11/24 20:46 Stool Culture - Preliminary Stool
[2024-12-13] MEDS: SPIRONOLACTONE 25 MG TAB PO SCH (12:26)
--- NOTE | 2024-12-13 14:40 | P.PN ---
Progress Note - Text Patient seen and evaluated at bedside. Patient still complaining of diarrhea but no abdominal pain. gen: nad cv: rrr pul: non labored breathing abd: soft, non distended, non tender to palpation, no guarding or rebound tenderness 54 yo female w/ chemo-induced diarrhea diarrhea induced hypokalemia recommend probiotic no surgical intervention surgery will sign off.
[2024-12-13 16:13] VITALS: TEMP 98.2
--- NOTE | 2024-12-13 16:42 | P.PN ---
Subjective Progress Note Date: 12/13/24 Hospital course: Patient is a 54-year-old female with a past medical history of type II tyl-[id number] diabetes mellitus, hyperlipidemia, breast cancer status post mastectomy on hormone replacement therapy, obstructive sleep apnea CPAP dependent nightly, and anxiety with depression. She presented to the emergency department on 12/10/2024 from [facility] with complaints of dizziness and generalized weakness and a near syncopal episode. Patient reports she has also been experiencing diarrhea, diffuse abdominal pain, and hematuria. Upon arrival to our facility patient underwent evaluation in the emergency department. Vital signs upon arrival show blood pressure 116/69, heart rate 82, respiratory rate 18, temp 97.9 F, and SpO2 of 100% on room air. EKG completed showing normal sinus rhythm at 82 bpm with no noted T wave or ST abnormality showing no signs of acute ischemia upon personal review and interpretation. Labs on arrival completed and reviewed. CBC unremarkable. BMP showing hypokalemia with potassium of 2.9 otherwise normal findings. Blood glucose 86. Coagulation profile normal findings with exception of elevated D-dimer 1.09. Troponin was elevated at 0.107. Liver profile unremarkable. CTA chest completed showing chronic appearing weblike nonocclusive filling defect within the right lower pulmonary arterial vasculature with no evidence for acute occlusive pulmonary emboli, pulmonary hypertension, pulmonary vascular congestion with cardiomegaly and small hiatal hernia. Bilateral lower extremity Dopplers completed negative for DVT. Patient admitted under services with consultation to cardiology. CT abdomen and pelvis completed showing fluid- filled nondilated sigmoid colon and rectum. Consult placed to general surgery for diffuse abdominal pain and above findings. Physical exam: Patient seen and fully evaluated at bedside this morning she reports abdominal pain has improved but does remain mostly throughout her abdomen. She continues to report persistent episodes of diarrhea. Stool culture pending. Patient denies any other complaints at this time reports just feeling tired. Vital signs reviewed and stable. General: Nontoxic, no distress and appears stated age. Morbidly obese Derm: Skin warm and dry, normal coloration for ethnicity. Head: Atraumatic, normocephalic and symmetric. Eyes: EOM's intact, no lid lag, and anicteric sclera Mouth: no lip lesions, mucus membranes moist Cardiovascular: regular rate and rhythm with normal S1S2, no murmur, positive posterior tibial pulses bilaterally, and cap refill < 2 seconds. Lungs: Respirations even, regular, and unlabored on room air. Lungs CTA bilaterally, no rhonchi, no rales, no wheezing, and no accessory muscle usage. Abdominal: Obese abdomen soft, nontender to palpation, no guarding, no appreciable organomegaly Ext: ROM intact. No gross muscle atrophy, scant to 1+ pitting bilateral lower extremity edema, no contractures Neuro: Speech clear, face symmetrical and CN II-XII grossly intact with no noted focal neuro deficits Psych: Alert and oriented to person, place, time, and situation. Appropriate and pleasant affect. Assessment and Plan of Care: Elevated troponins Weakness and lightheadedness -Cardiology evaluated, recommending outpatient workup for possibility of amyloidosis stating no immediate plans for ischemic workup/cardiac catheterization from a cardiac standpoint at this time. -Telemetry monitoring -Troponins trended resulting at 0.107 and 0.0 98. -Continue cardiac medication regimen with aspirin 81 mg daily, atorvastatin 20 mg nightly, and midodrine 2.5 mg 3 times daily and cardiology starting patient on Aldactone 25 mg daily -Meclizine 25 mg 4 times daily as needed for dizzines -Echocardiogram completed showing a preserved EF of 60 to 65% with severe left ventricular hypertrophy and small pericardial effusion. Diffuse abdominal pain Persistent diarrhea Hypokalemia -CT abdomen and pelvis completed showing fluid-filled nondilated sigmoid colon and rectum. -Consult placed to general surgery for diffuse abdominal pain and above findings. -C. difficile negative and stool culture results remain pending at this time re porting culture in progress. -Potassium was 3.2 orders placed for K-Dur 40 mEq p.o. x 1 dose. We will continue to monitor with repeat a.m. labs and place additional orders if indicated based upon these results. Elevated D-dimer -CTA negative for PE. Bilateral lower extremity Dopplers negative for DVT. Obstructive sleep apnea -Continue CPAP nightly and while napping. History of breast cancer with mastectomy -Continue yearly cancer screenings/mammograms and continue treatment with Verzenio. Data and imaging reviewed: -Morning labs reviewed. CBC showing continued macrocytic anemia with hemoglobin of 10.5 and MCV of 101.1. BMP showing mild hypokalemia with potassium of 3.2 and hyperchloremia with chloride of 109. Blood glucose 98. Magnesium 2.0. Albumin was low at 2.6. -Reviewed. Blood pressure 102/56, heart rate 92, respiratory rate 16, temp 97.6 F, and SpO2 of 97% on room air CODE STATUS: Full code DVT prophylaxis: Lovenox Anticipated discharge date: Pending clinical course Anticipated discharge place: Return to half-way facility Patient was seen independently by Nurse Pracitioner. This document was prepared using [employer] dictation software. Please allow for errors in dowel machine operator, while rare they do occur. Uche Swanson DIE CASTING SUPERVISOR rendered care for this patient independently, reviewed the findings and plan as documented in the note above and agree with plan. I did not physically speak with or examine the patient on this date. Objective - Vital Signs Vital signs: Vital Signs Temp 97.8 F 12/12/24 20:11 Pulse 86 12/13/24 04:17 Resp 16 12/13/24 04:17 BP 107/67 12/13/24 04:17 Pulse Ox 99 12/13/24 04:17 FiO2 Intake & Output 12/12/24 12/13/24 12/13/24 18:59 06:59 18:59 Intake Total 1330 240 10 Balance 1330 240 10 Weight 149.685 kg Intake: IV 10 Invasive Line 2 10 Intake, IV Titration 750 Amount Sodium Chloride 0.9% 1, 750 000 ml @ 75 mls/hr IV . [id number] [facility] Rx#:[id number] Oral 580 240 Other: Voiding Method Bedpan Bedpan # Bowel Movements 0 1 - Labs CBC & Chem 7: 12/13/24 05:50 12/13/24 05:50 Labs: Abnormal Lab Results - Last 24 Hours (Table) 12/12/24 12/12/24 12/12/24 Range/Units 11:42 16:38 20:05 RBC (3.80-5.40) m/uL Hgb (11.4-16.0) gm/dL Hct (34.0-46.0) % MCV (80.0-100.0) fL RDW (11.5-15.5) % Potassium (3.5-5.1) mmol/L Chloride (98-107) mmol/L POC Glucose (mg/dL) 117 H 121 H 129 H (70-110) mg/dL Total Protein (6.3-8.2) g/dL Albumin (3.5-5.0) g/dL 12/13/24 12/13/24 Range/Units 05:50 05:50 RBC 3.16 L (3.80-5.40) m/uL Hgb 10.5 L (11.4-16.0) gm/dL Hct 31.9 L (34.0-46.0) % MCV 101.1 H (80.0-100.0) fL RDW 16.3 H (11.5-15.5) % Potassium 3.2 L (3.5-5.1) mmol/L Chloride 109 H (98-107) mmol/L POC Glucose (mg/dL) (70-110) mg/dL Total Protein 5.0 L (6.3-8.2) g/dL Albumin 2.6 L (3.5-5.0) g/dL
[2024-12-13 16:57] LABS: Glucose,Whole Blood 104 mg/dL (70-110)
[2024-12-13 19:46] LABS: Glucose,Whole Blood 155 mg/dL (70-110)
[2024-12-14 00:02] VITALS: RESP 18
[2024-12-14 06:17] LABS: Glucose,Whole Blood 118 mg/dL (70-110)
[2024-12-14 06:55] LABS: African American GFR (CKD) >90 (>60 ml/min/1.73 sqM); Anion Gap 4 mmol/L; Blood Urea Nitrogen 11 mg/dL (7-17); Calcium 8.8 mg/dL (8.4-10.2); Carbon Dioxide 25 mmol/L (22-30); Chloride 108 mmol/L (98-107); Glucose 113 mg/dL (74-99); Non-African American GFR(CKD) >90 (>60 ml/min/1.73 sqM); Potassium 3.3 mmol/L (3.5-5.1); Sodium 137 mmol/L (137-145)
[2024-12-14 10:09] VITALS: BP 105/67; PULSE 85
[2024-12-14 11:24] LABS: Glucose,Whole Blood 175 mg/dL (70-110)
--- NOTE | 2024-12-14 11:44 | P.DS ---
Providers Date of admission: 12/10/24 18:38 Expected date of discharge: 12/14/24 Attending physician: Simon Urrutia MD Consults: 12/10/24 18:52 Consult Physician Routine Consulting Provider: [facility] Consult Reason/Comments: elevated troponin Do you want consulting provider notified?: Yes, Notify in am Primary care physician: Stated None Hospital Course: Discharge Diagnosis: Elevated troponins, acute coronary event ruled out. Cardiology evaluated stated elevated troponins of unclear clinical significance stating no immediate plans for ischemic workup/cardiac catheterization from cardiac standpoint and recommending outpatient follow-up for further evaluation/testing for cardiac amyloidosis. Continue cardiac medication regimen with aspirin 81 mg daily, atorvastatin 20 mg nightly, midodrine 2.5 mg 3 times daily and Aldactone 25 mg daily. Weakness and lightheadedness. Continue meclizine 25 mg 4 times daily as needed for dizziness. Patient discharged back to [facility]. Diffuse abdominal pain, resolved Persistent diarrhea, resolved. C. difficile negative. Hypokalemia, replaced and patient started on Aldactone 25 mg daily. Elevated D-dimer CTA negative for PE. Bilateral lower extremity Dopplers negative for DVT. Obstructive sleep apnea Continue CPAP nightly and while napping. History of breast cancer with mastectomy Continue yearly cancer screenings/mammograms and continue treatment with Verzenio. Hospital Course: Patient is a 54-year-old female with a past medical history of type II [id number] diabetes mellitus, hyperlipidemia, breast cancer status post mastectomy on hormone replacement therapy, obstructive sleep apnea CPAP dependent nightly, and anxiety with depression. She presented to the emergency department on 12/10/2024 from [facility] with complaints of dizziness and generalized weakness and a near syncopal episode. Patient reports she has also been experiencing diarrhea, diffuse abdominal pain, and hematuria. Upon arrival to our facility patient underwent evaluation in the emergency department. Vital signs upon arrival show blood pressure 116/69, heart rate 82, respiratory rate 18, temp 97.9 F, and SpO2 of 100% on room air. EKG completed showing normal sinus rhythm at 82 bpm with no noted T wave or ST abnormality showing no signs of acute ischemia upon personal review and interpretation. Labs on arrival completed and reviewed. CBC unremarkable. BMP showing hypokalemia with potassium of 2.9 otherwise normal findings. Blood glucose 86. Coagulation profile normal findings with exception of elevated D-dimer 1.09. Troponin was elevated at 0.107. Liver profile unremarkable. CTA chest completed showing chronic appearing weblike nonocclusive filling defect within the right lower pulmonary arterial vasculature with no evidence for acute occlusive pulmonary emboli, pulmonary hypertension, pulmonary vascular congestion with cardiomegaly and small hiatal hernia. Bilateral lower extremity Dopplers completed negative for DVT. Patient admitted under services with consultation to cardiology. CT abdomen and pelvis completed showing fluid- filled nondilated sigmoid colon and rectum. Consult placed to general surgery for diffuse abdominal pain and above findings. Troponins trended resulting at 0.107 and 0.0 98. Echocardiogram completed showing a preserved EF of 60 to 65% with severe left ventricular hypertrophy and small pericardial effusion. Cardiology evaluated stated elevated troponins of unclear clinical significance stating no immediate plans for ischemic workup/cardiac catheterization from cardiac standpoint and recommending outpatient follow-up for further evaluation/testing for cardiac amyloidosis. Patient is medically optimized at this time and to return to [facility]. Continue cardiac medication regimen with aspirin 81 mg daily, atorvastatin 20 mg nightly, midodrine 2.5 mg 3 times daily and Aldactone 25 mg daily. Patient to follow-up outpatient with PCP in 1 to 2 days and with web weaver in 1 to 2 weeks. Physical exam: Patient seen and fully evaluated at bedside this morning she reports abdominal pain has improved but does remain mostly throughout her abdomen. She continues to report persistent episodes of diarrhea. Stool culture pending. Patient denies any other complaints at this time reports just feeling tired. Vital signs reviewed and stable. General: Nontoxic, no distress and appears stated age. Morbidly obese Derm: Skin warm and dry, normal coloration for ethnicity. Head: Atraumatic, normocephalic and symmetric. Eyes: EOM's intact, no lid lag, and anicteric sclera Mouth: no lip lesions, mucus membranes moist Cardiovascular: regular rate and rhythm with normal S1S2, no murmur, positive posterior tibial pulses bilaterally, and cap refill < 2 seconds. Lungs: Respirations even, regular, and unlabored on room air. Lungs CTA bilaterally, no rhonchi, no rales, no wheezing, and no accessory muscle usage. Abdominal: Obese abdomen soft, nontender to palpation, no guarding, no appreciable organomegaly Ext: ROM intact. No gross muscle atrophy, scant to 1+ pitting bilateral lower extremity edema, no contractures Neuro: Speech clear, face symmetrical and CN II-XII grossly intact with no noted focal neuro deficits Psych: Alert and oriented to person, place, time, and situation. Appropriate and pleasant affect. A total of 35 minutes of time were spent preparing this complex discharge summary. Pt was discharged on 12/14/2024 at 11:42 AM. Patient was seen independently by Nurse Practitioner. This document was prepared using [employer] dictation software. Please allow for er rors in director of search engine marketing while rare they do occur. Uche Swanson NP rendered care for this patient independently, reviewed the findings and plan as documented in the note above. I did not physically speak with or examine the patient on this date. Patient Condition at Discharge: Stable Plan - Discharge Summary New Discharge Prescriptions: New Aspirin 81 mg PO DAILY tab Spironolactone [Aldactone] 25 mg PO DAILY tab Continue Sertraline [Zoloft] 200 mg PO DAILY Albuterol Inhaler [Ventolin Hfa Inhaler] 2 puff INHALATION RT-Q6H PRN PRN Reason: Shortness Of Breath Cholecalciferol [Vitamin D3 (25 Mcg = 1000 Iu)] 25 mcg PO DAILY Anastrozole [Arimidex] 1 mg PO DAILY Meclizine [Antivert] 25 mg PO TID PRN PRN Reason: Vertigo sitaGLIPtin [Januvia] 25 mg PO DAILY Abemaciclib [Verzenio] 150 mg PO BID allopurinoL 100 mg PO BID Calcium Carbonate [Calcium] 1,200 mg PO DAILY Potassium Chloride ER [K-Dur 20] 40 meq PO BID Ondansetron [Zofran] 4 mg PO QAM Magnesium Hydroxide [Milk of Magnesia Concentrate] 7,200 mg PO Q72H PRN PRN Reason: Constipation Magnesium Oxide [Mag-Ox] 400 mg PO DAILY Loperamide HCl [Imodium A-D] 2 - 4 mg PO QID PRN MDD 5 TABLETS PRN Reason: Loose Stool Mineral Oil [Fleet Mineral Oil] 133 ml RECTAL DAILY PRN PRN Reason: Constipation bisacodyL [Dulcolax] 10 mg RECTAL DAILY PRN PRN Reason: Constipation Acetaminophen Tab [Tylenol] 650 mg PO Q6H PRN PRN Reason: Pain Atorvastatin [Lipitor] 20 mg PO HS Midodrine [ProAmatine] 2.5 mg PO AC-TID #90 tab traZODone HCL [Desyrel] 50 mg PO HS Cranberry 450mg 450 mg PO BID Discharge Medication List Albuterol Inhaler [Ventolin Hfa Inhaler] 2 puff INHALATION RT-Q6H PRN 12/22/14 [History] Sertraline [Zoloft] 200 mg PO DAILY 12/22/14 [History] Atorvastatin [Lipitor] 20 mg PO HS 06/20/22 [History] Cholecalciferol [Vitamin D3 (25 Mcg = 1000 Iu)] 25 mcg PO DAILY 09/18/22 [History] Anastrozole [Arimidex] 1 mg PO DAILY 09/23/23 [History] Meclizine [Antivert] 25 mg PO TID PRN 09/23/23 [History] sitaGLIPtin [Januvia] 25 mg PO DAILY 09/23/23 [History] Midodrine [ProAmatine] 2.5 mg PO AC-TID #90 tab 09/27/23 [Rx] Abemaciclib [Verzenio] 150 mg PO BID 10/12/23 [History] Calcium Carbonate [Calcium] 1,200 mg PO DAILY 10/12/23 [History] Potassium Chloride ER [K-Dur 20] 40 meq PO BID 10/12/23 [History] allopurinoL 100 mg PO BID 10/12/23 [History] Acetaminophen Tab [Tylenol] 650 mg PO Q6H PRN 12/10/24 [History] Cranberry 450mg 450 mg PO BID 12/10/24 [History] Loperamide HCl [Imodium A-D] 2 - 4 mg PO QID PRN MDD 5 TABLETS 12/10/24 [History] Magnesium Hydroxide [Milk of Magnesia Concentrate] 7,200 mg PO Q72H PRN 12/10/24 [History] Magnesium Oxide [Mag-Ox] 400 mg PO DAILY 12/10/24 [History] Mineral Oil [Fleet Mineral Oil] 133 ml RECTAL DAILY PRN 12/10/24 [History] Ondansetron [Zofran] 4 mg PO QAM 12/10/24 [History] bisacodyL [Dulcolax] 10 mg RECTAL DAILY PRN 12/10/24 [History] traZODone HCL [Desyrel] 50 mg PO HS 12/10/24 [History] Aspirin 81 mg PO DAILY tab 12/14/24 [Rx] Spironolactone [Aldactone] 25 mg PO DAILY tab 12/14/24 [Rx] Follow up Appointment(s)/Referral(s): Jabari Thacker MD [STAFF PHYSICIAN] - 2 Weeks Enrique Hope MD [STAFF PHYSICIAN] - 1-2 days Activity/Diet/Wound Care/Special Instructions: Activity: As tolerated. Take breaks as needed. Diet: Heart healthy and carb consistent diet. Avoid salts, or foods with hidden salts such as canned or boxed foods and frozen dinners. Extra salt makes your heart work harder and traps the fluid in your body for longer. Special Instructions: Take all of your medications as directed and remember to keep all of your doctor's appointments and follow-up as needed. Structural Architect recommending outpatient follow-up for further evaluation/testing for cardiac amyloidosis. Thank you for allowing us to participate in your care, it was truly a pleasure having you for our patient!!! Discharge Disposition: TRANSFER TO SNF/ECF
[2024-12-14] MEDS: POTASSIUM CHLORIDE ER 20 MEQ TAB.ER PO STA (11:55)
--- NOTE | 2024-12-14 12:41 | P.PN ---
Subjective Progress Note Date: 12/14/24 HISTORY OF PRESENT ILLNESS: This is a 54-year-old female with a past medical history significant for breast cancer with mastectomy in 2021, obstructive sleep apnea, hyperlipidemia, hypotension on midodrine, diabetes, and morbid obesity. Patient does not follow with a driller operator. We have been asked to see the patient in consultation for elevated troponins. Patient examined at the bedside in the emergency room. Patient is currently residing at a long-term. She states for the past several months she has been having episodes of dizziness and lightheadedness. She denied having previous episodes of syncope. She states over the past 5 weeks along with her dizziness and lightheadedness she is also experiencing double vision. She states due to her persistent symptoms she came to the emergency room for further evaluation. She reports having " pinching" in her chest that will last for a few seconds and then go away. She denies any shortness of breath. At the time of examination she denies any chest pain or pressure. She states that she used to be active however recently she has not been active due to her dizziness and lightheadedness. She states a couple days ago she was trying to get up to use the commode and began to get dizzy. She states that she sat down on the bed and ended up falling forward and slid to the floor. She believes that she lost consciousness for a few seconds. Patient also endorses having some hematuria recently. She states that she had a PET scan recently and states "there is no more cancer". She also endorses a history of obstructive sleep apnea but states she has not been using her CPAP machine for the past few weeks. DIAGNOSTICS: - EKG reveals sinus mechanism with nonspecific ST-T wave changes. No signs of acute ischemia. Q waves anteriorly.. - Chest CTA: Chronic appearing weblike nonocclusive filling defect within the right lower lobe pulmonary arterial vasculature. No evidence for acute occlusive pulmonary embolism. Pulmonary hypertension, pulmonary vascular congestion with cardiomegaly. Small hiatal hernia. - Venous Doppler: Negative for DVT bilaterally - Laboratory data: WBC 4.5. Hemoglobin 3.50. Platelet count 298. D-dimer 1.09. Sodium 136. Potassium 3.9. BUN 17. Creatinine 0.71. Troponin 0.107. 0.098. - Current home cardiac medications include Lipitor 20 mg at night, midodrine 2.5 mg 3 times a day - Most recent echocardiogram obtained in September 2023 revealed normal LV systolic function with mild TR and mild MR - Cardiac catheterization history: Denies 12/12/2024 Patient examined this morning at the bedside. Patient denies any chest pain or pressure. She denies any shortness of breath. She reports that her double vision has improved. Potassium this morning 3.2. 2D echo reveals hyperdynamic LV, severe LV hypertrophy, ejection fraction 60 to 65%, small pericardial effusion, and possibility of amyloidosis. 12/13/2024 Patient examined this morning at the bedside. Patient currently denies any c hest pain or pressure. She denies any shortness of breath. She denies any double vision at the time of examination. Potassium is low today at 3.2. 12/14 Patient seen and examined. Patient states that she is still feeling dizzy which has been ongoing for 5 weeks. She states she was diagnosed with low blood pressure. She has been urinating a lot. Patient complains of a few "pinches" of chest pain on the left side lasting 1 sec each. Patient states she is still having diarrhea secondary to medication, Verzenio. Blood pressure 105/67, heart rate 85, pulse ox 99% on room air. Repeat blood work reveals sodium 137, potassium 3.3, chloride 108, CO2 25, BUN 11, creatinine 0.68. PHYSICAL EXAM: VITAL SIGNS: Reviewed. GENERAL: Well-developed in no acute distress. HEENT: Head is normocephalic. Pupils are equal, round. Sclerae anicteric. Mucous membranes of the mouth are moist. Neck supple. No JVD or thyromegaly LUNGS: Respirations even and unlabored. Lungs essentially clear to auscultation bilaterally. HEART: Regular rate and rhythm. S1 and S2 heard. ABDOMEN: Soft. Nondistended. Nontender. EXTREMITIES: Normal range of motion. No clubbing or cyanosis. Peripheral pulses intact. Trace bilateral lower extremity edema NEUROLOGIC: Awake and alert. Oriented x 3. ASSESSMENT: Dizziness, lightheadedness, and double vision x 5 weeks per patient Hypokalemia History of breast cancer with mastectomy, 2021, on treatment with Verzenio Elevated troponins of unclear clinical significance, no evidence of acute coronary syndrome Obstructive sleep apnea with CPAP use, patient states not using for the past 3 to 4 weeks Hyperlipidemia History of hypotension on midodrine Diabetes Morbid obesity: BMI 53.3 Severe LV hypertrophy with possibility of amyloidosis PLAN: Continue current cardiac medications: Aspirin 81 mg daily, atorvastatin Continue the addition of Aldactone 25 mg daily Obtain serum and urine electrophoresis, free kappa light chain and free lambda light chain Patient will follow-up for results and may require PYP scan No immediate plans for ischemic workup/cardiac catheterization from a cardiac standpoint Patient will follow-up in the office with Dr. Thacker in 2 weeks. Nurse practitioner note has been reviewed by physician. Signing provider agrees with the documented findings, assessment, and plan of care documented by SENIOR SOLUTIONS ARCHITECT as a scribe. Objective - Vital Signs Vital signs: Vital Signs Temp 98.2 F 12/13/24 21:34 Pulse 85 12/14/24 08:00 Resp 18 12/14/24 08:00 BP 105/67 12/14/24 08:00 Pulse Ox 99 12/14/24 08:00 FiO2 Intake & Output 12/13/24 12/14/24 12/14/24 18:59 06:59 18:59 Intake Total 246 138 190 Balance 246 138 190 Intake: IV 10 20 10 Invasive Line 2 10 20 10 Intake, IV Titration 0 Amount Sodium Chloride 0.9% 1, 0 000 ml @ 75 mls/hr IV . [id number] [facility] Rx#:[id number] Oral 236 118 180 Other: Voiding Method Bedpan Bedpan Bedpan # Voids 2 2 # Bowel Movements 1 1 - Labs CBC & Chem 7: 12/13/24 05:50 12/14/24 06:19 Labs: Abnormal Lab Results - Last 24 Hours (Table) 12/13/24 12/14/24 12/14/24 Range/Units 19:45 06:15 06:19 Potassium 3.3 L (3.5-5.1) mmol/L Chloride 108 H (98-107) mmol/L Glucose 113 H (74-99) mg/dL POC Glucose (mg/dL) 155 H 118 H (70-110) mg/dL Microbiology - Last 24 Hours (Table) 12/11/24 20:46 Stool Culture - Preliminary Stool
[2024-12-14 15:27] LABS: Protein, Total 4.9 g/dL (6.2-8.2)
[2024-12-14 15:57] LABS: Glucose,Whole Blood 148 mg/dL (70-110)
[2024-12-14 18:20] LABS: Free Kappa Lt Chain Qnt, Serum 2.44 mg/dL (0.33-1.94); Free Lambda Lt Chain Qnt, Seru 24.57 mg/dL (0.57-2.63)
[2024-12-17 07:20] LABS: Albumin 2.39 g/dL (3.80-4.90); Gamma Globulin 0.69 g/dL (0.70-1.50)
== END 2024-12-14 19:21 | DRG 394 ==
LOC: EC 14:40 → OBSVTOIN 18:38 → 3SCARD 18:38
PROVIDERS: ADMIT Internal Medicine; ATTEND Internal Medicine
DX: K52.1 Toxic gastroenteritis and colitis (principal); E85.4 Organ-limited amyloidosis; I31.39 Other pericardial effusion (noninflammatory); I43 Cardiomyopathy in diseases classified elsewhere; Z68.43 Body mass index [BMI] 50.0-59.9, adult; I27.20 Pulmonary hypertension, unspecified; C50.919 Malignant neoplasm of unspecified site of unspecified female breast; E11.9 Type 2 diabetes mellitus without complications; D53.9 Nutritional anemia, unspecified; E66.01 Morbid (severe) obesity due to excess calories; E87.6 Hypokalemia; G47.33 Obstructive sleep apnea (adult) (pediatric); R79.89 Other specified abnormal findings of blood chemistry; E78.5 Hyperlipidemia, unspecified; K44.9 Diaphragmatic hernia without obstruction or gangrene; T45.1X5A Adverse effect of antineoplastic and immunosuppressive drugs, initial encounter; H53.2 Diplopia; W18.30XA Fall on same level, unspecified, initial encounter; Y93.F2 Activity, caregiving, lifting; Y92.003 Bedroom of unspecified non-institutional (private) residence as the place of occurrence of the external cause; Z79.890 Hormone replacement therapy; Z79.84 Long term (current) use of oral hypoglycemic drugs; Z79.899 Other long term (current) drug therapy; Z86.14 Personal history of Methicillin resistant Staphylococcus aureus infection; Z90.10 Acquired absence of unspecified breast and nipple; Z82.49 Family history of ischemic heart disease and other diseases of the circulatory system
CPT/HCPCS: 36415; 71275; 74176; 80048; 80053; 80061; 81001; 83036; 83690; 83735; 83883; 84165; 84484; 85025; 85027; 85379; 85610; 85730; 87045; 87046; 87324; 93005; 93306; 93970; 96361; 96365; 96366; 96375; 99285

== ENCOUNTER 2024-12-30 15:45 | Observation (INO) | payer MEDICARE, OTHER ==
[2024-12-30 16:45] LABS: Basophils # (A) 0.1 k/uL (0-0.2); Basophils % (A) 1 %; Eosinophils # (A) 0.2 k/uL (0-0.7); Eosinophils % (A) 2 %; HCT 42.3 % (34.0-46.0); HGB 13.2 gm/dL (11.4-16.0); Lymphocytes # (A) 2.1 k/uL (1.0-4.8); Lymphocytes % (A) 21 %; MCH 31.8 pg (25.0-35.0); MCHC 31.2 g/dL (31.0-37.0); Macrocytosis Slight; Mean Platelet Volume 7.4; Monocytes # (A) 0.4 k/uL (0-1.0); Monocytes % (A) 5 %; Neutrophils % (A) 70 %; Platelet Count 309 k/uL (150-450); RBC 4.15 m/uL (3.80-5.40); RDW 15.4 % (11.5-15.5)
[2024-12-30 16:58] LABS: ALT 13 U/L (4-34); AST 20 U/L (14-36); African American GFR (CKD) 74 (>60 ml/min/1.73 sqM); Albumin 3.4 g/dL (3.5-5.0); Alkaline Phosphatase 77 U/L (38-126); Anion Gap 12 mmol/L; Blood Urea Nitrogen 20 mg/dL (7-17); Calcium 10.3 mg/dL (8.4-10.2); Carbon Dioxide 19 mmol/L (22-30); Chloride 104 mmol/L (98-107); Glucose 147 mg/dL (74-99); Non-African American GFR(CKD) 64 (>60 ml/min/1.73 sqM); Potassium 4.9 mmol/L (3.5-5.1); Sodium 135 mmol/L (137-145); Total Bilirubin 0.9 mg/dL (0.2-1.3); Total Protein 5.9 g/dL (6.3-8.2)
[2024-12-30 17:03] LABS: Prothrombin Time 10.8 sec (10.0-12.5)
[2024-12-30] MEDS: SODIUM CHLORIDE 0.9% 1,000 ML IV ONE (18:21)
[2024-12-30] MEDS: MIDODRINE 5 MG TAB PO STA (18:46)
[2024-12-30 18:53] LABS: Appearance,Urine Turbid (Clear); Bacteria,Urine Moderate /hpf; Bilirubin,Urine Negative (Negative); Blood,Urine Small (Negative); Color,Urine Light Red; Glucose,Urine (UA) Negative (Negative); Ketones,Urine Negative (Negative); Leukocyte Esterase,Urine Large (Negative); Mucus,Urine Many /hpf; Nitrite,Urine Negative (Negative); Protein,Urine 3+ (Negative); RBC,Urine 63 /hpf (0-5); Urobilinogen,Urine <2.0 mg/dL (<2.0); WBC,Urine >182 /hpf (0-5)
[2024-12-30 19:09] LABS: Specific Gravity,Urine 1.017 (1.001-1.035)
--- NOTE | 2024-12-30 21:17 | ED ---
General Adult HPI - General Chief complaint: Dizziness Stated complaint: N/V,Dizziness Time Seen by Provider: 12/30/24 15:52 Source: patient, EMS, RN notes reviewed Mode of arrival: EMS Limitations: physical limitation - History of Present Illness Initial comments: 54-year-old female with past medical history of asthma, diabetes who presents to the emergency department with near syncope. Patient was at the cardiology office. She was recently hospitalized and had an elevated troponin level. She was following up in office today for reevaluation. She states that she was sitting for a while in her wheelchair when she started to feel like she was get a pass out. Patient had lightheadedness and moved herself to the ground. She denies having any chest pain or difficulty breathing. Admits to nausea with vomiting. Patient denies any injuries. She does not take any blood thinners. Patient was recently hospitalized for somewhat of a similar complaint. She is supposed to take midodrine and Antivert for her symptoms. Patient is coming from a [facility] facility. She denies any abdominal pain. No changes in her bowel or bladder habits. No other alleviating, precipitating or modifying factors - Related Data Home Medications Medication Instructions Recorded Confirmed Albuterol Inhaler [Ventolin Hfa 2 puff INHALATION RT-Q6H PRN 12/22/14 12/31/24 Inhaler] Sertraline [Zoloft] 200 mg PO DAILY 12/22/14 12/31/24 Atorvastatin [Lipitor] 20 mg PO HS 06/20/22 12/31/24 Cholecalciferol [Vitamin D3 (25 25 mcg PO DAILY 09/18/22 12/31/24 Mcg = 1000 Iu)] Anastrozole [Arimidex] 1 mg PO DAILY 09/23/23 12/31/24 sitaGLIPtin [Januvia] 25 mg PO DAILY 09/23/23 12/31/24 Abemaciclib [Verzenio] 150 mg PO BID 10/12/23 12/31/24 Calcium Carbonate [Calcium] 1,200 mg PO DAILY 10/12/23 12/31/24 Potassium Chloride ER [K-Dur 20] 20 meq PO BID 10/12/23 12/31/24 allopurinoL 100 mg PO BID 10/12/23 12/31/24 Acetaminophen Tab [Tylenol] 650 mg PO Q6H PRN 12/10/24 12/31/24 Cranberry 450mg 450 mg PO BID 12/10/24 12/31/24 Loperamide HCl [Imodium A-D] 2 - 4 mg PO QID PRN 12/10/24 12/31/24 Magnesium Hydroxide [Milk of 7,200 mg PO Q72H PRN 12/10/24 12/31/24 Magnesia Concentrate] Magnesium Oxide [Mag-Ox] 400 mg PO DAILY 12/10/24 12/31/24 Ondansetron [Zofran] 4 mg PO DAILY 12/10/24 12/31/24 traZODone HCL [Desyrel] 50 mg PO HS 12/10/24 12/31/24 Previous Rx's Medication Instructions Recorded Aspirin 81 mg PO DAILY tab 12/14/24 Spironolactone [Aldactone] 25 mg PO DAILY tab 12/14/24 Midodrine [ProAmatine] 5 mg PO AC-TID tab 01/02/25 cefuroxime axetiL [Ceftin] 500 mg PO BID 2 Days #4 tab 01/02/25 traMADol HCl [Ultram] 50 mg PO TID PRN #6 tab 01/02/25 Allergies Allergy/AdvReac Type Severity Reaction Status Date / Time Fish Containing Products Allergy Anaphylaxis Verified 12/31/24 09:54 [Fish] iodine Allergy Unknown Verified 12/31/24 09:54 morphine Allergy Unknown Verified 12/31/24 09:54 shrimp Allergy Anaphylaxis Verified 12/31/24 09:54 codeine AdvReac Nausea & Verified 12/31/24 09:54 Vomiting Review of Systems ROS Statement: Those systems with pertinent positive or pertinent negative responses have been documented in the HPI. ROS Other: All systems not noted in ROS Statement are negative. Past Medical History Past Medical History: Asthma, Cancer, Diabetes Mellitus, Musculoskeletal Disorder, Osteoarthritis (OA), Respiratory Disorder, Sleep Apnea/CPAP/BIPAP Additional Past Medical History / Comment(s): L2D3 with 2 herniated disc, arthritis, vitamin D deficiency, breast cancer in History of Any Multi-Drug Resistant Organisms: MRSA Date of last positivie culture/infection: 05/24/16 MDRO Source:: RIGHT LEG Past Surgical History: Section, Cholecystectomy, Hernia Repair Additional Past Surgical History / Comment(s): 3, tubal ligation, hernia repair 2 ,masectomy in 2021. Past Anesthesia/Blood Transfusion Reactions: No Reported Reaction Additional Past Anesthesia/Blood Transfusion Reaction / Comment(s): no blood tranfusions Past Psychological History: Anxiety, Depression Smoking Status: Never smoker Past Alcohol Use History: Occasional Past Drug Use History: Marijuana - Past Family History Mother Family Medical History: Blood Disorder, Cancer, Congestive Heart Failure (CHF), Diabetes Mellitus Additional Family Medical History / Comment(s): breast cancer Father History Unknown: Yes General Exam Limitations: physical limitation General appearance: alert, in no apparent distress Head exam: Present: atraumatic, normocephalic, normal inspection Eye exam: Present: normal appearance, PERRL, EOMI. Absent: scleral icterus, conjunctival injection, periorbital swelling ENT exam: Present: normal exam, mucous membranes moist Neck exam: Present: normal inspection. Absent: tenderness, meningismus, lymphadenopathy Respiratory exam: Present: normal lung sounds bilaterally. Absent: respiratory distress, wheezes, rales, rhonchi, stridor Cardiovascular Exam: Present: normal rhythm, tachycardia, normal heart sounds. Absent: systolic murmur, diastolic murmur, rubs, gallop, clicks GI/Abdominal exam: Present: soft, normal bowel sounds. Absent: distended, tenderness, guarding, rebound, rigid Extremities exam: Present: normal inspection, full ROM, normal capillary refill. Absent: tenderness, pedal edema, joint swelling, calf tenderness Back exam: Present: normal inspection Neurological exam: Present: alert, oriented X3, CN II-XII intact Psychiatric exam: Present: normal affect, normal mood Skin exam: Present: warm, dry, intact, normal color. Absent: rash Course Vital Signs 12/30/24 12/30/24 12/30/24 15:49 18:02 18:04 Temperature 97.5 F L Pulse Rate 118 H Pulse Rate [ 100 Sitting Truck Jumper] Pulse Rate [ 105 H Supine Truck Jumper] Respiratory 16 18 21 Rate Blood Pressure 100/73 Blood Pressure 92/56 [Left Arm Sitting] Blood Pressure 82/57 [Left Arm Supine] O2 Sat by Pulse 99 97 98 Oximetry 12/30/24 12/30/24 12/30/24 18:30 18:50 21:00 Temperature Pulse Rate 93 98 84 Pulse Rate [ Sitting Truck Jumper] Pulse Rate [ Supine Truck Jumper] Respiratory 16 20 12 Rate Blood Pressure 117/83 104/76 98/56 Blood Pressure [Left Arm Sitting] Blood Pressure [Left Arm Supine] O2 Sat by Pulse 97 97 95 Oximetry 12/31/24 12/31/24 12/31/24 00:00 04:00 06:29 Temperature Pulse Rate 90 89 90 Pulse Rate [ Sitting Truck Jumper] Pulse Rate [ Supine Truck Jumper] Respiratory 16 18 12 Rate Blood Pressure 151/74 110/84 103/62 Blood Pressure [Left Arm Sitting] Blood Pressure [Left Arm Supine] O2 Sat by Pulse 93 L 96 96 Oximetry 12/31/24 12/31/24 12/31/24 07:31 10:58 12:00 Temperature 97.6 F 97.5 F L Pulse Rate 90 97 97 Pulse Rate [ Sitting Truck Jumper] Pulse Rate [ Supine Truck Jumper] Respiratory 18 18 18 Rate Blood Pressure 105/62 101/70 86/45 Blood Pressure [Left Arm Sitting] Blood Pressure [Left Arm Supine] O2 Sat by Pulse 94 L 100 98 Oximetry 12/31/24 12/31/24 12/31/24 13:07 16:00 18:23 Temperature 98.1 F 98.1 F Pulse Rate 98 97 102 H Pulse Rate [ Sitting Truck Jumper] Pulse Rate [ Supine Truck Jumper] Respiratory 18 18 18 Rate Blood Pressure 96/58 105/67 93/75 Blood Pressure [Left Arm Sitting] Blood Pressure [Left Arm Supine] O2 Sat by Pulse 97 98 Oximetry 12/31/24 12/31/24 12/31/24 19:52 21:00 23:00 Temperature 98.2 F Pulse Rate 85 89 86 Pulse Rate [ Sitting Truck Jumper] Pulse Rate [ Supine Truck Jumper] Respiratory 16 16 18 Rate Blood Pressure 99/75 90/73 112/74 Blood Pressure [Left Arm Sitting] Blood Pressure [Left Arm Supine] O2 Sat by Pulse 98 98 97 Oximetry Medical Decision Making - Medical Decision Making Was pt. sent in by a medical professional or institution (, PA, JUNIOR BUYER, urgent care, hospital, or residential...) When possible be specific @ -Patient was sent in from the cardiology office Did you speak to anyone other than the patient for history (EMS, parent, family, police, friend...)? What history was obtained from this source @ -Spoke with EMS for history Did you review nursing and triage notes (agree or disagree)? Why? @ -I reviewed and agree with nursing and triage notes Were old charts reviewed (outside hosp., previous admission, EMS record, old EKG, old radiological studies, urgent care reports/EKG's, residential records)? Report findings @ -Reviewed discharge summary from December 14 Differential Diagnosis (chest pain, altered mental status, abdominal pain women, abdominal pain men, vaginal bleeding, weakness, fever, dyspnea, syncope, headache, dizziness, GI bleed, back pain, seizure, CVA, palpatations, mental health, musculoskeletal)? @ -Differential Dizziness: Benign paroxysmal positional Vertigo, Meniere's disease, otitis media, acoustic neuroma, vertebrobasilar insufficiency, cerebellar stroke, encephalitis, hypovolemic, arrhythmia, coronary artery syndrome, anemia, this is not meant to be an all-inclusive list EKG interpreted by me (3pts min.). @ -Yes which demonstrates sinus rhythm with PACs. Rate of 99. QRS 80. QTc of 423. No acute ST segment elevations or depressions X-rays interpreted by me (1pt min.). @ -None done CT interpreted by me (1pt min.). @ -None done U/S interpreted by me (1pt. min.). @ -None done What testing was considered but not performed or refused? (CT, X-rays, U/S, labs)? Why? @ -None What meds were considered but not given or refused? Why? @ -None Did you discuss the management of the patient with other professionals (professionals i.e. , PA, JUNIOR BUYER, lab, RT, psych nurse, psychotherapist social worker, electrical lineworker, teacher, real estate loan officer, vocational case manager)? Give summary @ -Spoke with Jesica from [facility] for admission Was smoking cessation discussed for >3mins.? @ -No Was critical care preformed (if so, how long)? @ -No Were there social determinants of health that impacted care today? How? (H omelessness, low income, unemployed, alcoholism, drug addiction, transportation, low edu. Level, literacy, decrease access to med. care, fpc, rehab)? @ -Patient currently in a nursing facility Was there de-escalation of care discussed even if they declined (Discuss DNR or withdrawal of care, Hospice)? DNR status @ -No What co-morbidities impacted this encounter? (DM, HTN, Smoking, COPD, CAD, Ca ncer, CVA, ARF, Chemo, Hep., AIDS, mental health diagnosis, sleep apnea, morbid obesity)? @ -Diabetes, asthma, sleep apnea Was patient admitted / discharged? Hospital course, mention meds given and r oute, prescriptions, significant lab abnormalities, going to OR and other pertinent info. @ -Upon arrival patient seen and evaluated in room 4. Thorough history and physical exam was performed. Patient's blood pressure mildly low. I did review her medication list and patient did not receive midodrine dose due to doctor's office visit. This was provided to the patient and I also provided with IV fluids. Laboratory studies are conducted. Appears the patient was recently hospitalized for for this same complaint and was prescribed meclizine. Patient does have some orthostasis from laying to sitting. Urine sample does demonstrate UTI. Results are discussed with the patient. I recommended admission for which the patient was agreeable. Spoke with Jesica from [facility] for the admission Undiagnosed new problem with uncertain prognosis? @ -Yes Drug Therapy requiring intensive monitoring for toxicity (Heparin, Nitro, Insulin, Cardizem)? @ -No Were any procedures done? @ -No Diagnosis/symptom? @ -Near-syncope, acute UTI, orthostatic hypotension Acute, or Chronic, or Acute on Chronic? @ -Acute Uncomplicated (without systemic symptoms) or Complicated (systemic symptoms)? @ -Complicated Side effects of treatment? @ -No Exacerbation, Progression, or Severe Exacerbation? @ -No Poses a threat to life or bodily function? How? (Chest pain, [place], [place], pneumonia, PE, COPD, DKA, ARF, appy, cholecystitis, CVA, Diverticulitis, Homicidal, Suicidal, threat to staff... and all critical care pts) @ -No - Lab Data Result diagrams: 01/01/25 07:06 01/04/25 05:54 Lab Results 12/30/24 12/30/24 12/30/24 Range/Units 16:37 16:37 16:37 WBC 10.0 (3.8-10.6) k/uL RBC 4.15 (3.80-5.40) m/uL Hgb 13.2 (11.4-16.0) gm/dL Hct 42.3 (34.0-46.0) % MCV 102.0 H (80.0-100.0) fL MCH 31.8 (25.0-35.0) pg MCHC 31.2 (31.0-37.0) g/dL RDW 15.4 (11.5-15.5) % Plt Count 309 (150-450) k/uL MPV 7.4 Neutrophils % 70 % Lymphocytes % 21 % Monocytes % 5 % Eosinophils % 2 % Basophils % 1 % Neutrophils # 7.0 (1.3-7.7) k/uL Lymphocytes # 2.1 (1.0-4.8) k/uL Monocytes # 0.4 (0-1.0) k/uL Eosinophils # 0.2 (0-0.7) k/uL Basophils # 0.1 (0-0.2) k/uL Macrocytosis Slight PT (10.0-12.5) sec INR (<1.2) Sodium 135 L (137-145) mmol/L Potassium 4.9 (3.5-5.1) mmol/L Chloride 104 (98-107) mmol/L Carbon Dioxide 19 L (22-30) mmol/L Anion Gap 12 mmol/L BUN 20 H (7-17) mg/dL Creatinine 0.99 (0.52-1.04) mg/dL Est GFR (CKD-EPI)AfAm 74 (>60 ml/min/1.73 sqM) Est GFR (CKD-EPI)NonAf 64 (>60 ml/min/1.73 sqM) Glucose 147 H (74-99) mg/dL Plasma Lactic Acid Bal 2.0 (0.7-2.0) mmol/L Calcium 10.3 H (8.4-10.2) mg/dL Total Bilirubin 0.9 (0.2-1.3) mg/dL AST 20 (14-36) U/L ALT 13 (4-34) U/L Alkaline Phosphatase 77 (38-126) U/L Troponin I (0.000-0.034) ng/mL Total Protein 5.9 L (6.3-8.2) g/dL Albumin 3.4 L (3.5-5.0) g/dL Urine Color Urine Appearance (Clear) Urine pH (5.0-8.0) Ur Specific [place] (1.001-1.035) Urine Protein (Negative) Urine Glucose (UA) (Negative) Urine Ketones (Negative) Urine Blood (Negative) Urine Nitrite (Negative) Urine Bilirubin (Negative) Urine Urobilinogen (<2.0) mg/dL Ur Leukocyte Esterase (Negative) Urine RBC (0-5) /hpf Urine WBC (0-5) /hpf Urine Bacteria (None) /hpf Urine Mucus (None) /hpf 12/30/24 12/30/24 12/30/24 Range/Units 16:37 16:37 18:37 WBC (3.8-10.6) k/uL RBC (3.80-5.40) m/uL Hgb (11.4-16.0) gm/dL Hct (34.0-46.0) % MCV (80.0-100.0) fL MCH (25.0-35.0) pg MCHC (31.0-37.0) g/dL RDW (11.5-15.5) % Plt Count (150-450) k/uL MPV Neutrophils % % Lymphocytes % % Monocytes % % Eosinophils % % Basophils % % Neutrophils # (1.3-7.7) k/uL Lymphocytes # (1.0-4.8) k/uL Monocytes # (0-1.0) k/uL Eosinophils # (0-0.7) k/uL Basophils # (0-0.2) k/uL Macrocytosis PT 10.8 (10.0-12.5) sec INR 1.0 (<1.2) Sodium (137-145) mmol/L Potassium (3.5-5.1) mmol/L Chloride (98-107) mmol/L Carbon Dioxide (22-30) mmol/L Anion Gap mmol/L BUN (7-17) mg/dL Creatinine (0.52-1.04) mg/dL Est GFR (CKD-EPI)AfAm (>60 ml/min/1.73 sqM) Est GFR (CKD-EPI)NonAf (>60 ml/min/1.73 sqM) Glucose (74-99) mg/dL Plasma Lactic Acid Bal (0.7-2.0) mmol/L Calcium (8.4-10.2) mg/dL Total Bilirubin (0.2-1.3) mg/dL AST (14-36) U/L ALT (4-34) U/L Alkaline Phosphatase (38-126) U/L Troponin I 0.044 H* (0.000-0.034) ng/mL Total Protein (6.3-8.2) g/dL Albumin (3.5-5.0) g/dL Urine Color Light Red Urine Appearance Turbid H (Clear) Urine pH 8.0 (5.0-8.0) Ur Specific [place] 1.017 (1.001-1.035) Urine Protein 3+ H (Negative) Urine Glucose (UA) Negative (Negative) Urine Ketones Negative (Negative) Urine Blood Small H (Negative) Urine Nitrite Negative (Negative) Urine Bilirubin Negative (Negative) Urine Urobilinogen <2.0 (<2.0) mg/dL Ur Leukocyte Esterase Large H (Negative) Urine RBC 63 H (0-5) /hpf Urine WBC >182 H (0-5) /hpf Urine Bacteria Moderate H (None) /hpf Urine Mucus Many H (None) /hpf Disposition Clinical Impression: Pre-syncope, UTI (urinary tract infection), Hypotension Disposition: ADMITTED IP TO THIS [facility] Condition: Stable Is patient prescribed a controlled substance at d/c from ED?: No Time of Disposition: 21:17 Decision to Admit Reason: Admit from EC Decision Date: 12/30/24 Decision Time: 21:17
[2024-12-30] MEDS ORDERED: NALOXONE 0.4 MG/ML 1 ML VIAL IV PRN (21:20)
[2024-12-30] MEDS ORDERED: ONDANSETRON 4 MG/2 ML VIAL IVP PRN (21:20)
[2024-12-30] MEDS ORDERED: ALBUTEROL NEBULIZED 2.5 MG/3 ML INHALATION PRN (21:22)
[2024-12-30] MEDS ORDERED: MECLIZINE 25 MG TAB PO PRN (21:22)
[2024-12-30] MEDS: cefTRIAXone IN SWFI 1,000 MG/10 ML SYRINGE IVP STA (22:30)
[2024-12-30] MEDS: traZODone HCL 50 MG TAB PO SCH (22:31)
[2024-12-30] MEDS: allopurinoL 100 MG TAB PO SCH (22:31)
[2024-12-30] MEDS: ATORVASTATIN 20 MG TAB PO SCH (22:31)
[2024-12-30] MEDS: SODIUM CHLORIDE 0.9% 1,000 ML IV SCH (22:31)
[2024-12-30] MEDS: NON FORMULARY DRUG (Cranberry 450mg 450 MG) PO SCH (22:54)
[2024-12-31 07:05] LABS: Basophils # (A) 0.1 k/uL (0-0.2); Basophils % (A) 1 %; Eosinophils # (A) 0.2 k/uL (0-0.7); Eosinophils % (A) 2 %; HCT 39.7 % (34.0-46.0); HGB 12.4 gm/dL (11.4-16.0); Lymphocytes # (A) 2.4 k/uL (1.0-4.8); Lymphocytes % (A) 23 %; MCH 32.2 pg (25.0-35.0); MCHC 31.2 g/dL (31.0-37.0); MCV 103.2 fL (80.0-100.0); Macrocytosis Slight; Monocytes # (A) 0.6 k/uL (0-1.0); Monocytes % (A) 5 %; Neutrophils # (A) 6.9 k/uL (1.3-7.7); Neutrophils % (A) 67 %; Platelet Count 317 k/uL (150-450); RBC 3.85 m/uL (3.80-5.40); RDW 15.4 % (11.5-15.5); WBC 10.4 k/uL (3.8-10.6)
[2024-12-31 07:25] LABS: African American GFR (CKD) 73 (>60 ml/min/1.73 sqM); Anion Gap 6 mmol/L; Blood Urea Nitrogen 21 mg/dL (7-17); Calcium 10.1 mg/dL (8.4-10.2); Carbon Dioxide 27 mmol/L (22-30); Chloride 104 mmol/L (98-107); Glucose 101 mg/dL (74-99); Non-African American GFR(CKD) 64 (>60 ml/min/1.73 sqM); Potassium 4.7 mmol/L (3.5-5.1); Sodium 137 mmol/L (137-145)
[2024-12-31] MEDS: CHOLECALCIFEROL 25 MCG (1000 IU) TABLET PO SCH (08:33)
[2024-12-31] MEDS: SERTRALINE 100 MG TAB PO SCH (08:33)
[2024-12-31] MEDS: CALCIUM CARBONATE 500 MG CHEWABLE PO SCH (08:33)
[2024-12-31] MEDS: SPIRONOLACTONE 25 MG TAB PO SCH (08:33)
[2024-12-31] MEDS: ASPIRIN 81 MG PO SCH (08:33)
[2024-12-31] MEDS: LINAGLIPTIN 5 MG TABLET PO SCH (08:34)
[2024-12-31] MEDS: ANASTROZOLE 1 MG TAB PO SCH (08:34)
[2024-12-31] MEDS: MIDODRINE 5 MG TAB PO SCH (08:38)
[2024-12-31] MEDS: ABEMACICLIB 150 MG PO SCH (08:40)
--- NOTE | 2024-12-31 13:48 | P.HPIM ---
History of Present Illness H&P Date: 12/31/24 History of present illness; patient is a 54-year-old lady with past medical history significant for hyperlipidemia, diabetes mellitus who presented the ER for a near syncopal episode. Patient stated that she was at her cardiology appointment for her follow-up. Patient was recently admitted in the hospital at which time she was evaluated by cardiology for elevated troponins, no ischemic workup was at that time. Patient stated that while waiting for her appointment at the cardiology office she felt dizzy and fell like she is in a pass out, she was in a wheelchair and lowered herself to the ground. Patient did not lose consciousness. Patient any chest pain. There is no complaint of orthopnea or PND. There is no complaint of swelling of feet. Patient denies any fever or chills. There is no complaint of nausea vomiting or abdominal pain. Because of this passing out feeling she was brought to the ER Initial lab work done in the ER showed WBC 10, hemoglobin 13.2, platelet count 309, sodium 135, potassium 4.9, carbon is a 19, anion gap 12, BUN 20, creatinine 0.99, troponin 0.044 UA done showed large amount of leukocyte Estrace, large amount of urine WBC EKG done in the ER showed heart rate of 99, no ST segment elevation or depression seen, no T-wave inversions seen. Patient admitted to internal medicine service REVIEW OF SYSTEMS: CONSTITUTIONAL: No fever, no malaise, no fatigue. HEENT: No recent visual problems or hearing problems. Denied any sore throat. CARDIOVASCULAR: As mentioned above PULMONARY: As mentioned above GASTROINTESTINAL: No diarrhea, no nausea, no vomiting, no abdominal pain. NEUROLOGICAL: No headaches, no weakness, no numbness. HEMATOLOGICAL: Denies any bleeding or petechiae. GENITOURINARY: Complaining of burning micturition. Complaining of foul-smelling urine MUSCULOSKELETAL/RHEUMATOLOGICAL: Denies any joint pain, swelling, or any muscle pain. ENDOCRINE: Denies any polyuria or polydipsia. The rest of the 14-point review of systems is negative. PHYSICAL EXAMINATION: GENERAL: The patient is alert and oriented x3, not in any acute distress. Well developed, well nourished. HEENT: Pupils are round and equally reacting to light. EOMI. No scleral icterus. No conjunctival pallor. Normocephalic, atraumatic. No pharyngeal erythema. No thyromegaly. CARDIOVASCULAR: S1 and S2 present. No murmurs, rubs, or gallops. PULMONARY: Chest is clear to auscultation, no wheezing or crackles. ABDOMEN: Soft, nontender, nondistended, normoactive bowel sounds. No palpable organomegaly. MUSCULOSKELETAL: No joint swelling or deformity. EXTREMITIES: No cyanosis, clubbing, or pedal edema. NEUROLOGICAL: Gross neurological examination did not reveal any focal deficits. SKIN: No rashes. Assessment and plan Near syncope UTI Sleep apnea History of breast cancer with mastectomy Monitor vital signs Monitor CBC Monitor CMP Continue telemetry monitoring Ordered blood cultures ordered urine culture Trend troponin. Fall precaution Check orthostatics Continue IV fluids Start IV Rocephin Resume home med Consult cardiology Labs and medication were reviewed.. Continue same treatment. Continue with symptomatic treatment. Resume home medication. Monitor labs and vitals. DVT and GI prophylaxis. Further recommendations as per clinical course of the patient Dictation was produced using [employer] dictation software. please excuse any gramma tical, word or spelling errors. Past Medical History Past Medical History: Asthma, Cancer, Diabetes Mellitus, Musculoskeletal Disorder, Osteoarthritis (OA), Respiratory Disorder, Sleep Apnea/CPAP/BIPAP Additional Past Medical History / Comment(s): L2D3 with 2 herniated disc, arthritis, vitamin D deficiency, breast cancer in History of Any Multi-Drug Resistant Organisms: MRSA Date of last positivie culture/infection: 05/24/16 MDRO Source:: RIGHT LEG Past Surgical History: Section, Cholecystectomy, Hernia Repair Additional Past Surgical History / Comment(s): 3, tubal ligation, hernia repair 2 ,masectomy in 2021. Past Anesthesia/Blood Transfusion Reactions: No Reported Reaction Additional Past Anesthesia/Blood Transfusion Reaction / Comment(s): no blood tranfusions Past Psychological History: Anxiety, Depression Smoking Status: Never smoker Past Alcohol Use History: Occasional Past Drug Use History: Marijuana - Past Family History Mother Family Medical History: Blood Disorder, Cancer, Congestive Heart Failure (CHF), Diabetes Mellitus Additional Family Medical History / Comment(s): breast cancer Father History Unknown: Yes Medications and Allergies Home Medications Medication Instructions Recorded Confirmed Type Albuterol Inhaler [Ventolin Hfa 2 puff INHALATION RT-Q6H PRN 12/22/14 12/31/24 History Inhaler] Sertraline [Zoloft] 200 mg PO DAILY 12/22/14 12/31/24 History Atorvastatin [Lipitor] 20 mg PO HS 06/20/22 12/31/24 History Cholecalciferol [Vitamin D3 (25 25 mcg PO DAILY 09/18/22 12/31/24 History Mcg = 1000 Iu)] Anastrozole [Arimidex] 1 mg PO DAILY 09/23/23 12/31/24 History sitaGLIPtin [Januvia] 25 mg PO DAILY 09/23/23 12/31/24 History Abemaciclib [Verzenio] 150 mg PO BID 10/12/23 12/31/24 History Calcium Carbonate [Calcium] 1,200 mg PO DAILY 10/12/23 12/31/24 History Potassium Chloride ER [K-Dur 20] 20 meq PO BID 10/12/23 12/31/24 History allopurinoL 100 mg PO BID 10/12/23 12/31/24 History Acetaminophen Tab [Tylenol] 650 mg PO Q6H PRN 12/10/24 12/31/24 History Cranberry 450mg 450 mg PO BID 12/10/24 12/31/24 History Loperamide HCl [Imodium A-D] 2 - 4 mg PO QID PRN 12/10/24 12/31/24 History Magnesium Hydroxide [Milk of 7,200 mg PO Q72H PRN 12/10/24 12/31/24 History Magnesia Concentrate] Magnesium Oxide [Mag-Ox] 400 mg PO DAILY 12/10/24 12/31/24 History Ondansetron [Zofran] 4 mg PO DAILY 12/10/24 12/31/24 History traZODone HCL [Desyrel] 50 mg PO HS 12/10/24 12/31/24 History Aspirin 81 mg PO DAILY tab 12/14/24 12/31/24 Rx Spironolactone [Aldactone] 25 mg PO DAILY tab 12/14/24 12/31/24 Rx Midodrine HCl [ProAmantine] 2.5 mg PO TID 12/31/24 12/31/24 History Allergies Allergy/AdvReac Type Severity Reaction Status Date / Time Fish Containing Products Allergy Anaphylaxis Verified 12/31/24 09:54 [Fish] iodine Allergy Unknown Verified 12/31/24 09:54 morphine Allergy Unknown Verified 12/31/24 09:54 shrimp Allergy Anaphylaxis Verified 12/31/24 09:54 codeine AdvReac Nausea & Verified 12/31/24 09:54 Vomiting Physical Exam Vitals: Vital Signs Temp Pulse Pulse Pulse Resp BP BP 12/31/24 07:31 90 18 105/62 12/31/24 06:29 90 12 103/62 12/31/24 04:00 89 18 110/84 12/31/24 00:00 90 16 151/74 12/30/24 21:00 84 12 98/56 12/30/24 18:50 98 20 104/76 12/30/24 18:30 93 16 117/83 12/30/24 18:04 100 21 92/56 12/30/24 18:02 105 H 18 12/30/24 15:49 97.5 F L 118 H 16 100/73 BP Pulse Ox 12/31/24 07:31 94 L 12/31/24 06:29 96 12/31/24 04:00 96 12/31/24 00:00 93 L 12/30/24 21:00 95 12/30/24 18:50 97 12/30/24 18:30 97 12/30/24 18:04 98 12/30/24 18:02 82/57 97 12/30/24 15:49 99 Intake and Output 12/30/24 12/31/24 12/31/24 22:59 06:59 14:59 Other: Weight 149.685 kg Results CBC & Chem 7: 12/31/24 06:37 12/31/24 06:37 Labs: Abnormal Lab Results - Last 24 Hours (Table) 12/30/24 12/30/24 12/30/24 Range/Units 16:37 16:37 16:37 MCV 102.0 H (80.0-100.0) fL Sodium 135 L (137-145) mmol/L Carbon Dioxide 19 L (22-30) mmol/L BUN 20 H (7-17) mg/dL Glucose 147 H (74-99) mg/dL Calcium 10.3 H (8.4-10.2) mg/dL Troponin I 0.044 H* (0.000-0.034) ng/mL Total Protein 5.9 L (6.3-8.2) g/dL Albumin 3.4 L (3.5-5.0) g/dL Urine Appearance (Clear) Urine Protein (Negative) Urine Blood (Negative) Ur Leukocyte Esterase (Negative) Urine RBC (0-5) /hpf Urine WBC (0-5) /hpf Urine Bacteria (None) /hpf Urine Mucus (None) /hpf 12/30/24 12/31/24 12/31/24 Range/Units 18:37 06:37 06:37 MCV 103.2 H (80.0-100.0) fL Sodium (137-145) mmol/L Carbon Dioxide (22-30) mmol/L BUN 21 H (7-17) mg/dL Glucose 101 H (74-99) mg/dL Calcium (8.4-10.2) mg/dL Troponin I (0.000-0.034) ng/mL Total Protein (6.3-8.2) g/dL Albumin (3.5-5.0) g/dL Urine Appearance Turbid H (Clear) Urine Protein 3+ H (Negative) Urine Blood Small H (Negative) Ur Leukocyte Esterase Large H (Negative) Urine RBC 63 H (0-5) /hpf Urine WBC >182 H (0-5) /hpf Urine Bacteria Moderate H (None) /hpf Urine Mucus Many H (None) /hpf
[2025-01-01 07:43] LABS: Basophils # (A) 0.1 k/uL (0-0.2); Basophils % (A) 1 %; Eosinophils # (A) 0.2 k/uL (0-0.7); Eosinophils % (A) 3 %; HCT 36.6 % (34.0-46.0); HGB 11.7 gm/dL (11.4-16.0); Lymphocytes # (A) 2.1 k/uL (1.0-4.8); Lymphocytes % (A) 26 %; MCH 32.6 pg (25.0-35.0); MCV 101.9 fL (80.0-100.0); Macrocytosis Slight; Mean Platelet Volume 7.7; Monocytes # (A) 0.4 k/uL (0-1.0); Monocytes % (A) 5 %; Neutrophils # (A) 5.1 k/uL (1.3-7.7); Neutrophils % (A) 64 %; Platelet Count 289 k/uL (150-450); RBC 3.59 m/uL (3.80-5.40)
[2025-01-01 07:51] LABS: ALT 11 U/L (4-34); AST 18 U/L (14-36); African American GFR (CKD) 90 (>60 ml/min/1.73 sqM); Albumin 2.6 g/dL (3.5-5.0); Alkaline Phosphatase 68 U/L (38-126); Anion Gap 4 mmol/L; Blood Urea Nitrogen 17 mg/dL (7-17); Calcium 9.4 mg/dL (8.4-10.2); Carbon Dioxide 24 mmol/L (22-30); Chloride 106 mmol/L (98-107); Glucose 88 mg/dL (74-99); Non-African American GFR(CKD) 78 (>60 ml/min/1.73 sqM); Potassium 3.9 mmol/L (3.5-5.1); Sodium 134 mmol/L (137-145); Total Bilirubin 0.5 mg/dL (0.2-1.3); Total Protein 5.1 g/dL (6.3-8.2)
[2025-01-01] MEDS: MIDODRINE 5 MG TAB PO SCH (08:52)
[2025-01-01] MEDS: ACETAMINOPHEN TAB 325 MG TAB PO PRN (08:53)
[2025-01-01] MEDS: traMADol 50 MG TAB PO PRN (11:59)
--- NOTE | 2025-01-01 13:00 | P.CRDCN ---
History of Present Illness Consult date: 01/01/25 Reason for Consult (text): Syncope History of present illness: This is a 54-year-old female with past medical history of breast cancer with mas tectomy in 2021, obstructive sleep apnea, hyperlipidemia, hypotension on midodrine, diabetes, obstructive sleep apnea not using CPAP, and morbid obesity. Patient does not follow with a size stamper but was seen by Dr. Thacker in November and had a follow-up appointment scheduled for yesterday but she states that she sat in the waiting room in her wheelchair for "too long" and she feeling weak and lightheaded. She also had episode of vomiting. She moved herself to the floor in the waiting room. No abdominal pain. We have been asked to evaluate the patient for syncope. In November, patient was here for episodes of syncope along with dizziness and lightheadedness that had apparently been going on for some time. Patient currently resides at a long-term. She has been on midodrine for long period of time for hypotension. During her hospitalization in November, serum and urine electrophoresis, free kappa light chain and free lambda light chain were obtained and patient was to follow-up for results and possibly undergo PYP scan. Aldactone was also added to her medication regime during that hospitalization. Blood pressure 99/67, heart rate 88, pulse ox 98% on 3 L nasal cannula -EKG: Atrial fibrillation at 99 bpm -Laboratory studies: WBC 8, hemoglobin 11.7, sodium 134, potassium 4.9, creatinine 0.84. Troponin 0.044 and 0.072. -Home cardiac medications: Aspirin 81 mg daily, atorvastatin 20 mg at bedtime, magnesium oxide 400 mg daily, midodrine 2.5 mg 3 times daily, potassium chloride 20 mEq twice daily, Januvia 25 mg daily, Aldactone 25 mg daily. -Echocardiogram performed 12/11/2024: Revealed EF of 60 to 65%, hyperdynamic LV, severe LV hypertrophy. Diastolic dysfunction. Small pericardial effusion. Consider performing strain to rule out amyloid. Review Of Systems: At the time of my exam: CONSTITUTIONAL: Denies fever or chills. HEENT: Denies blurred vision, vision changes, or eye pain. Denies hemoptysis CARDIOVASCULAR: Denies chest pain. Denies orthopnea. Denies PND. Denies palpitations RESPIRATORY: Denies shortness of breath. GASTROINTESTINAL: Denies abdominal pain. Denies nausea or vomiting. HEMATOLOGIC: Denies bleeding disorders. GENITOURINARY: Denies any blood in urine. SKIN: Denies puritis. Denies rash. Physical examination: Gen: This is a 54-year-old morbidly obese female in no acute respiratory distress VS: reviewed HEENT: Head is atraumatic, normocephalic. Pupils equal, round. Sclerae is anicteric. NECK: Supple. No JVD. LUNGS: Clear to auscultation. No wheezes or rhonchi. No intercostal retractions. HEART: Regular rate and rhythm. No murmur. ABDOMEN: Soft No tenderness. EXTREMITIES: No pedal edema. No calf tenderness. NEUROLOGICAL: Patient is awake, alert and oriented x3. Assessment: Longstanding history of lightheadedness, dizziness and syncopal episodes Syncopal episode and [employer] Super[employer] office possibly related to vasovagal episode History of hypotension on midodrine History of breast cancer with mastectomy, 2021, on treatment with Verzenio Obstructive sleep apnea with CPAP use, patient states not using Hyperlipidemia Diabetes Morbid obesity BMI 53 Severe LV hypertrophy with possible amyloidosis Plan: Resume patient's home cardiac medications Increase midodrine to 5 mg 3 times daily Obtain 2-D echocardiogram and Doppler study to assess cardiac structure and function Obtain CTA chest to rule out PE Ordered premedication for iodine allergy Further recommendations to follow based upon clinical course Thank you kindly for this consultation. Nurse practitioner note has been reviewed, I agree with documented findings and plan of care. Patient was seen and examined. Past Medical History Past Medical History: Asthma, Cancer, Diabetes Mellitus, Musculoskeletal D isorder, Osteoarthritis (OA), Respiratory Disorder, Sleep Apnea/CPAP/BIPAP Additional Past Medical History / Comment(s): L2D3 with 2 herniated disc, arthritis, vitamin D deficiency, breast cancer in History of Any Multi-Drug Resistant Organisms: MRSA Date of last positivie culture/infection: 05/24/16 MDRO Source:: RIGHT LEG Past Surgical History: Section, Cholecystectomy, Hernia Repair Additional Past Surgical History / Comment(s): 3, tubal ligation, hernia repair 2 ,masectomy in 2021. Past Anesthesia/Blood Transfusion Reactions: No Reported Reaction Additional Past Anesthesia/Blood Transfusion Reaction / Comment(s): no blood tranfusions Past Psychological History: Anxiety, Depression Smoking Status: Never smoker Past Alcohol Use History: Occasional Past Drug Use History: Marijuana - Past Family History Mother Family Medical History: Blood Disorder, Cancer, Congestive Heart Failure (CHF), Diabetes Mellitus Additional Family Medical History / Comment(s): breast cancer Father History Unknown: Yes Medications and Allergies Home Medications Medication Instructions Recorded Confirmed Type Albuterol Inhaler [Ventolin Hfa 2 puff INHALATION RT-Q6H PRN 12/22/14 12/31/24 History Inhaler] Sertraline [Zoloft] 200 mg PO DAILY 12/22/14 12/31/24 History Atorvastatin [Lipitor] 20 mg PO HS 06/20/22 12/31/24 History Cholecalciferol [Vitamin D3 (25 25 mcg PO DAILY 09/18/22 12/31/24 History Mcg = 1000 Iu)] Anastrozole [Arimidex] 1 mg PO DAILY 09/23/23 12/31/24 History sitaGLIPtin [Januvia] 25 mg PO DAILY 09/23/23 12/31/24 History Abemaciclib [Verzenio] 150 mg PO BID 10/12/23 12/31/24 History Calcium Carbonate [Calcium] 1,200 mg PO DAILY 10/12/23 12/31/24 History Potassium Chloride ER [K-Dur 20] 20 meq PO BID 10/12/23 12/31/24 History allopurinoL 100 mg PO BID 10/12/23 12/31/24 History Acetaminophen Tab [Tylenol] 650 mg PO Q6H PRN 12/10/24 12/31/24 History Cranberry 450mg 450 mg PO BID 12/10/24 12/31/24 History Loperamide HCl [Imodium A-D] 2 - 4 mg PO QID PRN 12/10/24 12/31/24 History Magnesium Hydroxide [Milk of 7,200 mg PO Q72H PRN 12/10/24 12/31/24 History Magnesia Concentrate] Magnesium Oxide [Mag-Ox] 400 mg PO DAILY 12/10/24 12/31/24 History Ondansetron [Zofran] 4 mg PO DAILY 12/10/24 12/31/24 History traZODone HCL [Desyrel] 50 mg PO HS 12/10/24 12/31/24 History Aspirin 81 mg PO DAILY tab 12/14/24 12/31/24 Rx Spironolactone [Aldactone] 25 mg PO DAILY tab 12/14/24 12/31/24 Rx Midodrine HCl [ProAmantine] 2.5 mg PO TID 12/31/24 12/31/24 History Allergies Allergy/AdvReac Type Severity Reaction Status Date / Time Fish Containing Products Allergy Anaphylaxis Verified 12/31/24 09:54 [Fish] iodine Allergy Unknown Verified 12/31/24 09:54 morphine Allergy Unknown Verified 12/31/24 09:54 shrimp Allergy Anaphylaxis Verified 12/31/24 09:54 codeine AdvReac Nausea & Verified 12/31/24 09:54 Vomiting Physical Exam Vitals: Vital Signs Temp Pulse Pulse Resp BP BP Pulse Ox 01/01/25 03:28 55 L 16 97/55 97 01/01/25 00:00 98.1 F 88 16 90/61 98 12/31/24 23:00 86 18 112/74 97 12/31/24 21:00 89 16 90/73 98 12/31/24 19:52 98.2 F 85 16 99/75 98 12/31/24 18:23 98.1 F 102 H 18 93/75 12/31/24 16:00 98.1 F 97 18 105/67 98 12/31/24 13:07 98 18 96/58 97 12/31/24 12:00 97.5 F L 97 18 86/45 98 12/31/24 10:58 97.6 F 97 18 101/70 100 Intake and Output 12/31/24 01/01/25 01/01/25 22:59 06:59 14:59 Intake Total 540 Balance 540 Intake: Oral 540 Other: Voiding Method External Catheter Weight 330 kg Results 01/01/25 07:06 01/01/25 07:06 Cardiac Enzymes 01/01/25 Range/Units 07:06 AST 18 (14-36) U/L CBC 01/01/25 Range/Units 07:06 WBC 8.0 (3.8-10.6) k/uL RBC 3.59 L (3.80-5.40) m/uL Hgb 11.7 (11.4-16.0) gm/dL Hct 36.6 (34.0-46.0) % Plt Count 289 (150-450) k/uL Comprehensive Metabolic Panel 01/01/25 Range/Units 07:06 Sodium 134 L (137-145) mmol/L Potassium 3.9 (3.5-5.1) mmol/L Chloride 106 (98-107) mmol/L Carbon Dioxide 24 (22-30) mmol/L BUN 17 (7-17) mg/dL Creatinine 0.84 (0.52-1.04) mg/dL Glucose 88 (74-99) mg/dL Calcium 9.4 (8.4-10.2) mg/dL AST 18 (14-36) U/L ALT 11 (4-34) U/L Alkaline Phosphatase 68 (38-126) U/L Total Protein 5.1 L (6.3-8.2) g/dL Albumin 2.6 L (3.5-5.0) g/dL Current Medications Generic Name Dose Route Start Last Admin Trade Name Freq PRN Reason Stop Dose Admin Acetaminophen 650 mg 12/30/24 21:20 Acetaminophen Tab 325 Mg Tab PO Q6HR PRN Mild Pain or Fever > 100.5 Albuterol Sulfate 2.5 mg 12/30/24 21:22 Albuterol Nebulized 2.5 Mg/3 Ml INHALATION RT-Q6H PRN Shortness Of Breath Allopurinol 100 mg 12/30/24 21:30 12/31/24 22:31 Allopurinol 100 Mg Tab PO 100 mg BID ESTER Administration Anastrozole 1 mg 12/31/24 09:00 12/31/24 08:34 Anastrozole 1 Mg Tab PO 1 mg DAILY ESTER Administration Aspirin 81 mg 12/31/24 09:00 12/31/24 08:33 Aspirin 81 Mg PO 81 mg DAILY ESTER Administration Atorvastatin Calcium 20 mg 12/30/24 21:30 12/30/24 22:31 Atorvastatin 20 Mg Tab PO 20 mg HS ESTER Administration Bisacodyl 10 mg 12/30/24 21:22 Bisacodyl 10 Mg Supp RECTAL DAILY PRN Constipation Calcium Carbonate/Glycine 1,000 mg 12/31/24 09:00 12/31/24 08:33 Calcium Carbonate 500 Mg Chewable PO 1,000 mg DAILY ESTER Administration Cholecalciferol 25 mcg 12/31/24 09:00 12/31/24 08:33 Cholecalciferol 25 Mcg (1000 Iu) Tablet PO 25 mcg DAILY ESTER Administration Sodium Chloride 1,000 mls @ 130 mls/hr 12/30/24 21:30 01/01/25 05:49 Saline 0.9% IV 130 mls/hr .Q7H42M ESTER Administration Ceftriaxone Sodium 1 gm/ 50 mls @ 100 mls/hr 12/31/24 10:00 12/31/24 11:01 Sodium Chloride IVPB 100 mls/hr Q24HR ESTER Administration Protocol Linagliptin 5 mg 12/31/24 09:00 12/31/24 08:34 Linagliptin 5 Mg Tablet PO 5 mg DAILY ESTER Administration Meclizine HCl 25 mg 12/30/24 21:22 Meclizine 25 Mg Tab PO TID PRN Vertigo Midodrine 2.5 mg 12/31/24 07:30 01/01/25 05:49 Midodrine 5 Mg Tab PO 2.5 mg AC-TID ESTER Administration Naloxone HCl 0.2 mg 12/30/24 21:20 Naloxone 0.4 Mg/Ml 1 Ml Vial IV Q2M PRN Opioid Reversal Non-Formulary Medication 150 mg 12/31/24 09:00 12/31/24 21:01 Abemaciclib [Verzenio] PO Not Given BID ESTER Ondansetron HCl 4 mg 12/30/24 21:20 Ondansetron 4 Mg/2 Ml Vial IVP Q8HR PRN Nausea And Vomiting Sertraline HCl 200 mg 12/31/24 09:00 12/31/24 08:33 Sertraline 100 Mg Tab PO 200 mg DAILY ESTER Administration Spironolactone 25 mg 12/31/24 09:00 12/31/24 08:33 Spironolactone 25 Mg Tab PO 25 mg DAILY ESTER Administration Trazodone HCl 50 mg 12/30/24 22:00 12/31/24 22:31 Trazodone Hcl 50 Mg Tab PO 50 mg HS ESTER Administration Intake and Output 12/31/24 01/01/25 01/01/25 22:59 06:59 14:59 Intake Total 540 Balance 540 Intake: Oral 540 Other: Voiding Method External Catheter Weight 330 kg 01/01/25 07:06 01/01/25 07:06
--- NOTE | 2025-01-01 13:30 | P.PN ---
Subjective Progress Note Date: 01/01/25 patient is a 54-year-old lady with past medical history significant for hyperlipidemia, diabetes mellitus who presented the ER for a near syncopal episode. Patient stated that she was at her cardiology appointment for her follow-up. Patient was recently admitted in the hospital at which time she was evaluated by cardiology for elevated troponins, no ischemic workup was at that time. Patient stated that while waiting for her appointment at the cardiology office she felt dizzy and fell like she is in a pass out, she was in a wheelchair and lowered herself to the ground. Patient did not lose consci ousness. Patient any chest pain. There is no complaint of orthopnea or PND. There is no complaint of swelling of feet. Patient denies any fever or chills. There is no complaint of nausea vomiting or abdominal pain. Because of this passing out feeling she was brought to the ER Initial lab work done in the ER showed WBC 10, hemoglobin 13.2, platelet count 309, sodium 135, potassium 4.9, carbon is a 19, anion gap 12, BUN 20, creatinine 0.99, troponin 0.044 UA done showed large amount of leukocyte Estrace, large amount of urine WBC EKG done in the ER showed heart rate of 99, no ST segment elevation or depression seen, no T-wave inversions seen. Patient admitted to internal medicine service 01/01. Patient seen and examined.Vital signs this morning temperature 97.5, heart rate 88, respirations 16, blood pressure 98/67. Blood work done showed WBC 8, hemoglobin 9.7, platelet count 218, sodium 134, potassium 3.9, BUN 17, creatinine 0.84. Denies any dizziness. Denies any nausea or vomiting. Vital signs stable REVIEW OF SYSTEMS: CONSTITUTIONAL: No fever, no malaise,. CARDIOVASCULAR: No chest pain, no palpitations, no syncope. PULMONARY: No shortness of breath, no cough, GASTROINTESTINAL: No diarrhea, no nausea, no vomiting, no abdominal pain. NEUROLOGICAL: No headaches, no weakness, PHYSICAL EXAMINATION: GENERAL: The patient is alert and oriented x3, not in any acute distress. Well developed, well nourished. HEENT: Pupils are round and equally reacting to light. EOMI. No scleral icterus. No conjunctival pallor. Normocephalic, atraumatic. No pharyngeal erythema. No thyromegaly. CARDIOVASCULAR: S1 and S2 present. No murmurs, rubs, or gallops. PULMONARY: Chest is clear to auscultation, no wheezing or crackles. ABDOMEN: Soft, nontender, nondistended, normoactive bowel sounds. No palpable organomegaly. MUSCULOSKELETAL: No joint swelling or deformity. EXTREMITIES: No cyanosis, clubbing, or pedal edema. NEUROLOGICAL: Gross neurological examination did not reveal any focal deficits. SKIN: No rashes. Assessment and plan Near syncope UTI Sleep apnea History of breast cancer with mastectomy Obstructive sleep apnea with CPAP use Hyperlipidemia History of hypotension on midodrine Diabetes Morbid obesity: BMI 53.3 Severe LV hypertrophy with possibility of amyloidosis Monitor vital signs Monitor CBC Monitor CMP Continue telemetry monitoring Follow-up on urine cultures Check orthostatics continue IV fluids Continue aspirin, Lipitor 2D echo pending Continue IV Rocephin Cardiology consulted Labs and medication were reviewed.. Continue same treatment. Continue with symptomatic treatment. Resume home medication. Monitor labs and vitals. DVT and GI prophylaxis. Further recommendations as per clinical course of the patient Dictation was produced using [employer] dictation software. please excuse any grammatical, word or spelling errors. Objective - Vital Signs Vital signs: Vital Signs Temp 97.5 F L 01/01/25 08:36 Pulse 88 01/01/25 08:37 Resp 16 01/01/25 08:36 BP 99/67 01/01/25 08:36 Pulse Ox 98 01/01/25 08:36 FiO2 Intake & Output 12/31/24 01/01/25 01/01/25 18:59 06:59 18:59 Intake Total 540 Balance 540 Weight 149.685 kg 330 kg Intake: Oral 540 Other: Voiding Method External Catheter External Catheter - Labs CBC & Chem 7: 01/01/25 07:06 01/01/25 07:06 Labs: Abnormal Lab Results - Last 24 Hours (Table) 01/01/25 01/01/25 01/01/25 Range/Units 07:06 07:06 08:32 RBC 3.59 L (3.80-5.40) m/uL MCV 101.9 H (80.0-100.0) fL RDW 16.0 H (11.5-15.5) % D-Dimer 0.82 H (<0.60) mg/L FEU Sodium 134 L (137-145) mmol/L Troponin I (0.000-0.034) ng/mL Total Protein 5.1 L (6.3-8.2) g/dL Albumin 2.6 L (3.5-5.0) g/dL 01/01/25 Range/Units 08:32 RBC (3.80-5.40) m/uL MCV (80.0-100.0) fL RDW (11.5-15.5) % D-Dimer (<0.60) mg/L FEU Sodium (137-145) mmol/L Troponin I 0.072 H* (0.000-0.034) ng/mL Total Protein (6.3-8.2) g/dL Albumin (3.5-5.0) g/dL
[2025-01-01] MEDS: methylPREDNISolone SOD SUCCI 125 MG/2 ML VIAL IV ONE (13:57)
[2025-01-01] MEDS: diphenhydrAMINE 50 MG/ML 1 ML VIAL IVP ONE (16:27)
[2025-01-01] MEDS: FAMOTIDINE 20 MG/2 ML VIAL IV ONE (16:27)
--- NOTE | 2025-01-01 17:34 | CT ---
EXAMINATION TYPE: CT brain wo con CT DLP: 1090.4 mGycm, Automated exposure control for dose reduction was used. DATE OF EXAM: 01/01/2025 5:27 PM COMPARISON: CT brain 09/23/2023 CLINICAL INDICATION:Female, 54 years old with history of headache, Headache. TECHNIQUE: Brain: Multiple axial CT images of the brain were obtained without IV contrast. . Coronal and sagitta l reformats reviewed. FINDINGS: Brain: Extra-axial spaces: No abnormal extra-axial fluid collections. Ventricular system: Within normal limits Cerebral parenchyma: No acute intraparenchymal hemorrhage or mass effect. The rdz-white junction is well differentiated. Cerebellum: Unremarkable. Mass effect: No evidence of midline shift. Intracranial vasculature: Atherosclerotic calcifications of the intracranial vessels. Soft tissues: Normal. Calvarium/osseous structures: No depressed skull fracture. Paranasal sinuses and mastoid air cells: The mastoid air cells are clear. Air-fluid level within the right sphenoid sinus. Mild mucosal thickening of the right ethmoid sinus. Few small mucous retention cyst within the bilateral maxillary sinuses. The remaining paranasal sinuses are clear. Nasal septal deviation to the left. Visualized orbits: Orbital contents are intact. IMPRESSION: 1. No acute intracranial process. 2. Mild paranasal sinus disease with air-fluid level within the right sphenoid sinus. Correlate for acute sinusitis. [facility], , 01/01/2025 5:31 PM
--- NOTE | 2025-01-01 17:37 | CT ---
EXAMINATION TYPE: CT angio chest CT DLP: 845.8 mGycm, Automated exposure control for dose reduction was used. DATE OF EXAM: 01/01/2025 5:31 PM COMPARISON: CTA chest 12/10/2024 CLINICAL INDICATION:Female, 54 years old with history of elevated ddimer, syncope, r/o PE; Elevated d -dimer. TECHNIQUE/CONTRAST: CTA scan of the thorax is performed with IV Contrast, patient injected with 100ml mL of Isovue 370, p ulmonary embolism protocol. MIP images are created and reviewed. FINDINGS: Pulmonary Artery: There is no evidence for a central filling defect within the pulmonary vasculature to suggest acute pulmonary embolism. Limited evaluation of the segmental and subsegmental branches se condary to bolus timing. The pulmonary artery is dilated measuring up to 3.9 cm. Lungs/Pleura: No evidence of focal consolidation, pleural effusion or pneumothorax. Minimal bilateral lower lobe atelectasis and air trapping. Airway: Large airways are patent. Heart: Cardiomegaly is demonstrated.Trace pericardial effusion Mild coronary artery calcifications pr esent. Vasculature: No evidence of aortic aneurysm. Four-vessel aortic arch. Mediastinum: No gross evidence of adenopathy. Musculoskeletal: Mild degenerative disc disease changes are present throughout the thoracolumbar spin e. No acute osseous abnormality. Soft Tissues: Unremarkable. Lower neck: No significant findings. Upper Abdomen: Gallbladder is not well visualized and appears surgically absent.. IMPRESSION: 1. No evidence of central pulmonary embolism. Limited evaluation of the segmental and subsegmental br anches. 2. Dilated main pulmonary artery suggesting pulmonary arterial hypertension. [facility], , 01/01/2025 5:35 PM
--- NOTE | 2025-01-01 20:22 | CA ---
Transthoracic Echo Report Name: Ligia Smith Age: 54 Gender: F : 1970 Exam Date: 01/01/2025 10:31 Exam Location: [facility] Ht (in): 66 Wt (lb): 330 Ordering Physician: Adela Marquez Attending/Referring Phys: [id number], [place] Superintendent Maribell Thompson, MARLENY Procedure CPT: Indications: LVF, yes repeat from Nov, for syncope Cardiac Hx: limited study Technical Quality: Good Contrast 1: Total Dose (mL): Contrast 2: Total Dose (mL): MEASUREMENTS (Male / Female) Normal Values 2D ECHO LV Diastolic Volume MOD 4C 91.3 cm??? LV Systolic Volume MOD 4C 37.4 cm??? LV Ejection Fraction MOD 4C 59.0 % LV Cardiac Index MOD 4C 1637.1 cm???/min???m??? LV Diastolic Length 4C 8.8 cm LV Systolic Length 4C 8.0 cm LV Diastolic Volume MOD 2C 61.6 cm??? LV Systolic Volume MOD 2C 23.1 cm??? LV Ejection Fraction MOD 2C 62.6 % LV Cardiac Index MOD 2C 1170.3 cm???/min???m??? LV Diastolic Length 2C 8.5 cm LV Systolic Length 2C 4.2 cm FINDINGS Left Ventricle Hyperdynamic LV. The ejection fraction is 75 to 80% Right Ventricle Right Atrium Left Atrium Mitral Valve Aortic Valve Tricuspid Valve Pulmonic Valve Pericardium No pericardial effusion. Aorta CONCLUSIONS Hyperdynamic LV. The ejection fraction is around 75 to 80% with cavity obliteration Previewed by: Dr. Shayan Melton MD (Electronically Signed) Final Date: 01 January 2025 20:21
--- NOTE | 2025-01-02 11:11 | P.PN ---
Subjective Progress Note Date: 01/02/25 Reason for Consult (text): Syncope History of present illness: This is a 54-year-old female with past medical history of breast cancer with mastectomy in 2021, obstructive sleep apnea, hyperlipidemia, hypotension on midodrine, diabetes, obstructive sleep apnea not using CPAP, and morbid obesity. 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 Thacker in November and had a follow-up appointment scheduled for yesterday but she states that she sat in the waiting room in her wheelchair for "too long" and she feeling weak and lightheaded. She also had episode of vomiting. She moved herself to the floor in the waiting room. No abdominal pain. We have been asked to evaluate the patient for syncope. In November, patient was here for episodes of syncope along with dizziness and lightheadedness that had apparently been going on for some time. Patient currently resides at a [facility]. She has been on midodrine for long period of time for hypotension. During her hospitalization in November, serum and urine electrophoresis, free kappa light chain and free lambda light chain were obtained and patient was to follow-up for results and possibly undergo PYP scan. Aldactone was also added to her medication regime during that hospitalization. Blood pressure 99/67, heart rate 88, pulse ox 98% on 3 L nasal cannula -EKG: Atrial fibrillation at 99 bpm -Laboratory studies: WBC 8, hemoglobin 11.7, sodium 134, potassium 4.9, cr eatinine 0.84. Troponin 0.044 and 0.072. -Home cardiac medications: Aspirin 81 mg daily, atorvastatin 20 mg at bedtime, magnesium oxide 400 mg daily, midodrine 2.5 mg 3 times daily, potassium chloride 20 mEq twice daily, Januvia 25 mg daily, Aldactone 25 mg daily. -Echocardiogram performed 12/11/2024: Revealed EF of 60 to 65%, hyperdynamic LV, severe LV hypertrophy. Diastolic dysfunction. Small pericardial effusion. Consider performing strain to rule out amyloid. 01/02 Patient seen and examined on the cardiac stepdown unit. Orthostatic vital signs are negative. Vital signs have been stable and we increased midodrine to 5 mg 3 times daily yesterday. Patient denies lightheadedness or dizziness, no chest pain. Blood pressure 91/61, heart rate 93, pulse ox 97% on room air. Yesterday, D-dimer was elevated and we ordered a CTA of the chest which came back with no evidence of PE. Patient did receive the iodine allergy protocol prior to CT. Echocardiogram revealed EF of 75 to 80% with cavity obliteration. Physical examination: Gen: This is a 54-year-old morbidly obese female in no acute respiratory distress VS: reviewed HEENT: Head is atraumatic, normocephalic. Pupils equal, round. Sclerae is anicteric. NECK: Supple. No JVD. LUNGS: Clear to auscultation. No wheezes or rhonchi. No intercostal retractions. HEART: Regular rate and rhythm. No murmur. ABDOMEN: Soft No tenderness. EXTREMITIES: No pedal edema. No calf tenderness. NEUROLOGICAL: Patient is awake, alert and oriented x3. Assessment: Longstanding history of lightheadedness, dizziness and syncopal episodes Syncopal episode and [employer] office possibly related to vasovagal episode History of hypotension on midodrine History of breast cancer with mastectomy, 2021, on treatment with Verzenio Obstructive sleep apnea with CPAP use, patient states not using Hyperlipidemia Diabetes Morbid obesity BMI 53 Severe LV hypertrophy with possible amyloidosis Plan: Continue patient's home cardiac medications Continue the increased dose of midodrine 5 mg 3 times daily Patient is cleared for discharge from cardiology and may follow-up in the office with Dr. Thacker in 1 week. Nurse practitioner note has been reviewed, I agree with documented findings and plan of care. Patient was seen and examined. Objective - Vital Signs Vital signs: Vital Signs Temp 97.2 F L 01/02/25 07:56 Pulse 93 01/02/25 07:56 Resp 16 01/02/25 07:56 BP 106/71 01/02/25 07:56 Pulse Ox 97 01/02/25 07:56 FiO2 Intake & Output 01/01/25 01/02/25 01/02/25 18:59 06:59 18:59 Intake Total 640 540 Output Total 250 350 Balance 390 190 Weight 122 kg 124.5 kg Intake: Oral 640 540 Output: Urine 250 350 Other: Voiding Method External Catheter External Catheter # Voids 1 - Labs CBC & Chem 7: 01/01/25 07:06 01/01/25 07:06
--- NOTE | 2025-01-02 14:26 | P.DS ---
Providers Date of admission: 12/30/24 21:22 Attending physician: Nara Hernandez Consults: 12/31/24 10:05 Consult Physician Routine Consulting Provider: Rashad Perry Consult Reason/Comments: Near syncope Do you want consulting provider notified?: Yes Primary care physician: Stated None Hospital Course: Final Diagnosis Near syncope UTI, POA Sleep apnea History of breast cancer with mastectomy Obstructive sleep apnea with CPAP use Hyperlipidemia History of hypotension on midodrine Diabetes Morbid obesity: BMI 53.3 Severe LV hypertrophy with possibility of amyloidosis Discharge Disposition Patient stable for return to the [facility]. Continue oral Ceftin for 2 more days on discharge to complete 5 days total of antibiotic therapy for the acute urinary tract infection. 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 Thacker in the office in 1 week. Recommend to repeat blood work in 2 to 3 days. Hospital Course patient is a 54-year-old lady with past medical history significant for hyperlipidemia, diabetes mellitus who presented the ER for a near syncopal episode. Patient stated that she was at her cardiology appointment for her follow-up. Patient was recently admitted in the hospital at which time she was evaluated by cardiology for elevated troponins, no ischemic workup was at that time. Patient stated that while waiting for her appointment at the cardiology office she felt dizzy and fell like she is in a pass out, she was in a wheelchair and lowered herself to the ground. Patient did not lose consciousness. Patient any chest pain. There is no complaint of orthopnea or PND. There is no complaint of swelling of feet. Patient denies any fever or chills. There is no complaint of nausea vomiting or abdominal pain. Because of this passing out feeling she was brought to the ER. Initial lab work done in the ER showed WBC 10, hemoglobin 13.2, platelet count 309, sodium 135, potassium 4.9, carbon is a 19, anion gap 12, BUN 20, creatinine 0.99, troponin 0.044 UA done showed large amount of leukocyte Estrace, large amount of urine WBC. EKG done in the ER showed heart rate of 99, no ST segment elevation or depression seen, no T-wave inversions seen. Patient admitted to internal medicine service. Cardiology was consulted. Patient does report was having urinary symptoms of burning and discomfort which have been improved since being started on IV ceftriaxone and urine culture showing gram negative bacilli so far. Cardiology recommending to increase the midodrine to 5 mg TID and patient can be discharged from their standpoint and follow Dr. Thacker in the office in 1 week on discharge. Most recent labs reveal a white blood cell count of 8.0, hemoglobin 11.7, sodium 134, BUN of 17 creatinine 0.84. D-dimer was elevated at 0.[address] angiography reveals no evidence for pulmonary embolism. Patient is afebrile and on room air. Please see medication reconciliation for a list of current medications. Thank you for allowing us to participate in the care of this patient. The impression and plan of care has been dictated by Cyn Caraballo, Nurse Practitioner as directed. Dr. Sergey MD I have performed a history and physical examination and medical decision making of this patient, discussed the same with the dictator, and agree with the dictators assessment and plan as written, documented as a scribe. Based on total visit time, I have performed more than 50% of this visit. Patient Condition at Discharge: Stable Plan - Discharge Summary Discharge Rx Participant: Yes New Discharge Prescriptions: New Midodrine [ProAmatine] 5 mg PO AC-TID tab traMADol HCl [Ultram] 50 mg PO TID PRN #6 tab PRN Reason: Pain cefuroxime axetiL [Ceftin] 500 mg PO BID 2 Days #4 tab Continue Sertraline [Zoloft] 200 mg PO DAILY Albuterol Inhaler [Ventolin Hfa Inhaler] 2 puff INHALATION RT-Q6H PRN PRN Reason: Shortness Of Breath Cholecalciferol [Vitamin D3 (25 Mcg = 1000 Iu)] 25 mcg PO DAILY Anastrozole [Arimidex] 1 mg PO DAILY sitaGLIPtin [Januvia] 25 mg PO DAILY Abemaciclib [Verzenio] 150 mg PO BID allopurinoL 100 mg PO BID Calcium Carbonate [Calcium] 1,200 mg PO DAILY Potassium Chloride ER [K-Dur 20] 20 meq PO BID Ondansetron [Zofran] 4 mg PO DAILY Magnesium Hydroxide [Milk of Magnesia Concentrate] 7,200 mg PO Q72H PRN PRN Reason: Constipation Magnesium Oxide [Mag-Ox] 400 mg PO DAILY Loperamide HCl [Imodium A-D] 2 - 4 mg PO QID PRN PRN Reason: Loose Stool Acetaminophen Tab [Tylenol] 650 mg PO Q6H PRN PRN Reason: Pain Aspirin 81 mg PO DAILY tab Atorvastatin [Lipitor] 20 mg PO HS traZODone HCL [Desyrel] 50 mg PO HS Cranberry 450mg 450 mg PO BID Spironolactone [Aldactone] 25 mg PO DAILY tab Discontinued Midodrine HCl [ProAmantine] 2.5 mg PO TID Discharge Medication List Albuterol Inhaler [Ventolin Hfa Inhaler] 2 puff INHALATION RT-Q6H PRN 12/22/14 [History] Sertraline [Zoloft] 200 mg PO DAILY 12/22/14 [History] Atorvastatin [Lipitor] 20 mg PO HS 06/20/22 [History] Cholecalciferol [Vitamin D3 (25 Mcg = 1000 Iu)] 25 mcg PO DAILY 09/18/22 [History] Anastrozole [Arimidex] 1 mg PO DAILY 09/23/23 [History] sitaGLIPtin [Januvia] 25 mg PO DAILY 09/23/23 [History] Abemaciclib [Verzenio] 150 mg PO BID 10/12/23 [History] Calcium Carbonate [Calcium] 1,200 mg PO DAILY 10/12/23 [History] Potassium Chloride ER [K-Dur 20] 20 meq PO BID 10/12/23 [History] allopurinoL 100 mg PO BID 10/12/23 [History] Acetaminophen Tab [Tylenol] 650 mg PO Q6H PRN 12/10/24 [History] Cranberry 450mg 450 mg PO BID 12/10/24 [History] Loperamide HCl [Imodium A-D] 2 - 4 mg PO QID PRN 12/10/24 [History] Magnesium Hydroxide [Milk of Magnesia Concentrate] 7,200 mg PO Q72H PRN 12/10/24 [History] Magnesium Oxide [Mag-Ox] 400 mg PO DAILY 12/10/24 [History] Ondansetron [Zofran] 4 mg PO DAILY 12/10/24 [History] traZODone HCL [Desyrel] 50 mg PO HS 12/10/24 [History] Aspirin 81 mg PO DAILY tab 12/14/24 [Rx] Spironolactone [Aldactone] 25 mg PO DAILY tab 12/14/24 [Rx] Midodrine [ProAmatine] 5 mg PO AC-TID tab 01/02/25 [Rx] cefuroxime axetiL [Ceftin] 500 mg PO BID 2 Days #4 tab 01/02/25 [Rx] traMADol HCl [Ultram] 50 mg PO TID PRN #6 tab 01/02/25 [Rx] Follow up Appointment(s)/Referral(s): Jabari Thacker MD [STAFF PHYSICIAN] - 1 Week Enrique Hope MD [STAFF PHYSICIAN] - 1-2 Days None,Stated [Primary Care Provider] - 1-2 days Ambulatory/Diagnostic Orders: Basic Metabolic Panel [LAB.AMB] Time Frame: 3 Days, Location: None Selected Activity/Diet/Wound Care/Special Instructions: Return to [facility] Continue 2 more days of oral ceftin twice daily on discharge Repeat BMP Midodrine has been increased Follow up with cardiology in 1 week Discharge Disposition: TRANSFER TO SNF/ECF
[2025-01-03] MEDS: bisacodyL 10 MG SUPP RECTAL PRN (07:51)
[2025-01-03] MEDS: MIDODRINE 5 MG TAB PO SCH (10:59)
--- NOTE | 2025-01-03 11:44 | P.PN ---
Subjective Progress Note Date: 01/03/25 Reason for Consult (text): Syncope History of present illness: This is a 54-year-old female with past medical history of breast cancer with mastectomy in 2021, obstructive sleep apnea, hyperlipidemia, hypotension on midodrine, diabetes, obstructive sleep apnea not using CPAP, and morbid obesity. Patient does not follow with a try out person but was seen by Dr. Thacker in November and had a follow-up appointment scheduled for yesterday but she states that she sat in the waiting room in her wheelchair for "too long" and she feeling weak and lightheaded. She also had episode of vomiting. She moved herself to the floor in the waiting room. No abdominal pain. We have been asked to evaluate the patient for syncope. In November, patient was here for episodes of syncope along with dizziness and lightheadedness that had apparently been going on for some time. Patient currently resides at a snf. She has been on midodrine for long period of time for hypotension. During her hospitalization in November, serum and urine electrophoresis, free kappa light chain and free lambda light chain were obtained and patient was to follow-up for results and possibly undergo PYP scan. Aldactone was also added to her medication regime during that hospitalization. Blood pressure 99/67, heart rate 88, pulse ox 98% on 3 L nasal cannula -EKG: Atrial fibrillation at 99 bpm -Laboratory studies: WBC 8, hemoglobin 11.7, sodium 134, potassium 4.9, cr eatinine 0.84. Troponin 0.044 and 0.072. -Home cardiac medications: Aspirin 81 mg daily, atorvastatin 20 mg at bedtime, magnesium oxide 400 mg daily, midodrine 2.5 mg 3 times daily, potassium chloride 20 mEq twice daily, Januvia 25 mg daily, Aldactone 25 mg daily. -Echocardiogram performed 12/11/2024: Revealed EF of 60 to 65%, hyperdynamic LV, severe LV hypertrophy. Diastolic dysfunction. Small pericardial effusion. Consider performing strain to rule out amyloid. 01/02 Patient seen and examined on the cardiac stepdown unit. Orthostatic vital signs are negative. Vital signs have been stable and we increased midodrine to 5 mg 3 times daily yesterday. Patient denies lightheadedness or dizziness, no chest pain. Blood pressure 91/61, heart rate 93, pulse ox 97% on room air. Yesterday, D-dimer was elevated and we ordered a CTA of the chest which came back with no evidence of PE. Patient did receive the iodine allergy protocol prior to CT. Echocardiogram revealed EF of 75 to 80% with cavity obliteration. 01/03 Patient seen and examined. Blood pressures are reading low today as well with 86/55. We have increased midodrine to 5 mg 3 times daily and plan to increase again today to 10 mg. Patient denies any new symptoms today no chest pain or shortness of breath, no lightheadedness or dizziness. Patient will be returning to snf tomorrow. Physical examination: Gen: This is a 54-year-old morbidly obese female in no acute respiratory distress VS: reviewed HEENT: Head is atraumatic, normocephalic. Pupils equal, round. Sclerae is anicteric. NECK: Supple. No JVD. LUNGS: Clear to auscultation. No wheezes or rhonchi. No intercostal retractions. HEART: Regular rate and rhythm. No murmur. ABDOMEN: Soft No tenderness. EXTREMITIES: No pedal edema. No calf tenderness. NEUROLOGICAL: Patient is awake, alert and oriented x3. 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 Thacker in 1 week. Nurse practitioner note has been reviewed, I agree with documented findings and plan of care. Patient was seen and examined. Objective - Vital Signs Vital signs: Vital Signs Temp 97.5 F L 01/03/25 07:37 Pulse 79 01/03/25 10:55 Resp 16 01/03/25 10:55 BP 97/64 01/03/25 10:55 Pulse Ox 98 01/03/25 10:55 FiO2 Intake & Output 01/02/25 01/03/25 01/03/25 18:59 06:59 18:59 Intake Total 300 540 118 Output Total 250 750 Balance 50 -210 118 Weight 127 kg Intake: Oral 300 540 118 Output: Urine 250 750 Other: Voiding Method External Catheter External Catheter External Catheter # Voids 1 - Labs CBC & Chem 7: 01/01/25 07:06 01/01/25 07:06 Labs: Microbiology - Last 24 Hours (Table) 12/31/24 16:55 Urine Culture - Preliminary Urine,Voided Gram Neg Bacilli
--- NOTE | 2025-01-03 14:27 | P.PN ---
Subjective Progress Note Date: 01/03/25 patient is a 54-year-old lady with past medical history significant for hyperlipidemia, diabetes mellitus who presented the ER for a near syncopal episode. Patient stated that she was at her cardiology appointment for her follow-up. Patient was recently admitted in the hospital at which time she was evaluated by cardiology for elevated troponins, no ischemic workup was at that time. Patient stated that while waiting for her appointment at the cardiology office she felt dizzy and fell like she is in a pass out, she was in a wheelchair and lowered herself to the ground. Patient did not lose conscio usness. Patient any chest pain. There is no complaint of orthopnea or PND. There is no complaint of swelling of feet. Patient denies any fever or chills. There is no complaint of nausea vomiting or abdominal pain. Because of this passing out feeling she was brought to the ER. Initial lab work done in the ER showed WBC 10, hemoglobin 13.2, platelet count 309, sodium 135, potassium 4.9, carbon is a 19, anion gap 12, BUN 20, creatinine 0.99, troponin 0.044 UA done showed large amount of leukocyte Estrace, large amount of urine WBC. EKG done in the ER showed heart rate of 99, no ST segment elevation or depression seen, no T-wave inversions seen. Patient admitted to internal medicine service. Cardiology was consulted. Patient does report was having urinary symptoms of burning and discomfort which have been improved since being started on IV ceftriaxone and urine culture showing gram negative bacilli so far. Cardiology recommending to increase the midodrine to 5 mg TID and patient can be discharged from their standpoint and follow Dr. Thcaker in the office in 1 week on discharge. Most recent labs reveal a white blood cell count of 8.0, hemoglobin 11.7, sodium 134, BUN of 17 creatinine 0.84. D-dimer was elevated at 0.[address] angiography reveals no evidence for pulmonary embolism. Patient is afebrile and on room air. 01/03/2025 Patient is evaluated in follow-up in the medical floor. She has no acute complaints and her symptoms of dizziness are resolved at this time. Her urine culture has been finalized showing E. coli ESBL and Proteus and infectious disease will be consulted. Patient to be will to return to [facility] tomorrow with antibiotic recommendations. Review of Systems Constitutional: Denied any fatigue denied any fever. Cardio vascular: denied any chest pain, palpitations Gastrointestinal: denied any nausea, vomiting, diarrhea Pulmonary: Denied any shortness of breath cough Neurologic denied any new focal deficits All inpatient medications were reviewed and appropriate changes in these medications as dictated in the interval history and assessment and plan. PHYSICAL EXAMINATION: GENERAL: The patient is alert and oriented x3, not in any acute distress. Well developed, well nourished. HEENT: Pupils are round and equally reacting to light. EOMI. No scleral icterus. No conjunctival pallor. Normocephalic, atraumatic. No pharyngeal erythema. No thyromegaly. CARDIOVASCULAR: S1 and S2 present. No murmurs, rubs, or gallops. PULMONARY: Chest is clear to auscultation, no wheezing or crackles. ABDOMEN: Soft, nontender, nondistended, normoactive bowel sounds. No palpable organomegaly. MUSCULOSKELETAL: No joint swelling or deformity. EXTREMITIES: No cyanosis, clubbing, or pedal edema. NEUROLOGICAL: Gross neurological examination did not reveal any focal deficits. SKIN: No rashes. Assessment and Plan Near syncope UTI, POA Sleep apnea History of breast cancer with mastectomy Obstructive sleep apnea with CPAP use Hyperlipidemia History of hypotension on midodrine Diabetes Morbid obesity: BMI 53.3 Severe LV hypertrophy with possibility of amyloidosis Plan Consult ID for the ESBL UTI Continue midodrine Cardiology has cleared Return to [facility] on discharge The impression and plan of care has been dictated by Cyn Caraballo, Nurse Practitioner as directed. Dr. Sergey MD I have performed a history and physical examination and medical decision making of this patient, discussed the same with the dictator, and agree with the dictators assessment and plan as written, documented as a scribe. Based on total visit time, I have performed more than 50% of this visit. Objective - Vital Signs Vital signs: Vital Signs Temp 97.5 F L 01/03/25 07:37 Pulse 79 01/03/25 13:05 Resp 16 01/03/25 10:55 BP 97/64 01/03/25 10:55 Pulse Ox 98 01/03/25 10:55 FiO2 Intake & Output 01/02/25 01/03/25 01/03/25 18:59 06:59 18:59 Intake Total 300 540 298 Output Total 250 750 Balance 50 -210 298 Weight 127 kg Intake: Oral 300 540 298 Output: Urine 250 750 Other: Voiding Method External Catheter External Catheter External Catheter # Voids 1 - Labs CBC & Chem 7: 01/01/25 07:06 01/01/25 07:06 Labs: Microbiology - Last 24 Hours (Table) 12/31/24 16:55 Urine Culture - Final Urine,Voided Escherichia coli ESBL Proteus mirabilis Assessment and Plan Time with Patient: Less than 30
[2025-01-03] MEDS: ERTAPENEM 1 GM in SODIUM CHLORIDE 0.9% 50 ML IVPB SCH (16:34)
[2025-01-03] MEDS: LACTULOSE 20 GM/30 ML CUP PO ONE (16:34)
[2025-01-03] MEDS: bisacodyL 10 MG SUPP RECTAL SCH (20:10)
--- NOTE | 2025-01-03 23:05 | P.CONS ---
History of Present Illness - Reason for Consult Consult date: 01/03/25 ESBL UTI Requesting physician: Cyn Caraballo - Chief Complaint Passed out x 1 day on admission - History of Present Illness Patient is a 54-year-old female with a past medical history significant for Asthma, Cancer, Diabetes Mellitus, Musculoskeletal Disorder, Osteoarthritis (OA), Respiratory Disorder, Sleep Apnea/CPAP/BIPAP presenting to the hospital 4 days ago for evaluation of near syncopal episode patient apparently was at cardiology office for a follow-up patient was sitting in a chair for a while felt dizzy and almost passed out patient since then has been evaluated by multiple consultants on presentation to the hospital patient was afebrile no fever have recorded subsequently patient was not tachycardic hypotensive or hypoxic she did have a white count of 10,000 creatinine was normal liver isms plan elevated did have positive UA and the patient was treated with Rocephin for UTI urine culture has been finalized with ESBL E. coli and Proteus prompting this consultation patient has been complaining of urinary burning suprapubic discomfort but no flank pain did have some nausea but no vomiting no chest pain some shortness of breath occasional cough and no diarrhea other complaining of constipation and requesting for a NM Review of Systems Positive point and negatives has been mentioned in the HPI, complete review of systems was performed and all other systems are negative Past Medical History Past Medical History: Asthma, Cancer, Diabetes Mellitus, Musculoskeletal Disorder, Osteoarthritis (OA), Respiratory Disorder, Sleep Apnea/CPAP/BIPAP Additional Past Medical History / Comment(s): L2D3 with 2 herniated disc, arthritis, vitamin D deficiency, breast cancer in History of Any Multi-Drug Resistant Organisms: MRSA Year Discovered:: 05/24/16 MDRO Source:: RIGHT LEG Past Surgical History: Section, Cholecystectomy, Hernia Repair Additional Past Surgical History / Comment(s): 3, tubal ligation, hernia repair 2 ,masectomy in 2021. Past Anesthesia/Blood Transfusion Reactions: No Reported Reaction Additional Past Anesthesia/Blood Transfusion Reaction / Comm: no blood tranfusions Past Psychological History: Anxiety, Depression Smoking Status: Never smoker Past Alcohol Use History: Occasional Past Drug Use History: Marijuana - Past Family History Mother Family Medical History: Blood Disorder, Cancer, Congestive Heart Failure (CHF), Diabetes Mellitus Additional Family Medical History / Comment(s): breast cancer Father History Unknown: Yes Medications and Allergies Home Medications Medication Instructions Recorded Confirmed Type Albuterol Inhaler [Ventolin Hfa 2 puff INHALATION RT-Q6H PRN 12/22/14 12/31/24 History Inhaler] Sertraline [Zoloft] 200 mg PO DAILY 12/22/14 12/31/24 History Atorvastatin [Lipitor] 20 mg PO HS 06/20/22 12/31/24 History Cholecalciferol [Vitamin D3 (25 25 mcg PO DAILY 09/18/22 12/31/24 History Mcg = 1000 Iu)] Anastrozole [Arimidex] 1 mg PO DAILY 09/23/23 12/31/24 History sitaGLIPtin [Januvia] 25 mg PO DAILY 09/23/23 12/31/24 History Abemaciclib [Verzenio] 150 mg PO BID 10/12/23 12/31/24 History Calcium Carbonate [Calcium] 1,200 mg PO DAILY 10/12/23 12/31/24 History Potassium Chloride ER [K-Dur 20] 20 meq PO BID 10/12/23 12/31/24 History allopurinoL 100 mg PO BID 10/12/23 12/31/24 History Acetaminophen Tab [Tylenol] 650 mg PO Q6H PRN 12/10/24 12/31/24 History Cranberry 450mg 450 mg PO BID 12/10/24 12/31/24 History Loperamide HCl [Imodium A-D] 2 - 4 mg PO QID PRN 12/10/24 12/31/24 History Magnesium Hydroxide [Milk of 7,200 mg PO Q72H PRN 12/10/24 12/31/24 History Magnesia Concentrate] Magnesium Oxide [Mag-Ox] 400 mg PO DAILY 12/10/24 12/31/24 History Ondansetron [Zofran] 4 mg PO DAILY 12/10/24 12/31/24 History traZODone HCL [Desyrel] 50 mg PO HS 12/10/24 12/31/24 History Aspirin 81 mg PO DAILY tab 12/14/24 12/31/24 Rx Spironolactone [Aldactone] 25 mg PO DAILY tab 12/14/24 12/31/24 Rx Midodrine [ProAmatine] 5 mg PO AC-TID tab 01/02/25 Rx cefuroxime axetiL [Ceftin] 500 mg PO BID 2 Days #4 tab 01/02/25 Rx traMADol HCl [Ultram] 50 mg PO TID PRN #6 tab 01/02/25 Rx Allergies Allergy/AdvReac Type Severity Reaction Status Date / Time Fish Containing Products Allergy Anaphylaxis Verified 12/31/24 09:54 [Fish] iodine Allergy Unknown Verified 12/31/24 09:54 morphine Allergy Unknown Verified 12/31/24 09:54 shrimp Allergy Anaphylaxis Verified 12/31/24 09:54 codeine AdvReac Nausea & Verified 12/31/24 09:54 Vomiting Physical Exam Vitals: Vital Signs Temp Pulse Resp BP Pulse Ox 01/03/25 13:05 79 01/03/25 10:55 79 16 97/64 98 01/03/25 07:38 93 01/03/25 07:37 97.5 F L 93 16 89/60 96 01/03/25 04:00 83 16 86/55 98 01/03/25 00:00 82 16 107/72 99 01/02/25 20:00 98.1 F 91 16 82/58 97 01/02/25 16:48 97.3 F L 88 16 107/71 98 Intake and Output 01/03/25 01/03/25 01/03/25 06:59 14:59 22:59 Intake Total 298 Output Total 400 Balance -400 298 Intake: Oral 298 Output: Urine 400 Other: Voiding Method External Catheter External Catheter Weight 127 kg GENERAL DESCRIPTION: Middle-age female lying in bed, no distress. No tachypnea or accessory muscle of respiration use. HEENT: Shows Pallor , no scleral icterus. Oral mucous membrane is dry. No pharyngeal erythema or thrush NECK: Trachea central, no thyromegaly. LUNGS: Unlabored breathing. Clear to auscultation anteriorly. No wheeze or crackle. HEART: S1, S2, regular rate and rhythm. No loud murmur ABDOMEN: Soft, no tenderness , guarding or rigidity, no organomegaly EXTREMITIES: No edema of feet. SKIN: No rash, no masses palpable. NEUROLOGICAL: The patient is awake, alert, oriented x3, mood and affect normal. Results CBC & Chem 7: 01/01/25 07:06 01/01/25 07:06 Labs: Microbiology - Last 24 Hours (Table) 12/31/24 16:55 Urine Culture - Final Urine,Voided Escherichia coli ESBL Proteus mirabilis Assessment and Plan (1) Infection due to ESBL-producing Escherichia coli Current Visit: Yes Status: Acute Code(s): A49.8 - OTHER BACTERIAL INFECTIONS OF UNSPECIFIED SITE; Z16.12 - EXTENDED SPECTRUM BETA LACTAMASE (ESBL) RESISTANCE SNOMED Code(s): 159885286 (2) UTI (urinary tract infection) Current Visit: Yes Status: Acute Code(s): N39.0 - URINARY TRACT INFECTION, SITE NOT SPECIFIED SNOMED Code(s): 69037128 Plan: 1patient presented to hospital with a near syncopal episode and this patient was having urinary symptoms of burning frequency suprapubic pain positive UA now with urine culture growing ESBL E. coli likely representing cystitis clinical not behaving as deep infection 2-discontinue Rocephin 3-we will start the patient on Invanz 1 g daily and see clinical response We will follow on clinical condition and cultures to further adjust medication if needed Thank you for this consultation we will follow the patient along with you Dictation was produced using [employer] dictation software. please excuse any grammatical, word or spelling errors. Time with Patient: Greater than 30
[2025-01-04 07:24] LABS: African American GFR (CKD) >90 (>60 ml/min/1.73 sqM); Anion Gap 6 mmol/L; Blood Urea Nitrogen 15 mg/dL (7-17); Calcium 9.1 mg/dL (8.4-10.2); Carbon Dioxide 25 mmol/L (22-30); Chloride 104 mmol/L (98-107); Glucose 81 mg/dL (74-99); Non-African American GFR(CKD) >90 (>60 ml/min/1.73 sqM); Potassium 3.8 mmol/L (3.5-5.1); Sodium 135 mmol/L (137-145)
[2025-01-04] MEDS: NA PHOS,M-B/NA PHOS,DI-BA 133 ML ENEMA RECTAL ONE (16:02)
--- NOTE | 2025-01-04 17:10 | P.PN ---
Subjective Progress Note Date: 01/04/25 Principal diagnosis: Reason for follow-up is ESBL E. coli UTI Patient is a 54-year-old female with a past medical history significant for Asthma, Cancer, Diabetes Mellitus, Musculoskeletal Disorder, Osteoarthritis (OA), Respiratory Disorder, Sleep Apnea/CPAP/BIPAP presenting to the hospital for evaluation of syncopal episode also have a urinary symptoms diagnosed with a UTI urine positive for ESBL prompted this consultation. On today's evaluation that is 01/04/2025, patient has been afebrile, patient is breathing comfortably and is currently on room air, patient denies having any significant cough no chest pain, patient denies nausea vomiting or diarrhea and no abdominal pain. Patient did have a creatinine 0.68 no CBC was done today Objective - Vital Signs Vital signs: Vital Signs Temp 97.4 F L 01/04/25 11:34 Pulse 99 01/04/25 11:34 Resp 18 01/04/25 11:34 BP 95/65 01/04/25 11:34 Pulse Ox 96 01/04/25 11:34 FiO2 Intake & Output 01/03/25 01/04/25 01/04/25 18:59 06:59 18:59 Intake Total 538 Output Total 225 100 600 Balance 313 -100 -600 Weight 127 kg Intake: Oral 538 Output: Urine 225 100 600 Other: Voiding Method External Catheter External Catheter External Catheter - Exam GENERAL DESCRIPTION: Middle-age female lying in bed in no distress RESPIRATORY SYSTEM: Unlabored breathing , decreased breath sounds at bases HEART: S1 S2 regular rate and rhythm , ABDOMEN: Soft , no tenderness EXTREMITIES: No edema feet - Labs CBC & Chem 7: 01/01/25 07:06 01/04/25 05:54 Labs: Abnormal Lab Results - Last 24 Hours (Table) 01/04/25 Range/Units 05:54 Sodium 135 L (137-145) mmol/L Microbiology - Last 24 Hours (Table) 12/31/24 16:55 Urine Culture - Final Urine,Voided Escherichia coli ESBL Proteus mirabilis Assessment and Plan (1) Infection due to ESBL-producing Escherichia coli Current Visit: Yes Status: Acute Code(s): A49.8 - OTHER BACTERIAL INFECTIONS OF UNSPECIFIED SITE; Z16.12 - EXTENDED SPECTRUM BETA LACTAMASE (ESBL) RESISTANCE SNOMED Code(s): 989706782 (2) UTI (urinary tract infection) Current Visit: Yes Status: Acute Code(s): N39.0 - URINARY TRACT INFECTION, SITE NOT SPECIFIED SNOMED Code(s): 52457857 Plan: 1patient presented to hospital with a near syncopal episode and this patient was having urinary symptoms of burning frequency suprapubic pain positive UA now with urine culture growing ESBL E. coli likely representing cystitis clinical not behaving as deep infection 2-patient to continue with Invanz 1 g daily and will receive her third dose tomorrow that should be enough for a cystitis discussed with the LINE SERVICER for admitting team no need for antibiotic on discharge Dictation was produced using [email or web address] dictation software. please excuse any grammatical, word or spelling errors. Time with Patient: Less than 30
[2025-01-04] MEDS: SENNOSIDES 8.6 MG TAB PO SCH (20:36)
--- NOTE | 2025-01-05 06:00 | P.PN ---
Subjective Progress Note Date: 01/04/25 ar-old lady with past medical history significant for hyperlipidemia, diabetes mellitus who presented the ER for a near syncopal episode. Patient stated that she was at her cardiology appointment for her follow-up. Patient was recently admitted in the hospital at which time she was evaluated by cardiology for elevated troponins, no ischemic workup was at that time. Patient stated that while waiting for her appointment at the cardiology office she felt dizzy and fell like she is in a pass out, she was in a wheelchair and lowered herself to the ground. Patient did not lose consciousness. Patient any chest pain. There is no complaint of orthopnea or PND. There is no complaint of swelling of feet. Patient denies any fever or chills. There is no complaint of nausea vomiting or abdominal pain. Because of this passing out feeling she was brought to the ER. Initial lab work done in the ER showed WBC 10, hemoglobin 13.2, platelet count 309, sodium 135, potassium 4.9, carbon is a 19, anion gap 12, BUN 20, creatinine 0.99, troponin 0.044 UA done showed large amount of leukocyte Estrace, large amount of urine WBC. EKG done in the ER showed heart rate of 99, no ST segment elevation or depression seen, no T-wave inversions seen. Patient admitted to internal medicine service. Cardiology was consulted. Patient does report was having urinary symptoms of burning and discomfort which have b een improved since being started on IV ceftriaxone and urine culture showing gram negative bacilli so far. Cardiology recommending to increase the midodrine to 5 mg TID and patient can be discharged from their standpoint and follow Dr. Thacker in the office in 1 week on discharge. Most recent labs reveal a white blood cell count of 8.0, hemoglobin 11.7, sodium 134, BUN of 17 creatinine 0.84. D-dimer was elevated at 0.[address] angiography reveals no evidence for pulmonary embolism. Patient is afebrile and on room air. 01/03/2025 Patient is evaluated in follow-up in the medical floor. She has no acute complaints and her symptoms of dizziness are resolved at this time. Her urine culture has been finalized showing E. coli ESBL and Proteus and infectious disease will be consulted. Patient to be will to return to [facility] tomorrow with antibiotic recommendations. 01/04/2025 Patient is seen in follow-up today reporting no acute overnight issues. Infectious disease was consulted as urine cultures finalized with ESBL E. coli and has transition to Invanz. Will discuss further with infectious disease regarding discharge planning if patient will require antibiotics on discharge. Plan is to return to [facility] with case management following. Patient was also evaluated by cardiology and has cleared the patient for discharge recommending outpatient follow-up. Review of Systems Constitutional: Denied any fatigue denied any fever. Cardio vascular: denied any chest pain, palpitations Gastrointestinal: denied any nausea, vomiting, diarrhea Pulmonary: Denied any shortness of breath cough Neurologic denied any new focal deficits All inpatient medications were reviewed and appropriate changes in these medications as dictated in the interval history and assessment and plan. PHYSICAL EXAMINATION: GENERAL: The patient is alert and oriented x3, morbidly obese. Well developed, appears older than stated age and HEENT: Pupils are round and equally reacting to light. EOMI. No scleral icterus. No conjunctival pallor. Normocephalic, atraumatic. No pharyngeal erythema. No thyromegaly. CARDIOVASCULAR: S1 and S2 muffled PULMONARY: Diminished breath sounds bilaterally otherwise chest is clear to auscultation, no wheezing or crackles. ABDOMEN: Soft, obese, nontender, nondistended, normoactive bowel sounds. No palpable organomegaly. MUSCULOSKELETAL: No joint swelling or deformity. EXTREMITIES: No cyanosis, clubbing, or pedal edema. NEUROLOGICAL: Gross neurological examination did not reveal any focal deficits. SKIN: No rashes. Assessment: Near syncope UTI, POA History of breast cancer with mastectomy Obstructive sleep apnea with CPAP use Hyperlipidemia History of hypotension on midodrine Diabetes Morbid obesity: BMI 45.2 Severe LV hypertrophy with possibility of amyloidosis GI prophylaxis DVT prophylaxis Full code Plan: Infectious disease has been consulted as urine cultures finalized with ESBL UTI. Patient being transitioned to Invanz per ID and will require 3 days of Invanz and will not require antibiotics on discharge. Case management following as plan is to return to [facility] on discharge Cardiology has evaluated the patient and cleared the patient recommending outpatient follow-up Continue monitoring Accu-Cheks before meals and at bedtime and will continue current insulin regimen, adjust as needed Continue midodrine Possible discharge planning in the next 24 hours after third dose of Invanz is given The impression and plan of care has been dictated by Jesica Pantoja, Nurse Practitioner as directed. Dr. David MD I have performed a history and physical examination and medical decision making of this patient, discussed the same with the dictator, and agree with the dictators assessment and plan as written, documented as a scribe. Based on total visit time, I have performed more than 50% of this visit. Objective - Vital Signs Vital signs: Vital Signs Temp 97.8 F 01/05/25 05:52 Pulse 95 01/05/25 05:52 Resp 18 01/05/25 05:52 BP 99/65 01/05/25 05:52 Pulse Ox 98 01/05/25 05:52 FiO2 Intake & Output 01/04/25 01/04/25 01/05/25 06:59 18:59 06:59 Intake Total 130 Output Total 100 600 Balance -100 -600 130 Weight 127 kg 127 kg Intake: IV 10 0.9 10 Oral 120 Output: Urine 100 600 Other: Voiding Method External Catheter External Catheter External Catheter # Voids 1 # Bowel Movements 1 1 - Labs CBC & Chem 7: 01/01/25 07:06 01/04/25 05:54 Labs: Abnormal Lab Results - Last 24 Hours (Table) 01/04/25 Range/Units 05:54 Sodium 135 L (137-145) mmol/L
[2025-01-05 09:08] VITALS: RESP 16
--- NOTE | 2025-01-05 15:19 | P.DS ---
Providers Date of admission: 12/30/24 21:22 Expected date of discharge: 01/05/25 Attending physician: Nara Hernandez Consults: 01/03/25 14:25 Consult Physician Routine Consulting Provider: Luther Dobbins Consult Reason/Comments: ESBL UTI Do you want consulting provider notified?: Yes Primary care physician: Stated None Hospital Course: Final diagnosis Near syncope UTI, POA with ESBL in the cultures, patient has received IV Invanz and antibiotics and will not require antibiotics on discharge Sleep apnea history History of breast cancer with mastectomy Obstructive sleep apnea with CPAP use Hyperlipidemia History of hypotension on midodrine Diabetes Morbid obesity: BMI 45.2 Severe LV hypertrophy with possibility of amyloidosis GI prophylaxis DVT prophylaxis Full code Discharge disposition Patient is being discharged in a stable condition with guarded prognosis to [facility]. Patient will follow-up with Dr. Chawla in the outpatient setting upon discharge. Patient is to continue with current medications and outpatient follow-up with cardiology in 1 week. Total time taken is greater than 35 minutes. Hospital course This is a 54-year-old female who was recently admitted with near syncopal episodes and also acute urinary tract infection that was present on admission. Cultures finalized with ESBL and evaluated by infectious disease as patient had multidrug resistance was on IV Invanz and has received adequate dosing prior to discharge and will not require antibiotics on discharge. Patient has been cleared by consultations and will be going to [facility] on discharge. Patient was also evaluated by cardiology as she was at a cardiology appointment prior to being sent to the hospital as she felt like she was going to have a near syncopal episode. Cardiology increase midodrine to 10 mg 3 times daily and recommends follow-up outpatient with Dr. Thacker in the office in 1 to 2 weeks. Currently no reports of chest pain, shortness of breath, or palpitations. Patient is afebrile. No reports of nausea or vomiting and patient is tolerating diet. Patient will be going to [facility] today. PHYSICAL EXAMINATION: GENERAL: The patient is alert and oriented x3, not in any acute distress. Well developed, well nourished. HEENT: Pupils are round and equally reacting to light. EOMI. No scleral icterus. No conjunctival pallor. Normocephalic, atraumatic. No pharyngeal erythema. No thyromegaly. CARDIOVASCULAR: S1 and S2 present. No murmurs, rubs, or gallops. PULMONARY: Chest is clear to auscultation, no wheezing or crackles. ABDOMEN: Soft, nontender, nondistended, normoactive bowel sounds. No palpable organomegaly. MUSCULOSKELETAL: No joint swelling or deformity. EXTREMITIES: No cyanosis, clubbing, or pedal edema. NEUROLOGICAL: Gross neurological examination did not reveal any focal deficits. SKIN: No rashes. Please refer to medication reconciliation sheet for a list of medications. The impression and plan of care has been dictated by Jesica Pantoja, Nurse Practitioner as directed. Dr. David MD I have performed a history and examination and MDM of this patient, discussed the same with the dictator, and agree with the dictator's assessment and plan as written ,documented as a scribe. Based on total visit time, I have performed more than 50% of the visit. Patient Condition at Discharge: Stable Plan - Discharge Summary Discharge Rx Participant: Yes New Discharge Prescriptions: New traMADol HCl [Ultram] 50 mg PO TID PRN #6 tab PRN Reason: Pain Midodrine [ProAmatine] 10 mg PO AC-TID tab Sennosides [Senokot] 8.6 mg PO BID tab Meclizine [Antivert] 25 mg PO TID PRN tab PRN Reason: Vertigo bisacodyL [Dulcolax] 10 mg RECTAL HS suppositor Continue Sertraline [Zoloft] 200 mg PO DAILY Albuterol Inhaler [Ventolin Hfa Inhaler] 2 puff INHALATION RT-Q6H PRN PRN Reason: Shortness Of Breath Cholecalciferol [Vitamin D3 (25 Mcg = 1000 Iu)] 25 mcg PO DAILY Anastrozole [Arimidex] 1 mg PO DAILY sitaGLIPtin [Januvia] 25 mg PO DAILY Abemaciclib [Verzenio] 150 mg PO BID allopurinoL 100 mg PO BID Calcium Carbonate [Calcium] 1,200 mg PO DAILY Potassium Chloride ER [K-Dur 20] 20 meq PO BID Ondansetron [Zofran] 4 mg PO DAILY Magnesium Hydroxide [Milk of Magnesia Concentrate] 7,200 mg PO Q72H PRN PRN Reason: Constipation Loperamide HCl [Imodium A-D] 2 - 4 mg PO QID PRN PRN Reason: Loose Stool Acetaminophen Tab [Tylenol] 650 mg PO Q6H PRN PRN Reason: Pain Aspirin 81 mg PO DAILY tab Atorvastatin [Lipitor] 20 mg PO HS traZODone HCL [Desyrel] 50 mg PO HS Cranberry 450mg 450 mg PO BID Spironolactone [Aldactone] 25 mg PO DAILY tab Discontinued Magnesium Oxide [Mag-Ox] 400 mg PO DAILY Midodrine HCl [ProAmantine] 2.5 mg PO TID Discharge Medication List Albuterol Inhaler [Ventolin Hfa Inhaler] 2 puff INHALATION RT-Q6H PRN 12/22/14 [History] Sertraline [Zoloft] 200 mg PO DAILY 12/22/14 [History] Atorvastatin [Lipitor] 20 mg PO HS 06/20/22 [History] Cholecalciferol [Vitamin D3 (25 Mcg = 1000 Iu)] 25 mcg PO DAILY 09/18/22 [History] Anastrozole [Arimidex] 1 mg PO DAILY 09/23/23 [History] sitaGLIPtin [Januvia] 25 mg PO DAILY 09/23/23 [History] Abemaciclib [Verzenio] 150 mg PO BID 10/12/23 [History] Calcium Carbonate [Calcium] 1,200 mg PO DAILY 10/12/23 [History] Potassium Chloride ER [K-Dur 20] 20 meq PO BID 10/12/23 [History] allopurinoL 100 mg PO BID 10/12/23 [History] Acetaminophen Tab [Tylenol] 650 mg PO Q6H PRN 12/10/24 [History] Cranberry 450mg 450 mg PO BID 12/10/24 [History] Loperamide HCl [Imodium A-D] 2 - 4 mg PO QID PRN 12/10/24 [History] Magnesium Hydroxide [Milk of Magnesia Concentrate] 7,200 mg PO Q72H PRN 12/10/24 [History] Ondansetron [Zofran] 4 mg PO DAILY 12/10/24 [History] traZODone HCL [Desyrel] 50 mg PO HS 12/10/24 [History] Aspirin 81 mg PO DAILY tab 12/14/24 [Rx] Spironolactone [Aldactone] 25 mg PO DAILY tab 12/14/24 [Rx] traMADol HCl [Ultram] 50 mg PO TID PRN #6 tab 01/02/25 [Rx] Meclizine [Antivert] 25 mg PO TID PRN tab 01/05/25 [Rx] Midodrine [ProAmatine] 10 mg PO AC-TID tab 01/05/25 [Rx] Sennosides [Senokot] 8.6 mg PO BID tab 01/05/25 [Rx] bisacodyL [Dulcolax] 10 mg RECTAL HS suppositor 01/05/25 [Rx] Follow up Appointment(s)/Referral(s): Jabari Thacker MD [STAFF PHYSICIAN] - 1 Week Enrique Hope MD [STAFF PHYSICIAN] - 1-2 Days None,Stated [Primary Care Provider] - 1-2 days Ambulatory/Diagnostic Orders: Basic Metabolic Panel [LAB.AMB] Time Frame: 3 Days, Location: None Selected Activity/Diet/Wound Care/Special Instructions: Return to [facility] Continue 2 more days of oral ceftin twice daily on discharge Repeat BMP Midodrine has been increased Follow up with cardiology in 1 week Discharge Disposition: TRANSFER TO SNF/ECF
--- NOTE | 2025-01-05 15:30 | P.PN ---
Subjective Progress Note Date: 01/05/25 Principal diagnosis: Reason for follow-up is ESBL E. coli UTI Patient is a 54-year-old female with a past medical history significant for Asthma, Cancer, Diabetes Mellitus, Musculoskeletal Disorder, Osteoarthritis (OA), Respiratory Disorder, Sleep Apnea/CPAP/BIPAP presenting to the hospital for evaluation of syncopal episode also have a urinary symptoms diagnosed with a UTI urine positive for ESBL prompted this consultation. On today's evaluation that is 01/05/2025, Patient is afebrile this morning patient denies having any chest pain shortness of breath or cough, the patient is currently on room air, patient denies any abdominal pain no diarrhea no nausea no vomiting. No new lab has been obtained today Objective - Vital Signs Vital signs: Vital Signs Temp 98.1 F 01/05/25 11:36 Pulse 93 01/05/25 13:42 Resp 16 01/05/25 11:36 BP 99/62 01/05/25 11:36 Pulse Ox 97 01/05/25 11:36 FiO2 Intake & Output 01/04/25 01/05/25 01/05/25 18:59 06:59 18:59 Intake Total 130 Output Total 600 200 Balance -600 -70 Weight 127 kg Intake: IV 10 0.9 10 Oral 120 Output: Urine 600 200 Other: Voiding Method External Catheter External Catheter Diaper # Voids 1 1 # Bowel Movements 1 1 - Exam GENERAL DESCRIPTION: Middle-age female lying in bed in no distress RESPIRATORY SYSTEM: Unlabored breathing , decreased breath sounds at bases HEART: S1 S2 regular rate and rhythm , ABDOMEN: Soft , no tenderness EXTREMITIES: No edema feet - Labs CBC & Chem 7: 01/01/25 07:06 01/04/25 05:54 Assessment and Plan (1) Infection due to ESBL-producing Escherichia coli Current Visit: Yes Status: Acute Code(s): A49.8 - OTHER BACTERIAL INFECTIONS OF UNSPECIFIED SITE; Z16.12 - EXTENDED SPECTRUM BETA LACTAMASE (ESBL) RESISTANCE SNOMED Code(s): 543712415 (2) UTI (urinary tract infection) Current Visit: Yes Status: Acute Code(s): N39.0 - URINARY TRACT INFECTION, SITE NOT SPECIFIED SNOMED Code(s): 78602238 Plan: 1patient presented to hospital with a near syncopal episode and this patient was having urinary symptoms of burning frequency suprapubic pain positive UA now with urine culture growing ESBL E. coli likely representing cystitis clinical no t behaving as deep infection 2-patient has received 3 doses of Invanz should be done for cystitis no need for antibiotic on discharge Dictation was produced using [employer] dictation software. please excuse any grammatical, word or spelling errors. Time with Patient: Less than 30
[2025-01-05 15:51] VITALS: BP 94/53; PULSE 80; TEMP 97.8
== END 2025-01-05 16:57 ==
LOC: EC 15:45 → 3SCARD 21:22
PROVIDERS: ADMIT Hospitalist; ATTEND Hospitalist
DX: R55 Syncope and collapse (principal); R42 Dizziness and giddiness; N39.0 Urinary tract infection, site not specified; B96.20 Unspecified Escherichia coli [E. coli] as the cause of diseases classified elsewhere; Z16.12 Extended spectrum beta lactamase (ESBL) resistance; E11.9 Type 2 diabetes mellitus without complications; J45.909 Unspecified asthma, uncomplicated; G47.33 Obstructive sleep apnea (adult) (pediatric); F41.9 Anxiety disorder, unspecified; F32.A Depression, unspecified; E78.5 Hyperlipidemia, unspecified; I51.7 Cardiomegaly; E66.01 Morbid (severe) obesity due to excess calories; Z68.43 Body mass index [BMI] 50.0-59.9, adult; Z85.3 Personal history of malignant neoplasm of breast; Z90.10 Acquired absence of unspecified breast and nipple; Z79.82 Long term (current) use of aspirin; Z79.84 Long term (current) use of oral hypoglycemic drugs; Z79.811 Long term (current) use of aromatase inhibitors; Z79.899 Other long term (current) drug therapy; Z88.5 Allergy status to narcotic agent
CPT/HCPCS: 96376; 96366 ×4; 96367; 96375 ×2; 96361; 96365; 99285; 36415; 93005; 93306; 97530; 97162; 85379; 80053 ×2; 80048 ×2; 83605; 84484 ×2; 85025 ×3; 85610; 81001; 87086; 87077; 87186; 70450; 71275; G0378 ×7; J1200; J0696 ×5; J1335 ×3; S0170 ×6; J3490; Q9967; J2919